=== PATIENT | female | born 1965 | race Two or more races ===

== ENCOUNTER 2024-09-20 19:40 | Emergency (ER) | payer OTHER, MEDICAID, SELFPAY ==
[2024-09-20 19:42] VITALS: BMI 35.7
[2024-09-20 20:27] VITALS: BP 122/78; PULSE 107; RESP 20; TEMP 37.2; O2SAT 90
[2024-09-20 20:54] VITALS: PULSE 93; O2SAT 93
--- NOTE | 2024-09-20 20:55 | EKG_ITS ---
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
--- NOTE | 2024-09-20 20:55 | XR_ITS ---
Examination: AP lateral chest 2 views Technique: Sitting AP lateral chest 2 views Exam date and time: September 20, 2024 2113 hrs. Comparison August 27, 2024 Indications: Onset chest pain today. Findings: Mild prominence left ventricle Mild opacity left base Prominent central enlarged pulmonary arteries with vascular congestion Early septal edema at the lung bases Impression: Early heart failure Pulmonary artery hypertension Suspicious for early pneumonia left base
--- NOTE | 2024-09-20 20:56 | PD.EDRME ---
Rapid Medical Screening Exam RME Arrival date/time: 09/20/24 19:40 58-year-old female with past medical history of rheumatoid arthritis and COPD on home oxygen presents emergency department complaining of chest pain and generalized bodyaches and pain has been ongoing for several days. Chief Complaint: General Adult/Misc Complain Time Seen by Provider: 09/20/24 20:52 Vital signs: Vital Signs Temperature 98.9 F 09/20/24 20:27 Pulse Rate 107 H 09/20/24 20:27 Respiratory Rate 20 09/20/24 20:27 Blood Pressure 122/78 09/20/24 20:27 Pulse Oximetry (%) 90 L 09/20/24 20:27 Oxygen Delivery Method Room Air 09/20/24 20:27 Vital signs reviewed by provider: Yes
[2024-09-20] MEDS: ACETAMINOPHEN 500 MG TABLET 1000 MG PO (21:02)
[2024-09-20 21:43] LABS: Basophils # (Auto) 0.1 Thou/mm3 (0.0-0.2); Basophils % (Auto) 1 % (0-2.5); Eosinophils # (Auto) 0.2 Thou/mm3 (0.0-0.5); Eosinophils % (Auto) 2 % (0-10); Hematocrit 45.3 % (36.0-46.0); Hemoglobin 15.1 g/dL (12.0-16.0); Immature Granulocytes % (Auto) 0 % (0-0); Immature Granulocytes Auto 0.03 Thou/mm3 (0.00-0.00); Lymphocytes # (Auto) 2.2 Thou/mm3 (1.0-4.8); Lymphocytes % (Auto) 21 % (10-50); Mean Corpuscular HGB Conc 33.3 g/dl (31.0-37.0); Mean Corpuscular Hemoglobin 27.6 pg (25.0-35.0); Mean Corpuscular Volume 83 fL (80-100); Monocytes # (Auto) 0.6 Thou/mm3 (0.0-0.8); Monocytes % (Auto) 6 % (0-12); Neutrophils # (Auto) 7.4 Thou/mm3 (1.8-7.7); Neutrophils % (Auto) 71 % (37-80); Nucleated Red Blood Cell % 0 /100 WBC (0); Platelet Count 291 Thou/mm3 (140-440); RDW Standard Deviation 40.5 fL (36.4-46.3); Red Blood Count 5.48 Miln/mm3 (4.00-5.20); White Blood Count 10.5 Thou/mm3 (3.6-11.0)
[2024-09-20 21:47] VITALS: BP 100/68; PULSE 88; PULSE 96; RESP 20; RESP 22; O2SAT 95; O2SAT 96
--- NOTE | 2024-09-20 21:59 | EDNOTE_ITS ---
ED General RME/HPI General Chief complaint: General Adult/Misc Complain Stated complaint: ARTHRITIS PAIN, ITCHING TO FEET Time Seen by Provider: 09/20/24 20:52 Arrival date/time: 09/20/24 19:40 RME / HPI RME / HPI narrative: 09/20/24 19:40 58-year-old female with past medical history of rheumatoid arthritis and COPD on home oxygen presents emergency department complaining of chest pain and generalized bodyaches and pain has been ongoing for several days. ------ Dr. Enrique's Main ED Evaluation: 58to female with pmhx HTN, HLD, DM, hypothyroidismm, COPD, RA, szhizoeffective disorder presents to the ED for multiple complaints. Patient states she is having a flare-up of arthritis to her right hand and is requesting a shot for pain. She also states she wants to get my heart checked due to having palpitations, shortness of breath, and chest pain due to being upset. She denies any N/V/D, fever, chills, sweating, abdominal pain, UTI symptoms or any other associated symptoms. Denies any falls or injuries. Related Data Home Medications ?Medication ?Instructions ?Recorded ?Confirmed glipizide 5 mg tablet 5 mg PO BID 06/10/19 03/19/20 levothyroxine 25 mcg tablet 25 mcg PO QDAY 06/10/19 03/19/20 atorvastatin 40 mg tablet 40 mg PO HS 11/22/19 03/19/20 duloxetine 60 mg capsule,delayed 60 mg PO QDAY 03/19/20 03/19/20 release gabapentin 300 mg capsule 300 mg PO TID 03/19/20 03/19/20 hydrochlorothiazide 12.5 mg capsule 12.5 mg PO QAM 03/19/20 03/19/20 hydrocodone 5 mg-acetaminophen 325 1 tab PO Q4H PRN Pain 03/19/20 03/19/20 mg tablet omeprazole 40 mg capsule,delayed 40 mg PO QDAY 03/19/20 03/19/20 release prednisone 10 mg tablet 30 mg PO QDAY 03/19/20 03/19/20 risperidone 2 mg tablet 2 mg PO BID 03/19/20 03/19/20 Previous Rx's ?Medication ?Instructions ?Recorded metronidazole 500 mg tablet 500 mg PO Q8H #20 tabs 03/20/20 acetaminophen 325 mg tablet 650 mg (2 x 325 mg) PO Q4H #60 tabs 03/26/20 (Tylenol) hydrocodone 5 mg-acetaminophen 325 1 tab PO BID PRN pain #6 tabs 12/30/21 mg tablet psyllium 1 tbsp PO QDAY #300 grams 03/21/23 Allergies Allergy/AdvReac Type Severity Reaction Status Date / Time levofloxacin [From Levaquin] Allergy Severe Swelling Verified 08/27/24 06:56 of Lip/Tongue/Throat methotrexate Allergy Severe Redness of Verified 08/27/24 06:56 Skin Review of Systems Review of Systems Systems Reviewed: All systems reviewed, normal except as documented Narrative Review of Systems: Gen: No fever, no chills, no weight loss EYES: No discharge, no visual changes, no pain HEENT: No ear pain, no congestion, no sore throat PULM: + shortness of breath, no cough, no congestion CV: + chest pain, no dyspnea on exertion, + palpitations GI: No nausea, no vomiting, no diarrhea, no pain, no constipation : No frequency, no urgency, no dysuria Musc/skel: No joint pain, no back pain Skin: No rash. Warm and dry. Psyc: No hallucinations, no depression Heme/Lymph: No easy bleeding or bruising tendencies Neuro: No weakness, no headache Past Medical History Past Medical History NEUROLOGIC: Positive Neurological Disorders and Nunez's Palsy CARDIAC: Positive Angina, Hypercholesterolemia and Hypertension; Negative Cardiac Disorders or Congestive Heart Failure RESPIRATORY: Positive Asthma and Pneumonia; Negative Chronic Obstructive Pulmonary Disease (COPD) GASTROINTESTINAL: Positive Gastrointestinal Disorders, Gall Bladder Disease, Diverticulitis and Hiatal Hernia GENITOURINARY: Positive Genitourinary Disorders and Kidney Stones; Negative Renal Disease REPRODUCTIVE: Positive Endometriosis and Previous Pregnancies MUSCULOSKELETAL: Positive Musculoskeletal Disorders and Rheumatoid Arthritis ENT: Positive Cataracts and Glaucoma ENDOCRINE: Positive Endocrine Disorders, Diabetes Mellitus Type 2 and Hypothyroidism; Negative Diabetes Mellitus Type 1 HEMATOLOGIC: Positive Blood Disorders, Anemia and Sickle Cell Disease OTHER HISTORY: Positive Rubella (French Measles); Negative Autoimmune Disease Family History FAMILY HISTORY: Positive Family Psychiatric Problems, Family Cardiac Disorders and Family Gastrointestinal Problems; Negative Family Respiratory Disorders, Family Cancer or Family Surgery Surgical History SURGICAL: Positive Angiogram, Abdominal Surgery and Tubal Ligation Social History SMOKING STATUS: Never smoker SECOND HAND EXPOSURE: No 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 Exam Narrative Physical exam: GEN. APPEARANCE: Patient is alert awake oriented x3 under no distress, has typical behavior of bipolar/schizoeffective disorder; does not look ill/ toxic. Patient is cooperative, but talks nonstop. VITALS: All vitals were reviewed and the pulse ox is 95% on room air, which is normal according to my interpretation. HEENT: Normocephalic, atraumatic and nontender. Pupils are equal and reactive to light and accommodation. Oral mucosa are moist. NECK: Supple, nontender, no meningismus, no JVD. CHEST: Nontender on palpation, no deformity and no crepitus. CARDIOVASCULAR: Heart regular rhythm no murmur or gallop rub or extra beats; not tachycardic. LUNGS: Clear to auscultation bilaterally with symmetrical chest rise. No laboring tachypnea or wheezing. No intercostal subcostal retraction. No rales and no rhonchi. ABDOMEN: Soft, flat, nontender at all, no guarding or rebound tenderness. There are no abnormal masses palpated. No pulsatile masses or bruits. Active and normal bowel sounds. GENITALIA: Not examined. RECTAL EXAM: Not done. EXTREMITIES: Nontender. No edema. No cyanosis. Patient has chronic deformities of her fingers to both hand, indicating chronic rheumatoid arthritis. Patient is able to move all 4 extremities well. SKIN: Warm and dry, no rashes noted. MUSCULOSKELETAL: No lumbar or midline bony tenderness. There is no CVA tenderness. No paraspinal muscle spasm or tenderness. NEURO: Cranial nerves II through XII grossly intact. There is no focalization. GCS is 15. PSYCHIATRIC: Patient is in normal mood and affect, cooperative. LYMPHATICS: No major lymphadenopathy noted. Course Course Course Narrative: CXR is ordered for determining the etiology of chest pain. Quality Measures none Orders Category Date Time Status EKG (ED ONLY) *Do not use* NOW Care 09/20/24 20:55 Completed EKG (ED Only) Stat Exams 09/20/24 20:55 Draft XR chest 2V Stat Exams 09/20/24 20:55 Completed B-Type Natriuretic Peptide Stat Lab 09/20/24 21:25 Completed CBC Stat Lab 09/20/24 21:25 Completed Comprehensive Metabolic Panel Stat Lab 09/20/24 21:25 Completed Drug Screen,Urine Stat Lab 09/20/24 22:01 Received LDH (Lactate Dehydrogenase) Stat Lab 09/20/24 21:25 Completed Magnesium Stat Lab 09/20/24 21:25 Completed Partial Thromboplastin Time Stat Lab 09/20/24 21:25 Completed Prothrombin Time with INR Stat Lab 09/20/24 21:25 Completed Troponin I Stat Lab 09/20/24 21:25 Completed Urinalysis, C/S if Indicated Stat Lab 09/20/24 22:01 Received Acetaminophen Tab [Tylenol ES Tab] Med 09/20/24 20:55 Discontinued 1,000 mg PO X1 ONE Ketorolac Inj [Toradol Inj] Med 09/20/24 22:35 Once 30 mg IM X1 ONE Vital Signs Vital signs: Vital Signs Temperature 98.9 F 09/20/24 20:27 Pulse Rate 107 H 09/20/24 20:27 Respiratory Rate 20 09/20/24 20:27 Blood Pressure 122/78 09/20/24 20:27 Pulse Oximetry (%) 90 L 09/20/24 20:27 Oxygen Delivery Method Room Air 09/20/24 20:27 Procedures -ED EKG Interpretation #1: Date of EK09/20/24 Rate: 99 Interpretation: Interpreted by me EKG Impression: Normal sinus rhythm, No acute ST-T changes, No ectopy, No ischemic changes, Sinus tachycardia, Normal intervals and Normal axis Additional EKG comment: 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 [facility] Patient data External records reviewed:: [facility] previous records (Per chart review, patient was seen here on 03/21/23 for constipation.) Clinical information provided by:: patient Social determinants that could affect healthcare access:: mental health Patient has the following chronic illnesses:: HTN, HLD, DM, hypothyroidismm, COPD, RA How is presenting disease/condition affected by chronic disease/condition?: u neffected by Evaluation data The following diagnostics were reviewed and interpreted by me:: lab results, radiology exam(s) and EKG tracing(s) Lab and/or radiology exams considered but not ordered:: none Interpretation Summary: See above under [facility] narrative. ----- [place] Report Signed Patient: MELVIN SEGURA [facility]. Record#: [id number] Birthdate: 1965 Age/Sex: 58 / F Location: [facility] Attending Dr: Ordering Physician: Marleni Barreto ([facility])Nikita Date of Service: 09/20/24 Procedure(s): XR chest 2V Accession Number(s): [id number] cc: Allan Gan MD; Marleni Barreto ([facility]),Nikita PAYTON~ Examination: AP lateral chest 2 views Technique: Sitting AP lateral chest 2 views Exam date and time: September 20, 2024 2113 hrs. Comparison August 27, 2024 Indications: Onset chest pain today. Findings: Mild prominence left ventricle Mild opacity left base Prominent central enlarged pulmonary arteries with vascular congestion Early septal edema at the lung bases Impression: Early heart failure Pulmonary artery hypertension Suspicious for early pneumonia left base Dictated By: Allan Gan MD Signed By: <Electronically signed by Allan Gan MD in OV> 09/20/242125 Medications Medications considered but not ordered:: nonese Medication administrations:: Medication Administration History Discontinued Medications Acetaminophen (Acetaminophen 500 Mg Tablet) 1,000 mg PO X1 ONE Stop: 09/20/24 20:56 Last Admin: 09/20/24 21:02 Dose: 1,000 mg Documented By: OA see above Consultations Consultation(s) initiated? (list below): No Diagnosis Differential Diagnosis ED Complaint MDM: RA, osteoarthritis, anxiety, schizoeffective disorder Most likely diagnosis given after review of the tests above:: see below Admission Indicated Admission indicated?: not indicated Explain why admission is indicated or not indicated:: See MDM. Patient is stable to be discharged and does not meet admission criteria. Admission Request Was there a request for admission?: No Disposition Plan Disposition Plan: Discharge Discharge Attestation Discharge Attestation: The patient and all family members were given an opportunity to ask questions and understood the discharge instructions. Discharge instructions specifically effects, indications for sooner follow up or return to the emergency department, and the expected course of current diagnosis. Patient condition: Stable Medical Decision Making MDM Narrative MDM Narrative: Scribe Attestation: 09/20/24 - Kelly Mcclure am scribing for and in the presence of Dr. Enrique. Patient has a history of schizoaffective disorder and she decided to come in today because she is got pain in her both hands secondary to her arthritis and she wants to get a shot of Toradol. She denies any fall or injury. She denies any other symptoms such as vomiting fever sweating. She said that she wanted her heart to be checked because she had some chest pain and heart palpitations. She wants to be placed in a halfway. She is hemodynamically stable and her vital signs are all within normal limits. She is in no distress. All her lab work is unremarkable except for her blood sugar at 290. But she is diabetic. We will give her a shot of Toradol 30 mg IM. Provider Notation: Although this document has been carefully reviewed, there may still be some phonetic and other typographical errors. These errors are purely grammatical due to imperfections in the software program and should not be construed in any way to compromise the substance of the patient's medical care during this visit. Differential Diagnosis Differential Diagnosis: RA, osteoarthritis, anxiety, schizoeffective disorder Lab Data 09/20/24 21:25 09/20/24 21:25 Labs: Lab Results 09/20/24 Range/Units 21:25 WBC 10.5 (3.6-11.0) Thou/mm3 RBC 5.48 H (4.00-5.20) Miln/mm3 Hgb 15.1 (12.0-16.0) g/dL Hct 45.3 (36.0-46.0) % MCV 83 (80-100) fL MCH 27.6 (25.0-35.0) pg MCHC 33.3 (31.0-37.0) g/dl RDW Std Deviation 40.5 (36.4-46.3) fL Plt Count 291 (140-440) Thou/mm3 Neut % (Auto) 71 (37-80) % Lymph % (Auto) 21 (10-50) % Harrison % (Auto) 6 (0-12) % Eos % (Auto) 2 (0-10) % Baso % (Auto) 1 (0-2.5) % Neut # (Auto) 7.4 (1.8-7.7) Thou/mm3 Lymph # (Auto) 2.2 (1.0-4.8) Thou/mm3 Harrison # (Auto) 0.6 (0.0-0.8) Thou/mm3 Eos # (Auto) 0.2 (0.0-0.5) Thou/mm3 Baso # (Auto) 0.1 (0.0-0.2) Thou/mm3 Immature Gran # (Auto) 0.03 H (0.00-0.00) Thou/mm3 Absolute Nucleated RBC 0.00 (0.00-0.00) Thou/mm3 Immature Gran % 0 (0-0) % Nucleated RBC % 0 (0) /100 WBC PT 10.8 (9.0-12.2) Seconds INR 1.0 (0.9-1.3) APTT 24.5 (22.0-36.0) Seconds Sodium 136 (136-145) mMol/L Potassium 3.9 (3.4-5.1) mMol/L Chloride 105 (98-107) mMol/L Carbon Dioxide 24.4 (20.0-31.0) mMol/L Anion Gap 7 (7-16) BUN 9 (9-23) mg/dL Creatinine 0.9 (0.6-1.3) mg/dL Estim Creat Clear Calc 66.7 (>60) mL/min eGFR > 60 (60 - ) See Note BUN/Creatinine Ratio 10 L (12-20) Ratio Glucose 292 H (74-106) mg/dL Calculated Osmolality 281 (275-295) Calcium 9.3 (8.3-10.6) mg/dL Corrected Calcium 9.3 (8.5-10.1) mg/dL Magnesium 1.7 (1.6-2.6) mg/dL Total Bilirubin 0.6 (0.3-1.2) mg/dL AST 18 (0-34) U/L ALT 23 (10-49) U/L Alkaline Phosphatase 132 H (46-116) U/L Lactate Dehydrogenase 206 (120-246) U/L Troponin I < 0.020 (0.0-0.045) ng/mL B-Natriuretic Peptide 44 (0-100) pg/mL Total Protein 6.7 (5.7-8.2) gm/dL Albumin 4.0 (3.5-5.0) gm/dL Globulin 2.7 (2.3-3.5) gm/dL Albumin/Globulin Ratio 1.5 (1.2-2.2) Discharge Plan Plan Patient Disposition: HOME (Self Care) Prescriptions/Referrals Prescriptions/Med Rec: No Action levothyroxine 25 mcg Tablet 25 mcg PO QDAY glipizide 5 mg Tablet 5 mg PO BID prednisone 10 mg tablet 30 mg PO QDAY Rx Instructions: START DATE 03/06/20 hydrocodone-acetaminophen 5-325 mg tablet 1 tab PO Q4H PRN (Reason: Pain) omeprazole 40 mg capsule,delayed release(DR/EC) 40 mg PO QDAY risperidone 2 mg tablet 2 mg PO BID hydrochlorothiazide 12.5 mg capsule 12.5 mg PO QAM gabapentin 300 mg capsule 300 mg PO TID duloxetine 60 mg capsule,delayed release(DR/EC) 60 mg PO QDAY metronidazole 500 mg tablet 500 mg PO Q8H Qty: 20 0RF atorvastatin 40 mg tablet 40 mg PO HS Patient Comments: take 1 tablet by mouth at bedtime acetaminophen [Tylenol] 325 mg tablet 650 mg PO Q4H Qty: 60 0RF hydrocodone-acetaminophen 5-325 mg tablet 1 tab PO BID MDD 10 PRN (Reason: pain) Qty: 6 0RF psyllium Powder 1 tbsp PO QDAY Qty: 300 0RF Rx Instructions: mix into at least 8 oz of water or juice before administering Referrals: Francisco Walker [Primary Care Provider] - 09/23/24 10:00 am Problem List Clinical Impression: Chronic polyarticular juvenile rheumatoid arthritis, Schizoaffective disorder Patient/Caregiver Discharge Instructions Education Materials: ED Schizoaffective Disorder Additional Instructions: Follow-up with your clinic in 2 to 3 days for recheck. Print Language: Czech Stand Alone Forms: [employer] Award Info., Patient Portal Info Letter
[2024-09-20 22:02] LABS: Partial Thromboplastin Time 24.5 Seconds (22.0-36.0); Prothrombin Time 10.8 Seconds (9.0-12.2)
[2024-09-20 22:04] LABS: B-Type Natriuretic Peptide 44 pg/mL (0-100)
[2024-09-20 22:15] LABS: Alanine Aminotransferase 23 U/L (10-49); Albumin/Globulin Ratio 1.5 (1.2-2.2); Alkaline Phosphatase 132 U/L (46-116); Anion Gap 7 (7-16); Aspartate Amino Transferase 18 U/L (0-34); BUN/Creatinine Ratio 10 Ratio (12-20); Bilirubin,Total 0.6 mg/dL (0.3-1.2); Blood Urea Nitrogen 9 mg/dL (9-23); Calcium 9.3 mg/dL (8.3-10.6); Calcium (Corrected) 9.3 mg/dL (8.5-10.1); Carbon Dioxide 24.4 mMol/L (20.0-31.0); Chloride 105 mMol/L (98-107); Creatinine (Component) 0.9 mg/dL (0.6-1.3); Estimated Creatinine Clearance 66.7 mL/min (>60); Globulin 2.7 gm/dL (2.3-3.5); Glucose 292 mg/dL (74-106); Magnesium 1.7 mg/dL (1.6-2.6); Osmolality,Calculated 281 (275-295); Potassium 3.9 mMol/L (3.4-5.1); Sodium 136 mMol/L (136-145); Total Protein 6.7 gm/dL (5.7-8.2); Troponin I < 0.020 ng/mL (0.0-0.045); eGFR > 60 See Note
[2024-09-20 22:27] LABS: LDH (Lactate Dehydrogenase) 206 U/L (120-246)
[2024-09-20] MEDS: KETOROLAC INJ 60 MG/2 ML VIAL 30 MG IM (22:49)
== END 2024-09-20 22:56 | disposition home or self-care (01) ==
PROVIDERS: Emergency Provider Emergency Medicine
DX: M08.3 Juvenile rheumatoid polyarthritis (seronegative) (principal); F25.9 Schizoaffective disorder, unspecified; R00.2 Palpitations; I11.0 Hypertensive heart disease with heart failure; I50.9 Heart failure, unspecified; E78.00 Pure hypercholesterolemia, unspecified
CPT/HCPCS: 36415; 71046; 80053; 80307; 81001; 83615; 83735; 83880; 84484; 85025; 85610; 85730; 93005; 96372; 99283; J1885; A9270

== ENCOUNTER 2024-09-26 01:32 | Emergency (ER) | payer OTHER, MEDICAID, SELFPAY ==
[2024-09-26 01:33] VITALS: BMI 31.1
[2024-09-26 01:39] VITALS: BP 129/81; PULSE 112; RESP 19; TEMP 37.3; O2SAT 96
--- NOTE | 2024-09-26 01:41 | EKG_ITS ---
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
--- NOTE | 2024-09-26 01:41 | XR_ITS ---
Examination: AP chest single view TECHNIQUE: AP portable sitting chest single view Exam date and time: September 26, 2024 0144 hours Comparison September 20, 2024 INDICATIONS: Shortness of breath today. FINDINGS: Mild prominence left ventricle Central pulmonary vasculature is engorged in prominent No lobar pneumonia Moderate osteopenia IMPRESSION: Suspicious for pulmonary artery hypertension Moderate vascular congestion
--- NOTE | 2024-09-26 01:44 | EDNOTE_ITS ---
ED SOB =RME/HPI General Chief Complaint: Shortness of Breath/Dyspnea Stated Complaint: SOB Time Seen by Provider: 09/26/24 01:41 Arrival date/time: 09/26/24 01:32 RME / HPI RME / HPI Narrative: This section includes all my notes and documentations, including HPI, PE, and ED course. Chilo Hills MD HPI: 58-year-old female with COPD here with about a week history of worsening cough, productive cough, purulent sputum, and dyspnea. No fever. No chest pain. No other complaints. ROS: Respiratory: negative except as documented in HPI. Gastrointestinal: negative except as documented in HPI. Genitourinary: negative except as documented in HPI. Musculoskeletal: negative except as documented in HPI. Skin: negative except as documented in HPI. Neurological: negative except as documented in HPI. Physical Exam: General: Alert and oriented. No acute distress when remaining still. Eyes: Conjunctivae and lids clear. ENT: No nasal congestion. Neck: Supple. Heart: RRR. Lungs: No respiratory distress. Moderately decreased air movement with diffuse rhonchi. Legs: No clubbing, cyanosis, edema. Skin: Warm and dry. Neuro: Alert and oriented X 3. I reviewed all diagnostic test results. My interpretation of the EKG is sinus rhythm with nonspecific ST-T changes. My interpretation of the chest x-ray is increased bronchial markings. COPD/influenza negative. At this point, diagnoses include bronchitis. Treatment here included Zithromax and prednisone and DuoNeb. Significant improvement noted subjectively and objectively. Recommended a trial of outpatient treatment. Based on my best medical judgment, made decision no further evaluation or treatment indicated at this time. Patient understands and agrees to the discharge instructions customized and printed, see below. Discharge instructions from Dr. Hills: --No physical exertion for 3 days to help rest the lungs. ?-No smoking or exposure to smoking or pets or dust or cold or humidity. --Zithromax to kill the germs causing the bronchitis. --Prednisone to help decrease the swelling in the airways. --Albuterol 2 puffs every 4-6 hours for 3 days to help keep the airways open. Then as needed for cough or shortness of breath. --See a private doctor next week for recheck. --Seek immediate medical care with worsening or with any concerns. Chilo Hills MD Related Data Home Medications ?Medication ?Instructions ?Recorded ?Confirmed glipizide 5 mg tablet 5 mg PO BID 06/10/19 03/19/20 levothyroxine 25 mcg tablet 25 mcg PO QDAY 06/10/19 03/19/20 atorvastatin 40 mg tablet 40 mg PO HS 11/22/19 03/19/20 duloxetine 60 mg capsule,delayed 60 mg PO QDAY 03/19/20 03/19/20 release gabapentin 300 mg capsule 300 mg PO TID 03/19/20 03/19/20 hydrochlorothiazide 12.5 mg capsule 12.5 mg PO QAM 03/19/20 03/19/20 hydrocodone 5 mg-acetaminophen 325 1 tab PO Q4H PRN Pain 03/19/20 03/19/20 mg tablet omeprazole 40 mg capsule,delayed 40 mg PO QDAY 03/19/20 03/19/20 release prednisone 10 mg tablet 30 mg PO QDAY 03/19/20 03/19/20 risperidone 2 mg tablet 2 mg PO BID 03/19/20 03/19/20 Previous Rx's ?Medication ?Instructions ?Recorded metronidazole 500 mg tablet 500 mg PO Q8H #20 tabs 03/20/20 acetaminophen 325 mg tablet 650 mg (2 x 325 mg) PO Q4H #60 tabs 03/26/20 (Tylenol) hydrocodone 5 mg-acetaminophen 325 1 tab PO BID PRN pain #6 tabs 12/30/21 mg tablet psyllium 1 tbsp PO QDAY #300 grams 03/21/23 albuterol sulfate 90 mcg/actuation 2 inh inhalation QID PRN shortness 09/26/24 aerosol inhaler of breath or wheezing #8.5 grams azithromycin 500 mg tablet 500 mg PO QDAY 3 days #3 tabs 09/26/24 (Zithromax TRI-SANTHOSH) prednisone 50 mg tablet 50 mg PO QDAY #3 tabs 09/26/24 Allergies Allergy/AdvReac Type Severity Reaction Status Date / Time levofloxacin [From Levaquin] Allergy Severe Swelling Verified 09/26/24 01:36 of Lip/Tongue/Throat methotrexate Allergy Severe Redness of Verified 09/26/24 01:36 Skin Course Quality Measures none Orders Category Date Time Status Bedside COVID-19 Antigen Test NOW Care 09/26/24 01:41 Active Bedside Influenza A&B Antigen Test NOW Care 09/26/24 01:41 Completed EKG (ED ONLY) *Do not use* NOW Care 09/26/24 01:41 Completed EKG (ED Only) Stat Exams 09/26/24 01:41 Draft XR chest 1V portable Stat Exams 09/26/24 01:41 Taken Albuterol/Ipratr Rt Ofelia [Duoneb Rt Ofelia] Med 09/26/24 01:42 Discontinued 3 ml INH X1 ONE Azithromycin Po [Zithromax PO] Med 09/26/24 02:31 Discontinued 500 mg PO X1 ONE DiphenhydrAMINE [Benadryl] Med 09/26/24 01:42 Discontinued 50 mg PO X1 ONE predniSONE Med 09/26/24 01:42 Discontinued 60 mg PO X1 ONE Vital Signs Vital signs: Vital Signs Temperature 99.1 F 09/26/24 01:39 Pulse Rate 112 H 09/26/24 01:39 Respiratory Rate 19 09/26/24 01:39 Blood Pressure 129/81 09/26/24 01:39 Pulse Oximetry (%) 96 09/26/24 01:39 Oxygen Delivery Method Room Air 09/26/24 01:39 Shortness of Breath / Dyspnea Patient data External records reviewed:: [facility] previous records Clinical information provided by:: patient Social determinants that could affect healthcare access:: none Patient has the following chronic illnesses:: COPD How is presenting disease/condition affected by chronic disease/condition?: exacerbated by Evaluation data The following diagnostics were reviewed and interpreted by me:: lab results, radiology exam(s) and EKG tracing(s) (My interpretation of the EKG is: Sinus rhythm (107 bpm) with nonspecific ST-T changes. Chilo Hills MD) Lab and/or radiology exams considered but not ordered:: None Interpretation Summary: Bronchitis Medications / Prescriptions Medications or Prescriptions considered but not ordered:: None Medication administrations:: Medication Administration History Discontinued Medications Albuterol/Ipratropium (Albuterol/Ipratropium (Duoneb) Rt Ofelia 3 Ml Nebu) 3 ml INH X1 ONE Stop: 09/26/24 01:43 Azithromycin (Azithromycin 250 Mg Tablet) 500 mg PO X1 ONE Stop: 09/26/24 02:32 Diphenhydramine HCl (Diphenhydramine 25 Mg Capsule) 50 mg PO X1 ONE Stop: 09/26/24 01:43 Last Admin: 09/26/24 02:06 Dose: 50 mg Documented By: MIGUELINA Prednisone (Prednisone 20 Mg Tablet) 60 mg PO X1 ONE Stop: 09/26/24 01:43 Last Admin: 09/26/24 02:06 Dose: 60 mg Documented By: MIGUELINA Zithromax and prednisone and DuoNeb Consultations Consultation(s) initiated? (list below): No Diagnosis Shortness of Breath Differential Diagnosis: acute exacerbation of chronic obstructive airways disease, congestive heart failure, community acquired pneumonia and asthma with exacerbation Most likely diagnosis given after review of the tests above:: Bronchitis Admission Indicated Admission indicated?: not indicated Explain why admission is indicated or not indicated:: Admission criteria not met Admission Request Was there a request for admission?: No Disposition Plan Disposition Plan: Discharge Discharge Attestation Discharge Attestation: The patient and all family members were given an opportunity to ask questions and understood the discharge instructions. Discharge instructions specifically effects, indications for sooner follow up or return to the emergency department, and the expected course of current diagnosis. Patient condition: Stable Discharge Plan Plan Patient Disposition: HOME (Self Care) Prescriptions/Referrals Prescriptions/Med Rec: New albuterol sulfate 90 mcg/actuation HFA aerosol inhaler 2 inh inhalation QID PRN (Reason: shortness of breath or wheezing) Qty: 8.5 0RF azithromycin [Zithromax TRI-SANTHOSH] 500 mg tablet 500 mg PO QDAY 3 Days Qty: 3 0RF prednisone 50 mg tablet 50 mg PO QDAY Qty: 3 0RF No Action levothyroxine 25 mcg Tablet 25 mcg PO QDAY glipizide 5 mg Tablet 5 mg PO BID prednisone 10 mg tablet 30 mg PO QDAY Rx Instructions: START DATE 03/06/20 hydrocodone-acetaminophen 5-325 mg tablet 1 tab PO Q4H PRN (Reason: Pain) omeprazole 40 mg capsule,delayed release(DR/EC) 40 mg PO QDAY risperidone 2 mg tablet 2 mg PO BID hydrochlorothiazide 12.5 mg capsule 12.5 mg PO QAM gabapentin 300 mg capsule 300 mg PO TID duloxetine 60 mg capsule,delayed release(DR/EC) 60 mg PO QDAY metronidazole 500 mg tablet 500 mg PO Q8H Qty: 20 0RF atorvastatin 40 mg tablet 40 mg PO HS Patient Comments: take 1 tablet by mouth at bedtime acetaminophen [Tylenol] 325 mg tablet 650 mg PO Q4H Qty: 60 0RF hydrocodone-acetaminophen 5-325 mg tablet 1 tab PO BID MDD 10 PRN (Reason: pain) Qty: 6 0RF psyllium Powder 1 tbsp PO QDAY Qty: 300 0RF Rx Instructions: mix into at least 8 oz of water or juice before administering Referrals: No Primary/Family,Physician [Primary Care Provider] - In 1 week Problem List Clinical Impression: Bronchitis Patient/Caregiver Discharge Instructions Discharge Activity: activity as tolerated Education Materials: ED Bronchitis with Wheezing (Adult) Additional Instructions: Discharge instructions from Dr. Hills: --No physical exertion for 3 days to help rest the lungs. ?-No smoking or exposure to smoking or pets or dust or cold or humidity. --Zithromax to kill the germs causing the bronchitis. --Prednisone to help decrease the swelling in the airways. --Albuterol 2 puffs every 4-6 hours for 3 days to help keep the airways open. Then as needed for cough or shortness of breath. --See a private doctor next week for recheck. --Seek immediate medical care with worsening or with any concerns. Print Language: Georgian Stand Alone Forms: Hilda Award Info., Patient Portal Info Letter
[2024-09-26] MEDS: predniSONE 20 MG TABLET 60 MG PO (02:06)
[2024-09-26] MEDS: DiphenhydrAMINE 25 MG CAPSULE 50 MG PO (02:06)
[2024-09-26 02:24] VITALS: PULSE 88; RESP 20; O2SAT 99
[2024-09-26] MEDS: ALBUTEROL/IPRATROPIUM (Duoneb) RT SOL 3 ML NEBU INH (02:24)
[2024-09-26] MEDS: AZITHROMYCIN 250 MG TABLET 500 MG PO (02:43)
[2024-09-26 03:00] VITALS: RESP 18; O2SAT 99
== END 2024-09-26 03:00 | disposition home or self-care (01) ==
PROVIDERS: Emergency Provider Emergency Medicine
DX: J40 Bronchitis, not specified as acute or chronic (principal); R00.0 Tachycardia, unspecified
CPT/HCPCS: 71045; 87400; 87811; 93005; 94640; 99283; A9270; J7512

== ENCOUNTER 2024-09-27 04:05 | Emergency (ER) | payer OTHER, MEDICAID, SELFPAY ==
[2024-09-27 04:05] VITALS: BP 135/82; PULSE 97; RESP 18; TEMP 36.8; O2SAT 95; BMI 35.7
--- NOTE | 2024-09-27 04:22 | PD.EDSOB ---
ED SOB =RME/HPI General Chief Complaint: Shortness of Breath/Dyspnea Stated Complaint: SOB; REQUESTING BREATHING TX. HX COPD Time Seen by Provider: 09/27/24 04:16 Arrival date/time: 09/27/24 04:05 58 year old female present to emergency room with c/o of shortness of breath tonight. history of COPD and recently diagnosed with bronchitis 1 week ago. symptoms are consisted with her COPD per patient. SEVERITY: Symptoms are described as being severe with limitations on activities of daily living CONTEXT: The patient is unable to identify any inciting events. DURATION/TIMING: The symptoms started approximately 1 day ASSOCIATED SYMPTOMS: The patient is unable to identify any other associated symptoms. MODIFYING FACTORS: The patient is unable to identify any alleviating or aggravating symptoms. PERTINENT ROS: no fevers, no cough, no pleuritic pain, no ripping or tearing sensations, denies any lower extremity edema and no unilateral swelling, no chest pain no nausea,vomiting, diarrhea, no dizziness/headache no rash no loc/syncope episode no abd/back pain no dsyuria,urgency,frequency REVIEW OF SYSTEMS: See History of Present Illness - with the exception of those mentioned in the history of present illness, all other systems reviewed and reported as negative GENERAL: In general the patient is awake, interactive, in an emergency department gurney. HEAD/EYES/EARS/NOSE/THROAT: normo-cephalic, atraumatic, mucus membranes are moist, anicteric, palpebral conjunctiva is pink, trachea is midline. CARDIOVASCULAR: regular rate and regular rhythm, no murmurs, heart sounds are not distant, strong pulses in all four extremities that are equal and symmetric bilateral upper and lower extremities, normal capillary refill. CHEST/PULMONARY: normal chest rise and fall, good air movement, clear to auscultation bilaterally, normal inspiratory to expiratory ratios without evidence of respiratory distress. NECK: No midline/Paraspinal tenderness, no step off ROM/Strenght intact No Kernig and bruzinski sign. No trauma ABDOMEN: soft, not tender, no masses appreciated BACK: normal range of motion without pain. NEUROLOGICAL: cranio-facial features are symmetric, moves all four extremities equally without obvious limitations or weakness. EXTREMITY: no tenderness to palpation over the long bones or large joints of the bilateral upper and lower extremities, no joint swelling, no joint erythema, no signs of trauma, no unilateral leg swelling and no peripheral edema. SKIN: warm, dry, well-perfused, no jaundice, no rash, no telangiectasias or petechia. PSYCH: calm, cooperative, no evidence of psychosis or agitation Related Data Home Medications ?Medication ?Instructions ?Recorded ?Confirmed glipizide 5 mg tablet 5 mg PO BID 06/10/19 03/19/20 levothyroxine 25 mcg tablet 25 mcg PO QDAY 06/10/19 03/19/20 atorvastatin 40 mg tablet 40 mg PO HS 11/22/19 03/19/20 duloxetine 60 mg capsule,delayed 60 mg PO QDAY 03/19/20 03/19/20 release gabapentin 300 mg capsule 300 mg PO TID 03/19/20 03/19/20 hydrochlorothiazide 12.5 mg capsule 12.5 mg PO QAM 03/19/20 03/19/20 hydrocodone 5 mg-acetaminophen 325 1 tab PO Q4H PRN Pain 03/19/20 03/19/20 mg tablet omeprazole 40 mg capsule,delayed 40 mg PO QDAY 03/19/20 03/19/20 release prednisone 10 mg tablet 30 mg PO QDAY 03/19/20 03/19/20 risperidone 2 mg tablet 2 mg PO BID 03/19/20 03/19/20 Previous Rx's ?Medication ?Instructions ?Recorded metronidazole 500 mg tablet 500 mg PO Q8H #20 tabs 03/20/20 acetaminophen 325 mg tablet 650 mg (2 x 325 mg) PO Q4H #60 tabs 03/26/20 (Tylenol) hydrocodone 5 mg-acetaminophen 325 1 tab PO BID PRN pain #6 tabs 12/30/21 mg tablet psyllium 1 tbsp PO QDAY #300 grams 03/21/23 albuterol sulfate 90 mcg/actuation 2 inh inhalation QID PRN shortness 09/26/24 aerosol inhaler of breath or wheezing #8.5 grams azithromycin 500 mg tablet 500 mg PO QDAY 3 days #3 tabs 09/26/24 (Zithromax TRI-SANTHOSH) prednisone 50 mg tablet 50 mg PO QDAY #3 tabs 09/26/24 Allergies Allergy/AdvReac Type Severity Reaction Status Date / Time levofloxacin [From Levaquin] Allergy Severe Swelling Verified 09/27/24 04:07 of Lip/Tongue/Throat methotrexate Allergy Severe Redness of Verified 09/27/24 04:07 Skin Course Quality Measures none Orders Category Date Time Status Albuterol/Ipratr Rt Ofelia [Duoneb Rt Ofelia] Med 09/27/24 04:17 Discontinued 3 ml INH X1 ONE Vital Signs Vital signs: Vital Signs Temperature 98.2 F 09/27/24 04:05 Pulse Rate 97 09/27/24 04:05 Respiratory Rate 18 09/27/24 04:05 Blood Pressure 135/82 H 09/27/24 04:05 Pulse Oximetry (%) 95 09/27/24 04:05 Oxygen Delivery Method Room Air 09/27/24 04:05 Shortness of Breath / Dyspnea Patient data External records reviewed:: [facility] previous records Clinical information provided by:: patient Social determinants that could affect healthcare access:: none Patient has the following chronic illnesses:: COPD, Bronchitis DM How is presenting disease/condition affected by chronic disease/condition?: exacerbated by Evaluation data The following diagnostics were reviewed and interpreted by me:: other (specify) (review previous visit records. ) Lab and/or radiology exams considered but not ordered:: none Interpretation Summary: none Medications / Prescriptions Medications or Prescriptions considered but not ordered:: NONE Medication administrations:: Medication Administration History Discontinued Medications Albuterol/Ipratropium (Albuterol/Ipratropium (Duoneb) Rt Ofelia 3 Ml Nebu) 3 ml INH X1 ONE Stop: 09/27/24 04:18 Last Admin: 09/27/24 04:42 Dose: 3 ml Documented By: WIL STATED ABOVE Consultations Consultation(s) initiated? (list below): No Diagnosis Shortness of Breath Differential Diagnosis: acute exacerbation of chronic obstructive airways disease, asthma with exacerbation and other (bronchitis ) Most likely diagnosis given after review of the tests above:: copd/bronchitis Admission Indicated Admission indicated?: not indicated Admission Request Was there a request for admission?: No Disposition Plan Disposition Plan: Discharge Discharge Attestation Discharge Attestation: The patient and all family members were given an opportunity to ask questions and understood the discharge instructions. Discharge instructions specifically effects, indications for sooner follow up or return to the emergency department, and the expected course of current diagnosis. Patient condition: Stable Discharge Plan Plan Patient Disposition: HOME (Self Care) Health Concerns: Follow with PMD as directed Return to ED if sx worsen Prescriptions/Referrals Prescriptions/Med Rec: No Action levothyroxine 25 mcg Tablet 25 mcg PO QDAY glipizide 5 mg Tablet 5 mg PO BID prednisone 10 mg tablet 30 mg PO QDAY Rx Instructions: START DATE 03/06/20 hydrocodone-acetaminophen 5-325 mg tablet 1 tab PO Q4H PRN (Reason: Pain) omeprazole 40 mg capsule,delayed release(DR/EC) 40 mg PO QDAY risperidone 2 mg tablet 2 mg PO BID hydrochlorothiazide 12.5 mg capsule 12.5 mg PO QAM gabapentin 300 mg capsule 300 mg PO TID duloxetine 60 mg capsule,delayed release(DR/EC) 60 mg PO QDAY metronidazole 500 mg tablet 500 mg PO Q8H Qty: 20 0RF atorvastatin 40 mg tablet 40 mg PO HS Patient Comments: take 1 tablet by mouth at bedtime acetaminophen [Tylenol] 325 mg tablet 650 mg PO Q4H Qty: 60 0RF hydrocodone-acetaminophen 5-325 mg tablet 1 tab PO BID MDD 10 PRN (Reason: pain) Qty: 6 0RF psyllium Powder 1 tbsp PO QDAY Qty: 300 0RF Rx Instructions: mix into at least 8 oz of water or juice before administering albuterol sulfate 90 mcg/actuation HFA aerosol inhaler 2 inh inhalation QID PRN (Reason: shortness of breath or wheezing) Qty: 8.5 0RF azithromycin [Zithromax TRI-SANTHOSH] 500 mg tablet 500 mg PO QDAY 3 Days Qty: 3 0RF prednisone 50 mg tablet 50 mg PO QDAY Qty: 3 0RF Problem List Clinical Impression: Bronchitis Patient/Caregiver Discharge Instructions Education Materials: Preventing Common Respiratory ... Print Language: Beninese Stand Alone Forms: Hilda Award Info., Patient Portal Info Letter
[2024-09-27 04:42] VITALS: PULSE 78; RESP 20; O2SAT 99
[2024-09-27] MEDS: ALBUTEROL/IPRATROPIUM (Duoneb) RT SOL 3 ML NEBU INH (04:42)
== END 2024-09-27 05:06 | disposition home or self-care (01) ==
PROVIDERS: Emergency Provider Emergency Medicine
DX: J44.89 Other specified chronic obstructive pulmonary disease (principal)
CPT/HCPCS: 94640; 99283; A9270

== ENCOUNTER 2024-09-27 13:51 | Emergency (ER) | payer OTHER, MEDICAID, SELFPAY ==
[2024-09-27 13:51] VITALS: BMI 35.7
[2024-09-27 14:04] VITALS: BP 126/87; PULSE 79; RESP 18; TEMP 36.7; O2SAT 98
[2024-09-27 14:40] LABS: Collection Type, Urine Clean Catch; Squamous Epithelial Cell,Urine 0 /hpf (0-5)
[2024-09-27 14:50] LABS: Amorphous Crystals,Urine Present (Absent); Bacteria,Urine 2+; Bilirubin,Urine Negative (Negative); Blood,Urine Negative (Negative); Budding Yeast,Urine Present; Color,Urine Yellow (Lt Yel-Yel); Glucose, Urine Negative (Negative); Hyaline Casts,Urine < 1 /hpf (0-1); Ketones,Urine Negative (Negative); Leukocyte Esterase,Urine Positive (Negative); Nitrite,Urine Positive (Negative); Protein,Urine Trace (Neg - Trace); RBC,Urine 10 /hpf (0-3); Urobilinogen,Urine Negative mg/dL (0.0-1.0); WBC,Urine 103 /hpf (0-5)
[2024-09-27 14:51] LABS: Clarity,Urine Hazy (Clear/Hazy); Culture Indicated,Urine Yes
--- NOTE | 2024-09-27 14:56 | EDNOTE_ITS ---
ED General RME/HPI General Chief complaint: General Adult/Misc Complain Stated complaint: I THINK I'M GOING SEPTIC D/C EARLIER TODAY Time Seen by Provider: 09/27/24 14:56 Arrival date/time: 09/27/24 13:51 58-year-old female seen earlier today presents emergency department complains of cough and congestion patient was reports she believes she is UTI patient reports no fever or vomiting Limitations: no limitations Related Data Home Medications ?Medication ?Instructions ?Recorded ?Confirmed glipizide 5 mg tablet 5 mg PO BID 06/10/19 03/19/20 levothyroxine 25 mcg tablet 25 mcg PO QDAY 06/10/19 03/19/20 atorvastatin 40 mg tablet 40 mg PO HS 11/22/19 03/19/20 duloxetine 60 mg capsule,delayed 60 mg PO QDAY 03/19/20 03/19/20 release gabapentin 300 mg capsule 300 mg PO TID 03/19/20 03/19/20 hydrochlorothiazide 12.5 mg capsule 12.5 mg PO QAM 03/19/20 03/19/20 hydrocodone 5 mg-acetaminophen 325 1 tab PO Q4H PRN Pain 03/19/20 03/19/20 mg tablet omeprazole 40 mg capsule,delayed 40 mg PO QDAY 03/19/20 03/19/20 release prednisone 10 mg tablet 30 mg PO QDAY 03/19/20 03/19/20 risperidone 2 mg tablet 2 mg PO BID 03/19/20 03/19/20 Previous Rx's ?Medication ?Instructions ?Recorded metronidazole 500 mg tablet 500 mg PO Q8H #20 tabs 03/20/20 acetaminophen 325 mg tablet 650 mg (2 x 325 mg) PO Q4H #60 tabs 03/26/20 (Tylenol) hydrocodone 5 mg-acetaminophen 325 1 tab PO BID PRN pain #6 tabs 12/30/21 mg tablet psyllium 1 tbsp PO QDAY #300 grams 03/21/23 albuterol sulfate 90 mcg/actuation 2 inh inhalation QID PRN shortness 09/26/24 aerosol inhaler of breath or wheezing #8.5 grams azithromycin 500 mg tablet 500 mg PO QDAY 3 days #3 tabs 09/26/24 (Zithromax TRI-SANTHOSH) prednisone 50 mg tablet 50 mg PO QDAY #3 tabs 09/26/24 fluconazole 150 mg tablet 150 mg PO Q3D 2 doses #2 tabs 09/27/24 sulfamethoxazole 800 1 tab PO BID 7 days #14 tabs 09/27/24 mg-trimethoprim 160 mg tablet (Bactrim DS) Allergies Allergy/AdvReac Type Severity Reaction Status Date / Time levofloxacin [From Levaquin] Allergy Severe Swelling Verified 09/27/24 04:07 of Lip/Tongue/Throat methotrexate Allergy Severe Redness of Verified 09/27/24 04:07 Skin Review of Systems Review of Systems Systems Reviewed: All systems reviewed, normal except as documented Constitutional Constitutional: Reports system reviewed and no additional complaints, except as documented, Denies fever(s) and Denies headache(s) Eyes Eyes: Reports system reviewed and no additional complaints, except as documented and Denies blurry vision ENT Ears, Nose, Mouth, and Throat: Reports system reviewed and no additional complaints, except as documented, Denies headache(s), Denies nasal congestion and Denies nasal discharge Cardiovascular Cardiovascular: Reports system reviewed and no additional complaints, except as documented, Denies chest pain and Denies dyspnea Respiratory Respiratory: Reports system reviewed and no additional complaints, except as documented, Reports chest congestion, Reports cough and Denies dyspnea Gastrointestinal Gastrointestinal: Reports system reviewed and no additional complaints, except as documented and Denies abdominal pain Genitourinary Genitourinary: Reports system reviewed and no additional complaints, except as documented and Reports dysuria Integumentary/Breasts Skin/Breast: Reports system reviewed and no additional complaints, except as documented and Denies rash Neurologic Neurologic: Reports system reviewed and no additional complaints, except as documented, Reports as per HPI and Denies headache(s) Past Medical History Past Medical History NEUROLOGIC: Positive Neurological Disorders and Nunez's Palsy CARDIAC: Positive Angina, Hypercholesterolemia and Hypertension; Negative Cardiac Disorders or Congestive Heart Failure RESPIRATORY: Positive Asthma and Pneumonia; Negative Chronic Obstructive Pulmonary Disease (COPD) GASTROINTESTINAL: Positive Gastrointestinal Disorders, Gall Bladder Disease, Diverticulitis and Hiatal Hernia GENITOURINARY: Positive Genitourinary Disorders and Kidney Stones; Negative Renal Disease REPRODUCTIVE: Positive Endometriosis and Previous Pregnancies MUSCULOSKELETAL: Positive Musculoskeletal Disorders and Rheumatoid Arthritis ENT: Positive Cataracts and Glaucoma ENDOCRINE: Positive Endocrine Disorders, Diabetes Mellitus Type 2 and Hypothyroidism; Negative Diabetes Mellitus Type 1 HEMATOLOGIC: Positive Blood Disorders, Anemia and Sickle Cell Disease OTHER HISTORY: Positive Rubella (Faroese Measles); Negative Autoimmune Disease Family History FAMILY HISTORY: Positive Family Psychiatric Problems, Family Cardiac Disorders and Family Gastrointestinal Problems; Negative Family Respiratory Disorders, Family Cancer or Family Surgery Surgical History SURGICAL: Positive Angiogram, Abdominal Surgery and Tubal Ligation Social History SMOKING STATUS: Never smoker SECOND HAND EXPOSURE: No 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 Exam General Limitations: Present no limitations General appearance: Present alert and in no apparent distress Head Head exam: Present atraumatic Eye Eye exam: Present normal appearance, PERRL and EOMI; Absent conjunctival injection ENT ENT exam: Present normal exam, normal oropharynx and mucous membranes moist Neck Neck exam: Present normal inspection, full ROM and trachea midline Chest Chest inspection: Present normal inspection and symmetric chest wall rise Respiratory Respiratory exam: Present normal lung sounds bilaterally; Absent respiratory distress Cardiovascular Cardiovascular exam: Present regular rate, normal rhythm and normal heart sounds Abdominal Exam Abdominal exam: Present soft and normal bowel sounds; Absent distention, tenderness, guarding, rebound or rigidity Extremities Exam Extremities exam: Present normal inspection, full ROM and normal capillary refill Back Exam Back exam: Present normal inspection and full ROM Neurological Exam Neurological exam: Present alert, oriented X3, CN II-XII intact, normal gait and reflexes normal; Absent motor sensory deficit Psychiatric Psychiatric exam: Present normal affect and normal mood Skin Skin exam: Present warm, dry, intact and normal color; Absent rash Course Quality Measures none Orders Category Date Time Status UA, C/S IF [Urinalysis, C/S if Indicated] Stat Lab 09/27/24 13:56 Completed Urine Culture Stat Lab 09/27/24 13:56 Received Fluconazole [Diflucan] Med 09/27/24 14:56 Discontinued 150 mg PO X1 ONE Lidocaine 1% 20 ml [Xylocaine 1% 20 ML] Med 09/27/24 14:56 Discontinued 2.1 ml INFL X1 ONE cefTRIAXone [Rocephin] Med 09/27/24 14:56 Discontinued 1,000 mg IM X1 ONE Vital Signs Vital signs: Vital Signs Temperature 98.1 F 09/27/24 14:04 Pulse Rate 79 09/27/24 14:04 Respiratory Rate 18 09/27/24 14:04 Blood Pressure 126/87 H 09/27/24 14:04 Pulse Oximetry (%) 98 09/27/24 14:04 Oxygen Delivery Method Room Air 09/27/24 14:04 O2 saturation 98% room air with normal limits MDM Patient data External records reviewed:: [facility] previous records Clinical information provided by:: patient Social determinants that could affect healthcare access:: none Patient has the following chronic illnesses:: See history How is presenting disease/condition affected by chronic disease/condition?: uneffected by Evaluation data The following diagnostics were reviewed and interpreted by me:: lab results Lab and/or radiology exams considered but not ordered:: Labs obtained Interpretation Summary: Reviewed by me Medications Medications considered but not ordered:: Given Medication administrations:: Medication Administration History Discontinued Medications Ceftriaxone Sodium (Ceftriaxone Sod Inj 1,000 Mg Vial) 1,000 mg IM X1 ONE Stop: 09/27/24 14:57 Last Admin: 09/27/24 15:02 Dose: 1,000 mg Documented By: CONNER Fluconazole (Fluconazole 150 Mg Tablet) 150 mg PO X1 ONE Stop: 09/27/24 14:57 Last Admin: 09/27/24 15:02 Dose: 150 mg Documented By: CONNER Lidocaine HCl (Lidocaine Hcl 1% 20 Ml Vial) 2.1 ml INFL X1 ONE Stop: 09/27/24 14:57 Last Admin: 09/27/24 15:02 Dose: 2.1 ml Documented By: CONNER Given Consultations Consultation(s) initiated? (list below): No Diagnosis Differential Diagnosis ED Complaint MDM: UTI, pyelonephritis, URI Most likely diagnosis given after review of the tests above:: UTI Admission Indicated Admission indicated?: not indicated Explain why admission is indicated or not indicated:: No criteria Admission Request Was there a request for admission?: No Disposition Plan Disposition Plan: Discharge Discharge Attestation Discharge Attestation: The patient and all family members were given an opportunity to ask questions and understood the discharge instructions. Discharge instructions specifically effects, indications for sooner follow up or return to the emergency department, and the expected course of current diagnosis. Patient condition: Stable Medical Decision Making [facility] Narrative MDM Narrative: 58-year-old female seen earlier today presents emergency department complains of cough and congestion patient was reports she believes she is UTI patient reports no fever or vomiting On exam patient well-appearing patient is not appear ill or toxic patient's not appear in acute distress UA obtained Urinalysis consistent with UTI as well as yeast infection Patient given fluconazole as well as Rocephin here in the emergency department Patient discharged home in no distress to follow-up with primary care doctor in the next 24 to 48 hours and for any worsening symptoms to return to the ER immediately Differential Diagnosis Differential Diagnosis: UTI, pyelonephritis, URI Medical Records Medical records reviewed: Yes I reviewed the patient's medical records. Lab Data Lab results reviewed: Yes I reviewed the patient's lab results. Labs: Lab Results 09/27/24 Range/Units 13:56 Ur Collection Type Clean Catch Urine Color Yellow (Lt Yel-Yel) Urine Clarity Hazy (Clear/Hazy) Urine pH 7.0 (5.0-7.0) Ur Specific [place] 1.020 (1.001-1.035) Urine Protein Trace (Neg - Trace) Urine Glucose (UA) Negative (Negative) Urine Ketones Negative (Negative) Urine Blood Negative (Negative) Urine Nitrite Positive (Negative) Urine Bilirubin Negative (Negative) Urine Urobilinogen (Auto) Negative (0.0-1.0) mg/dL Ur Leukocyte Esterase Positive (Negative) Urine RBC 10 H (0-3) /hpf Urine WBC 103 H (0-5) /hpf Ur Squamous Epith Cells 0 (0-5) /hpf Amorphous Crystals Present A (Absent) Urine Bacteria 2+ A (None) Hyaline Casts < 1 (0-1) /hpf Urine Yeast (Budding) Present A (None) Ur Culture Indicated? Yes Discharge Plan Plan Patient Disposition: HOME (Self Care) Disposition Comment: Stable Prescriptions/Referrals Prescriptions/Med Rec: New sulfamethoxazole-trimethoprim [Bactrim DS] 800-160 mg tablet 1 tab PO BID 7 Days Qty: 14 0RF fluconazole 150 mg tablet 150 mg PO Q3D Qty: 2 0RF No Action levothyroxine 25 mcg Tablet 25 mcg PO QDAY glipizide 5 mg Tablet 5 mg PO BID prednisone 10 mg tablet 30 mg PO QDAY Rx Instructions: START DATE 03/06/20 hydrocodone-acetaminophen 5-325 mg tablet 1 tab PO Q4H PRN (Reason: Pain) omeprazole 40 mg capsule,delayed release(DR/EC) 40 mg PO QDAY risperidone 2 mg tablet 2 mg PO BID hydrochlorothiazide 12.5 mg capsule 12.5 mg PO QAM gabapentin 300 mg capsule 300 mg PO TID duloxetine 60 mg capsule,delayed release(DR/EC) 60 mg PO QDAY metronidazole 500 mg tablet 500 mg PO Q8H Qty: 20 0RF atorvastatin 40 mg tablet 40 mg PO HS Patient Comments: take 1 tablet by mouth at bedtime acetaminophen [Tylenol] 325 mg tablet 650 mg PO Q4H Qty: 60 0RF hydrocodone-acetaminophen 5-325 mg tablet 1 tab PO BID MDD 10 PRN (Reason: pain) Qty: 6 0RF psyllium Powder 1 tbsp PO QDAY Qty: 300 0RF Rx Instructions: mix into at least 8 oz of water or juice before administering albuterol sulfate 90 mcg/actuation HFA aerosol inhaler 2 inh inhalation QID PRN (Reason: shortness of breath or wheezing) Qty: 8.5 0RF azithromycin [Zithromax TRI-SANTHOSH] 500 mg tablet 500 mg PO QDAY 3 Days Qty: 3 0RF prednisone 50 mg tablet 50 mg PO QDAY Qty: 3 0RF Referrals: Francisco Walker [Primary Care Provider] - In 1 week Problem List Clinical Impression: UTI (urinary tract infection), Vaginal yeast infection Patient/Caregiver Discharge Instructions Education Materials: Vaginal Infection Additional Instructions: Please follow up with your primary care doctor in the next 24-48hrs for any worsening symptoms return here immediately Print Language: Gabonese Stand Alone Forms: [employer] Award Info., Patient Portal Info Letter Attestation Attestation The patient was seen by the midlevel practitioner. I, the co-signing physician, was present during the entire ER visit. While I did not physically examine the patient, I was available for consultation as needed.
[2024-09-27] MEDS: LIDOCAINE HCL 1% 20 ML VIAL 2.1 ML INFL (15:02)
[2024-09-27] MEDS: FLUCONAZOLE 150 MG TABLET PO (15:02)
[2024-09-27] MEDS: cefTRIAXone SOD INJ 1,000 MG VIAL 1000 MG IM (15:02)
== END 2024-09-27 15:24 | disposition home or self-care (01) ==
PROVIDERS: Nurse Practitioner Primary Care; Emergency Provider Emergency Medicine
DX: N39.0 Urinary tract infection, site not specified (principal); B37.31 Acute candidiasis of vulva and vagina
CPT/HCPCS: 81001; 87077; 87086; 87186; 96372; 99283; J0696; J3490; A9270

== ENCOUNTER 2025-01-19 14:27 | Emergency (ER) | payer OTHER, MEDICAID, SELFPAY ==
[2025-01-19 14:28] VITALS: BMI 33.2
[2025-01-19 15:11] VITALS: BP 132/90; PULSE 96; RESP 20; TEMP 37.3; O2SAT 95; BMI 34.0
--- NOTE | 2025-01-19 15:12 | XR_ITS ---
Examination: PA lateral chest 2 views TECHNIQUE: Upright PA lateral chest 2 views Exam date and time: January 19, 2025 1524 hours Comparison September 26, 2024, March 18, 2020 FINDINGS: Prominent central pulmonary arteries Mild prominence left ventricle No pneumonia or pulmonary edema Old appearing right-sided bilateral rib fractures IMPRESSION: Findings most consistent with pulmonary artery hypertension but clinical correlation advised
--- NOTE | 2025-01-19 15:13 | PD.EDRME ---
Rapid Medical Screening Exam E Arrival date/time: 01/19/25 14:27 59-year-old female presents emergency department complaints of tingling sensation and bodyaches as well as cough and shortness of breath Chief Complaint: Shortness of Breath/Dyspnea Vital signs: Vital Signs Temperature 99.1 F 01/19/25 15:11 Pulse Rate 96 01/19/25 15:11 Respiratory Rate 20 01/19/25 15:11 Blood Pressure 132/90 H 01/19/25 15:11 Pulse Oximetry (%) 95 01/19/25 15:11 Oxygen Delivery Method Room Air 01/19/25 15:11
[2025-01-19 15:39] LABS: Collection Type, Urine Clean Catch
[2025-01-19 15:43] LABS: Bilirubin,Urine Negative (Negative); Blood,Urine Negative (Negative); Clarity,Urine Clear (Clear/Hazy); Color,Urine Lt-Yellow (Lt Yel-Yel); Culture Indicated,Urine Not Indicated; Glucose, Urine Negative (Negative); Ketones,Urine Negative (Negative); Leukocyte Esterase,Urine Positive (Negative); Nitrite,Urine Negative (Negative); PH,Urine 7.5 (5.0-7.0); Protein,Urine Negative (Neg - Trace); RBC,Urine 1 /hpf (0-3); Specific Gravity,Urine 1.013 (1.001-1.035); Squamous Epithelial Cell,Urine 1 /hpf (0-5); Urobilinogen,Urine Negative mg/dL (0.0-1.0); WBC,Urine 2 /hpf (0-5)
[2025-01-19 15:53] LABS: Basophils # (Auto) 0.1 Thou/mm3 (0.0-0.2); Basophils % (Auto) 1 % (0-2.5); Eosinophils # (Auto) 0.2 Thou/mm3 (0.0-0.5); Eosinophils % (Auto) 2 % (0-10); Hematocrit 50.2 % (36.0-46.0); Hemoglobin 16.1 g/dL (12.0-16.0); Immature Granulocytes % (Auto) 0 % (0-0); Immature Granulocytes Auto 0.01 Thou/mm3 (0.00-0.00); Lymphocytes # (Auto) 1.9 Thou/mm3 (1.0-4.8); Lymphocytes % (Auto) 21 % (10-50); Mean Corpuscular HGB Conc 32.1 g/dl (31.0-37.0); Mean Corpuscular Hemoglobin 26.7 pg (25.0-35.0); Mean Corpuscular Volume 83 fL (80-100); Monocytes # (Auto) 0.5 Thou/mm3 (0.0-0.8); Monocytes % (Auto) 6 % (0-12); Neutrophils # (Auto) 6.3 Thou/mm3 (1.8-7.7); Neutrophils % (Auto) 70 % (37-80); Nucleated Red Blood Cell % 0 /100 WBC (0); Platelet Count 333 Thou/mm3 (140-440); RDW Standard Deviation 41.4 fL (36.4-46.3); Red Blood Count 6.02 Miln/mm3 (4.00-5.20)
[2025-01-19 16:09] LABS: Alanine Aminotransferase 19 U/L (10-49); Albumin, Serum 4.3 gm/dL (3.5-5.0); Albumin/Globulin Ratio 1.4 (1.2-2.2); Alkaline Phosphatase 145 U/L (46-116); Anion Gap 11 (7-16); Aspartate Amino Transferase 23 U/L (0-34); BUN/Creatinine Ratio 10 Ratio (12-20); Bilirubin,Total 0.6 mg/dL (0.3-1.2); Blood Urea Nitrogen 8 mg/dL (9-23); Calcium 10.1 mg/dL (8.3-10.6); Calcium (Corrected) 10.1 mg/dL (8.5-10.1); Carbon Dioxide 23.4 mMol/L (20.0-31.0); Chloride 106 mMol/L (98-107); Creatinine (Component) 0.8 mg/dL (0.6-1.3); Estimated Creatinine Clearance 72.2 mL/min (>60); Globulin 3.1 gm/dL (2.3-3.5); Glucose 123 mg/dL (74-106); Osmolality,Calculated 278 (275-295); Potassium 4.4 mMol/L (3.4-5.1); Sodium 140 mMol/L (136-145); Total Protein 7.4 gm/dL (5.7-8.2); Troponin I < 0.020 ng/mL (0.0-0.045); eGFR > 60 See Note
== END 2025-01-19 17:17 | disposition left against medical advice (07) ==
PROVIDERS: Nurse Practitioner Primary Care; Emergency Provider Emergency Medicine
DX: R06.02 Shortness of breath (principal); R05.9 Cough, unspecified; R20.2 Paresthesia of skin; Z53.29 Procedure and treatment not carried out because of patient's decision for other reasons
CPT/HCPCS: 36415; 71046; 80053; 81001; 84484; 85025; 99281

== ENCOUNTER 2025-02-08 19:12 | Emergency (ER) | payer OTHER, MEDICAID, SELFPAY ==
[2025-02-08 19:12] VITALS: BMI 30.8
[2025-02-08 19:19] VITALS: BP 125/82; PULSE 105; RESP 20; TEMP 37.1; O2SAT 98
--- NOTE | 2025-02-08 19:44 | PD.EDFMALE ---
ED Female Urogenital RME/HPI General Chief complaint: Fever Stated complaint: FEVER/ PAIN WITH URINATION Time Seen by Provider: 02/08/25 19:26 Arrival date/time: 02/08/25 19:12 59F with history of DM, HTN, and meth use presents to ED with several days of body aches/chills, and dysuria. Patient states she's had a UTI for the past 9 hours that is resistant to everything. Patient has not seen urologist. Limitations: no limitations Related Data Home Medications ?Medication ?Instructions ?Recorded ?Confirmed glipizide 5 mg tablet 5 mg PO BID 06/10/19 03/19/20 levothyroxine 25 mcg tablet 25 mcg PO QDAY 06/10/19 03/19/20 atorvastatin 40 mg tablet 40 mg PO HS 11/22/19 03/19/20 duloxetine 60 mg capsule,delayed 60 mg PO QDAY 03/19/20 03/19/20 release gabapentin 300 mg capsule 300 mg PO TID 03/19/20 03/19/20 hydrochlorothiazide 12.5 mg capsule 12.5 mg PO QAM 03/19/20 03/19/20 hydrocodone 5 mg-acetaminophen 325 1 tab PO Q4H PRN Pain 03/19/20 03/19/20 mg tablet omeprazole 40 mg capsule,delayed 40 mg PO QDAY 03/19/20 03/19/20 release prednisone 10 mg tablet 30 mg PO QDAY 03/19/20 03/19/20 risperidone 2 mg tablet 2 mg PO BID 03/19/20 03/19/20 Previous Rx's ?Medication ?Instructions ?Recorded metronidazole 500 mg tablet 500 mg PO Q8H #20 tabs 03/20/20 acetaminophen 325 mg tablet 650 mg (2 x 325 mg) PO Q4H #60 tabs 03/26/20 (Tylenol) hydrocodone 5 mg-acetaminophen 325 1 tab PO BID PRN pain #6 tabs 12/30/21 mg tablet psyllium 1 tbsp PO QDAY #300 grams 03/21/23 albuterol sulfate 90 mcg/actuation 2 inh inhalation QID PRN shortness 09/26/24 aerosol inhaler of breath or wheezing #8.5 grams prednisone 50 mg tablet 50 mg PO QDAY #3 tabs 09/26/24 fluconazole 150 mg tablet 150 mg PO Q3D 2 doses #2 tabs 09/27/24 Allergies Allergy/AdvReac Type Severity Reaction Status Date / Time levofloxacin (From Levaquin) Allergy Severe Swelling Verified 01/19/25 14:31 of Lip/Tongue/Throat methotrexate Allergy Severe Redness of Verified 01/19/25 14:31 Skin Review of Systems Review of Systems Systems Reviewed: All systems reviewed, normal except as documented Constitutional Constitutional: Reports system reviewed and no additional complaints, except as documented, Reports as per HPI, Reports body ache(s), Denies fever(s) and Denies headache(s) ENT Ears, Nose, Mouth, and Throat: Denies disequilibrium and Denies headache(s) Cardiovascular Cardiovascular: Reports system reviewed and no additional complaints, except as documented, Denies chest pain and Denies dyspnea Respiratory Respiratory: Reports system reviewed and no additional complaints, except as documented, Denies cough and Denies dyspnea Gastrointestinal Gastrointestinal: Reports system reviewed and no additional complaints, except as documented, Denies abdominal pain, Denies nausea and Denies vomiting Genitourinary Genitourinary: Reports as per HPI, Reports dysuria and Reports pelvic pain Neurologic Neurologic: Reports system reviewed and no additional complaints, except as documented, Denies confusion, Denies disequilibrium and Denies headache(s) Psychiatric Psychiatric: Denies confusion Past Medical History Past Medical History NEUROLOGIC: Positive Neurological Disorders and Nunez's Palsy CARDIAC: Positive Angina, Hypercholesterolemia and Hypertension; Negative Cardiac Disorders or Congestive Heart Failure RESPIRATORY: Positive Asthma and Pneumonia; Negative Chronic Obstructive Pulmonary Disease (COPD) GASTROINTESTINAL: Positive Gastrointestinal Disorders, Gall Bladder Disease, Diverticulitis and Hiatal Hernia GENITOURINARY: Positive Genitourinary Disorders and Kidney Stones; Negative Renal Disease REPRODUCTIVE: Positive Endometriosis and Previous Pregnancies MUSCULOSKELETAL: Positive Musculoskeletal Disorders and Rheumatoid Arthritis ENT: Positive Cataracts and Glaucoma ENDOCRINE: Positive Endocrine Disorders, Diabetes Mellitus Type 2 and Hypothyroidism; Negative Diabetes Mellitus Type 1 HEMATOLOGIC: Positive Blood Disorders, Anemia and Sickle Cell Disease OTHER HISTORY: Positive Rubella (Palauan Measles); Negative Autoimmune Disease Family History FAMILY HISTORY: Positive Family Psychiatric Problems, Family Cardiac Disorders and Family Gastrointestinal Problems; Negative Family Respiratory Disorders, Family Cancer or Family Surgery Surgical History SURGICAL: Positive Angiogram, Abdominal Surgery and Tubal Ligation Social History SMOKING STATUS: Never smoker SECOND HAND EXPOSURE: No 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 Exam General Limitations: Present no limitations General appearance: Present alert and in no apparent distress Head Head exam: Present atraumatic Eye Eye exam: Present normal appearance, PERRL and EOMI ENT ENT exam: Present normal exam, normal oropharynx and mucous membranes moist Neck Neck exam: Present normal inspection, full ROM and trachea midline Chest Chest inspection: Present normal inspection and symmetric chest wall rise Respiratory Respiratory exam: Present normal lung sounds bilaterally Cardiovascular Cardiovascular exam: Present regular rate, normal rhythm and normal heart sounds Abdominal Exam Abdominal exam: Present soft and normal bowel sounds Extremities Exam Extremities exam: Present normal inspection and full ROM Back Exam Back exam: Present normal inspection and full ROM Neurological Exam Neurological exam: Present alert, oriented X3 and CN II-XII intact Psychiatric Psychiatric exam: Present normal affect and normal mood Skin Skin exam: Present warm, dry, intact and normal color Course Quality Measures none Orders Category Date Time Status CBC Stat Lab 02/08/25 19:49 Completed CMP [Comprehensive Metabolic Panel] Stat Lab 02/08/25 19:49 Completed Drug Screen,Urine Stat Lab 02/08/25 20:14 Completed Lactate (Lactic Acid) Stat Lab 02/08/25 19:49 Completed Lipase Stat Lab 02/08/25 19:49 Completed Procalcitonin Stat Lab 02/08/25 19:49 Completed Urinalysis, C/S if Indicated Stat Lab 02/08/25 20:14 Completed Urine Culture Stat Lab 02/08/25 20:14 Received cefuroxime axetiL [cefUROXime axetil] Med 02/08/25 21:40 Discontinued 500 mg PO X1 ONE Vital Signs Vital signs: Vital Signs Temperature 98.7 F 02/08/25 19:19 Pulse Rate 105 H 02/08/25 19:19 Respiratory Rate 20 02/08/25 19:19 Blood Pressure 125/82 02/08/25 19:19 Pulse Oximetry (%) 98 02/08/25 19:19 Oxygen Delivery Method Room Air 02/08/25 19:19 O2 at 98% on RA and WNLs Urogenital - Female MDM Narrative MDM Narrative:: 59F with history of DM, HTN, and meth use presents to ED with several days of body aches/chills, and dysuria. Patient states she's had a UTI for the past 9 hours that is resistant to everything. Patient has not seen urologist. Physical exam reveals well-appearing female. Patient is afebrile, calm, and alert. Patient eloped. Patient data External records reviewed:: [facility] previous records Clinical information provided by:: patient Social determinants that could affect healthcare access:: substance use Patient has the following chronic illnesses:: DM, HTN How is presenting disease/condition affected by chronic disease/condition?: exacerbated by Evaluation data The following diagnostics were reviewed and interpreted by me:: lab results Lab and/or radiology exams considered but not ordered:: ordered Interpretation Summary: above Medications / Prescriptions Medications or Prescriptions considered but not ordered:: ordered Medication administrations:: Medication Administration History Discontinued Medications Cefuroxime Axetil (Cefuroxime Axetil 250 Mg Tablet) 500 mg PO X1 ONE Stop: 02/08/25 21:41 patient eloped Consultations Consultation(s) initiated? (list below): No Diagnosis Urogenital Female Differential Diagnosis: urinary tract infection, bacterial vaginosis, trichomoniasis, cervicitis, ovarian cyst, vaginitis, ruptured ovarian cyst, cyst of Bartholin's gland, cystitis and dysmenorrhea Most likely diagnosis given after review of the tests above:: UTI Admission Indicated Admission indicated?: not indicated Admission Request Was there a request for admission?: No Disposition Plan Disposition Plan: other (specify) (eloped prior to DC) Discharge Plan Plan Patient Disposition: Elopement Prescriptions/Referrals Prescriptions/Med Rec: No Action levothyroxine 25 mcg Tablet 25 mcg PO QDAY glipizide 5 mg Tablet 5 mg PO BID prednisone 10 mg tablet 30 mg PO QDAY Rx Instructions: START DATE 03/06/20 hydrocodone-acetaminophen 5-325 mg tablet 1 tab PO Q4H PRN (Reason: Pain) omeprazole 40 mg capsule,delayed release(DR/EC) 40 mg PO QDAY risperidone 2 mg tablet 2 mg PO BID hydrochlorothiazide 12.5 mg capsule 12.5 mg PO QAM gabapentin 300 mg capsule 300 mg PO TID duloxetine 60 mg capsule,delayed release(DR/EC) 60 mg PO QDAY metronidazole 500 mg tablet 500 mg PO Q8H Qty: 20 0RF atorvastatin 40 mg tablet 40 mg PO HS Patient Comments: take 1 tablet by mouth at bedtime acetaminophen [Tylenol] 325 mg tablet 650 mg PO Q4H Qty: 60 0RF hydrocodone-acetaminophen 5-325 mg tablet 1 tab PO BID MDD 10 PRN (Reason: pain) Qty: 6 0RF fluconazole 150 mg tablet 150 mg PO Q3D Qty: 2 0RF psyllium Powder 1 tbsp PO QDAY Qty: 300 0RF Rx Instructions: mix into at least 8 oz of water or juice before administering albuterol sulfate 90 mcg/actuation HFA aerosol inhaler 2 inh inhalation QID PRN (Reason: shortness of breath or wheezing) Qty: 8.5 0RF prednisone 50 mg tablet 50 mg PO QDAY Qty: 3 0RF Referrals: Temporary Provider,ED [Physician] - In 1 week Problem List Clinical Impression: UTI (urinary tract infection) Patient/Caregiver Discharge Instructions Education Materials: ED CYSTITIS Female Adult Print Language: Telugu Stand Alone Forms: Patient Portal Info Letter PA/TATA Supervising Physician SCOOTER/TATA Supervising Physician: Dr. Hills
[2025-02-08 19:58] LABS: Lactate (Lactic Acid) 0.8 mMol/L (0.4-2.0)
[2025-02-08 20:04] LABS: Basophils # (Auto) 0.1 Thou/mm3 (0.0-0.2); Basophils % (Auto) 1 % (0-2.5); Eosinophils # (Auto) 0.4 Thou/mm3 (0.0-0.5); Eosinophils % (Auto) 5 % (0-10); Hematocrit 47.3 % (36.0-46.0); Hemoglobin 15.8 g/dL (12.0-16.0); Immature Granulocytes % (Auto) 0 % (0-0); Immature Granulocytes Auto 0.01 Thou/mm3 (0.00-0.00); Lymphocytes # (Auto) 2.7 Thou/mm3 (1.0-4.8); Lymphocytes % (Auto) 35 % (10-50); Mean Corpuscular HGB Conc 33.4 g/dl (31.0-37.0); Mean Corpuscular Hemoglobin 26.8 pg (25.0-35.0); Mean Corpuscular Volume 80 fL (80-100); Monocytes # (Auto) 0.5 Thou/mm3 (0.0-0.8); Monocytes % (Auto) 7 % (0-12); Neutrophils # (Auto) 4.2 Thou/mm3 (1.8-7.7); Neutrophils % (Auto) 53 % (37-80); Nucleated Red Blood Cell % 0 /100 WBC (0); Platelet Count 365 Thou/mm3 (140-440); RDW Standard Deviation 39.6 fL (36.4-46.3); White Blood Count 7.9 Thou/mm3 (3.6-11.0)
[2025-02-08 20:24] LABS: Alanine Aminotransferase 14 U/L (10-49); Albumin/Globulin Ratio 1.3 (1.2-2.2); Alkaline Phosphatase 150 U/L (46-116); Anion Gap 10 (7-16); Aspartate Amino Transferase 20 U/L (0-34); BUN/Creatinine Ratio 11 Ratio (12-20); Bilirubin,Total 0.9 mg/dL (0.3-1.2); Blood Urea Nitrogen 9 mg/dL (9-23); Calcium 9.6 mg/dL (8.3-10.6); Calcium (Corrected) 9.6 mg/dL (8.5-10.1); Carbon Dioxide 22.5 mMol/L (20.0-31.0); Chloride 107 mMol/L (98-107); Creatinine (Component) 0.8 mg/dL (0.6-1.3); Estimated Creatinine Clearance 77.2 mL/min (>60); Glucose 126 mg/dL (74-106); Lipase 31 U/L (12-53); Osmolality,Calculated 278 (275-295); Potassium 3.6 mMol/L (3.4-5.1); Procalcitonin 0.04 ng/ml (0.0-0.49); Sodium 139 mMol/L (136-145); eGFR > 60 See Note
[2025-02-08 20:37] LABS: Collection Type, Urine Clean Catch
[2025-02-08 20:58] LABS: Bacteria,Urine 1+; Bilirubin,Urine Negative (Negative); Blood,Urine Trace (Negative); Clarity,Urine Turbid (Clear/Hazy); Color,Urine Yellow (Lt Yel-Yel); Culture Indicated,Urine Yes; Glucose, Urine Negative (Negative); Ketones,Urine Negative (Negative); Leukocyte Esterase,Urine Positive (Negative); Nitrite,Urine Positive (Negative); Protein,Urine 1+ (Neg - Trace); RBC,Urine 8 /hpf (0-3); Specific Gravity,Urine 1.027 (1.001-1.035); Squamous Epithelial Cell,Urine 2 /hpf (0-5); WBC,Urine 372 /hpf (0-5)
--- NOTE | 2025-02-08 21:47 | PC.NURSE ---
no answer x1 at [id number]. checked outside and lobby.
--- NOTE | 2025-02-08 22:06 | PC.NURSE ---
no answer x 2 at [phone]. checked outside and lobby
--- NOTE | 2025-02-08 22:06 | PC.NURSE ---
NO ANSWER AT ER LOBBY TO BE DISCHARGE.
[2025-02-08 23:38] LABS: Amphetamine/Methamp Scrn,U Positive (Negative); Barbiturate Screen,Urine Negative (Negative); Benzodiazepines Screen,Urine Negative (Negative); Benzoylecgonine Screen, Ur Negative (Negative); Fentanyl Screen,Urine Negative (Negative); Opiate Screen,Urine Negative (Negative); THC Screen,Urine Negative (Negative)
== END 2025-02-08 22:19 | disposition left against medical advice (07) ==
PROVIDERS: Physician Assistant; Emergency Provider Emergency Medicine
DX: N39.0 Urinary tract infection, site not specified (principal); E11.9 Type 2 diabetes mellitus without complications; I10 Essential (primary) hypertension; E78.00 Pure hypercholesterolemia, unspecified; Z53.29 Procedure and treatment not carried out because of patient's decision for other reasons
CPT/HCPCS: 36415; 80053; 80307; 81001; 83605; 83690; 84145; 85025; 87077; 87086; 87186; 99283

== ENCOUNTER 2025-02-13 21:26 | Emergency (ER) | payer MEDICAID, SELFPAY ==
[2025-02-13 21:27] VITALS: BMI 34.0
--- NOTE | 2025-02-13 21:43 | PD.EDRME ---
Rapid Medical Screening Exam RME Arrival date/time: 02/13/25 21:26 59 year old female present to ED for c/o back pain I have greeted and performed a focused initial assessment of this patient. A comprehensive ED assessment and evaluation of the patient, analysis of all test results, and completion of the medical decision making process will be conducted by additional ED providers. Chief Complaint: Back Pain/Injury Time Seen by Provider: 02/13/25 21:34
[2025-02-13 21:44] VITALS: BP 126/80; PULSE 93; RESP 20; TEMP 37; O2SAT 95
[2025-02-13] MEDS: LIDOCAINE 5% 1 PATCH TOP (21:59)
[2025-02-13] MEDS: KETOROLAC INJ 60 MG/2 ML VIAL 30 MG IM (21:59)
[2025-02-13 22:01] LABS: Basophils # (Auto) 0.1 Thou/mm3 (0.0-0.2); Basophils % (Auto) 1 % (0-2.5); Eosinophils # (Auto) 0.3 Thou/mm3 (0.0-0.5); Eosinophils % (Auto) 3 % (0-10); Hematocrit 51.7 % (36.0-46.0); Hemoglobin 17.1 g/dL (12.0-16.0); Immature Granulocytes % (Auto) 0 % (0-0); Immature Granulocytes Auto 0.02 Thou/mm3 (0.00-0.00); Lymphocytes # (Auto) 3.2 Thou/mm3 (1.0-4.8); Lymphocytes % (Auto) 31 % (10-50); Mean Corpuscular HGB Conc 33.1 g/dl (31.0-37.0); Mean Corpuscular Hemoglobin 27.1 pg (25.0-35.0); Mean Corpuscular Volume 82 fL (80-100); Monocytes # (Auto) 0.8 Thou/mm3 (0.0-0.8); Monocytes % (Auto) 7 % (0-12); Neutrophils # (Auto) 6.1 Thou/mm3 (1.8-7.7); Neutrophils % (Auto) 58 % (37-80); Nucleated Red Blood Cell % 0 /100 WBC (0); Platelet Count 329 Thou/mm3 (140-440); RDW Standard Deviation 41.1 fL (36.4-46.3); Red Blood Count 6.31 Miln/mm3 (4.00-5.20); White Blood Count 10.5 Thou/mm3 (3.6-11.0)
[2025-02-13 22:30] LABS: Alanine Aminotransferase 15 U/L (10-49); Albumin, Serum 4.5 gm/dL (3.5-5.0); Anion Gap 10 (7-16); Aspartate Amino Transferase 36 U/L (0-34); BUN/Creatinine Ratio 8 Ratio (12-20); Blood Urea Nitrogen 9 mg/dL (9-23); Calcium 9.9 mg/dL (8.3-10.6); Carbon Dioxide 20.4 mMol/L (20.0-31.0); Chloride 109 mMol/L (98-107); Creatinine (Component) 1.1 mg/dL (0.6-1.3); Estimated Creatinine Clearance 52.4 mL/min (>60); Glucose 99 mg/dL (74-106); Osmolality,Calculated 276 (275-295); Sodium 139 mMol/L (136-145); Total Protein 7.6 gm/dL (5.7-8.2); eGFR 59 See Note
[2025-02-13 22:31] LABS: Albumin/Globulin Ratio 1.5 (1.2-2.2); Alkaline Phosphatase 154 U/L (46-116); Calcium (Corrected) 9.9 mg/dL (8.5-10.1); Globulin 3.1 gm/dL (2.3-3.5); Lipase 42 U/L (12-53)
--- NOTE | 2025-02-13 23:14 | PD.EDBACK ---
ED Back Injury Pain RME/HPI General Chief Complaint: Back Pain/Injury Stated Complaint: BACK PAIN Time Seen by Provider: 02/13/25 21:34 Arrival date/time: 02/13/25 21:26 59 year old female present to emergency room with c/o of nontraumatic back pain for 1 day. Denies new trauma No fevers No unexplained weight loss of night sweats No recent surgeries or recurrent bacterial infections No IVDU Patient is not immunocompromised Denies any new focal neurological deficits or new motor weakness Denies bowel or bladder incontinence or saddle anesthesia LOCATION: diffuse low back SEVERITY: Symptoms are described as being severe with limitations on activities of daily living QUALITY: Symptoms are described as being dull or achy CONTEXT: The patient is unable to identify any inciting events. DURATION/TIMING: The symptoms started approximately one day ago and have been constant this then. ASSOCIATED SYMPTOMS: The patient is unable to identify any other associated symptoms. MODIFYING FACTORS: The patient is unable to identify any alleviating or aggravating symptoms. PERTINENT ROS: no fevers, no IVDU, denies any ripping or tearing sensations, no associated abdominal pain, no focal neurological deficits and denies any saddle anesthesia, and no bowel or bladder incontinence REVIEW OF SYSTEMS: See History of Present Illness - with the exception of those mentioned in the history of present illness, all other systems reviewed and reported as negative GENERAL: In general the patient is awake, interactive, in an emergency department gurney. HEAD/EYES/EARS/NOSE/THROAT: normo-cephalic, atraumatic, mucus membranes are moist, anicteric, palpebral conjunctiva is pink, trachea is midline. CARDIOVASCULAR: regular rate and regular rhythm, no murmurs, heart sounds are not distant, strong pulses in all four extremities that are equal and symmetric bilateral upper and lower extremities, normal capillary refill. CHEST/PULMONARY: normal chest rise and fall, good air movement, clear to auscultation bilaterally, normal inspiratory to expiratory ratios without evidence of respiratory distress. NECK: No midline/Paraspinal tenderness, no step off ROM/Strenght intact No Kernig and bruzinski sign. No trauma ABDOMEN: soft, not tender, no masses appreciated BACK: + paraspinal tenderness, no cva tenderness, normal range of motion without pain. NEUROLOGICAL: cranio-facial features are symmetric, moves all four extremities equally without obvious limitations or weakness. EXTREMITY: no tenderness to palpation over the long bones or large joints of the bilateral upper and lower extremities, no joint swelling, no joint erythema, no signs of trauma, no unilateral leg swelling and no peripheral edema. SKIN: warm, dry, well-perfused, no jaundice, no rash, no telangiectasias or petechia. PSYCH: calm, cooperative, no evidence of psychosis or agitation RME / HPI RME / HPI Narrative: 02/13/25 21:26 59 year old female present to ED for c/o back pain I have greeted and performed a focused initial assessment of this patient. A comprehensive ED assessment and evaluation of the patient, analysis of all test results, and completion of the medical decision making process will be conducted by additional ED providers. Related Data Home Medications ?Medication ?Instructions ?Recorded ?Confirmed glipizide 5 mg tablet 5 mg PO BID 06/10/19 03/19/20 levothyroxine 25 mcg tablet 25 mcg PO QDAY 06/10/19 03/19/20 atorvastatin 40 mg tablet 40 mg PO HS 11/22/19 03/19/20 duloxetine 60 mg capsule,delayed 60 mg PO QDAY 03/19/20 03/19/20 release gabapentin 300 mg capsule 300 mg PO TID 03/19/20 03/19/20 hydrochlorothiazide 12.5 mg capsule 12.5 mg PO QAM 03/19/20 03/19/20 hydrocodone 5 mg-acetaminophen 325 1 tab PO Q4H PRN Pain 03/19/20 03/19/20 mg tablet omeprazole 40 mg capsule,delayed 40 mg PO QDAY 03/19/20 03/19/20 release prednisone 10 mg tablet 30 mg PO QDAY 03/19/20 03/19/20 risperidone 2 mg tablet 2 mg PO BID 03/19/20 03/19/20 Previous Rx's ?Medication ?Instructions ?Recorded metronidazole 500 mg tablet 500 mg PO Q8H #20 tabs 03/20/20 acetaminophen 325 mg tablet 650 mg (2 x 325 mg) PO Q4H #60 tabs 03/26/20 (Tylenol) hydrocodone 5 mg-acetaminophen 325 1 tab PO BID PRN pain #6 tabs 12/30/21 mg tablet psyllium 1 tbsp PO QDAY #300 grams 03/21/23 albuterol sulfate 90 mcg/actuation 2 inh inhalation QID PRN shortness 09/26/24 aerosol inhaler of breath or wheezing #8.5 grams prednisone 50 mg tablet 50 mg PO QDAY #3 tabs 09/26/24 fluconazole 150 mg tablet 150 mg PO Q3D 2 doses #2 tabs 09/27/24 Allergies Allergy/AdvReac Type Severity Reaction Status Date / Time [facility] Allergy Severe Swelling Verified 01/19/25 14:31 of Lip/Tongue/Throat methotrexate Allergy Severe Redness of Verified 01/19/25 14:31 Skin Course Course Course Narrative: labs, toradol 30mg, lidocaine, Quality Measures none Orders Category Date Time Status CBC Stat Lab 02/13/25 21:50 Completed CMP [Comprehensive Metabolic Panel] Stat Lab 02/13/25 21:50 Completed Lipase Stat Lab 02/13/25 21:50 Completed UA [Urinalysis] Stat Lab 02/13/25 21:42 Ordered Ketorolac Inj [Toradol Inj] Med 02/13/25 21:42 Discontinued 30 mg IM X1 ONE Lidocaine 5% Patch Med 02/13/25 21:42 Discontinued 1 patch TOP X1 ONE Reevaluation(s) Reevaluation #1: pt is feeling better and comfortable to go home. denies any UTI sx Vital Signs Vital signs: Vital Signs Temperature 98.6 F 02/13/25 21:44 Pulse Rate 93 02/13/25 21:44 Respiratory Rate 20 02/13/25 21:44 Blood Pressure 126/80 02/13/25 21:44 Pulse Oximetry (%) 95 02/13/25 21:44 Oxygen Delivery Method Room Air 02/13/25 21:44 Back Pain / Injury Patient data External records reviewed:: [facility] previous records Clinical information provided by:: patient Social determinants that could affect healthcare access:: none Patient has the following chronic illnesses:: n/a How is presenting disease/condition affected by chronic disease/condition?: no chronic disease Evaluation data The following diagnostics were reviewed and interpreted by me:: lab results Lab and/or radiology exams considered but not ordered:: n/a Interpretation Summary: cbc/cmp wnl Medications / Prescriptions Medications or Prescriptions considered but not ordered:: n/a Medication administrations:: Medication Administration History Discontinued Medications Ketorolac Tromethamine (Ketorolac Inj 60 Mg/2 Ml Vial) 30 mg IM X1 ONE Stop: 02/13/25 21:43 Last Admin: 02/13/25 21:59 Dose: 30 mg Documented By: CONNER Lidocaine (Lidocaine 5% 1 Patch) 1 patch TOP X1 ONE Stop: 02/13/25 21:43 Last Admin: 02/13/25 21:59 Dose: 1 patch Documented By: CONNER as stated above Consultations Consultation(s) initiated? (list below): No Diagnosis Differential diagnosis back pain/injury: lumbar radiculopathy, sciatica and strain of lumbar region Most likely diagnosis given after review of the tests above:: back pain Admission Indicated Admission indicated?: not indicated Admission Request Was there a request for admission?: No Disposition Plan Disposition Plan: Discharge Discharge Attestation Discharge Attestation: The patient and all family members were given an opportunity to ask questions and understood the discharge instructions. Discharge instructions specifically effects, indications for sooner follow up or return to the emergency department, and the expected course of current diagnosis. Patient condition: Stable Discharge Plan Plan Patient Disposition: HOME (Self Care) Prescriptions/Referrals Prescriptions/Med Rec: No Action levothyroxine 25 mcg Tablet 25 mcg PO QDAY glipizide 5 mg Tablet 5 mg PO BID prednisone 10 mg tablet 30 mg PO QDAY Rx Instructions: START DATE 03/06/20 hydrocodone-acetaminophen 5-325 mg tablet 1 tab PO Q4H PRN (Reason: Pain) omeprazole 40 mg capsule,delayed release(DR/EC) 40 mg PO QDAY risperidone 2 mg tablet 2 mg PO BID hydrochlorothiazide 12.5 mg capsule 12.5 mg PO QAM gabapentin 300 mg capsule 300 mg PO TID duloxetine 60 mg capsule,delayed release(DR/EC) 60 mg PO QDAY metronidazole 500 mg tablet 500 mg PO Q8H Qty: 20 0RF atorvastatin 40 mg tablet 40 mg PO HS Patient Comments: take 1 tablet by mouth at bedtime acetaminophen [Tylenol] 325 mg tablet 650 mg PO Q4H Qty: 60 0RF hydrocodone-acetaminophen 5-325 mg tablet 1 tab PO BID MDD 10 PRN (Reason: pain) Qty: 6 0RF fluconazole 150 mg tablet 150 mg PO Q3D Qty: 2 0RF psyllium Powder 1 tbsp PO QDAY Qty: 300 0RF Rx Instructions: mix into at least 8 oz of water or juice before administering albuterol sulfate 90 mcg/actuation HFA aerosol inhaler 2 inh inhalation QID PRN (Reason: shortness of breath or wheezing) Qty: 8.5 0RF prednisone 50 mg tablet 50 mg PO QDAY Qty: 3 0RF Referrals: No Primary/Family,Physician [Primary Care Provider] - In 1 week Problem List Clinical Impression: Back pain Patient/Caregiver Discharge Instructions Education Materials: ED Back Pain (Acute or Chronic) Print Language: Estonian Stand Alone Forms: [facility] Award Info., Patient Portal Info Letter
== END 2025-02-13 22:00 | disposition home or self-care (01) ==
PROVIDERS: Physician Assistant; Emergency Provider Emergency Medicine
DX: M54.9 Dorsalgia, unspecified (principal)
CPT/HCPCS: 36415; 80053; 81001; 83690; 85025; 96372; 99283; J1885; J3490

== ENCOUNTER 2025-02-14 17:27 | Emergency (ER) | payer MEDICAID, SELFPAY ==
[2025-02-14 17:28] VITALS: BMI 34.0
[2025-02-14 18:36] VITALS: BP 108/79; PULSE 93; RESP 20; TEMP 36.8; O2SAT 96; BMI 31.6
--- NOTE | 2025-02-14 18:47 | EDRME_ITS ---
Rapid Medical Screening Exam [facility] Arrival date/time: 02/14/25 17:27 59F with history of DM, HTN, and meth use presents to ED with 1 day of weakness and jaundice. Patient was here yesterday. Chief Complaint: Weakness Vital signs: Vital Signs Temperature 98.3 F 02/14/25 18:36 Pulse Rate 93 02/14/25 18:36 Respiratory Rate 20 02/14/25 18:36 Blood Pressure 108/79 02/14/25 18:36 Pulse Oximetry (%) 96 02/14/25 18:36 Oxygen Delivery Method Room Air 02/14/25 18:36
[2025-02-14 18:59] LABS: Basophils # (Auto) 0.1 Thou/mm3 (0.0-0.2); Basophils % (Auto) 1 % (0-2.5); Eosinophils # (Auto) 0.6 Thou/mm3 (0.0-0.5); Eosinophils % (Auto) 8 % (0-10); Hematocrit 48.4 % (36.0-46.0); Hemoglobin 15.9 g/dL (12.0-16.0); Immature Granulocytes % (Auto) 0 % (0-0); Immature Granulocytes Auto 0.02 Thou/mm3 (0.00-0.00); Lymphocytes # (Auto) 2.7 Thou/mm3 (1.0-4.8); Lymphocytes % (Auto) 34 % (10-50); Mean Corpuscular HGB Conc 32.9 g/dl (31.0-37.0); Mean Corpuscular Hemoglobin 26.9 pg (25.0-35.0); Mean Corpuscular Volume 82 fL (80-100); Monocytes # (Auto) 0.6 Thou/mm3 (0.0-0.8); Monocytes % (Auto) 7 % (0-12); Neutrophils # (Auto) 3.9 Thou/mm3 (1.8-7.7); Neutrophils % (Auto) 49 % (37-80); Nucleated Red Blood Cell % 0 /100 WBC (0); Platelet Count 342 Thou/mm3 (140-440); RDW Standard Deviation 41.5 fL (36.4-46.3); Red Blood Count 5.92 Miln/mm3 (4.00-5.20)
[2025-02-14 19:16] LABS: Alanine Aminotransferase 14 U/L (10-49); Albumin/Globulin Ratio 1.3 (1.2-2.2); Alkaline Phosphatase 147 U/L (46-116); Anion Gap 9 (7-16); Aspartate Amino Transferase 25 U/L (0-34); BUN/Creatinine Ratio 11 Ratio (12-20); Bilirubin,Total 0.9 mg/dL (0.3-1.2); Blood Urea Nitrogen 11 mg/dL (9-23); Carbon Dioxide 21.3 mMol/L (20.0-31.0); Chloride 108 mMol/L (98-107); Estimated Creatinine Clearance 55.6 mL/min (>60); Glucose 125 mg/dL (74-106); Osmolality,Calculated 276 (275-295); Potassium 4.1 mMol/L (3.4-5.1); Sodium 138 mMol/L (136-145); eGFR > 60 See Note
--- NOTE | 2025-02-14 19:42 | PD.EDWEAK ---
ED Weakness RME/HPI General Chief complaint: Weakness Stated complaint: WEAK, JAUNDICE SKIN/EYES, DOESN'T FEEL WELL Time Seen by Provider: 02/14/25 19:06 Arrival date/time: 02/14/25 17:27 RME / HPI RME / HPI Narrative: 02/14/25 17:27 59F with history of DM, HTN, and meth use presents to ED with 1 day of weakness and jaundice. Patient was here yesterday. This section includes all my notes and documentations, including HPI, PE, and ED course. Chilo Hills MD HPI: 59yo female with a history of DM, HTN, Hepatitis presents to the ED for a chief complaint of jaundice. Patient states she has been more yellow than usual for the last 2-3 days. She reports associated generalized weakness and feeling faint . She denies any falls or injuries. She denies any N/V, fever, chills or any other associated symptoms. She states I follow-up with my PCP, but they don't do anything for me . No other complaints reported. ROS: All negative except as documented in HPI. Physical Exam: General: Alert and oriented. No acute distress when remaining still. Eyes: Conjunctivae and lids clear. ENT: No nasal congestion. Neck: Supple. Heart: RRR. Lungs: No respiratory distress. Good air movement. No rhonchi, wheezing, rales. Abdomen: Soft and nontender. Legs: No clubbing, cyanosis, edema. Skin: Warm and dry. Neuro: Alert and oriented X 3. I reviewed all diagnostic test results. Blood tests unremarkable. At this point, diagnoses include weakness of unclear etiology. Recommended more outpatient workup. Based on my best medical judgment, made decision no further evaluation or treatment indicated at this time. Patient understands and agrees to the discharge instructions customized and printed, see below. Discharge Instructions from Dr. Hills printed for you: 1. After extensive evaluation, exact cause of your symptoms (including weakness and weight loss and possible jaundice) was not determined. But there is no immediate emergency, such as heart attack or any condition that needs to be diagnosed at this moment. 2. See a private doctor outside the ER on for recheck and further care. Ask for help finding the cause and treatment of your symptoms. With more care not readily available here in the ER. Such as specialized blood tests and referrals to see specialists. To make sure there is no serious underlying condition, such as cancer or autoimmune disorder. 3. Seek immediate medical care with worsening or with any concerns. Chilo Hills MD Related Data Home Medications ?Medication ?Instructions ?Recorded ?Confirmed glipizide 5 mg tablet 5 mg PO BID 06/10/19 03/19/20 levothyroxine 25 mcg tablet 25 mcg PO QDAY 06/10/19 03/19/20 atorvastatin 40 mg tablet 40 mg PO HS 11/22/19 03/19/20 duloxetine 60 mg capsule,delayed 60 mg PO QDAY 03/19/20 03/19/20 release gabapentin 300 mg capsule 300 mg PO TID 03/19/20 03/19/20 hydrochlorothiazide 12.5 mg capsule 12.5 mg PO QAM 03/19/20 03/19/20 hydrocodone 5 mg-acetaminophen 325 1 tab PO Q4H PRN Pain 03/19/20 03/19/20 mg tablet omeprazole 40 mg capsule,delayed 40 mg PO QDAY 03/19/20 03/19/20 release prednisone 10 mg tablet 30 mg PO QDAY 03/19/20 03/19/20 risperidone 2 mg tablet 2 mg PO BID 03/19/20 03/19/20 Previous Rx's ?Medication ?Instructions ?Recorded metronidazole 500 mg tablet 500 mg PO Q8H #20 tabs 03/20/20 acetaminophen 325 mg tablet 650 mg (2 x 325 mg) PO Q4H #60 tabs 03/26/20 (Tylenol) hydrocodone 5 mg-acetaminophen 325 1 tab PO BID PRN pain #6 tabs 12/30/21 mg tablet psyllium 1 tbsp PO QDAY #300 grams 03/21/23 albuterol sulfate 90 mcg/actuation 2 inh inhalation QID PRN shortness 09/26/24 aerosol inhaler of breath or wheezing #8.5 grams prednisone 50 mg tablet 50 mg PO QDAY #3 tabs 09/26/24 fluconazole 150 mg tablet 150 mg PO Q3D 2 doses #2 tabs 09/27/24 ondansetron 4 mg disintegrating 4 mg PO TID PRN nausea and 02/14/25 tablet vomiting 30 days #10 tabs Allergies Allergy/AdvReac Type Severity Reaction Status Date / Time [facility] Allergy Severe Swelling Verified 02/14/25 17:31 of Lip/Tongue/Throat methotrexate Allergy Severe Redness of Verified 02/14/25 17:31 Skin Review of Systems Review of Systems Systems Reviewed: All systems reviewed, normal except as documented Past Medical History Past Medical History NEUROLOGIC: Positive Neurological Disorders and Nunez's Palsy CARDIAC: Positive Angina, Hypercholesterolemia and Hypertension; Negative Cardiac Disorders or Congestive Heart Failure RESPIRATORY: Positive Asthma and Pneumonia; Negative Chronic Obstructive Pulmonary Disease (COPD) GASTROINTESTINAL: Positive Gastrointestinal Disorders, Gall Bladder Disease, Diverticulitis and Hiatal Hernia GENITOURINARY: Positive Genitourinary Disorders and Kidney Stones; Negative Renal Disease REPRODUCTIVE: Positive Endometriosis and Previous Pregnancies MUSCULOSKELETAL: Positive Musculoskeletal Disorders and Rheumatoid Arthritis ENT: Positive Cataracts and Glaucoma ENDOCRINE: Positive Endocrine Disorders, Diabetes Mellitus Type 2 and Hypothyroidism; Negative Diabetes Mellitus Type 1 HEMATOLOGIC: Positive Blood Disorders, Anemia and Sickle Cell Disease OTHER HISTORY: Positive Rubella (Polish Measles); Negative Autoimmune Disease Family History FAMILY HISTORY: Positive Family Psychiatric Problems, Family Cardiac Disorders and Family Gastrointestinal Problems; Negative Family Respiratory Disorders, Family Cancer or Family Surgery Surgical History SURGICAL: Positive Angiogram, Abdominal Surgery and Tubal Ligation Social History SMOKING STATUS: Never smoker SECOND HAND EXPOSURE: No 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 Exam Narrative Physical exam: As noted in HPI. Course Quality Measures none Orders Category Date Time Status CBC Stat Lab 02/14/25 18:51 Completed CMP [Comprehensive Metabolic Panel] Stat Lab 02/14/25 18:51 Completed Drug Screen,Urine Stat Lab 02/14/25 18:47 Ordered Urinalysis Stat Lab 02/14/25 18:47 Ordered Vital Signs Vital signs: Vital Signs Temperature 98.3 F 02/14/25 18:36 Pulse Rate 93 02/14/25 18:36 Respiratory Rate 20 02/14/25 18:36 Blood Pressure 108/79 02/14/25 18:36 Pulse Oximetry (%) 96 02/14/25 18:36 Oxygen Delivery Method Room Air 02/14/25 18:36 Weakness MDM Narrative MDM Narrative:: Scribe Attestation: 02/14/25 Kelly Zhang am scribing for and in the presence of Dr. Hills. Patient data External records reviewed:: [facility] previous records (Per chart review, patient was seen here yesterday for back pain.) Clinical information provided by:: patient Social determinants that could affect healthcare access:: none Patient has the following chronic illnesses:: DM, HTN, Hepatitis How is presenting disease/condition affected by chronic disease/condition?: uneffected by Evaluation data The following diagnostics were reviewed and interpreted by me:: lab results Lab and/or radiology exams considered but not ordered:: none Interpretation Summary: Weakness Medications / Prescriptions Medications or Prescriptions considered but not ordered:: none Medication administrations:: none Consultations Consultation(s) initiated? (list below): No Diagnosis Weakness Differential Diagnosis: anemia, hypoglycemia, hypothyroidism, rhabdomyolysis, sepsis and dehydration Most likely diagnosis given after review of the tests above:: Weakness of unclear etiology Admission Indicated Admission indicated?: not indicated Explain why admission is indicated or not indicated:: No criteria for admission. Admission Request Was there a request for admission?: No Disposition Plan Disposition Plan: Discharge Discharge Attestation Discharge Attestation: The patient and all family members were given an opportunity to ask questions and understood the discharge instructions. Discharge instructions specifically effects, indications for sooner follow up or return to the emergency department, and the expected course of current diagnosis. Patient condition: Stable Discharge Plan Plan Patient Disposition: HOME (Self Care) Prescriptions/Referrals Prescriptions/Med Rec: New ondansetron 4 mg tablet,disintegrating 4 mg PO TID PRN (Reason: nausea and vomiting) 30 Days Qty: 10 0RF No Action levothyroxine 25 mcg Tablet 25 mcg PO QDAY glipizide 5 mg Tablet 5 mg PO BID prednisone 10 mg tablet 30 mg PO QDAY Rx Instructions: START DATE 03/06/20 hydrocodone-acetaminophen 5-325 mg tablet 1 tab PO Q4H PRN (Reason: Pain) omeprazole 40 mg capsule,delayed release(DR/EC) 40 mg PO QDAY risperidone 2 mg tablet 2 mg PO BID hydrochlorothiazide 12.5 mg capsule 12.5 mg PO QAM gabapentin 300 mg capsule 300 mg PO TID duloxetine 60 mg capsule,delayed release(DR/EC) 60 mg PO QDAY metronidazole 500 mg tablet 500 mg PO Q8H Qty: 20 0RF atorvastatin 40 mg tablet 40 mg PO HS Patient Comments: take 1 tablet by mouth at bedtime acetaminophen [Tylenol] 325 mg tablet 650 mg PO Q4H Qty: 60 0RF hydrocodone-acetaminophen 5-325 mg tablet 1 tab PO BID MDD 10 PRN (Reason: pain) Qty: 6 0RF fluconazole 150 mg tablet 150 mg PO Q3D Qty: 2 0RF psyllium Powder 1 tbsp PO QDAY Qty: 300 0RF Rx Instructions: mix into at least 8 oz of water or juice before administering albuterol sulfate 90 mcg/actuation HFA aerosol inhaler 2 inh inhalation QID PRN (Reason: shortness of breath or wheezing) Qty: 8.5 0RF prednisone 50 mg tablet 50 mg PO QDAY Qty: 3 0RF Referrals: No Primary/Family,Physician [Primary Care Provider] - In 1 week Problem List Clinical Impression: Weakness Patient/Caregiver Discharge Instructions Education Materials: ED Weakness (Uncertain Cause) Additional Instructions: Discharge Instructions from Dr. Hills printed for you: 1. After extensive evaluation, exact cause of your symptoms (including weakness and weight loss and possible jaundice) was not determined. But there is no immediate emergency, such as heart attack or any condition that needs to be diagnosed at this moment. 2. See a private doctor outside the ER on for recheck and further care. Ask for help finding the cause and treatment of your symptoms. With more care not readily available here in the ER. Such as specialized blood tests and referrals to see specialists. To make sure there is no serious underlying condition, such as cancer or autoimmune disorder. 3. Seek immediate medical care with worsening or with any concerns. Print Language: Ukrainian Stand Alone Forms: [facility] Award Info., Patient Portal Info Letter
== END 2025-02-14 20:34 | disposition home or self-care (01) ==
PROVIDERS: Physician Assistant; Emergency Provider Emergency Medicine
DX: R53.1 Weakness (principal)
CPT/HCPCS: 36415; 80053; 80307; 81001; 85025; 99283

== ENCOUNTER 2025-02-19 03:23 | Emergency (ER) | payer MEDICAID, SELFPAY ==
[2025-02-19 03:24] VITALS: BMI 30.6
[2025-02-19 03:30] VITALS: BP 130/92; PULSE 82; RESP 18; TEMP 36.7; O2SAT 95
--- NOTE | 2025-02-19 03:40 | PD.EDSOB ---
ED SOB =RME/HPI General Chief Complaint: Shortness of Breath/Dyspnea Stated Complaint: SOB SINCE YEST, RAN OUT OF HOME 02 Time Seen by Provider: 02/19/25 03:28 Arrival date/time: 02/19/25 03:23 RME / HPI RME / HPI Narrative: This section includes all my notes and documentations, including HPI, PE, and ED course. Chilo Hills MD HPI: 59 y/o female with Hx of Nunez's Palsy, Angina, Hypercholesterolemia, Hypertension, Asthma, Pneumonia, Gall Bladder Disease, Diverticulitis, Hiatal Hernia, Kidney Stones, Endometriosis, Rheumatoid Arthritis, Cataracts, Glaucoma, Diabetes Mellitus Type 2, Hypothyroidism, Anemia and Sickle Cell Disease and methamphetamine use presents to ED c/o shortness of breath x 2 days. Patient reports running out of her inhaler. Denies coughing more than normal, fever, or congestion. No other complaints. ROS: All negative except as documented in HPI. Physical Exam: General: Alert and oriented. No acute distress when remaining still. Eyes: Conjunctivae and lids clear. ENT: No nasal congestion. Pharynx normal. TM normal bilaterally. Neck: Supple. Heart: RRR. Lungs: No respiratory distress. Mildly decreased air movement with scattered rhonchi. Abdomen: Soft and nontender. Skin: Warm and dry. Neuro: Alert and oriented X 3. At this point, diagnoses include mild asthma attack. Treatment here included Prednisone, Albuterol/Ipratropium Duoneb Significant improvement noted. Recommended outpatient treatment. Based on my best medical judgment, made decision no further evaluation or treatment indicated at this time. Patient understands and agrees to the discharge instructions customized and printed, see below. Discharge instructions from Dr. Hills: --You are treated for mild asthma attack. --No physical exertion for 3 days to help rest the lungs. ?No smoking or exposure to smoking or pets or dust or cold or humidity. --Prednisone to help decrease the swelling in the airways. --Albuterol 2 puffs every 4-6 hours for 3 days to help keep the airways open. Then as needed for cough or shortness of breath. --See a private doctor on 02/22/2025 if not completely better. --Seek immediate medical care with worsening or with any concerns. Chilo Hills MD Related Data Home Medications ?Medication ?Instructions ?Recorded ?Confirmed glipizide 5 mg tablet 5 mg PO BID 06/10/19 03/19/20 levothyroxine 25 mcg tablet 25 mcg PO QDAY 06/10/19 03/19/20 atorvastatin 40 mg tablet 40 mg PO HS 11/22/19 03/19/20 duloxetine 60 mg capsule,delayed 60 mg PO QDAY 03/19/20 03/19/20 release gabapentin 300 mg capsule 300 mg PO TID 03/19/20 03/19/20 hydrochlorothiazide 12.5 mg capsule 12.5 mg PO QAM 03/19/20 03/19/20 hydrocodone 5 mg-acetaminophen 325 1 tab PO Q4H PRN Pain 03/19/20 03/19/20 mg tablet omeprazole 40 mg capsule,delayed 40 mg PO QDAY 03/19/20 03/19/20 release prednisone 10 mg tablet 30 mg PO QDAY 03/19/20 03/19/20 risperidone 2 mg tablet 2 mg PO BID 03/19/20 03/19/20 Previous Rx's ?Medication ?Instructions ?Recorded metronidazole 500 mg tablet 500 mg PO Q8H #20 tabs 03/20/20 acetaminophen 325 mg tablet 650 mg (2 x 325 mg) PO Q4H #60 tabs 03/26/20 (Tylenol) hydrocodone 5 mg-acetaminophen 325 1 tab PO BID PRN pain #6 tabs 12/30/21 mg tablet psyllium 1 tbsp PO QDAY #300 grams 03/21/23 albuterol sulfate 90 mcg/actuation 2 inh inhalation QID PRN shortness 09/26/24 aerosol inhaler of breath or wheezing #8.5 grams prednisone 50 mg tablet 50 mg PO QDAY #3 tabs 09/26/24 fluconazole 150 mg tablet 150 mg PO Q3D 2 doses #2 tabs 09/27/24 ondansetron 4 mg disintegrating 4 mg PO TID PRN nausea and 02/14/25 tablet vomiting 30 days #10 tabs albuterol sulfate 90 mcg/actuation 2 puff inhalation Q6H PRN 02/19/25 aerosol inhaler shortness of breath or wheezing #8.5 grams Allergies Allergy/AdvReac Type Severity Reaction Status Date / Time levofloxacin (From Levaquin) Allergy Severe Swelling Verified 02/20/25 17:58 of Lip/Tongue/Throat methotrexate Allergy Severe Redness of Verified 02/20/25 17:58 Skin Review of Systems Review of Systems Systems Reviewed: All systems reviewed, normal except as documented Narrative Review of Systems: Refer to HPI above. Past Medical History Past Medical History NEUROLOGIC: Positive Neurological Disorders and Nunez's Palsy CARDIAC: Positive Angina, Hypercholesterolemia and Hypertension RESPIRATORY: Positive Asthma and Pneumonia GASTROINTESTINAL: Positive Gastrointestinal Disorders, Gall Bladder Disease, Diverticulitis and Hiatal Hernia GENITOURINARY: Positive Genitourinary Disorders and Kidney Stones REPRODUCTIVE: Positive Endometriosis and Previous Pregnancies MUSCULOSKELETAL: Positive Musculoskeletal Disorders and Rheumatoid Arthritis ENT: Positive Cataracts and Glaucoma ENDOCRINE: Positive Endocrine Disorders, Diabetes Mellitus Type 2 and Hypothyroidism HEMATOLOGIC: Positive Blood Disorders, Anemia and Sickle Cell Disease OTHER HISTORY: Positive Rubella (Tamazight Measles) Family History FAMILY HISTORY: Positive Family Psychiatric Problems, Family Cardiac Disorders and Family Gastrointestinal Problems Surgical History SURGICAL: Positive Angiogram, Abdominal Surgery and Tubal Ligation Social History 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 Exam Narrative Physical exam: Refer to HPI above. Course Quality Measures none Orders Category Date Time Status US venous doppler LE BI Stat Exams 02/19/25 04:41 Completed Glucose Stat Lab 02/19/25 04:02 Completed Albuterol/Ipratr Rt Ofelia [Duoneb Rt Ofelia] Med 02/19/25 03:32 Discontinued 3 ml INH X1 ONE predniSONE Med 02/19/25 03:32 Discontinued 60 mg PO X1 ONE Vital Signs Vital signs: Vital Signs Temperature 98.0 F 02/19/25 03:30 Pulse Rate 82 02/19/25 03:30 Respiratory Rate 18 02/19/25 03:30 Blood Pressure 130/92 H 02/19/25 03:30 Pulse Oximetry (%) 95 02/19/25 03:30 Oxygen Delivery Method Room Air 02/19/25 03:30 Shortness of Breath / Dyspnea MDM Narrative MDM Narrative:: Scribe Attestation: Betty Mcclure am scribing for and in the presence of Dr. Hills. Provider Notation: Although this document has been carefully reviewed, there may still be some phonetic and other typographical errors. These errors are purely grammatical due to imperfections in the software program and should not be construed in any way to compromise the substance of the patient's medical care during this visit. 59 y/o female with Hx of Nunez's Palsy, Angina, Hypercholesterolemia, Hypertension, Asthma and Pneumonia, Gall Bladder Disease, Diverticulitis, Hiatal Hernia, Kidney Stones, Endometriosis, Rheumatoid Arthritis, Cataracts, Glaucoma, Diabetes Mellitus Type 2, Hypothyroidism, Anemia and Sickle Cell Disease and methamphetamine use presents to ED c/o shortness of breath x 2 days. Patient reports running out of her medication. Denies coughing more than normal, fever, or congestion. Patient data External records reviewed:: [facility] previous records ( Reviewed prior Ed records from 02/14/25. Patient was seen for Weakness.) Clinical information provided by:: patient Social determinants that could affect healthcare access:: none Patient has the following chronic illnesses:: Nunez's Palsy, Angina, Hypercholesterolemia, Hypertension, Asthma and Pneumonia, Gall Bladder Disease, Diverticulitis, Hiatal Hernia, Kidney Stones, Endometriosis, Rheumatoid Arthritis, Cataracts, Glaucoma, Diabetes Mellitus Type 2, Hypothyroidism, Anemia and Sickle Cell Disease and methamphetamine use How is presenting disease/condition affected by chronic disease/condition?: exacerbated by Evaluation data The following diagnostics were reviewed and interpreted by me:: other (specify) (None ordered.) Lab and/or radiology exams considered but not ordered:: None. Interpretation Summary: N/A Medications / Prescriptions Medications or Prescriptions considered but not ordered:: None. Medication administrations:: Medication Administration History Discontinued Medications Albuterol/Ipratropium (Albuterol/Ipratropium (Duoneb) Rt Ofelia 3 Ml Nebu) 3 ml INH X1 ONE Stop: 02/19/25 03:33 Last Admin: 02/19/25 03:46 Dose: 3 ml Documented By: PAR Prednisone (Prednisone 20 Mg Tablet) 60 mg PO X1 ONE Stop: 02/19/25 03:33 Last Admin: 02/19/25 03:52 Dose: 60 mg Documented By: CVL Prednisone, Albuterol/Ipratropium Duoneb Consultations Consultation(s) initiated? (list below): No Diagnosis Shortness of Breath Differential Diagnosis: acute exacerbation of chronic obstructive airways disease, congestive heart failure, community acquired pneumonia, asthma with exacerbation, pulmonary embolism and other (LRI vs URI) Most likely diagnosis given after review of the tests above:: Asthma attack Admission Indicated Admission indicated?: not indicated Explain why admission is indicated or not indicated:: With significant improvement, there was no indication for admission. Admission Request Was there a request for admission?: No Disposition Plan Disposition Plan: Discharge Discharge Attestation Discharge Attestation: The patient and all family members were given an opportunity to ask questions and understood the discharge instructions. Discharge instructions specifically effects, indications for sooner follow up or return to the emergency department, and the expected course of current diagnosis. Patient condition: Stable Discharge Plan Plan Patient Disposition: HOME (Self Care) Prescriptions/Referrals Prescriptions/Med Rec: New albuterol sulfate 90 mcg/actuation HFA aerosol inhaler 2 puff inhalation Q6H PRN (Reason: shortness of breath or wheezing) Qty: 8.5 0RF No Action levothyroxine 25 mcg Tablet 25 mcg PO QDAY glipizide 5 mg Tablet 5 mg PO BID prednisone 10 mg tablet 30 mg PO QDAY Rx Instructions: START DATE 03/06/20 hydrocodone-acetaminophen 5-325 mg tablet 1 tab PO Q4H PRN (Reason: Pain) omeprazole 40 mg capsule,delayed release(DR/EC) 40 mg PO QDAY risperidone 2 mg tablet 2 mg PO BID hydrochlorothiazide 12.5 mg capsule 12.5 mg PO QAM gabapentin 300 mg capsule 300 mg PO TID duloxetine 60 mg capsule,delayed release(DR/EC) 60 mg PO QDAY metronidazole 500 mg tablet 500 mg PO Q8H Qty: 20 0RF atorvastatin 40 mg tablet 40 mg PO HS Patient Comments: take 1 tablet by mouth at bedtime acetaminophen [Tylenol] 325 mg tablet 650 mg PO Q4H Qty: 60 0RF hydrocodone-acetaminophen 5-325 mg tablet 1 tab PO BID MDD 10 PRN (Reason: pain) Qty: 6 0RF fluconazole 150 mg tablet 150 mg PO Q3D Qty: 2 0RF psyllium Powder 1 tbsp PO QDAY Qty: 300 0RF Rx Instructions: mix into at least 8 oz of water or juice before administering albuterol sulfate 90 mcg/actuation HFA aerosol inhaler 2 inh inhalation QID PRN (Reason: shortness of breath or wheezing) Qty: 8.5 0RF prednisone 50 mg tablet 50 mg PO QDAY Qty: 3 0RF ondansetron 4 mg tablet,disintegrating 4 mg PO TID PRN (Reason: nausea and vomiting) 30 Days Qty: 10 0RF Referrals: No Primary/Family,Physician [Primary Care Provider] - In 1 week Problem List Clinical Impression: Asthma attack Patient/Caregiver Discharge Instructions Discharge Activity: activity as tolerated Education Materials: ED Asthma, Acute (Adult) Additional Instructions: Discharge instructions from Dr. Hills: --You are treated for mild asthma attack. --No physical exertion for 3 days to help rest the lungs. ?No smoking or exposure to smoking or pets or dust or cold or humidity. --Prednisone to help decrease the swelling in the airways. --Albuterol 2 puffs every 4-6 hours for 3 days to help keep the airways open. Then as needed for cough or shortness of breath. --See a private doctor on 02/22/2025 if not completely better. --Seek immediate medical care with worsening or with any concerns. Print Language: [place] Islander
[2025-02-19] MEDS: ALBUTEROL/IPRATROPIUM (Duoneb) RT SOL 3 ML NEBU INH (03:46)
[2025-02-19 03:47] VITALS: PULSE 88; RESP 18; O2SAT 100
[2025-02-19] MEDS: predniSONE 20 MG TABLET 60 MG PO (03:52)
[2025-02-19 04:25] LABS: Glucose 121 mg/dL (74-106)
--- NOTE | 2025-02-19 04:41 | XR_ITS ---
Examination: Venous duplex lower extremity sonogram, bilateral. Date and time of exam: February 19, 2025 0534 hrs. Indications: Bilateral leg pain this week, history of blood clot Right leg Technique: Multiple sonographic images of the deep venous system have been obtained. B-mode/2-D grayscale imaging of vascular structures and Doppler spectral analysis (waveforms) and color performed Both legs are examined. Findings: Deep venous systems do not demonstrate abnormal echogenicity. All visualized deep veins exhibit compressibility. All visualized deep veins exhibit augmentation. Impression: Negative for deep vein thrombosis
--- NOTE | 2025-02-19 06:11 | PD.EDADDENDU ---
Emergency Room Addendum Addendum Narrative: 0600: Care assumed from Dr. Hills, the previous shift emergency physician. Past medical, surgical, social and family history reviewed. Vitals and home medications reviewed. I will assume the care of the patient at this time, pending ultrasound and final disposition. Please refer to the emergency department record for history and examination from initial visit.? Physical exam by me shows patient under no acute distress at this time. 0758: Ultrasound was negative see report below. Patient remains clinically stable throughout the emergency department visit. Re-assessment at the time of disposition demonstrates that the patient is in no acute distress. We reviewed all the results, analysis, and treatment plans. Patient is amenable to discharge. Strict return precautions were outlined. Patient was discharged in stable condition. Diagnosis: - Asthma attack RADIOLOGY Procedure(s): US venous doppler LE Accession Number(s): [id number] cc: Chilo Hills MD; Allan Gan MD; NO PRIMARY/FAMILY,PHYSICIAN~ Examination: Venous duplex lower extremity sonogram, bilateral. Date and time of exam: February 19, 2025 0534 hrs. Indications: Bilateral leg pain this week, history of blood clot Right leg Technique: Multiple sonographic images of the deep venous system have been obtained. B-mode/2-D grayscale imaging of vascular structures and Doppler spectral analysis (waveforms) and color performed Both legs are examined. Findings: Deep venous systems do not demonstrate abnormal echogenicity. All visualized deep veins exhibit compressibility. All visualized deep veins exhibit augmentation. Impression: Negative for deep vein thrombosis Dictated By: Allan Gan MD
[2025-02-19 07:23] VITALS: BP 110/73; PULSE 93; RESP 18; TEMP 36.8; O2SAT 95
== END 2025-02-19 08:15 | disposition home or self-care (01) ==
PROVIDERS: Emergency Provider Emergency Medicine
DX: J45.909 Unspecified asthma, uncomplicated (principal); E78.00 Pure hypercholesterolemia, unspecified; E11.9 Type 2 diabetes mellitus without complications; I10 Essential (primary) hypertension; M06.9 Rheumatoid arthritis, unspecified
CPT/HCPCS: 36415; 82947; 93970; 94640; 99284; A9270; J7512

== ENCOUNTER 2025-02-20 17:56 | Emergency (ER) | payer MEDICAID, SELFPAY ==
[2025-02-20 19:05] VITALS: BP 133/92; PULSE 82; RESP 18; TEMP 36.7; O2SAT 95
--- NOTE | 2025-02-20 19:09 | EKG_ITS ---
[facility] Test Date: 2025-02-20 Pat Name: MELVIN SEGURA Department: Room: - Gender: Female [employer]: : [id number] Requested By: Pavan Barrios Order Number: [id number] Reading MD: Pavan Barrios Measurements Intervals [place] Rate: 83 P: 64 RI: 174 QRS: 5 QRSD: 78 T: 11 QT: 360 QTc: 424 Interpretive Statements SINUS RHYTHM POSSIBLE LEFT ATRIAL ENLARGEMENT [-0.1mV P-WAVE IN V1/V2] INDETERMINATE AXIS LOW QRS VOLTAGE IN PRECORDIAL LEADS [QRS DEFLECTION < 1.0 mV IN CHEST LEADS] PATTERN CONSISTENT WITH PULMONARY DISEASE POSSIBLE RIGHT VENTRICULAR CONDUCTION DELAY [RSR (QR) IN V1/V2] MODERATE T-WAVE ABNORMALITY, CONSIDER ANTERIOR ISCHEMIA [-0.1+ mV T-WAVE IN V3/V4] Compared to ECG 09/26/2024 01:55:51 Indeterminate axis now present Low QRS voltage now present T-wave abnormality now present Possible ischemia now present Sinus tachycardia no longer present Left-axis deviation no longer present /store/S0/[id number]/ecg/[id number].pdf
--- NOTE | 2025-02-20 19:10 | PD.EDRME ---
Rapid Medical Screening Exam RME Arrival date/time: 02/20/25 17:56 59 yo f present to ED for c/o of anxiety and worry about elevated blood glucose I have greeted and performed a focused initial assessment of this patient. A comprehensive ED assessment and evaluation of the patient, analysis of all test results, and completion of the medical decision making process will be conducted by additional ED providers. Chief Complaint: Anxiety Time Seen by Provider: 02/20/25 18:29 Vital signs: Vital Signs Temperature 98.1 F 02/20/25 19:05 Pulse Rate 82 02/20/25 19:05 Respiratory Rate 18 02/20/25 19:05 Blood Pressure 133/92 H 02/20/25 19:05 Pulse Oximetry (%) 95 02/20/25 19:05 Oxygen Delivery Method Room Air 02/20/25 19:05
--- NOTE | 2025-02-20 19:49 | PD.EDANX ---
ED Anxiety RME/HPI General Chief Complaint: Anxiety Stated Complaint: ANXIETY, FEELS LIKE SHE'S GOING INTO DKA Time Seen by Provider: 02/20/25 18:29 Arrival date/time: 02/20/25 17:56 59 year old female present to emergency room with c/o of anxiety today. patient was seen [facility] a few days ago and gotten full labs, unremarkable. history of similar episode of anxiety. denies a SI, hallucination or homicidal thoughts. SEVERITY: Symptoms are described as being severe with limitations on activities of daily living CONTEXT: The patient is unable to identify any inciting events. DURATION/TIMING: The symptoms started approximately 1 day ASSOCIATED SYMPTOMS: The patient is unable to identify any other associated symptoms. MODIFYING FACTORS: The patient is unable to identify any alleviating or aggravating symptoms. PERTINENT ROS: no fevers, no cough, no pleuritic pain, no ripping or tearing sensations, denies any lower extremity edema and no unilateral swelling, no chest pain/shortness of breath no nausea,vomiting, diarrhea, no dizziness/headache no rash no loc/syncope episode no abd/back pain REVIEW OF SYSTEMS: See History of Present Illness - with the exception of those mentioned in the history of present illness, all other systems reviewed and reported as negative GENERAL: In general the patient is awake, interactive, in an emergency department gurney. HEAD/EYES/EARS/NOSE/THROAT: normo-cephalic, atraumatic, mucus membranes are moist, anicteric, palpebral conjunctiva is pink, trachea is midline. CARDIOVASCULAR: regular rate and regular rhythm, no murmurs, heart sounds are not distant, strong pulses in all four extremities that are equal and symmetric bilateral upper and lower extremities, normal capillary refill. CHEST/PULMONARY: normal chest rise and fall, good air movement, clear to auscultation bilaterally, normal inspiratory to expiratory ratios without evidence of respiratory distress. NECK: No midline/Paraspinal tenderness, no step off ROM/Strenght intact No Kernig and bruzinski sign. No trauma ABDOMEN: soft, not tender, no masses appreciated BACK: normal range of motion without pain. NEUROLOGICAL: cranio-facial features are symmetric, moves all four extremities equally without obvious limitations or weakness. EXTREMITY: no tenderness to palpation over the long bones or large joints of the bilateral upper and lower extremities, no joint swelling, no joint erythema, no signs of trauma, no unilateral leg swelling and no peripheral edema. SKIN: warm, dry, well-perfused, no jaundice, no rash, no telangiectasias or petechia. PSYCH: calm, cooperative, no evidence of psychosis or agitation RME / HPI RME / HPI narrative: 02/20/25 17:56 59 yo f present to ED for c/o of anxiety and worry about elevated blood glucose I have greeted and performed a focused initial assessment of this patient. A comprehensive ED assessment and evaluation of the patient, analysis of all test results, and completion of the medical decision making process will be conducted by additional ED providers. Related Data Home Medications ?Medication ?Instructions ?Recorded ?Confirmed glipizide 5 mg tablet 5 mg PO BID 06/10/19 03/19/20 levothyroxine 25 mcg tablet 25 mcg PO QDAY 06/10/19 03/19/20 atorvastatin 40 mg tablet 40 mg PO HS 11/22/19 03/19/20 duloxetine 60 mg capsule,delayed 60 mg PO QDAY 03/19/20 03/19/20 release gabapentin 300 mg capsule 300 mg PO TID 03/19/20 03/19/20 hydrochlorothiazide 12.5 mg capsule 12.5 mg PO QAM 03/19/20 03/19/20 hydrocodone 5 mg-acetaminophen 325 1 tab PO Q4H PRN Pain 03/19/20 03/19/20 mg tablet omeprazole 40 mg capsule,delayed 40 mg PO QDAY 03/19/20 03/19/20 release prednisone 10 mg tablet 30 mg PO QDAY 03/19/20 03/19/20 risperidone 2 mg tablet 2 mg PO BID 03/19/20 03/19/20 Previous Rx's ?Medication ?Instructions ?Recorded metronidazole 500 mg tablet 500 mg PO Q8H #20 tabs 03/20/20 acetaminophen 325 mg tablet 650 mg (2 x 325 mg) PO Q4H #60 tabs 03/26/20 (Tylenol) hydrocodone 5 mg-acetaminophen 325 1 tab PO BID PRN pain #6 tabs 12/30/21 mg tablet psyllium 1 tbsp PO QDAY #300 grams 03/21/23 albuterol sulfate 90 mcg/actuation 2 inh inhalation QID PRN shortness 09/26/24 aerosol inhaler of breath or wheezing #8.5 grams prednisone 50 mg tablet 50 mg PO QDAY #3 tabs 09/26/24 fluconazole 150 mg tablet 150 mg PO Q3D 2 doses #2 tabs 09/27/24 ondansetron 4 mg disintegrating 4 mg PO TID PRN nausea and 02/14/25 tablet vomiting 30 days #10 tabs albuterol sulfate 90 mcg/actuation 2 puff inhalation Q6H PRN 02/19/25 aerosol inhaler shortness of breath or wheezing #8.5 grams prednisone 50 mg tablet 50 mg PO BID 2 days #4 tabs 02/19/25 Allergies Allergy/AdvReac Type Severity Reaction Status Date / Time levofloxacin (From Levaquin) Allergy Severe Swelling Verified 02/20/25 17:58 of Lip/Tongue/Throat methotrexate Allergy Severe Redness of Verified 02/20/25 17:58 Skin Course Course Course Narrative: Patient presenting with anxiety without evidence for suicidal ideation. Medical review of systems negative, no obvious disease on medical screening exam.? Patient provided ativan? ? Following which, patient stated they felt improved.? Patient monitored for a period of 1 hours.? Discussed supportive therapies, including going to bed at the same time every evening, regular exercise such as stretching and aerobics in the AM, using relaxation techniques such as muscle relaxation/imagery/massage/warm baths/etc, yoga, refrain from caffeinated and EtOH beverages in the PM, talking to family/friends or support group, taking up a hobby, listening to music or watching movies, deep breathing exercises, sleep hygiene, eating a healthy diet.? Discussed following up with primary care provider or mental health professional.? Patient discharged in stable, ambulatory condition.?? Plan:? Discharge from ED Patient instructed that if having thoughts of suicide, please call a doctor, friend, or family member and report to the nearest ER or hospital.? Follow up with pcp or mental health provider in 2 days.?? Instructed Pt to f/up w/ PCP or ETC should symptoms worsen or not improve. Pt verbally expressed understanding and all questions were addressed to Pt's satisfaction. Quality Measures none Orders Category Date Time Status Blood glucose [Bedside Blood Glucose] NOW Care 02/20/25 19:09 Active EKG (ED ONLY) *Do not use* NOW Care 02/20/25 19:10 Completed EKG (ED Only) Stat Exams 02/20/25 19:09 Draft LORazepam [Ativan] Med 02/20/25 19:09 Discontinued 0.5 mg PO X1 ONE Reevaluation(s) Reevaluation #1: feel better Vital Signs Vital signs: Vital Signs Temperature 98.1 F 02/20/25 19:05 Pulse Rate 82 02/20/25 19:05 Respiratory Rate 18 02/20/25 19:05 Blood Pressure 133/92 H 02/20/25 19:05 Pulse Oximetry (%) 95 02/20/25 19:05 Oxygen Delivery Method Room Air 02/20/25 19:05 Procedures -ED EKG Interpretation #1: Date of EK02/20/25 Rate: 86 Interpretation: Reviewed by me EKG Impression: Normal sinus rhythm, No acute ST-T changes, No ectopy, No ischemic changes, Normal QRS and Normal intervals Anxiety Patient data External records reviewed:: [facility] previous records Clinical information provided by:: patient Social determinants that could affect healthcare access:: none Patient has the following chronic illnesses:: as stated in chart How is presenting disease/condition affected by chronic disease/condition?: uneffected by Evaluation data The following diagnostics were reviewed and interpreted by me:: lab results and EKG tracing(s) Lab and/or radiology exams considered but not ordered:: n/a Interpretation Summary: blood glucose 120 Medications / Prescriptions Medications or Prescriptions considered but not ordered:: n/a Medication administrations:: Medication Administration History Discontinued Medications Lorazepam (Lorazepam 0.5 Mg Tablet) 0.5 mg PO X1 ONE Stop: 02/20/25 19:10 Consultations Consultation(s) initiated? (list below): No Diagnosis Most likely diagnosis given after review of the tests above:: anxiety Admission Indicated Admission indicated?: not indicated Admission Request Was there a request for admission?: No Disposition Plan Disposition Plan: Discharge Discharge Attestation Discharge Attestation: The patient and all family members were given an opportunity to ask questions and understood the discharge instructions. Discharge instructions specifically effects, indications for sooner follow up or return to the emergency department, and the expected course of current diagnosis. Patient condition: Stable Discharge Plan Plan Patient Disposition: HOME (Self Care) Prescriptions/Referrals Prescriptions/Med Rec: No Action levothyroxine 25 mcg Tablet 25 mcg PO QDAY glipizide 5 mg Tablet 5 mg PO BID prednisone 10 mg tablet 30 mg PO QDAY Rx Instructions: START DATE 5/5/20 hydrocodone-acetaminophen 5-325 mg tablet 1 tab PO Q4H PRN (Reason: Pain) omeprazole 40 mg capsule,delayed release(DR/EC) 40 mg PO QDAY risperidone 2 mg tablet 2 mg PO BID hydrochlorothiazide 12.5 mg capsule 12.5 mg PO QAM gabapentin 300 mg capsule 300 mg PO TID duloxetine 60 mg capsule,delayed release(DR/EC) 60 mg PO QDAY metronidazole 500 mg tablet 500 mg PO Q8H Qty: 20 0RF atorvastatin 40 mg tablet 40 mg PO HS Patient Comments: take 1 tablet by mouth at bedtime acetaminophen [Tylenol] 325 mg tablet 650 mg PO Q4H Qty: 60 0RF hydrocodone-acetaminophen 5-325 mg tablet 1 tab PO BID MDD 10 PRN (Reason: pain) Qty: 6 0RF fluconazole 150 mg tablet 150 mg PO Q3D Qty: 2 0RF prednisone 50 mg tablet 50 mg PO BID 2 Days Qty: 4 0RF albuterol sulfate 90 mcg/actuation HFA aerosol inhaler 2 puff inhalation Q6H PRN (Reason: shortness of breath or wheezing) Qty: 8.5 0RF psyllium Powder 1 tbsp PO QDAY Qty: 300 0RF Rx Instructions: mix into at least 8 oz of water or juice before administering albuterol sulfate 90 mcg/actuation HFA aerosol inhaler 2 inh inhalation QID PRN (Reason: shortness of breath or wheezing) Qty: 8.5 0RF prednisone 50 mg tablet 50 mg PO QDAY Qty: 3 0RF ondansetron 4 mg tablet,disintegrating 4 mg PO TID PRN (Reason: nausea and vomiting) 30 Days Qty: 10 0RF Referrals: No Primary/Family,Physician [Primary Care Provider] - In 1 week Problem List Clinical Impression: Acute anxiety Patient/Caregiver Discharge Instructions Education Materials: ED Anxiety Reaction Print Language: [place] Stand Alone Forms: [employer] Award Info., Patient Portal Info Letter
[2025-02-20] MEDS: LORazepam 0.5 MG TABLET PO (20:02)
== END 2025-02-20 20:46 | disposition home or self-care (01) ==
PROVIDERS: Emergency Provider Emergency Medicine
DX: F41.9 Anxiety disorder, unspecified (principal); R94.31 Abnormal electrocardiogram [ECG] [EKG]
CPT/HCPCS: 93005; 99283; A9270

== ENCOUNTER 2025-02-25 18:01 | Emergency (ER) | payer MEDICAID, SELFPAY ==
[2025-02-25 18:22] VITALS: BP 109/74; PULSE 92; RESP 18; TEMP 36.7; O2SAT 96; BMI 31.6
--- NOTE | 2025-02-25 18:27 | EKG_ITS ---
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
--- NOTE | 2025-02-25 18:28 | PD.EDRME ---
Rapid Medical Screening Exam RME Arrival date/time: 02/25/25 18:01 Chief Complaint: General Adult/Misc Complain Time Seen by Provider: 02/25/25 18:04 Vital signs: Vital Signs Temperature 98.0 F 02/25/25 18:22 Pulse Rate 92 02/25/25 18:22 Respiratory Rate 18 02/25/25 18:22 Blood Pressure 109/74 02/25/25 18:22 Pulse Oximetry (%) 96 02/25/25 18:22 Oxygen Delivery Method Room Air 02/25/25 18:22 RME Narrative: Dizziness started today. No cp or sob
--- NOTE | 2025-02-25 18:36 | XR_ITS ---
Examination: CT brain head without contrast. 2-D sagittal coronal reconstructions Date and time of exam:February 25, 2025 1918 hours INDICATION: Dizziness and left-sided facial pain beginning 2:00 AM this morning CTDI: vol (mGy):46.9 DLP: (mGycm):962 Technique: Multiple CT axial sections of the brain have been obtained, 5 mm slice thickness. Contrast has not been administered. 2-D sagittal, coronal reconstructions have been obtained Low dose protocols were performed. One or more of the following dose reduction techniques were used; automated exposure control, adjustment of the mA and/or KV according to patient size, use of iterative reconstruction technique. Findings: No significant ventricular enlargement. Intra-axial or extra-axial hemorrhage density is not seen. No mass effect or midline shift Basal cisterns are not remarkable. Fourth ventricle is midline. Cranial vault intact. Chronic mastoiditis Impression: Negative for acute hemorrhage, mass effect or midline shift If symptoms persist, consider brain MRI follow-up, stroke protocol
--- NOTE | 2025-02-25 18:41 | PC.NURSE ---
LET PT USE TRIAGE PHONE TO CALL SIGNIFICANT OTHER AND SON. PT BEGAN YELLING AT THIS RN FOR LISTENING TO HER CONVERSATION WHEN SHE WAS AT THIS RNS DESK USING PHONE THAT IS ON DESK.
[2025-02-25 18:55] LABS: Basophils # (Auto) 0.1 Thou/mm3 (0.0-0.2); Basophils % (Auto) 1 % (0-2.5); Eosinophils # (Auto) 0.5 Thou/mm3 (0.0-0.5); Eosinophils % (Auto) 5 % (0-10); Hematocrit 49.9 % (36.0-46.0); Hemoglobin 16.9 g/dL (12.0-16.0); Immature Granulocytes % (Auto) 0 % (0-0); Immature Granulocytes Auto 0.01 Thou/mm3 (0.00-0.00); Lymphocytes % (Auto) 35 % (10-50); Mean Corpuscular HGB Conc 33.9 g/dl (31.0-37.0); Mean Corpuscular Hemoglobin 26.9 pg (25.0-35.0); Mean Corpuscular Volume 79 fL (80-100); Monocytes # (Auto) 0.6 Thou/mm3 (0.0-0.8); Monocytes % (Auto) 7 % (0-12); Neutrophils # (Auto) 4.4 Thou/mm3 (1.8-7.7); Neutrophils % (Auto) 51 % (37-80); Nucleated Red Blood Cell % 0 /100 WBC (0); Platelet Count 302 Thou/mm3 (140-440); RDW Standard Deviation 39.3 fL (36.4-46.3); Red Blood Count 6.29 Miln/mm3 (4.00-5.20); White Blood Count 8.7 Thou/mm3 (3.6-11.0)
[2025-02-25 19:18] LABS: Alanine Aminotransferase 15 U/L (10-49); Albumin, Serum 4.1 gm/dL (3.5-5.0); Albumin/Globulin Ratio 1.3 (1.2-2.2); Alkaline Phosphatase 154 U/L (46-116); Anion Gap 8 (7-16); Aspartate Amino Transferase 20 U/L (0-34); BUN/Creatinine Ratio 9 Ratio (12-20); Bilirubin,Total 1.4 mg/dL (0.3-1.2); Blood Urea Nitrogen 7 mg/dL (9-23); Calcium 9.2 mg/dL (8.3-10.6); Calcium (Corrected) 9.2 mg/dL (8.5-10.1); Chloride 106 mMol/L (98-107); Creatinine (Component) 0.8 mg/dL (0.6-1.3); Estimated Creatinine Clearance 69.4 mL/min (>60); Globulin 3.2 gm/dL (2.3-3.5); Glucose 110 mg/dL (74-106); Osmolality,Calculated 270 (275-295); Potassium 3.8 mMol/L (3.4-5.1); Sodium 136 mMol/L (136-145); Total Protein 7.3 gm/dL (5.7-8.2); Troponin I < 0.020 ng/mL (0.0-0.045); eGFR > 60 See Note
--- NOTE | 2025-02-25 20:52 | PC.NURSE ---
pt in lobby harrasing other pts. example, loudly telling another pt that he was her , telling people there is rape and incest in my family multiple times comes to the triage desk giving me names to check and see if they are here as pts. rambling on loudly. Asking people what there names are. Demanding to see the charge nurse, the asking to talk to registration, asking for coffee asking for food. pt has been asked multiple times to keep her voice down. other pts are complaining about her. multiple times pt has interrupted while I'm triaging other pts. pt has been asked multiple times to not disturb other pts and to keep her voice down.
[2025-02-25 21:26] LABS: Collection Type, Urine Clean Catch; RBC,Urine 0 /hpf (0-3)
[2025-02-25 21:47] LABS: Bacteria,Urine Rare; Bilirubin,Urine Negative (Negative); Blood,Urine Negative (Negative); Clarity,Urine Turbid (Clear/Hazy); Color,Urine Lt-Yellow (Lt Yel-Yel); Glucose, Urine Negative (Negative); Ketones,Urine Negative (Negative); Leukocyte Esterase,Urine Positive (Negative); Nitrite,Urine Negative (Negative); Protein,Urine Negative (Neg - Trace); Squamous Epithelial Cell,Urine < 1 /hpf (0-5); Urobilinogen,Urine Negative mg/dL (0.0-1.0); WBC,Urine 59 /hpf (0-5)
[2025-02-25 21:54] LABS: Amphetamine/Methamp Scrn,U Positive (Negative); Barbiturate Screen,Urine Negative (Negative); Benzodiazepines Screen,Urine Negative (Negative); Benzoylecgonine Screen, Ur Negative (Negative); Fentanyl Screen,Urine Negative (Negative); Opiate Screen,Urine Negative (Negative); THC Screen,Urine Negative (Negative)
--- NOTE | 2025-02-25 22:51 | PD.EDDIZZY ---
ED Dizzyness RME/HPI General Chief Complaint: General Adult/Misc Complain Stated Complaint: NEEDS BG CHECKED, METER NOT WORKING, LT HEADED Time Seen by Provider: 02/25/25 18:04 Source: patient, RN notes reviewed and old records reviewed Arrival date/time: 02/25/25 18:01 Mode of arrival: ambulatory Limitations: no limitations RME / HPI RME / HPI Narrative: 59yof presents to the ED for dizziness that initiated this morning. Patient concerned her blood sugar is either high or low, her home glucometer is currently not working. No fever, URI symptoms, shortness of breath, chest pain, nausea/vomiting, vision changes, focal weakness or headache reported. No medications or treatments since onset. Related Data Home Medications ?Medication ?Instructions ?Recorded ?Confirmed glipizide 5 mg tablet 5 mg PO BID 06/10/19 03/19/20 levothyroxine 25 mcg tablet 25 mcg PO QDAY 06/10/19 03/19/20 atorvastatin 40 mg tablet 40 mg PO HS 11/22/19 03/19/20 duloxetine 60 mg capsule,delayed 60 mg PO QDAY 03/19/20 03/19/20 release gabapentin 300 mg capsule 300 mg PO TID 03/19/20 03/19/20 hydrochlorothiazide 12.5 mg capsule 12.5 mg PO QAM 03/19/20 03/19/20 hydrocodone 5 mg-acetaminophen 325 1 tab PO Q4H PRN Pain 03/19/20 03/19/20 mg tablet omeprazole 40 mg capsule,delayed 40 mg PO QDAY 03/19/20 03/19/20 release prednisone 10 mg tablet 30 mg PO QDAY 03/19/20 03/19/20 risperidone 2 mg tablet 2 mg PO BID 03/19/20 03/19/20 Previous Rx's ?Medication ?Instructions ?Recorded metronidazole 500 mg tablet 500 mg PO Q8H #20 tabs 03/20/20 acetaminophen 325 mg tablet 650 mg (2 x 325 mg) PO Q4H #60 tabs 03/26/20 (Tylenol) hydrocodone 5 mg-acetaminophen 325 1 tab PO BID PRN pain #6 tabs 12/30/21 mg tablet psyllium 1 tbsp PO QDAY #300 grams 03/21/23 albuterol sulfate 90 mcg/actuation 2 inh inhalation QID PRN shortness 09/26/24 aerosol inhaler of breath or wheezing #8.5 grams prednisone 50 mg tablet 50 mg PO QDAY #3 tabs 09/26/24 fluconazole 150 mg tablet 150 mg PO Q3D 2 doses #2 tabs 09/27/24 ondansetron 4 mg disintegrating 4 mg PO TID PRN nausea and 02/14/25 tablet vomiting 30 days #10 tabs albuterol sulfate 90 mcg/actuation 2 puff inhalation Q6H PRN 02/19/25 aerosol inhaler shortness of breath or wheezing #8.5 grams cefdinir 300 mg capsule 300 mg PO BID 7 days #14 caps 02/25/25 Allergies Allergy/AdvReac Type Severity Reaction Status Date / Time levofloxacin (From FasterPants) Allergy Severe Swelling Verified 02/26/25 15:25 of Lip/Tongue/Throat methotrexate Allergy Severe Redness of Verified 02/26/25 15:25 Skin Review of Systems Review of Systems Systems Reviewed: All systems reviewed, normal except as documented Constitutional Constitutional: Denies chills, Denies fever(s) and Denies headache(s) ENT Ears, Nose, Mouth, and Throat: Reports dizziness and Denies headache(s) Cardiovascular Cardiovascular: Denies chest pain, Denies dyspnea and Denies syncope Respiratory Respiratory: Denies dyspnea Gastrointestinal Gastrointestinal: Denies abdominal pain, Denies nausea and Denies vomiting Neurologic Neurologic: Reports dizziness, Denies localized weakness, Denies headache(s) and Denies syncope Past Medical History Past Medical History NEUROLOGIC: Positive Neurological Disorders and Nunez's Palsy CARDIAC: Positive Cardiac Disorders, Angina, Hypercholesterolemia and Hypertension; Negative Congestive Heart Failure RESPIRATORY: Positive Asthma and Pneumonia; Negative Chronic Obstructive Pulmonary Disease (COPD) GASTROINTESTINAL: Positive Gall Bladder Disease, Diverticulitis and Hiatal Hernia GENITOURINARY: Positive Genitourinary Disorders and Kidney Stones; Negative Renal Disease REPRODUCTIVE: Positive Endometriosis and Previous Pregnancies MUSCULOSKELETAL: Positive Musculoskeletal Disorders and Rheumatoid Arthritis ENT: Positive Cataracts and Glaucoma ENDOCRINE: Positive Endocrine Disorders, Diabetes Mellitus Type 2 and Hypothyroidism; Negative Diabetes Mellitus Type 1 HEMATOLOGIC: Positive Anemia OTHER HISTORY: Positive Rubella (Italian Measles); Negative Autoimmune Disease Family History FAMILY HISTORY: Positive Family Psychiatric Problems, Family Cardiac Disorders and Family Gastrointestinal Problems; Negative Family Respiratory Disorders, Family Cancer or Family Surgery Surgical History SURGICAL: Positive Angiogram, Abdominal Surgery and Tubal Ligation Social History SMOKING STATUS: Never smoker SECOND HAND EXPOSURE: No SUBSTANCE USE: methamphetamine Travel History EBOLA RISK: No ED Exam General Limitations: Present no limitations General appearance: Present alert and in no apparent distress Head Head exam: Present atraumatic and normocephalic Eye Eye exam: Present normal appearance, PERRL and EOMI ENT ENT exam: Present normal exam and mucous membranes moist Neck Neck exam: Present normal inspection and full ROM Chest Chest inspection: Present normal inspection and symmetric chest wall rise Respiratory Respiratory exam: Present normal lung sounds bilaterally; Absent respiratory distress Cardiovascular Cardiovascular exam: Present regular rate and normal rhythm Abdominal Exam Abdominal exam: Present soft; Absent distention or tenderness Extremities Exam Extremities exam: Present normal inspection and full ROM Neurological Exam Neurological exam: Present alert, oriented X3, CN II-XII intact and normal gait; Absent motor sensory deficit Psychiatric Psychiatric exam: Present normal affect and normal mood Course Quality Measures none Orders Category Date Time Status EKG (ED ONLY) *Do not use* NOW Care 02/25/25 18:[address] head/brain wo con Stat Exams 02/25/25 18:36 Completed EKG (ED Only) Stat Exams 02/25/25 18:27 Draft CBC Stat Lab 02/25/25 18:44 Completed CMP [Comprehensive Metabolic Panel] Stat Lab 02/25/25 18:44 Completed Drug Screen,Urine Stat Lab 02/25/25 21:20 Completed Troponin I Stat Lab 02/25/25 18:44 Completed UA [Urinalysis] Stat Lab 02/25/25 21:20 Completed Vital Signs Vital signs: Vital Signs Temperature 98.0 F 02/25/25 18:22 Pulse Rate 92 02/25/25 18:22 Respiratory Rate 18 02/25/25 18:22 Blood Pressure 109/74 02/25/25 18:22 Pulse Oximetry (%) 96 02/25/25 18:22 Oxygen Delivery Method Room Air 02/25/25 18:22 Procedures -ED EKG Interpretation #1: Date of EK02/25/25 Rate: 93 Interpretation: Interpreted by me EKG Impression: Normal sinus rhythm, No acute ST-T changes, No ectopy, No ischemic changes, Normal QRS, Normal intervals and Normal axis Additional EKG comment: Inverted twaves V1-V4 Dizziness MDM Narrative MDM Narrative:: 59yof presents to the ED for dizziness that initiated this morning. Patient concerned her blood sugar is either high or low, her home glucometer is currently not working. No fever, URI symptoms, shortness of breath, chest pain, nausea/vomiting, vision changes, focal weakness or headache reported. No medications or treatments since onset. DC paperwork printed but patient eloped [place] prior to discharge. Patient data External records reviewed:: [facility] previous records (02/20/25 ED visit for anxiety) Clinical information provided by:: patient Social determinants that could affect healthcare access:: other (specify) (poor access to healthcare) Patient has the following chronic illnesses:: HTN, DM, anxiety How is presenting disease/condition affected by chronic disease/condition?: exacerbated by Evaluation data The following diagnostics were reviewed and interpreted by me:: lab results, radiology exam(s) and EKG tracing(s) Lab and/or radiology exams considered but not ordered:: none Interpretation Summary: CT head negative wbc 8.7 glucose 107 UA +leuks Medications / Prescriptions Medications or Prescriptions considered but not ordered:: none Medication administrations:: none Consultations Consultation(s) initiated? (list below): No Diagnosis Dizziness Differential Diagnosis: benign paroxysmal positional vertigo, orthostatic hypotension, cerebrovascular accident and other (UTI, ICH, arrhythmia, hyperglycemia, hypoglycemia, electrolyte imbalance, dehydration) Most likely diagnosis given after review of the tests above:: UTI, dizziness Admission Indicated Admission indicated?: not indicated Admission Request Was there a request for admission?: No Disposition Plan Disposition Plan: Discharge Discharge Attestation Discharge Attestation: The patient and all family members were given an opportunity to ask questions and understood the discharge instructions. Discharge instructions specifically effects, indications for sooner follow up or return to the emergency department, and the expected course of current diagnosis. Patient condition: Stable Discharge Plan Plan Patient Disposition: HOME (Self Care) Patient condition on transfer: Stable Prescriptions/Referrals Prescriptions/Med Rec: New cefdinir 300 mg capsule 300 mg PO BID 7 Days Qty: 14 0RF No Action levothyroxine 25 mcg Tablet 25 mcg PO QDAY glipizide 5 mg Tablet 5 mg PO BID prednisone 10 mg tablet 30 mg PO QDAY Rx Instructions: START DATE 03/06/20 hydrocodone-acetaminophen 5-325 mg tablet 1 tab PO Q4H PRN (Reason: Pain) omeprazole 40 mg capsule,delayed release(DR/EC) 40 mg PO QDAY risperidone 2 mg tablet 2 mg PO BID hydrochlorothiazide 12.5 mg capsule 12.5 mg PO QAM gabapentin 300 mg capsule 300 mg PO TID duloxetine 60 mg capsule,delayed release(DR/EC) 60 mg PO QDAY metronidazole 500 mg tablet 500 mg PO Q8H Qty: 20 0RF atorvastatin 40 mg tablet 40 mg PO HS Patient Comments: take 1 tablet by mouth at bedtime acetaminophen [Tylenol] 325 mg tablet 650 mg PO Q4H Qty: 60 0RF hydrocodone-acetaminophen 5-325 mg tablet 1 tab PO BID MDD 10 PRN (Reason: pain) Qty: 6 0RF fluconazole 150 mg tablet 150 mg PO Q3D Qty: 2 0RF albuterol sulfate 90 mcg/actuation HFA aerosol inhaler 2 puff inhalation Q6H PRN (Reason: shortness of breath or wheezing) Qty: 8.5 0RF psyllium Powder 1 tbsp PO QDAY Qty: 300 0RF Rx Instructions: mix into at least 8 oz of water or juice before administering albuterol sulfate 90 mcg/actuation HFA aerosol inhaler 2 inh inhalation QID PRN (Reason: shortness of breath or wheezing) Qty: 8.5 0RF prednisone 50 mg tablet 50 mg PO QDAY Qty: 3 0RF ondansetron 4 mg tablet,disintegrating 4 mg PO TID PRN (Reason: nausea and vomiting) 30 Days Qty: 10 0RF Referrals: Fracnisco Walker [Primary Care Provider] - In 1 week Problem List Clinical Impression: UTI (urinary tract infection), Dizziness Patient/Caregiver Discharge Instructions Education Materials: ED Dizziness, Uncertain Cause, ED CYSTITIS Female Adult Print Language: Zambian Stand Alone Forms: Hilda Award Info., Patient Portal Info Letter PA/HOSTEL MANAGER Supervising Physician PA/HOSTEL MANAGER Supervising Physician: Birgit
--- NOTE | 2025-02-25 23:07 | PC.NURSE ---
no answer x 1 at [id number]. checked outside and lobby.
--- NOTE | 2025-02-25 23:25 | PC.NURSE ---
Pt did not answer when name was called and was not found outside.
== END 2025-02-25 23:24 | disposition home or self-care (01) ==
PROVIDERS: Physician Assistant; Emergency Provider Emergency Medicine
DX: N39.0 Urinary tract infection, site not specified (principal); R42 Dizziness and giddiness; R51.9 Headache, unspecified; R94.31 Abnormal electrocardiogram [ECG] [EKG]; I10 Essential (primary) hypertension; E78.00 Pure hypercholesterolemia, unspecified
CPT/HCPCS: 36415; 70450; 80053; 80307; 81001; 84484; 85025; 93005; 99284

== ENCOUNTER 2025-02-26 15:22 | Emergency (ER) | payer MEDICAID, SELFPAY ==
[2025-02-26 15:32] VITALS: BP 101/69; PULSE 92; RESP 20; TEMP 36.9; O2SAT 96
--- NOTE | 2025-02-26 15:47 | PC.NURSE ---
PT STARTED YELLING AND SCREAMING IN QUINTEROS BY RME. ACCUSING BUT ALSO SAYING SHE WOULD ONLY BE SEEN IF HER STAYED WITH HER. PT TAKEN OUTSIDE BY SECURITY, CHARGE NURSE AND RETAIL PHARMACY TECHNICIAN. PT CONTINUES SCREAMING AT AND STAFF. [facility]PD CALLED W/ PROMPTED ARRIVAL OUTSIDE ER MAIN ENTRANCE.
--- NOTE | 2025-02-26 16:01 | PC.NURSE ---
SECURITY WITNESSED PT GET IN A WHITE CAR AND LEAVE.
== END 2025-02-26 16:01 | disposition left against medical advice (07) ==
LOC: SERX 16:04
PROVIDERS: Emergency Provider Emergency Medicine
DX: Z53.21 Procedure and treatment not carried out due to patient leaving prior to being seen by health care provider (principal)
CPT/HCPCS: 99281

== ENCOUNTER 2025-03-03 09:04 | Emergency (ER) | payer OTHER, SELFPAY ==
[2025-03-03] VITALS (8 sets, daily range): BP systolic 94–111; BP diastolic 73–82; PULSE 71–110; RESP 18–25; TEMP 36.4–36.8; O2SAT 99–100; BMI 28.7
--- NOTE | 2025-03-03 09:10 | EKG_ITS ---
[facility] Test Date: 2025-03-03 Pat Name: MELVIN SEGURA Department: Room: - Gender: Female Podiatry Doctor: : 1965 Requested By: Tucker Avendano Order Number: [id number] Reading MD: Tucker Avendano Measurements Intervals [place] Rate: 92 P: 72 [place]: 196 QRS: 97 QRSD: 97 T: 15 QT: 389 QTc: 482 Interpretive Statements SINUS RHYTHM INDETERMINATE AXIS ST DEVIATION AND MODERATE T-WAVE ABNORMALITY, CONSIDER ANTEROLATERAL ISCHEMIA [-0.1+ mV T-WAVE IN V3-V6] Compared to ECG 02/25/2025 18:32:48 Indeterminate axis now present T-wave abnormality still present Possible ischemia still present /store/S0/[id number]/ecg/[id number].pdf
--- NOTE | 2025-03-03 09:10 | PD.EDADULT ---
ED General RME/HPI General Chief complaint: Chest Pain Stated complaint: CHEST PAIN Time Seen by Provider: 03/03/25 09:10 Arrival date/time: 03/03/25 09:04 Limitations: no limitations RME / HPI RME / HPI narrative: 59 year old female with history of diabetes presents to the ED BIBA from a hotel parking lot. Per medics, the initial call was for weakness and shortness of breath. Upon arrival, the patient was noted to be cool, clammy, and diaphoretic but was awake, alert, and answering questions, GCS of 15. On telemetry, the patient's rhythm was SVT with a heart rate in the 170s. Prehospital B/P 170/110 and BS 132. The patient was given 6mg of Adenosine, which resulted in a rhythm strip showing sinus tachycardia at a rate of 100. While en route to the ED, medic reported that the patient became lethargic but remained arousable and continued to answer questions. Related Data Home Medications ?Medication ?Instructions ?Recorded ?Confirmed glipizide 5 mg tablet 5 mg PO BID 06/10/19 03/19/20 levothyroxine 25 mcg tablet 25 mcg PO QDAY 06/10/19 03/19/20 atorvastatin 40 mg tablet 40 mg PO HS 11/22/19 03/19/20 duloxetine 60 mg capsule,delayed 60 mg PO QDAY 03/19/20 03/19/20 release gabapentin 300 mg capsule 300 mg PO TID 03/19/20 03/19/20 hydrochlorothiazide 12.5 mg capsule 12.5 mg PO QAM 03/19/20 03/19/20 hydrocodone 5 mg-acetaminophen 325 1 tab PO Q4H PRN Pain 03/19/20 03/19/20 mg tablet omeprazole 40 mg capsule,delayed 40 mg PO QDAY 03/19/20 03/19/20 release prednisone 10 mg tablet 30 mg PO QDAY 03/19/20 03/19/20 risperidone 2 mg tablet 2 mg PO BID 03/19/20 03/19/20 Previous Rx's ?Medication ?Instructions ?Recorded metronidazole 500 mg tablet 500 mg PO Q8H #20 tabs 03/20/20 acetaminophen 325 mg tablet 650 mg (2 x 325 mg) PO Q4H #60 tabs 03/26/20 (Tylenol) hydrocodone 5 mg-acetaminophen 325 1 tab PO BID PRN pain #6 tabs 12/30/ mg tablet psyllium 1 tbsp PO QDAY #300 grams 03/21/23 albuterol sulfate 90 mcg/actuation 2 inh inhalation QID PRN shortness 09/26/24 aerosol inhaler of breath or wheezing #8.5 grams prednisone 50 mg tablet 50 mg PO QDAY #3 tabs 09/26/24 fluconazole 150 mg tablet 150 mg PO Q3D 2 doses #2 tabs 09/27/24 ondansetron 4 mg disintegrating 4 mg PO TID PRN nausea and 02/14/25 tablet vomiting 30 days #10 tabs albuterol sulfate 90 mcg/actuation 2 puff inhalation Q6H PRN 02/19/25 aerosol inhaler shortness of breath or wheezing #8.5 grams cefdinir 300 mg capsule 300 mg PO BID 7 days #14 caps 02/25/25 Allergies Allergy/AdvReac Type Severity Reaction Status Date / Time levofloxacin (From Levaquin) Allergy Severe Swelling Verified 02/26/25 15:25 of Lip/Tongue/Throat methotrexate Allergy Severe Redness of Verified 02/26/25 15:25 Skin Review of Systems Review of Systems Systems Reviewed: All systems reviewed, normal except as documented Past Medical History Past Medical History NEUROLOGIC: Positive Neurological Disorders and Nunez's Palsy CARDIAC: Positive Angina, Hypercholesterolemia and Hypertension RESPIRATORY: Positive Asthma and Pneumonia GASTROINTESTINAL: Positive Gastrointestinal Disorders, Gall Bladder Disease, Diverticulitis and Hiatal Hernia GENITOURINARY: Positive Genitourinary Disorders and Kidney Stones REPRODUCTIVE: Positive Endometriosis and Previous Pregnancies MUSCULOSKELETAL: Positive Musculoskeletal Disorders and Rheumatoid Arthritis ENT: Positive Cataracts and Glaucoma ENDOCRINE: Positive Endocrine Disorders, Diabetes Mellitus Type 2 and Hypothyroidism HEMATOLOGIC: Positive Blood Disorders, Anemia and Sickle Cell Disease OTHER HISTORY: Positive Rubella (English Measles) Family History FAMILY HISTORY: Positive Family Psychiatric Problems, Family Cardiac Disorders and Family Gastrointestinal Problems; Negative Family Respiratory Disorders, Family Cancer or Family Surgery Surgical History SURGICAL: Positive Angiogram, Abdominal Surgery and Tubal Ligation Social History SMOKING STATUS: Current every day smoker SECOND HAND EXPOSURE: No SUBSTANCE USE: methamphetamine ED Exam General Limitations: Present no limitations General appearance: Present alert and in no apparent distress Head Head exam: Present atraumatic, normocephalic and normal inspection Eye Eye exam: Present normal appearance, PERRL and EOMI ENT ENT exam: Present normal exam, normal oropharynx and mucous membranes moist Neck Neck exam: Present normal inspection, full ROM and trachea midline Chest Chest inspection: Present normal inspection and symmetric chest wall rise Respiratory Respiratory exam: Present normal lung sounds bilaterally Cardiovascular Cardiovascular exam: Present regular rate, normal rhythm and normal heart sounds Abdominal Exam Abdominal exam: Present soft and normal bowel sounds Extremities Exam Extremities exam: Present normal inspection and full ROM Back Exam Back exam: Present normal inspection and full ROM Neurological Exam Neurological exam: Present alert, oriented X3 and CN II-XII intact Psychiatric Psychiatric exam: Present normal affect and normal mood Skin Skin exam: Present warm, dry, intact and normal color Course Quality Measures none Orders Category Date Time Status Flyer Maker STAT Care 03/03/25 09:10 Active Continuous Pulse Oximetry ONCE Care 03/03/25 09:10 Completed EKG (ED ONLY) *Do not use* NOW Care 03/03/25 09:10 Completed Insert IV STAT Care 03/03/25 09:10 Active EKG (ED Only) Stat Exams 03/03/25 09:10 Draft XR chest 1V portable Stat Exams 03/03/25 09:10 Completed B-Type Natriuretic Peptide Stat Lab 03/03/25 10:20 Completed CBC Stat Lab 03/03/25 10:20 Completed Comprehensive Metabolic Panel Stat Lab 03/03/25 10:20 Completed Drug Screen,Urine Stat Lab 03/03/25 11:00 Completed TSH [Thyroid Stimulating Hormone] Stat Lab 03/03/25 10:20 Completed Troponin I Stat Lab 03/03/25 10:20 Completed Urinalysis Stat Lab 03/03/25 11:00 Completed Magnesium Sulfate 1 gm Ivpb [Magnesium Sulfate Ivpb] Med 03/03/25 12:05 Active 1 gm in 100 ml IV X1 Metoprolol Tartrate Inj [Lopressor Inj] Med 03/03/25 09:11 Discontinued 5 mg IV X1 ONE POTASSIUM CHL 10 mEq IVPB [Kcl Ivpb] Med 03/03/25 13:00 Active 10 meq in 100 ml IV Q1HR Potassium Chloride [K-Dur] Med 03/03/25 12:03 Discontinued 40 meq PO X1 ONE Sodium Chloride 0.9% 1000 ml [Ns] 1,000 ml Med 03/03/25 09:10 Discontinued IV 999 mls/hr Sodium Chloride 0.9% 1000 ml [Ns] 1,000 ml Med 03/03/25 12:05 Active IV 999 mls/hr Reevaluation(s) Reevaluation #1: We reviewed all the results, analysis, and treatment plans. Patient is amenable to discharge. Strict return precautions were outlined. Patient was discharged in stable condition. Time: 12:00 Vital Signs Vital signs: Vital Signs Temperature 97.6 F 03/03/25 09:10 Pulse Rate 87 03/03/25 09:10 Respiratory Rate 20 03/03/25 09:10 Blood Pressure 94/76 03/03/25 09:10 Pulse Oximetry (%) 99 03/03/25 09:10 Oxygen Delivery Method Room Air 03/03/25 09:10 Pulse ox is 99% on room air which is adequate. Discharge Plan Plan Patient Disposition: HOME (Self Care) Patient condition on transfer: Stable Prescriptions/Referrals Prescriptions/Med Rec: No Action levothyroxine 25 mcg Tablet 25 mcg PO QDAY glipizide 5 mg Tablet 5 mg PO BID prednisone 10 mg tablet 30 mg PO QDAY Rx Instructions: START DATE 03/06/20 hydrocodone-acetaminophen 5-325 mg tablet 1 tab PO Q4H PRN (Reason: Pain) omeprazole 40 mg capsule,delayed release(DR/EC) 40 mg PO QDAY risperidone 2 mg tablet 2 mg PO BID hydrochlorothiazide 12.5 mg capsule 12.5 mg PO QAM gabapentin 300 mg capsule 300 mg PO TID duloxetine 60 mg capsule,delayed release(DR/EC) 60 mg PO QDAY metronidazole 500 mg tablet 500 mg PO Q8H Qty: 20 0RF atorvastatin 40 mg tablet 40 mg PO HS Patient Comments: take 1 tablet by mouth at bedtime acetaminophen [Tylenol] 325 mg tablet 650 mg PO Q4H Qty: 60 0RF hydrocodone-acetaminophen 5-325 mg tablet 1 tab PO BID MDD 10 PRN (Reason: pain) Qty: 6 0RF fluconazole 150 mg tablet 150 mg PO Q3D Qty: 2 0RF albuterol sulfate 90 mcg/actuation HFA aerosol inhaler 2 puff inhalation Q6H PRN (Reason: shortness of breath or wheezing) Qty: 8.5 0RF psyllium Powder 1 tbsp PO QDAY Qty: 300 0RF Rx Instructions: mix into at least 8 oz of water or juice before administering albuterol sulfate 90 mcg/actuation HFA aerosol inhaler 2 inh inhalation QID PRN (Reason: shortness of breath or wheezing) Qty: 8.5 0RF prednisone 50 mg tablet 50 mg PO QDAY Qty: 3 0RF ondansetron 4 mg tablet,disintegrating 4 mg PO TID PRN (Reason: nausea and vomiting) 30 Days Qty: 10 0RF cefdinir 300 mg capsule 300 mg PO BID 7 Days Qty: 14 0RF Referrals: Arik Walker [Primary Care Provider] - In 1 week Problem List Clinical Impression: Nonsustained paroxysmal supraventricular tachycardia, Methamphetamine abuse, Hypokalemia Patient/Caregiver Discharge Instructions Education Materials: Addiction Ask These Questions, ED About Arrhythmias, ED Hypokalemia, ED Heart Disease Education Print Language: Norwegian Stand Alone Forms: ReviewZAP Award Info., Patient Portal Info Letter MDM Clinical Information Provided by: patient and EMS (Provided prehospital course and treatment ) Medical Records reviewed [facility] (I reviewed ED visit on 02/25/2025. Patient was evaluated here for dizziness) and EMS Meds/Rx considered, not ordered None Labs/Rad/Tests considered, not ordered None Chronic Illness/Social Conditions which may negatively complicate care or outcome(s)-explain: ETOH/drugs/substance abuse (Methamphetamine ) EKG Interpretation EKG #1: EKG Interpretation: EKG at 09:35 am. Sinus rhythm, rate 92, nonspecific ST T-wave changes. Labs Labs: Interpreted by me Imaging Imaging interpretation: Interpreted by me Imaging Interpretation(s): Ordering Physician: Tucker Avendano MD Date of Service: 03/03/25 Procedure(s): XR chest 1V portable Accession Number(s): [id number] cc: Tucker Avendano MD; Allan Gan MD; ARIK WALKER~ Examination: AP chest single view Technique one AP portable semiupright chest single view Exam date and time: March 03, 2025 0925 hours INDICATIONS: Chest pain beginning 2 days ago FINDINGS: No significant cardiac enlargement Mild central vascular prominence No lobar pneumonia or pulmonary edema IMPRESSION: Mild central pulmonary artery prominence, consider pulmonary artery hypertension Dictated By: Allan Gan MD Signed By: <Electronically signed by Allan Gan MD in OV> 03/03/25 1015 Medication Administration(s) Medication Administration History Potassium Chloride (Kcl Ivpb) 10 meq in 100 mls @ 100 mls/hr IV Q1HR TATIANA Stop: 03/03/25 14:59 Magnesium Sulfate/Dextrose (Magnesium Sulfate Ivpb) 1 gm in 100 mls @ 100 mls/hr IV X1 ONE Stop: 03/03/25 13:04 Sodium Chloride (Ns) 1,000 mls @ 999 mls/hr IV .Q1H1M ONE Stop: 03/03/25 13:05 Discontinued Medications Sodium Chloride (Ns) 1,000 mls @ 999 mls/hr IV .Q1H1M ONE Stop: 03/03/25 10:10 Last Infusion: 03/03/25 10:28 Dose: Infused Documented By: Admin: 03/03/25 09:19 Dose: 999 mls/hr Documented By: CELINA Metoprolol Tartrate (Metoprolol Tartrate Inj 1 Mg/Ml Amp 5 Ml) 5 mg IV X1 ONE Stop: 03/03/25 09:12 Last Admin: 03/03/25 09:25 Dose: Not Given Documented By: CELINA Non-Admin Reason: Contraindicated Potassium Chloride (Potassium Chloride 20 Meq Tabcr) 40 meq PO X1 ONE Stop: 03/03/25 12:04 See above
[2025-03-03] MEDS: SODIUM CHLORIDE 0.9% 1000 ML 1,000 ML 999 ML IV ×2 (09:19→12:22)
[2025-03-03 10:26] LABS: Basophils # (Auto) 0.1 Thou/mm3 (0.0-0.2); Basophils % (Auto) 1 % (0-2.5); Eosinophils # (Auto) 0.4 Thou/mm3 (0.0-0.5); Eosinophils % (Auto) 4 % (0-10); Hematocrit 44.7 % (36.0-46.0); Hemoglobin 15.3 g/dL (12.0-16.0); Immature Granulocytes % (Auto) 0 % (0-0); Immature Granulocytes Auto 0.02 Thou/mm3 (0.00-0.00); Lymphocytes # (Auto) 2.5 Thou/mm3 (1.0-4.8); Lymphocytes % (Auto) 26 % (10-50); Mean Corpuscular HGB Conc 34.2 g/dl (31.0-37.0); Mean Corpuscular Hemoglobin 27.1 pg (25.0-35.0); Mean Corpuscular Volume 79 fL (80-100); Monocytes # (Auto) 0.7 Thou/mm3 (0.0-0.8); Monocytes % (Auto) 7 % (0-12); Neutrophils # (Auto) 6.2 Thou/mm3 (1.8-7.7); Neutrophils % (Auto) 63 % (37-80); Nucleated Red Blood Cell % 0 /100 WBC (0); Platelet Count 286 Thou/mm3 (140-440); RDW Standard Deviation 39.9 fL (36.4-46.3); Red Blood Count 5.64 Miln/mm3 (4.00-5.20); White Blood Count 9.8 Thou/mm3 (3.6-11.0)
[2025-03-03 10:48] LABS: Alanine Aminotransferase 16 U/L (10-49); Albumin, Serum 3.3 gm/dL (3.5-5.0); Albumin/Globulin Ratio 1.3 (1.2-2.2); Alkaline Phosphatase 128 U/L (46-116); Anion Gap 9 (7-16); Aspartate Amino Transferase 26 U/L (0-34); BUN/Creatinine Ratio 8 Ratio (12-20); Bilirubin,Total 0.9 mg/dL (0.3-1.2); Blood Urea Nitrogen 6 mg/dL (9-23); Calcium 8.2 mg/dL (8.3-10.6); Calcium (Corrected) 8.8 mg/dL (8.5-10.1); Chloride 110 mMol/L (98-107); Creatinine (Component) 0.8 mg/dL (0.6-1.3); Estimated Creatinine Clearance 74.5 mL/min (>60); Globulin 2.6 gm/dL (2.3-3.5); Glucose 122 mg/dL (74-106); Osmolality,Calculated 283 (275-295); Potassium 2.9 mMol/L (3.4-5.1); Sodium 143 mMol/L (136-145); Thyroid Stimulating Hormone 1.66 uIU/mL (0.55-4.78); Total Protein 5.9 gm/dL (5.7-8.2); Troponin I < 0.020 ng/mL (0.0-0.045); eGFR > 60 See Note
[2025-03-03 10:52] LABS: B-Type Natriuretic Peptide 46 pg/mL (0-100)
[2025-03-03 11:05] LABS: Collection Type, Urine Clean Catch; RBC,Urine 0 /hpf (0-3); Squamous Epithelial Cell,Urine 0 /hpf (0-5); WBC,Urine 0 /hpf (0-5)
[2025-03-03 11:13] LABS: Bilirubin,Urine Negative (Negative); Blood,Urine Trace (Negative); Color,Urine Lt-Yellow (Lt Yel-Yel); Glucose, Urine Negative (Negative); Ketones,Urine Negative (Negative); Leukocyte Esterase,Urine Positive (Negative); Nitrite,Urine Positive (Negative); Protein,Urine 1+ (Neg - Trace); Specific Gravity,Urine 1.009 (1.001-1.035); Urobilinogen,Urine Negative mg/dL (0.0-1.0)
[2025-03-03 11:26] LABS: Clarity,Urine Cloudy (Clear/Hazy)
[2025-03-03 11:46] LABS: Amphetamine/Methamp Scrn,U Positive (Negative); Barbiturate Screen,Urine Negative (Negative); Benzodiazepines Screen,Urine Negative (Negative); Benzoylecgonine Screen, Ur Negative (Negative); Fentanyl Screen,Urine Negative (Negative); Opiate Screen,Urine Negative (Negative); THC Screen,Urine Negative (Negative)
[2025-03-03] MEDS: POTASSIUM CHLORIDE 20 mEq TABCR 40 MEQ PO (12:20)
[2025-03-03] MEDS: Magnesium Sulfate 1 gm Ivpb 1 GM/100 ML BAG IV (12:23)
[2025-03-03] MEDS: POTASSIUM CHL 10 mEq IVPB 10 MEQ/100 ML BAG 100 MEQ IV ×2 (12:23→13:38)
== END 2025-03-03 15:11 | disposition home or self-care (01) ==
PROVIDERS: Emergency Provider Emergency Medicine
DX: R07.9 Chest pain, unspecified (principal)
CPT/HCPCS: 36415; 71045; 80053; 80307; 81001; 83880; 84443; 84484; 85025; 93005; 96361; 96365; 96368; 99284; J3475; J3480; J7030; A9270

== ENCOUNTER 2025-03-10 14:36 | Emergency (ER) | payer OTHER, SELFPAY ==
[2025-03-10 15:27] VITALS: BP 145/92; PULSE 76; RESP 18; TEMP 36.7; O2SAT 96; BMI 31.6
--- NOTE | 2025-03-10 15:29 | PD.EDADULT ---
ED General RME/HPI General Chief complaint: General Adult/Misc Complain Stated complaint: Out of all her meds Time Seen by Provider: 03/10/25 15:29 Arrival date/time: 03/10/25 14:36 This is a case of 59 year old female came in for medication refill patient did not know what medication she needs she states that it is for her psych medication Limitations: no limitations Related Data Home Medications ?Medication ?Instructions ?Recorded ?Confirmed glipizide 5 mg tablet 5 mg PO BID 06/10/19 03/19/20 levothyroxine 25 mcg tablet 25 mcg PO QDAY 06/10/19 03/19/20 atorvastatin 40 mg tablet 40 mg PO HS 11/22/19 03/19/20 duloxetine 60 mg capsule,delayed 60 mg PO QDAY 03/19/20 03/19/20 release gabapentin 300 mg capsule 300 mg PO TID 03/19/20 03/19/20 hydrochlorothiazide 12.5 mg capsule 12.5 mg PO QAM 03/19/20 03/19/20 hydrocodone 5 mg-acetaminophen 325 1 tab PO Q4H PRN Pain 03/19/20 03/19/20 mg tablet omeprazole 40 mg capsule,delayed 40 mg PO QDAY 03/19/20 03/19/20 release prednisone 10 mg tablet 30 mg PO QDAY 03/19/20 03/19/20 risperidone 2 mg tablet 2 mg PO BID 03/19/20 03/19/20 Previous Rx's ?Medication ?Instructions ?Recorded metronidazole 500 mg tablet 500 mg PO Q8H #20 tabs 03/20/20 acetaminophen 325 mg tablet 650 mg (2 x 325 mg) PO Q4H #60 tabs 03/26/20 (Tylenol) hydrocodone 5 mg-acetaminophen 325 1 tab PO BID PRN pain #6 tabs 12/30/21 mg tablet psyllium 1 tbsp PO QDAY #300 grams 03/21/23 albuterol sulfate 90 mcg/actuation 2 inh inhalation QID PRN shortness 09/26/24 aerosol inhaler of breath or wheezing #8.5 grams prednisone 50 mg tablet 50 mg PO QDAY #3 tabs 09/26/24 fluconazole 150 mg tablet 150 mg PO Q3D 2 doses #2 tabs 09/27/24 ondansetron 4 mg disintegrating 4 mg PO TID PRN nausea and 02/14/25 tablet vomiting 30 days #10 tabs albuterol sulfate 90 mcg/actuation 2 puff inhalation Q6H PRN 02/19/25 aerosol inhaler shortness of breath or wheezing #8.5 grams Allergies Allergy/AdvReac Type Severity Reaction Status Date / Time levofloxacin (From Levaquin) Allergy Severe Swelling Verified 03/10/25 14:38 of Lip/Tongue/Throat methotrexate Allergy Severe Redness of Verified 03/10/25 14:38 Skin Review of Systems Review of Systems Systems Reviewed: All systems reviewed, normal except as documented Constitutional Constitutional: Reports system reviewed and no additional complaints, except as documented ENT Ears, Nose, Mouth, and Throat: Denies abnormal hearing Neurologic Neurologic: Reports system reviewed and no additional complaints, except as documented, Denies abnormal hearing, Denies abnormal movements and Denies abnormal speech Psychiatric Psychiatric: Reports system reviewed and no additional complaints, except as documented, Denies anxiety, Denies homicidal ideation, Denies panic attacks and Denies suicidal ideation Past Medical History Past Medical History NEUROLOGIC: Positive Neurological Disorders and Nunez's Palsy CARDIAC: Positive Angina, Hypercholesterolemia and Hypertension; Negative Cardiac Disorders or Congestive Heart Failure RESPIRATORY: Positive Chronic Obstructive Pulmonary Disease (COPD), Asthma and Pneumonia GASTROINTESTINAL: Positive Gastrointestinal Disorders, Gall Bladder Disease, Diverticulitis and Hiatal Hernia GENITOURINARY: Positive Genitourinary Disorders and Kidney Stones; Negative Renal Disease REPRODUCTIVE: Positive Endometriosis and Previous Pregnancies MUSCULOSKELETAL: Positive Musculoskeletal Disorders and Rheumatoid Arthritis ENT: Positive Cataracts and Glaucoma ENDOCRINE: Positive Endocrine Disorders, Diabetes Mellitus Type 2 and Hypothyroidism; Negative Diabetes Mellitus Type 1 HEMATOLOGIC: Positive Blood Disorders, Anemia and Sickle Cell Disease OTHER HISTORY: Positive Rubella ([place] Measles); Negative Autoimmune Disease Family History FAMILY HISTORY: Positive Family Psychiatric Problems, Family Cardiac Disorders and Family Gastrointestinal Problems; Negative Family Respiratory Disorders, Family Cancer or Family Surgery Surgical History SURGICAL: Positive Angiogram, Abdominal Surgery and Tubal Ligation Social History SMOKING STATUS: Never smoker SECOND HAND EXPOSURE: No SUBSTANCE USE: methamphetamine ED Exam General Limitations: Present no limitations General appearance: Present alert and in no apparent distress Head Head exam: Present atraumatic Eye Eye exam: Present normal appearance, PERRL and EOMI ENT ENT exam: Present normal exam, normal oropharynx and mucous membranes moist Neck Neck exam: Present normal inspection, full ROM and trachea midline Chest Chest inspection: Present normal inspection and symmetric chest wall rise Respiratory Respiratory exam: Present normal lung sounds bilaterally Cardiovascular Cardiovascular exam: Present regular rate, normal rhythm and normal heart sounds Abdominal Exam Abdominal exam: Present soft and normal bowel sounds Extremities Exam Extremities exam: Present normal inspection and full ROM Back Exam Back exam: Present normal inspection and full ROM Neurological Exam Neurological exam: Present alert, oriented X3 and CN II-XII intact Psychiatric Psychiatric exam: Present normal affect and normal mood Skin Skin exam: Present warm, dry, intact and normal color Course Quality Measures none Vital Signs Vital signs: Vital Signs Temperature 98.0 F 03/10/25 15:27 Pulse Rate 76 03/10/25 15:27 Respiratory Rate 18 03/10/25 15:27 Blood Pressure 145/92 H 03/10/25 15:27 Pulse Oximetry (%) 96 03/10/25 15:27 Oxygen Delivery Method Room Air 03/10/25 15:27 96% on room air within normal limits Discharge Plan Plan Patient Disposition: HOME (Self Care) Discharge Disposition comment: stable Prescriptions/Referrals Prescriptions/Med Rec: No Action levothyroxine 25 mcg Tablet 25 mcg PO QDAY glipizide 5 mg Tablet 5 mg PO BID prednisone 10 mg tablet 30 mg PO QDAY Rx Instructions: START DATE 03/06/20 hydrocodone-acetaminophen 5-325 mg tablet 1 tab PO Q4H PRN (Reason: Pain) omeprazole 40 mg capsule,delayed release(DR/EC) 40 mg PO QDAY risperidone 2 mg tablet 2 mg PO BID hydrochlorothiazide 12.5 mg capsule 12.5 mg PO QAM gabapentin 300 mg capsule 300 mg PO TID duloxetine 60 mg capsule,delayed release(DR/EC) 60 mg PO QDAY metronidazole 500 mg tablet 500 mg PO Q8H Qty: 20 0RF atorvastatin 40 mg tablet 40 mg PO HS Patient Comments: take 1 tablet by mouth at bedtime acetaminophen [Tylenol] 325 mg tablet 650 mg PO Q4H Qty: 60 0RF hydrocodone-acetaminophen 5-325 mg tablet 1 tab PO BID MDD 10 PRN (Reason: pain) Qty: 6 0RF fluconazole 150 mg tablet 150 mg PO Q3D Qty: 2 0RF albuterol sulfate 90 mcg/actuation HFA aerosol inhaler 2 puff inhalation Q6H PRN (Reason: shortness of breath or wheezing) Qty: 8.5 0RF psyllium Powder 1 tbsp PO QDAY Qty: 300 0RF Rx Instructions: mix into at least 8 oz of water or juice before administering albuterol sulfate 90 mcg/actuation HFA aerosol inhaler 2 inh inhalation QID PRN (Reason: shortness of breath or wheezing) Qty: 8.5 0RF prednisone 50 mg tablet 50 mg PO QDAY Qty: 3 0RF ondansetron 4 mg tablet,disintegrating 4 mg PO TID PRN (Reason: nausea and vomiting) 30 Days Qty: 10 0RF Problem List Clinical Impression: Medication refill, Psychiatric diagnosis Patient/Caregiver Discharge Instructions Education Materials: When a Loved One Has a Mental ... Additional Instructions: please follow up with your psyciatrist for medication refill Print Language: Pashto Stand Alone Forms: [employer] Award Info., Work/School Release, Patient Portal Info Letter PA/POST ACUTE CARE NURSE PRACTITIONER Supervising Physician PA/POST ACUTE CARE NURSE PRACTITIONER Supervising Physician: DR. Espinoza MDM Narrative MDM hospital course (for use when minimal MDM required): patient is unable to remember the medication at this time i cant refill the medication patient is advised to ffup with pschiatrist for her medication refill Clinical Information Provided by: patient Medical Records reviewed [facility] Meds/Rx considered, not ordered describe: given Labs/Rad/Tests considered, not ordered None Chronic Illness/Social Conditions which may negatively complicate care or outcome(s)-explain: Mental health EKG EKG not done Labs Labs: none Imaging Imaging interpretation: none or see narrative above Medication Administration(s) given Diagnosis Differential Diagnosis ED Complaint MDM: pyschiatric disorder. bipolar disorder,
[2025-03-10] MEDS: risperiDONE 1 MG TABLET 2 MG PO (16:13)
--- NOTE | 2025-03-10 17:09 | PC.NURSE ---
patient son Supa called [facility] ED in regard to patient visit. Provider attempted to reach Patient contacts to secure patient [place] ride [place], provider was unable to make contact. Seun Cowart made aware mother was DC'd from ED but informed that she still needed a ride to get medications.
== END 2025-03-10 16:00 | disposition home or self-care (01) ==
PROVIDERS: Emergency Provider Family Medicine
DX: Z76.0 Encounter for issue of repeat prescription (principal)
CPT/HCPCS: 99282; A9270

== ENCOUNTER 2025-03-15 16:31 | Emergency (ER) | payer OTHER, SELFPAY ==
[2025-03-15 16:34] VITALS: PULSE 87; RESP 18; O2SAT 99
[2025-03-15 16:37] VITALS: BP 109/78; PULSE 66; RESP 16; TEMP 36.6; O2SAT 97
--- NOTE | 2025-03-15 17:18 | EDNOTE_ITS ---
<Statement entered by Maryam Yeager MD - 03/16/25 06:24> As co-signing physician, I was present and available for consult prn. I concur with the plan and care as documented by the midlevel provider. ED General RME/HPI General Chief complaint: General Adult/Misc Complain Stated complaint: TINGELING Time Seen by Provider: 03/15/25 17:22 Source: patient Arrival date/time: 03/15/25 16:31 59-year-old female who is on a low back pain and is requesting a lidocaine patch. Also complains of right recent having cervical cancer. Mode of arrival: wheelchair Limitations: no limitations RME / HPI Onset (ago): week(s) Related Data Home Medications ?Medication ?Instructions ?Recorded ?Confirmed glipizide 5 mg tablet 5 mg PO BID 06/10/19 0 levothyroxine 25 mcg tablet 25 mcg PO QDAY 06/10/19 atorvastatin 40 mg tablet 40 mg PO HS 11/22/19 0 duloxetine 60 mg capsule,delayed 60 mg PO QDAY 0 03/19/20 release gabapentin 300 mg capsule 300 mg PO TID 03/19/2003/19 hydrochlorothiazide 12.5 mg capsule 12.5 mg PO QAM 03/19/20 hydrocodone 5 mg-acetaminophen 325 1 tab PO Q4H PRN Pa in 03/19/20 03/19/20 mg tablet omeprazole 40 mg capsule,delayed 40 mg PO QDAY 0 03/19/20 release prednisone 10 mg tablet 30 mg PO QDAY 03/19/2003/19 risperidone 2 mg tablet 2 mg PO BID 03/19/20 0 Previous Rx's ?Medication ?Instructions ?Recorded metronidazole 500 mg tablet 500 mg PO Q8H #20 tabs acetaminophen 325 mg tablet 650 mg (2 x 325 mg) PO Q4H #60 tabs 03/26/20 (Tylenol) hydrocodone 5 mg-acetaminophen 325 1 tab PO BID PRN pa in #6 tabs 12/30/21 mg tablet psyllium 1 tbsp PO QDAY #300 grams albuterol sulfate 90 mcg/actuation 2 inh inhalation QI D PRN shortness 09/26/24 aerosol inhaler of breath or wheezing #8.5 g carmenza prednisone 50 mg tablet 50 mg PO QDAY #3 tabs fluconazole 150 mg tablet 150 mg PO Q3D 2 doses #2 tab s 09/27/24 ondansetron 4 mg disintegrating 4 mg PO TID PRN nausea and 02/14/25 tablet vomiting 30 days #10 tabs albuterol sulfate 90 mcg/actuation 2 puff inhalation Q 6H PRN 02/19/25 aerosol inhaler shortness of breath or wheez ing #8.5 grams lidocaine 4 % topical patch 1 patch topical QID PRN pa in #15 ea 03/15/25 (Lidocaine Pain Relief) Allergies Allergy/AdvReac Type Severity Reaction Status Date / Time levofloxacin (From [facility]) Allergy Severe Swelling Verified 03/15/25 16:37 of Lip/Tongue/Throat methotrexate Allergy Severe Redness of Verified 03/15/25 16:37 Skin Review of Systems Constitutional Constitutional: Reports system reviewed and no additional complaints, except as documented Eyes Eyes: Reports system reviewed and no additional complaints, except as documented, Denies dry eyes, Denies exophthalmos and Reports floaters Cardiovascular Cardiovascular: Denies chest pain with activity and Denies claudication ED Exam General Limitations: Present no limitations General appearance: Present alert, in no apparent distress and appears intoxicated Head Head exam: Present atraumatic and normocephalic Eye Eye exam: Present normal appearance ENT ENT exam: Present normal exam Neck Neck exam: Present normal inspection and full ROM Chest Chest inspection: Present normal inspection Respiratory Respiratory exam: Present normal lung sounds bilaterally Cardiovascular Cardiovascular exam: Present regular rate, normal rhythm and normal heart sounds Abdominal Exam Abdominal exam: Present soft and normal bowel sounds Extremities Exam Extremities exam: Present normal inspection and full ROM Back Exam Back exam: Present normal inspection and full ROM Neurological Exam Neurological exam: Present alert, oriented X3 and CN II-XII intact Psychiatric Psychiatric exam: Present normal affect and normal mood Skin Skin exam: Present warm, dry, intact and normal color Course Course Course Narrative: Patient will have Toradol 30 mg IM submitted pharmacy for chills and lidocaine. Patient needs to be involved. Quality Measures none Orders Category Date Time Status Ketorolac Inj [Toradol Inj] Med 03/15/25 17:17 Discontinued 30 mg IM X1 ONE Vital Signs Vital signs: Vital Signs Temperature 97.8 F 03/15/25 16:37 Pulse Rate 66 03/15/25 16:37 Respiratory Rate 16 03/15/25 16:37 Blood Pressure 109/78 03/15/25 16:37 Pulse Oximetry (%) 97 03/15/25 16:37 Oxygen Delivery Method Room Air 03/15/25 16:37 Pulse ox 97% room air Discharge Plan Plan Patient Disposition: HOME (Self Care) Discharge Disposition comment: Patient is discharged in no apparent distress Patient condition on transfer: Stable Prescriptions/Referrals Prescriptions/Med Rec: New lidocaine [Lidocaine Pain Relief] 4 % adhesive patch,medicated 1 patch topical QID PRN (Reason: pain) Qty: 15 0RF No Action levothyroxine 25 mcg Tablet 25 mcg PO QDAY glipizide 5 mg Tablet 5 mg PO BID prednisone 10 mg tablet 30 mg PO QDAY Rx Instructions: START DATE 03/06/20 hydrocodone-acetaminophen 5-325 mg tablet 1 tab PO Q4H PRN (Reason: Pain) omeprazole 40 mg capsule,delayed release(DR/EC) 40 mg PO QDAY risperidone 2 mg tablet 2 mg PO BID hydrochlorothiazide 12.5 mg capsule 12.5 mg PO QAM gabapentin 300 mg capsule 300 mg PO TID duloxetine 60 mg capsule,delayed release(DR/EC) 60 mg PO QDAY metronidazole 500 mg tablet 500 mg PO Q8H Qty: 20 0RF atorvastatin 40 mg tablet 40 mg PO HS Patient Comments: take 1 tablet by mouth at bedtime acetaminophen [Tylenol] 325 mg tablet 650 mg PO Q4H Qty: 60 0RF hydrocodone-acetaminophen 5-325 mg tablet 1 tab PO BID MDD 10 PRN (Reason: pain) Qty: 6 0RF fluconazole 150 mg tablet 150 mg PO Q3D Qty: 2 0RF albuterol sulfate 90 mcg/actuation HFA aerosol inhaler 2 puff inhalation Q6H PRN (Reason: shortness of breath or wheezing) Qty: 8.5 0RF psyllium Powder 1 tbsp PO QDAY Qty: 300 0RF Rx Instructions: mix into at least 8 oz of water or juice before administering albuterol sulfate 90 mcg/actuation HFA aerosol inhaler 2 inh inhalation QID PRN (Reason: shortness of breath or wheezing) Qty: 8.5 0RF prednisone 50 mg tablet 50 mg PO QDAY Qty: 3 0RF ondansetron 4 mg tablet,disintegrating 4 mg PO TID PRN (Reason: nausea and vomiting) 30 Days Qty: 10 0RF Problem List Clinical Impression: Back pain Patient/Caregiver Discharge Instructions Discharge Activity: resume usual activities Print Language: Occitan PA/TATA Supervising Physician PA/DIRECTOR OF IT OPERATIONS Supervising Physician: Shobha MENDEZ Clinical Information Provided by: none and patient Medical Records reviewed None and other Meds/Rx considered, not ordered None Chronic Illness/Social Conditions Explain: Cervical cancer is Medication Administration(s) none (Toradol) Medication Administration History Discontinued Medications Ketorolac Tromethamine (Ketorolac Inj 60 Mg/2 Ml Vial) 30 mg IM X1 ONE Stop: 03/15/25 17:18 Last Admin: 03/15/25 17:31 Dose: 30 mg Documented By: LT Diagnosis Differential Diagnosis ED Complaint MDM: Low back pain versus sciatica having presents obtained today dizziness
[2025-03-15] MEDS: KETOROLAC INJ 60 MG/2 ML VIAL 30 MG IM (17:31)
== END 2025-03-15 17:57 | disposition home or self-care (01) ==
PROVIDERS: Emergency Provider Emergency Medicine
DX: M54.50 Low back pain, unspecified (principal); C53.9 Malignant neoplasm of cervix uteri, unspecified
CPT/HCPCS: 96372; 99283; J1885

== ENCOUNTER 2025-03-19 12:16 | Emergency (ER) | payer OTHER, SELFPAY ==
--- NOTE | 2025-03-19 | XR_ITS ---
Examination: Venous duplex lower extremity sonogram, bilateral. Date and time of exam: March 19, 2025 1413 hours INDICATIONS: Bilateral knee pain and leg pain several days Technique: Multiple sonographic images of the deep venous system have been obtained. B-mode/2-D grayscale imaging of vascular structures and Doppler spectral analysis (waveforms) and color performed Both legs are examined. Findings: Deep venous systems do not demonstrate abnormal echogenicity. All visualized deep veins exhibit compressibility. All visualized deep veins exhibit augmentation. Impression: Negative for deep vein thrombosis
[2025-03-19] MEDS: KETOROLAC INJ 30 MG/ML VIAL 15 MG IVP (14:10)
[2025-03-19] MEDS: SODIUM CHLORIDE 0.9% 500 ML 500 ML 999 ML IV (14:42)
[2025-03-19 17:30] LABS: Amorphous Crystals,Urine Present (Absent); Bacteria,Urine 4+; Bilirubin,Urine Negative (Negative); Blood,Urine Trace (Negative); Collection Type, Urine Clean Catch; Color,Urine Yellow (Lt Yel-Yel); Glucose, Urine Negative (Negative); Ketones,Urine Negative (Negative); Leukocyte Esterase,Urine Positive (Negative); Nitrite,Urine Negative (Negative); Protein,Urine Trace (Neg - Trace); RBC,Urine 12 /hpf (0-3); Specific Gravity,Urine 1.019 (1.001-1.035); Squamous Epithelial Cell,Urine 1 /hpf (0-5); Transitional Epi Cells,Urine 2 /hpf (0-5); WBC,Urine 462 /hpf (0-5)
[2025-03-19 17:31] LABS: Clarity,Urine Turbid (Clear/Hazy)
[2025-03-19 17:33] LABS: Anion Gap 9 (7-16); BUN/Creatinine Ratio 9 Ratio (12-20); Basophils # (Auto) 0.1 Thou/mm3 (0.0-0.2); Basophils % (Auto) 1 % (0-2.5); Blood Urea Nitrogen 6 mg/dL (9-23); Calcium 8.8 mg/dL (8.3-10.6); Carbon Dioxide 21.7 mMol/L (20.0-31.0); Chloride 99 mMol/L (98-107); Creatinine (Component) 0.7 mg/dL (0.6-1.3); Eosinophils # (Auto) 0.4 Thou/mm3 (0.0-0.5); Eosinophils % (Auto) 5 % (0-10); Glucose 92 mg/dL (74-106); Hematocrit 46.9 % (36.0-46.0); Immature Granulocytes % (Auto) 0 % (0-0); Immature Granulocytes Auto 0.01 Thou/mm3 (0.00-0.00); Lymphocytes # (Auto) 2.4 Thou/mm3 (1.0-4.8); Lymphocytes % (Auto) 27 % (10-50); Mean Corpuscular HGB Conc 34.1 g/dl (31.0-37.0); Mean Corpuscular Hemoglobin 26.7 pg (25.0-35.0); Mean Corpuscular Volume 78 fL (80-100); Monocytes # (Auto) 0.7 Thou/mm3 (0.0-0.8); Monocytes % (Auto) 8 % (0-12); Neutrophils # (Auto) 5.4 Thou/mm3 (1.8-7.7); Neutrophils % (Auto) 60 % (37-80); Nucleated Red Blood Cell % 0 /100 WBC (0); Osmolality,Calculated 258 (275-295); Platelet Count 312 Thou/mm3 (140-440); Potassium 4.3 mMol/L (3.4-5.1); RDW Standard Deviation 37.7 fL (36.4-46.3); Sodium 130 mMol/L (136-145); Thyroid Stimulating Hormone 2.24 uIU/mL (0.55-4.78); White Blood Count 8.9 Thou/mm3 (3.6-11.0); eGFR > 60 See Note
[2025-03-20] MEDS: cefTRIAXone/D5w 1gm IV premix 1 GM/50 ML BAG IV (14:40)
== END 2025-03-19 15:50 | disposition home or self-care (01) ==
PROVIDERS: Emergency Provider Emergency Medicine
DX: R53.1 Weakness (principal); R10.30 Lower abdominal pain, unspecified; M25.561 Pain in right knee
CPT/HCPCS: 36415; 80048; 81001; 84443; 85025; 93970; 99284; J0696; J1885; J7040

== ENCOUNTER 2025-03-23 23:40 | Emergency (ER) | payer OTHER, MEDICAID, SELFPAY ==
[2025-03-23 23:42] VITALS: BMI 29.7
[2025-03-24 00:10] VITALS: BP 116/77; PULSE 90; RESP 18; TEMP 37.1; O2SAT 98
--- NOTE | 2025-03-24 00:21 | PD.EDEXREM ---
ED Extremity Problem RME/HPI General Chief complaint: General Adult/Misc Complain Stated complaint: SEPSIS Time Seen by Provider: 03/24/25 00:16 Arrival date/time: 03/23/25 23:40 59F with history of CHF, DM, HTN, and meth use presents to ED with multiple complaints including bilateral leg swelling and sepsis. Patient doesn't take CHF meds and wants the ED to start them. Limitations: no limitations Related Data Home Medications ?Medication ?Instructions ?Recorded ?Confirmed glipizide 5 mg tablet 5 mg PO BID 06/10/19 03/19/20 levothyroxine 25 mcg tablet 25 mcg PO QDAY 06/10/19 03/19/20 atorvastatin 40 mg tablet 40 mg PO HS 11/22/19 03/19/20 duloxetine 60 mg capsule,delayed 60 mg PO QDAY 03/19/20 03/19/20 release gabapentin 300 mg capsule 300 mg PO TID 03/19/20 03/19/20 hydrochlorothiazide 12.5 mg capsule 12.5 mg PO QAM 03/19/20 03/19/20 hydrocodone 5 mg-acetaminophen 325 1 tab PO Q4H PRN Pain 03/19/20 03/19/20 mg tablet omeprazole 40 mg capsule,delayed 40 mg PO QDAY 03/19/20 03/19/20 release prednisone 10 mg tablet 30 mg PO QDAY 03/19/20 03/19/20 risperidone 2 mg tablet 2 mg PO BID 03/19/20 03/19/20 Previous Rx's ?Medication ?Instructions ?Recorded metronidazole 500 mg tablet 500 mg PO Q8H #20 tabs 03/20/20 acetaminophen 325 mg tablet 650 mg (2 x 325 mg) PO Q4H #60 tabs 03/26/20 (Tylenol) hydrocodone 5 mg-acetaminophen 325 1 tab PO BID PRN pain #6 tabs 12/30/21 mg tablet psyllium 1 tbsp PO QDAY #300 grams 03/21/23 albuterol sulfate 90 mcg/actuation 2 inh inhalation QID PRN shortness 09/26/24 aerosol inhaler of breath or wheezing #8.5 grams prednisone 50 mg tablet 50 mg PO QDAY #3 tabs 09/26/24 fluconazole 150 mg tablet 150 mg PO Q3D 2 doses #2 tabs 09/27/24 albuterol sulfate 90 mcg/actuation 2 puff inhalation Q6H PRN 02/19/25 aerosol inhaler shortness of breath or wheezing #8.5 grams lidocaine 4 % topical patch 1 patch topical QID PRN pain #15 ea 03/15/25 (Lidocaine Pain Relief) Allergies Allergy/AdvReac Type Severity Reaction Status Date / Time levofloxacin (From Levaquin) Allergy Severe Swelling Verified 03/23/25 23:46 of Lip/Tongue/Throat methotrexate Allergy Severe Redness of Verified 03/23/25 23:46 Skin Review of Systems Review of Systems Systems Reviewed: All systems reviewed, normal except as documented Constitutional Constitutional: Reports system reviewed and no additional complaints, except as documented, Denies fever(s) and Denies headache(s) ENT Ears, Nose, Mouth, and Throat: Denies disequilibrium and Denies headache(s) Cardiovascular Cardiovascular: Reports system reviewed and no additional complaints, except as documented, Denies chest pain and Denies dyspnea Respiratory Respiratory: Reports system reviewed and no additional complaints, except as documented, Denies cough and Denies dyspnea Gastrointestinal Gastrointestinal: Reports system reviewed and no additional complaints, except as documented, Denies abdominal pain, Denies nausea and Denies vomiting Integumentary/Breasts Skin/Breast: Reports as per HPI and Reports skin swelling Neurologic Neurologic: Reports system reviewed and no additional complaints, except as documented, Denies confusion, Denies disequilibrium and Denies headache(s) Psychiatric Psychiatric: Denies confusion Past Medical History Past Medical History NEUROLOGIC: Positive Neurological Disorders and Nunez's Palsy CARDIAC: Positive Angina, Hypercholesterolemia and Hypertension; Negative Cardiac Disorders or Congestive Heart Failure RESPIRATORY: Positive Chronic Obstructive Pulmonary Disease (COPD), Asthma and Pneumonia GASTROINTESTINAL: Positive Gastrointestinal Disorders, Gall Bladder Disease, Diverticulitis and Hiatal Hernia GENITOURINARY: Positive Genitourinary Disorders and Kidney Stones; Negative Renal Disease REPRODUCTIVE: Positive Endometriosis and Previous Pregnancies MUSCULOSKELETAL: Positive Musculoskeletal Disorders and Rheumatoid Arthritis ENT: Positive Cataracts and Glaucoma ENDOCRINE: Positive Endocrine Disorders, Diabetes Mellitus Type 2 and Hypothyroidism; Negative Diabetes Mellitus Type 1 HEMATOLOGIC: Positive Blood Disorders, Anemia and Sickle Cell Disease OTHER HISTORY: Positive Rubella (Urdu Measles); Negative Autoimmune Disease Family History FAMILY HISTORY: Positive Family Psychiatric Problems, Family Cardiac Disorders and Family Gastrointestinal Problems; Negative Family Respiratory Disorders, Family Cancer or Family Surgery Surgical History SURGICAL: Positive Angiogram, Abdominal Surgery and Tubal Ligation Social History SMOKING STATUS: Former smoker SECOND HAND EXPOSURE: No SUBSTANCE USE: methamphetamine ED Exam General Limitations: Present no limitations General appearance: Present alert and in no apparent distress Head Head exam: Present atraumatic Eye Eye exam: Present normal appearance, PERRL and EOMI ENT ENT exam: Present normal exam, normal oropharynx and mucous membranes moist Neck Neck exam: Present normal inspection, full ROM and trachea midline Chest Chest inspection: Present normal inspection and symmetric chest wall rise Respiratory Respiratory exam: Present normal lung sounds bilaterally Cardiovascular Cardiovascular exam: Present regular rate, normal rhythm and normal heart sounds Abdominal Exam Abdominal exam: Present soft and normal bowel sounds Extremities Exam Extremities exam: Present full ROM Expanded Lower Extremity Exam Lower leg exam: Present full ROM and swelling (mild) Back Exam Back exam: Present normal inspection and full ROM Neurological Exam Neurological exam: Present alert, oriented X3 and CN II-XII intact Psychiatric Psychiatric exam: Present normal affect and normal mood Skin Skin exam: Present warm, dry, intact and normal color Course Quality Measures none Orders Category Date Time Status Furosemide [Lasix] Med 03/24/25 00:16 Discontinued 20 mg PO X1 ONE Vital Signs Vital signs: Vital Signs Temperature 98.7 F 03/24/25 00:10 Pulse Rate 90 03/24/25 00:10 Respiratory Rate 18 03/24/25 00:10 Blood Pressure 116/77 03/24/25 00:10 Pulse Oximetry (%) 98 03/24/25 00:10 Oxygen Delivery Method Room Air 03/24/25 00:10 O2 at 98% on RA and WNLs Extremity Problem MDM Narrative MDM Narrative:: 59F with history of CHF, DM, HTN, and meth use presents to ED with multiple complaints including bilateral leg swelling and sepsis. Patient doesn't take CHF meds and wants the ED to start them. Physical exam reveals mild bilateral leg swelling. Normal WOB. Patient is afebrile, calm, alert, and eating snacks. Meds and branch credit counselor given. Patient data External records reviewed:: [facility] previous records Clinical information provided by:: patient Social determinants that could affect healthcare access:: none Patient has the following chronic illnesses:: CHF, DM, HTN, and meth use How is presenting disease/condition affected by chronic disease/condition?: caused by Evaluation data The following diagnostics were reviewed and interpreted by me:: other (specify) (none) Lab and/or radiology exams considered but not ordered:: not ordered Interpretation Summary: n/a Medications / Prescriptions Medications or Prescriptions considered but not ordered:: ordered Medication administrations:: Medication Administration History Discontinued Medications Furosemide (Furosemide 20 Mg Tablet) 20 mg PO X1 ONE Stop: 03/24/25 00:17 above Consultations Consultation(s) initiated? (list below): No Diagnosis Extremity Problem Differential Diagnosis: herpes zoster, gout, cellulitis, superficial thrombophlebitis, deep venous thrombosis of upper extremity, lower extremity edema, deep vein thrombosis of lower extremity and other (leg swelling) Most likely diagnosis given after review of the tests above:: leg swelling Admission Indicated Admission indicated?: not indicated Admission Request Was there a request for admission?: No Disposition Plan Disposition Plan: Discharge Discharge Attestation Discharge Attestation: The patient and all family members were given an opportunity to ask questions and understood the discharge instructions. Discharge instructions specifically effects, indications for sooner follow up or return to the emergency department, and the expected course of current diagnosis. Patient condition: Stable Discharge Plan Plan Patient Disposition: HOME (Self Care) Discharge Disposition comment: Stable Prescriptions/Referrals Prescriptions/Med Rec: No Action levothyroxine 25 mcg Tablet 25 mcg PO QDAY glipizide 5 mg Tablet 5 mg PO BID prednisone 10 mg tablet 30 mg PO QDAY Rx Instructions: START DATE 03/06/20 hydrocodone-acetaminophen 5-325 mg tablet 1 tab PO Q4H PRN (Reason: Pain) omeprazole 40 mg capsule,delayed release(DR/EC) 40 mg PO QDAY risperidone 2 mg tablet 2 mg PO BID hydrochlorothiazide 12.5 mg capsule 12.5 mg PO QAM gabapentin 300 mg capsule 300 mg PO TID duloxetine 60 mg capsule,delayed release(DR/EC) 60 mg PO QDAY metronidazole 500 mg tablet 500 mg PO Q8H Qty: 20 0RF atorvastatin 40 mg tablet 40 mg PO HS Patient Comments: take 1 tablet by mouth at bedtime acetaminophen [Tylenol] 325 mg tablet 650 mg PO Q4H Qty: 60 0RF hydrocodone-acetaminophen 5-325 mg tablet 1 tab PO BID MDD 10 PRN (Reason: pain) Qty: 6 0RF fluconazole 150 mg tablet 150 mg PO Q3D Qty: 2 0RF albuterol sulfate 90 mcg/actuation HFA aerosol inhaler 2 puff inhalation Q6H PRN (Reason: shortness of breath or wheezing) Qty: 8.5 0RF lidocaine [Lidocaine Pain Relief] 4 % adhesive patch,medicated 1 patch topical QID PRN (Reason: pain) Qty: 15 0RF psyllium Powder 1 tbsp PO QDAY Qty: 300 0RF Rx Instructions: mix into at least 8 oz of water or juice before administering albuterol sulfate 90 mcg/actuation HFA aerosol inhaler 2 inh inhalation QID PRN (Reason: shortness of breath or wheezing) Qty: 8.5 0RF prednisone 50 mg tablet 50 mg PO QDAY Qty: 3 0RF Problem List Clinical Impression: Leg swelling Patient/Caregiver Discharge Instructions Education Materials: ED Leg Swelling in Both Legs Additional Instructions: Please follow-up with PCP within 24-48 hours and return immediately if symptoms worsen. Print Language: Russian Stand Alone Forms: Patient Portal Info Letter SCOOTER/TATA Supervising Physician SCOOTER/TATA Supervising Physician: Dr. Shafer
== END 2025-03-24 01:15 | disposition home or self-care (01) ==
LOC: SERX 03-24 02:14
PROVIDERS: Emergency Provider Emergency Medicine
DX: M79.89 Other specified soft tissue disorders (principal)
CPT/HCPCS: 99282

== ENCOUNTER 2025-03-25 17:09 | Emergency (ER) | payer OTHER, MEDICAID, SELFPAY ==
[2025-03-25 17:20] VITALS: PULSE 78; RESP 16; O2SAT 97; BMI 24.5
[2025-03-25 17:37] VITALS: BP 96/65; PULSE 99; RESP 18; TEMP 36.7; O2SAT 95
[2025-03-25 17:38] VITALS: BMI 29.7
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
[2025-03-25 18:33] LABS: Collection Type, Urine Clean Catch
[2025-03-25 18:34] LABS: Basophils # (Auto) 0.1 Thou/mm3 (0.0-0.2); Basophils % (Auto) 1 % (0-2.5); Eosinophils # (Auto) 0.4 Thou/mm3 (0.0-0.5); Eosinophils % (Auto) 4 % (0-10); Hematocrit 44.2 % (36.0-46.0); Hemoglobin 15.4 g/dL (12.0-16.0); Immature Granulocytes % (Auto) 0 % (0-0); Immature Granulocytes Auto 0.03 Thou/mm3 (0.00-0.00); Lymphocytes # (Auto) 2.8 Thou/mm3 (1.0-4.8); Lymphocytes % (Auto) 30 % (10-50); Mean Corpuscular HGB Conc 34.8 g/dl (31.0-37.0); Mean Corpuscular Hemoglobin 26.8 pg (25.0-35.0); Mean Corpuscular Volume 77 fL (80-100); Monocytes # (Auto) 0.8 Thou/mm3 (0.0-0.8); Monocytes % (Auto) 9 % (0-12); Neutrophils # (Auto) 5.2 Thou/mm3 (1.8-7.7); Neutrophils % (Auto) 56 % (37-80); Nucleated Red Blood Cell % 0 /100 WBC (0); Platelet Count 319 Thou/mm3 (140-440); RDW Standard Deviation 38.5 fL (36.4-46.3); Red Blood Count 5.75 Miln/mm3 (4.00-5.20); White Blood Count 9.4 Thou/mm3 (3.6-11.0)
[2025-03-25 18:50] LABS: Bacteria,Urine Rare; Bilirubin,Urine 1+ (Negative); Blood,Urine Negative (Negative); Calcium Oxalate Crystals,Urine 4+; Clarity,Urine Turbid (Clear/Hazy); Color,Urine Yellow (Lt Yel-Yel); Glucose, Urine Negative (Negative); Hyaline Casts,Urine 1 /hpf (0-1); Ketones,Urine Trace (Negative); Leukocyte Esterase,Urine Positive (Negative); Nitrite,Urine Negative (Negative); Protein,Urine 1+ (Neg - Trace); RBC,Urine 24 /hpf (0-3); Specific Gravity,Urine 1.028 (1.001-1.035); Squamous Epithelial Cell,Urine 41 /hpf (0-5); WBC,Urine 37 /hpf (0-5)
[2025-03-25 18:52] LABS: Amphetamine/Methamp Scrn,U Positive (Negative); Barbiturate Screen,Urine Negative (Negative); Benzodiazepines Screen,Urine Positive (Negative); Benzoylecgonine Screen, Ur Negative (Negative); Fentanyl Screen,Urine Negative (Negative); Opiate Screen,Urine Negative (Negative); THC Screen,Urine Negative (Negative)
[2025-03-25 18:53] LABS: Acetaminophen < 2.0 mcg/mL (10.0-20.0); Alcohol, Blood Medical < 3.0 mg/dL (0-10.0); Anion Gap 11 (7-16); BUN/Creatinine Ratio 6 Ratio (12-20); Blood Urea Nitrogen 5 mg/dL (9-23); Calcium 9.4 mg/dL (8.3-10.6); Carbon Dioxide 22.4 mMol/L (20.0-31.0); Chloride 101 mMol/L (98-107); Creatinine (Component) 0.8 mg/dL (0.6-1.3); Estimated Creatinine Clearance 67.2 mL/min (>60); Glucose 89 mg/dL (74-106); Osmolality,Calculated 264 (275-295); Potassium 3.8 mMol/L (3.4-5.1); Salicylate < 3.0 mg/dL; Sodium 134 mMol/L (136-145); eGFR > 60 See Note
[2025-03-25] MEDS: HALOPERIDOL LACT INJ 5 MG/ML VIAL IM (19:10)
[2025-03-25] MEDS: DiphenhydrAMINE INJ 50 MG/ML VIAL IM (19:10)
[2025-03-25] MEDS: LORazepam 2 MG/ML VIAL IM (19:11)
--- NOTE | 2025-03-26 03:08 | PD.EDADDENDU ---
Attestation Attestation Care assumed from Elzbieta Boyer the previous shift emergency physician. Past medical, surgical, social and family history reviewed. Vitals and home medications reviewed. Results and treatment plan discussed. I will assume the care of the patient at this time and will follow the patient, pending medical clearance and mental health evaluation. 59-year-old female patient with significant history of chronic schizophrenia, was put on 5150 hold by [facility] for psychotic episode. PE: Patient is tearful lying in the bed. No acute distress at this time. Not hallucinating and not suicidal at this time. Labs reviewed and alcohol level is normal at less than 3.0, positive amphetamine and benzodiazepines on her drug screen. 0600:Pt medically cleared, plan to sign out to Dr. Espinoza pending mental health evaluation.
--- NOTE | 2025-03-26 06:21 | EDNOTE_ITS ---
Emergency Room Addendum Addendum Narrative: 0600: Care assumed from Dr. Shafer, the previous shift emergency physician. Past medical, surgical, social and family history reviewed. Vitals and home medications reviewed. I will assume the care of the patient at this time, pending mental health evaluation. Patient already was medically cleared. Please refer to the emergency department record for history and examination from initial visit.? The patient was placed in ED observation care at 03/26/2025 at 0600 hours. The patient was placed in ED observation care pending mental health evaluation. Then at 0847 hours, [facility] kept the patient on a psychiatric hold and now on observation care because of undifferentiated decompensated behavioral health evaluation, no behavioral health bed available. The patients past medical history, social history, and family history were reviewed. The plan of care will include serial examinations. While in ED observation the patient will have access to water, food, and personal hygiene. If the patient takes home medication(s), they will be continued in ED observation. Physical exam by me shows patient under no acute distress at this time. 0847: Mental [facility] decided to keep the patient on a psychiatric hold pending LPS placement. 1800: Patient was signed out to Dr. Hills. Past medical, surgical, social and family history reviewed. Vitals and home medications reviewed. Results and treatment plan discussed. They will assume the care of the patient at this time and will follow the patient, pending LPS placement. My ED observation care ended at 03/26/2025 at 1800 hours.
--- NOTE | 2025-03-26 07:19 | PC.NURSE ---
HERE TO VISIT WITH PT. HOPPER GIS WEB DEVELOPER SPEAKING TO AT THIS TIME.
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
[2025-03-26 07:55] VITALS: BP 110/77; PULSE 89; RESP 17; TEMP 36.7; O2SAT 96
--- NOTE | 2025-03-26 08:14 | PC.NURSE ---
WARD HYDRATOR OPERATOR IN TO EVALUATE PT. STATES THEY WILL KEEP PATIENT ON A 5150 HOLD AT THIS TIME. PT GOT UPSET WITH AND MADE HIM LEAVE. PT RESPONDING TO AUDITORY HALLUCINATIONS
[2025-03-26] MEDS: haloperidoL 5 MG TABLET PO ×2 (08:34→20:36)
[2025-03-26] MEDS: LORazepam 0.5 MG TABLET 1 MG PO (08:35)
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
--- NOTE | 2025-03-26 08:57 | PC.CC ---
MATEUS Weiss completed a face to face mental health assessment with the pt at bedside ER #[id number]. Pts spouse was present and ASW asked pt if it was okay to speak freely in front of the spouse and pt agreed. Pt presented to the ED on 03/25/25 on a 5150 hold for danger to self/danger to others by [facility] ([facility]). Per the hold, patient was placed on hold due to making statements of assault, verbally yelling at no one. ASW began the assessment, introduced self, role, and reason for assessment. ASW disclosed limits of confidentiality as well. Patient appeared alert and oriented to self, place, and situation. Patient was cooperative, but during the assessment, she became agitated and argumentative with ASW and spouse. ASW asked spouse to step out and at that time, when spouse left, pt admitted to smoking methamphetamine 3-4 days ago. The toxicology report supported the positive meth test. Pt denies AVH, but during the assessment, ASW witnessed pt responding to internal stimuli. Pt was viewed to be upset during the assessment and was viewed to be delusional. According to collateral, pt has a long h/o methamphetamine use and is dx with schizophrenia which she is not medication compliant. Pt denies having schizophrenia and states she stays between homes. Pt continued to be argumentative to ER staff once consumer loan underwriter completed the assessment. Pt was yelling and responding to internal stimuli. ASW staffed with CRIS AGRAWAL and it was decided to keep the pt on a hold and search for LPS placement. batcher operator is aware of the search for LPS place as well as ER provider.
--- NOTE | 2025-03-26 09:29 | PC.CC ---
Addendum entered by Keli Weiss 03/26/25 10:00: Pts packet has been submitted to LPS facilities. Original Note: MATEUS Weiss completed a face to face mental health assessment with the pt at bedside ER #[id number]. Pt who presented to the ED on 03/25/25 on a 5150 hold for danger to self/danger to others by [facility] ASW asked pt about her demographics and she stated she stays between homes. Reason for the hold is that pt was found at a park located in [place], wandering, responding to internal stimuli, and was argumentative to herself and yelling. LE was called out and placed pt on a 5150 Hold due to DTS/DTO. ASW introduced self, role, and reason for assessment. ASW disclosed limits of confidentiality as well. Patients spouse was in the room as the assessment began, and ASW asked permission to the pt if ASW could speak freely in front of her spouse and she said, Yes, well he's my , so ASW continued the assessment. Pt appeared alert and oriented to self, place, and situation. Patient appeared to have erratic behavior, emotional and argumentative. During the assessment, pt started an argument with the spouse, so ASW asked the pt spouse to step out. Patient?s thought process was not linear and it was unorganized. Pt presented as paranoid and delusional, pt denies AVH , but during the assessment, pt began to respond to internal stimuli. Pt denies ever being on a past 5150 or in a mental health hospital, but according to collateral, pt has been placed on a 5150 3xs and placed in a hospital 3xs. Pt admits to smoking methamphetaine 3-4 days ago and the toxicology report reflects the pt tested positive on 03/25/25. Collateral stated pt has a long h/o Methamphetamine use, longer than 10 years and is dx with schizophrenia, in which she is not medication compliant. It should be known that after this assessment, pt continues to respond to internal stimuli and yelling at herself. ASW staffed the case with CRIS AGRAWAL and it was decided to keep the hold and search for LPS placement. ASW will submit for LPS placement on [facility]. ASW spoke with [employer] hcm consultant and she is aware of the search for LPS placement. ASW spoke with ER provider and he is aware of the search for LPS placement.
--- NOTE | 2025-03-26 13:29 | PC.CC ---
Addendum entered by Keli Weiss 03/26/25 18:33: ASW contacted [facility] again at 1833 and they stated they have not reviewed the packet yet. Addendum entered by Keli Weiss 03/26/25 18:00: ASW also manually faxed to all facilities mentioned in this note. As of now, there has been no acceptance. Addendum entered by Keli Weiss 03/26/25 17:59: ASLeighton Weiss called the following [facility] facilities and they stated they were at capacity: [facility] [phone] [facility] [phone]/ [facility] [phone] [facility] [phone] With the exception of these: [facility] [phone] (no answer) [facility] [phone]/ : Waiting for response as they stated they do have availability. Called again at 1645 and stated they still have not reviewed the packet. [facility]-no answer Original Note: ASW contacted the following [facility] facilites by phone all all reported there were no beds available: [facility] [phone] [facility] [phone] [facility] [phone] [facility] [phone] [facility] [phone] [facility] [phone] [facility] [phone] [facility] [phone] and sent to fax [phone] [facility] [phone] X3, [facility] [phone] X2- they sent to all facilities such as [facility] in [place], and [facility] [phone] [facility] [phone] ASW will try again around 6pm. ASW will also try again around 8am on 03/27/25.
--- NOTE | 2025-03-26 18:03 | PD.EDADDENDU ---
Emergency Room Addendum <Kelly Minor - Last Filed: 03/27/25 03:52> Addendum Narrative: I took over the care from Dr. Espinoza at 6 PM on 03/26/2025, see his notes for complete H&P and ED course. I reviewed all diagnostic test results. Blood tests are unremarkable. Urine tests are positive for UTI and methamphetamines and benzodiazepines. Signed out to Dr. Espinoza at 0600 pending placement. <Chilo Hills MD - Last Filed: 03/27/25 04:26> Addendum Narrative: I took over the care from Dr. Espinoza at 6 PM on 03/26/2025, see previous notes for complete H&P and ED course. I reviewed all diagnostic test results. Blood tests are unremarkable. UDS positive for methamphetamines and benzodiazepines. From me, patient received oral Ativan 2 mg and oral Haldol 5 mg to help her rest. Patient rested and slept well and remained stable. At 6 AM on 03/27/2025, the care of the patient was transferred to Dr. Espinoza. Chilo Hills MD
--- NOTE | 2025-03-26 20:15 | PC.NURSE ---
Pt is awake/alert/oriented to self and place. Pt continuously asking to use the phone to call son/daughter and also rambling about signing self out of the hospital. Dr. Hills made aware. All harmful objects removed from room. 1:1 sitter at bedside. Plan of care ongoing.
[2025-03-26] MEDS: LORazepam 0.5 MG TABLET 2 MG PO (20:36)
[2025-03-27] VITALS: BP 115/76; PULSE 121; RESP 19; TEMP 37; O2SAT 95
--- NOTE | 2025-03-27 | PC.NURSE ---
Pt awake, out of bed to use restroom. Pt is cooperative. No s/s of acute distress noted. 1:1 sitter at bedside. Plan of care ongoing.
[2025-03-27 04:00] VITALS: BP 106/76; PULSE 99; RESP 17; TEMP 36.7; O2SAT 95
--- NOTE | 2025-03-27 04:00 | PC.NURSE ---
Pt resting with eyes closed. Respirations are even and unlabored. No s/s of acute distress noted. 1:1 sitter at bedside. Plan of care ongoing.
--- NOTE | 2025-03-27 06:34 | EDNOTE_ITS ---
Emergency Room Addendum Addendum Narrative: 0600: Care assumed from Dr. Hills, the previous shift emergency physician. Past medical, surgical, social and family history reviewed. Vitals and home medications reviewed. I will assume the care of the patient at this time, pending LPS placement. Patient already was medically cleared. Please refer to the emergency department record for history and examination from initial visit.? The patient was placed in ED observation care at 03/27/2025 at 0600 hours. The patient was placed in ED observation care for undifferentiated decompensated behavioral health evaluation, no behavioral health bed available. The patients past medical history, social history, and family history were reviewed. The plan of care will include serial examinations. While in ED observation the patient will have access to water, food, and personal hygiene. If the patient takes home medication(s), they will be continued in ED observation. Physical exam by me shows patient under no acute distress at this time. 0800: Patient has been accepted to [facility] by Dr. Foley. ETA is 1030 hours. 1040: EMS here to pick the patient and transport to [facility]. ED observation care ended at 03/27/2025 at 1040 hours.
--- NOTE | 2025-03-27 07:18 | PC.CC ---
Addendum entered by Keli Weiss 03/27/25 09:24: ASW informed pt she was accepted to [facility] and pt was upset. Pt reported that there is nothing wrong with her and that she does not feel this is fair. Pt asked to speak to her and news writer informed pt that I will call him. news writer called pts significant other and he reported he could not come to the ER due to lack of transportation. However, he stated he would call her. Addendum entered by Keli Weiss 03/27/25 09:05: 0733-At time of acceptance, ASW provided report to the log roller Susan Kearns. Addendum entered by Keli Weiss 03/27/25 08:43: P/u ETA is at 1030 or sooner Addendum entered by Keli Weiss 03/27/25 08:42: ASW attempted to contact pts Next of Kin, as per her request, but the no one answered. ASW contacted pts life partner, per request, and news writer informed him that pt will be placed in [facility] and that the pt has requested to see or talk to him. However, the life partner reported that he will not be able to come see the pt as he does not have transportation. Life partner will call the ER before she departs. Addendum entered by Keli Weiss 03/27/25 07:42: 0733-ASW called [facility] Intake and spoke with Susan Kearns. Pt was accepted to [facility] by Dr. Foley. Pt will go to [address], Room 410 B-Bed. ASW will arrange transportation. ASW provided report to Intake. Original Note: Pt is a 59 yo female who was BIB law enforcement on a 5150 Hold due to DTS/DTO on 03/25/25. Pt was at a local park wandering in the heat, responding to internal stimuli and arguing with herself. MATEUS Weiss assessed the pt on 03/26/25 and with the support of NATE AGRAWAL, it was decided to uphold the hold and search for LPS placement. However, the LPS placement has not been located as of this morning. ASW will continue to reach out to all LPS facilities in hopes to find placement for the pt.
== END 2025-03-27 10:33 ==
PROVIDERS: Nurse Practitioner Family; Emergency Provider Emergency Medicine
DX: Z04.6 Encounter for general psychiatric examination, requested by authority (principal); F19.959 Other psychoactive substance use, unspecified with psychoactive substance-induced psychotic disorder, unspecified; F20.9 Schizophrenia, unspecified; Z75.1 Person awaiting admission to adequate facility elsewhere
CPT/HCPCS: 36415; 80048; 80307; 80320; 80329; 81001; 85025; 90839; 96127; 96372; 99285; J1200; J1630; J2060; A9270; G0480

== ENCOUNTER 2025-04-07 00:35 | Emergency (ER) | payer OTHER, MEDICAID, SELFPAY ==
[2025-04-07 00:36] VITALS: BMI 29.7
--- NOTE | 2025-04-07 01:59 | PC.NURSE ---
PATIENT WAS CALLED BY STAFF IN THE LOBBY AND OUTSIDE, NO ANSWER RECEIVED.
--- NOTE | 2025-04-07 02:06 | PD.EDADDENDU ---
Emergency Room Addendum Addendum Narrative: When I looked for the patient to start my evaluation, I was told that the patient eloped. Chilo Hills MD
== END 2025-04-07 02:10 | disposition left against medical advice (07) ==
LOC: SERX 02:25
PROVIDERS: Emergency Provider Emergency Medicine
DX: Z53.21 Procedure and treatment not carried out due to patient leaving prior to being seen by health care provider (principal)

== ENCOUNTER 2025-04-11 05:41 | Emergency (ER) | payer OTHER, MEDICAID, SELFPAY ==
[2025-04-11 05:47] VITALS: BP 95/63; PULSE 92; RESP 17; TEMP 36.8; O2SAT 90
[2025-04-11 05:48] VITALS: BMI 29.7
--- NOTE | 2025-04-11 06:05 | PD.EDRME ---
Rapid Medical Screening Exam RME Arrival date/time: 04/11/25 05:41 Chief Complaint: Psychiatric Symptoms Time Seen by Provider: 04/11/25 06:01 Vital signs: Vital Signs Temperature 98.3 F 04/11/25 05:47 Pulse Rate 92 04/11/25 05:47 Respiratory Rate 17 04/11/25 05:47 Blood Pressure 95/63 04/11/25 05:47 Pulse Oximetry (%) 90 L 04/11/25 05:47 Oxygen Delivery Method Room Air 04/11/25 05:47 RME Narrative: 59yo female with a history of schizophrenia BIBA presents to the ED on a 5150 hold. Per [employer], patient was being aggressive towards her on scene and was placed on a 5150 hold. She states she has been taking her medications. Denies any SI, HI or hallucinations.
[2025-04-11 07:50] VITALS: BP 134/72; RESP 16; TEMP 36.7; O2SAT 97
--- NOTE | 2025-04-11 07:56 | PD.EDPSYCH ---
ED Psych RME/HPI General Chief Complaint: Psychiatric Symptoms Stated Complaint: mental evaluation Time Seen by Provider: 04/11/25 06:01 Arrival date/time: 04/11/25 05:41 Limitations: no limitations RME / HPI RME / HPI Narrative: 59yo female with a history of schizophrenia VERENA presents to the ED on a 5150 hold. Per PPD, patient was being aggressive towards her on scene and was placed on a 5150 hold. She states she has been taking her medications. Denies any SI, HI or hallucinations. DR. BECERRA MAIN ED EVALUATION: 59 year old female with history of chronic schizophrenia presents to the ED BIBA from home on a 5150 hold placed by [employer]. Per 5150 report, the patients reported the patient was hallucinating and aggressive towards him. While in the ED, patient reports she was feeling under the weather and worried about her son who was just released from halfway. Additionally reports she recently lost her vehicle and had been walking a lot lately. Otherwise, no other complaints were reported. Denies hallucinations, suicidal, or homicidal ideation. Related Data Home Medications ?Medication ?Instructions ?Recorded ?Confirmed glipizide 5 mg tablet 5 mg PO BID 06/10/19 03/19/20 levothyroxine 25 mcg tablet 25 mcg PO QDAY 06/10/19 03/19/20 atorvastatin 40 mg tablet 40 mg PO HS 11/22/19 03/19/20 duloxetine 60 mg capsule,delayed 60 mg PO QDAY 03/19/20 03/19/20 release gabapentin 300 mg capsule 300 mg PO TID 03/19/20 03/19/20 hydrochlorothiazide 12.5 mg capsule 12.5 mg PO QAM 03/19/20 03/19/20 hydrocodone 5 mg-acetaminophen 325 1 tab PO Q4H PRN Pain 03/19/20 03/19/20 mg tablet omeprazole 40 mg capsule,delayed 40 mg PO QDAY 03/19/20 03/19/20 release prednisone 10 mg tablet 30 mg PO QDAY 03/19/20 03/19/20 risperidone 2 mg tablet 2 mg PO BID 03/19/20 03/19/20 Previous Rx's ?Medication ?Instructions ?Recorded metronidazole 500 mg tablet 500 mg PO Q8H #20 tabs 03/20/20 acetaminophen 325 mg tablet 650 mg (2 x 325 mg) PO Q4H #60 tabs 03/26/20 (Tylenol) hydrocodone 5 mg-acetaminophen 325 1 tab PO BID PRN pain #6 tabs 12/30/21 mg tablet psyllium 1 tbsp PO QDAY #300 grams 03/21/23 albuterol sulfate 90 mcg/actuation 2 inh inhalation QID PRN shortness 09/26/24 aerosol inhaler of breath or wheezing #8.5 grams prednisone 50 mg tablet 50 mg PO QDAY #3 tabs 09/26/24 fluconazole 150 mg tablet 150 mg PO Q3D 2 doses #2 tabs 09/27/24 albuterol sulfate 90 mcg/actuation 2 puff inhalation Q6H PRN 02/19/25 aerosol inhaler shortness of breath or wheezing #8.5 grams lidocaine 4 % topical patch 1 patch topical QID PRN pain #15 ea 03/15/25 (Lidocaine Pain Relief) Allergies Allergy/AdvReac Type Severity Reaction Status Date / Time levofloxacin (From Levaquin) Allergy Severe Swelling Verified 04/07/25 00:40 of Lip/Tongue/Throat methotrexate Allergy Severe Redness of Verified 04/07/25 00:40 Skin Review of Systems Review of Systems Systems Reviewed: All systems reviewed, normal except as documented Past Medical History Past Medical History NEUROLOGIC: Positive Neurological Disorders and Nunez's Palsy CARDIAC: Positive Angina, Hypercholesterolemia and Hypertension RESPIRATORY: Positive Chronic Obstructive Pulmonary Disease (COPD), Asthma and Pneumonia GASTROINTESTINAL: Positive Gastrointestinal Disorders, Gall Bladder Disease, Diverticulitis and Hiatal Hernia GENITOURINARY: Positive Genitourinary Disorders and Kidney Stones REPRODUCTIVE: Positive Endometriosis and Previous Pregnancies MUSCULOSKELETAL: Positive Musculoskeletal Disorders and Rheumatoid Arthritis ENT: Positive Cataracts and Glaucoma ENDOCRINE: Positive Endocrine Disorders, Diabetes Mellitus Type 2 and Hypothyroidism HEMATOLOGIC: Positive Blood Disorders, Anemia and Sickle Cell Disease OTHER HISTORY: Positive Rubella (Thai Measles) and Cervical Cancer Family History FAMILY HISTORY: Positive Family Psychiatric Problems, Family Cardiac Disorders and Family Gastrointestinal Problems Surgical History SURGICAL: Positive Angiogram, Abdominal Surgery and Tubal Ligation Social History SMOKING STATUS: Never smoker SECOND HAND EXPOSURE: No SUBSTANCE USE: methamphetamine ED Exam General Limitations: Present no limitations General appearance: Present alert, in no apparent distress and other (mild facial movements) Head Head exam: Present atraumatic Eye Eye exam: Present normal appearance, PERRL and EOMI ENT ENT exam: Present normal exam, normal oropharynx and mucous membranes moist Neck Neck exam: Present normal inspection, full ROM and trachea midline Chest Chest inspection: Present normal inspection and symmetric chest wall rise Respiratory Respiratory exam: Present normal lung sounds bilaterally Cardiovascular Cardiovascular exam: Present regular rate, normal rhythm and normal heart sounds Abdominal Exam Abdominal exam: Present soft and normal bowel sounds Extremities Exam Extremities exam: Present normal inspection and full ROM Back Exam Back exam: Present normal inspection and full ROM Neurological Exam Neurological exam: Present alert, oriented X3 and CN II-XII intact Psychiatric Psychiatric exam: Present normal affect, normal mood and other (NO SI or HI ) Skin Skin exam: Present warm, dry, intact and normal color Course Quality Measures none Orders Category Date Time Status Alcohol, Urine Stat Lab 04/11/25 09:04 Completed Drug Screen,Urine Stat Lab 04/11/25 09:04 Completed Vital Signs Vital signs: Vital Signs Temperature 98.3 F 04/11/25 05:47 Pulse Rate 92 04/11/25 05:47 Respiratory Rate 17 04/11/25 05:47 Blood Pressure 95/63 04/11/25 05:47 Pulse Oximetry (%) 90 L 04/11/25 05:47 Oxygen Delivery Method Room Air 04/11/25 05:47 Psych MDM Narrative MDM Narrative:: Jaky Mcclure am scribing for and in the presence of Dr. Becerra. 59 year old female with history of chronic schizophrenia was brought in by ambulance on a 5150 hold written by ELISABET. Per 5150 report, the patient was aggressive towards the and hallucinating. While in the ED, the patient shows no aggressive behavior, psychosis, or hallucinations. Plan for social media campaign manager to evaluate. 1020: Patient has been medically cleared for mental health evaluation. 1058: social worker aide has evaluated the patient and rescinded the 5150 hold. Will DC home. Patient data External records reviewed:: [facility] previous records (I reviewed ED visit on 04/07/2025. ) and EMS form Clinical information provided by:: patient and EMS Social determinants that could affect healthcare access:: mental health Patient has the following chronic illnesses:: Chronic schizophrenia How is presenting disease/condition affected by chronic disease/condition?: exacerbated by Evaluation data The following diagnostics were reviewed and interpreted by me:: lab results Lab and/or radiology exams considered but not ordered:: None Interpretation Summary: UDS positive for methamphetamine Medications / Prescriptions Medications or Prescriptions considered but not ordered:: None Medication administrations:: None Consultations Consultation(s) initiated? (list below): No Diagnosis Psych Differential Diagnosis: acute psychosis, chronic schizophrenia, bipolar disorder, depression, drug-induced psychotic disorder and acute anxiety Most likely diagnosis given after review of the tests above:: Agitation Chronic schizophrenia Admission Indicated Admission indicated?: not indicated Admission Request Was there a request for admission?: No Disposition Plan Disposition Plan: Discharge Discharge Attestation Discharge Attestation: The patient and all family members were given an opportunity to ask questions and understood the discharge instructions. Discharge instructions specifically effects, indications for sooner follow up or return to the emergency department, and the expected course of current diagnosis. Patient condition: Stable Discharge Plan Plan Patient Disposition: HOME (Self Care) Prescriptions/Referrals Prescriptions/Med Rec: No Action levothyroxine 25 mcg Tablet 25 mcg PO QDAY glipizide 5 mg Tablet 5 mg PO BID prednisone 10 mg tablet 30 mg PO QDAY Rx Instructions: START DATE 03/06/20 hydrocodone-acetaminophen 5-325 mg tablet 1 tab PO Q4H PRN (Reason: Pain) omeprazole 40 mg capsule,delayed release(DR/EC) 40 mg PO QDAY risperidone 2 mg tablet 2 mg PO BID hydrochlorothiazide 12.5 mg capsule 12.5 mg PO QAM gabapentin 300 mg capsule 300 mg PO TID duloxetine 60 mg capsule,delayed release(DR/EC) 60 mg PO QDAY metronidazole 500 mg tablet 500 mg PO Q8H Qty: 20 0RF atorvastatin 40 mg tablet 40 mg PO HS Patient Comments: take 1 tablet by mouth at bedtime acetaminophen [Tylenol] 325 mg tablet 650 mg PO Q4H Qty: 60 0RF hydrocodone-acetaminophen 5-325 mg tablet 1 tab PO BID MDD 10 PRN (Reason: pain) Qty: 6 0RF fluconazole 150 mg tablet 150 mg PO Q3D Qty: 2 0RF albuterol sulfate 90 mcg/actuation HFA aerosol inhaler 2 puff inhalation Q6H PRN (Reason: shortness of breath or wheezing) Qty: 8.5 0RF lidocaine [Lidocaine Pain Relief] 4 % adhesive patch,medicated 1 patch topical QID PRN (Reason: pain) Qty: 15 0RF psyllium Powder 1 tbsp PO QDAY Qty: 300 0RF Rx Instructions: mix into at least 8 oz of water or juice before administering albuterol sulfate 90 mcg/actuation HFA aerosol inhaler 2 inh inhalation QID PRN (Reason: shortness of breath or wheezing) Qty: 8.5 0RF prednisone 50 mg tablet 50 mg PO QDAY Qty: 3 0RF Referrals: Francisco Walker [Primary Care Provider] - In 1 week Problem List Clinical Impression: Agitation, Schizophrenia Patient/Caregiver Discharge Instructions Education Materials: ED Schizophrenia, General Additional Instructions: Keep your scheduled appointment with therapist for this Thursday04/14/2025. You can return to the emergency department sooner if symptoms worsen or if you notice any new, concerning issues. Print Language: Yoruba Stand Alone Forms: [facility] Award Info., Patient Portal Info Letter
--- NOTE | 2025-04-11 07:56 | PC.NURSE ---
Patient to er on 72hr hold for acting abnormal at home, patient currently cooperative, talkative with repatative speech, patient denies SI and HI states she does hear voices intermittently, not at this time, Dr. Espinoza evaluated patient. Patient awaiting mental health evaluation by social director, breakfast provided. Will await new orders.
[2025-04-11 08:57] VITALS: BP 103/72; PULSE 75; RESP 18; TEMP 36.7; O2SAT 97
[2025-04-11 09:51] LABS: Alcohol, Urine Negative (Negative); Amphetamine/Methamp Scrn,U Positive (Negative); Barbiturate Screen,Urine Negative (Negative); Benzodiazepines Screen,Urine Negative (Negative); Benzoylecgonine Screen, Ur Negative (Negative); Fentanyl Screen,Urine Negative (Negative); Opiate Screen,Urine Negative (Negative); THC Screen,Urine Negative (Negative)
--- NOTE | 2025-04-11 11:03 | PC.CC ---
ASW met with pt and she was alert oriented and cooperative. Pt admitted to Meth use and Schizophrenia. Pt states she is in a outpatient AOD program, but does have moments when she relapses. Pt reports she has an appointment with her drug counselor and therapist on Thursday04/14/25 at 8am [facility] . Pt will lives with her significant other and he will be picking her up to transport her home.
--- NOTE | 2025-04-11 11:06 | PC.CC ---
Addendum entered by Keli Weiss 04/11/25 11:24: CONTINUED FROM LAST NOTE: 04/14/25 at 8am. ASW consulted with CRIS AGRAWAL and it was agreed to rescind the Hold ER provider and RN are aware. Original Note: MATEUS Weiss met with patient [id number] to complete assessment. ASW introduced self, role, and reason for assessment. ASW disclosed limits of confidentiality as well. Patient appeared alert and oriented to self, place, and situation. Patient was pleasant pts behavior appeared to be in her norm without erratic behavior. Patient?s thought process was linear and organized. No signs of delusions, paranoid or V/h. Pt admitted to drug use which is Meth use and admitted to h/o Schizophrenia. Pt reports LE was called to their apartment because she was on Meth and began to start seeing things that she now knows were not there. Pt reports she is receiving MH therapy and AOD services but at times relapses. Pt denies SI/HI, pt admits to meth use and MH dx of schizophrenia. Part of the safety plan, pt agrees to attend her scheduled MH/AOD appointment on Thursday
[2025-04-11 11:39] VITALS: BP 132/54; PULSE 82; RESP 12; O2SAT 99
== END 2025-04-11 11:39 | disposition home or self-care (01) ==
PROVIDERS: Emergency Provider Emergency Medicine
DX: Z04.6 Encounter for general psychiatric examination, requested by authority (principal); F20.9 Schizophrenia, unspecified
CPT/HCPCS: 80307; 80320; 96127; 99284; G0480

== ENCOUNTER 2025-04-13 00:35 | Emergency (ER) | payer OTHER, MEDICAID, SELFPAY ==
[2025-04-13 00:46] VITALS: PULSE 82; RESP 16; O2SAT 97; BMI 29.7
[2025-04-13 01:16] VITALS: BP 159/94; PULSE 95; RESP 20; TEMP 36.7; O2SAT 95
[2025-04-13] MEDS: NAPROXEN 250 MG TABLET 500 MG PO (01:46)
--- NOTE | 2025-04-13 01:50 | EDNOTE_ITS ---
<Statement entered by Maryam Yeager MD - 04/15/25 03:42> As co-signing physician, I was present and available for consult prn. I concur with the plan and care as documented by the midlevel provider. ED Back Injury Pain RME/HPI General Chief Complaint: Back Pain/Injury Stated Complaint: BACK AND LEG PAIN Time Seen by Provider: 04/13/25 01:31 Arrival date/time: 04/13/25 00:35 59F with history of CHF, DM, HTN, and meth use presents to ED with back and bilateral leg pain due to walking a lot today. Patient also requests hospital social worker because she has no where to go because her caregiver is in the hospital for a heart attack. Limitations: no limitations Related Data Home Medications ?Medication ?Instructions ?Recorded ?Confirmed glipizide 5 mg tablet 5 mg PO BID 06/10/19 0 levothyroxine 25 mcg tablet 25 mcg PO QDAY 06/10/19 atorvastatin 40 mg tablet 40 mg PO HS 11/22/19 0 duloxetine 60 mg capsule,delayed 60 mg PO QDAY 0 03/19/20 release gabapentin 300 mg capsule 300 mg PO TID 03/19/2003/19 hydrochlorothiazide 12.5 mg capsule 12.5 mg PO QAM 03/19/20 hydrocodone 5 mg-acetaminophen 325 1 tab PO Q4H PRN Pa in 03/19/20 03/19/20 mg tablet omeprazole 40 mg capsule,delayed 40 mg PO QDAY 0 03/19/20 release prednisone 10 mg tablet 30 mg PO QDAY 03/19/2003/19 risperidone 2 mg tablet 2 mg PO BID 03/19/20 0 Previous Rx's ?Medication ?Instructions ?Recorded metronidazole 500 mg tablet 500 mg PO Q8H #20 tabs acetaminophen 325 mg tablet 650 mg (2 x 325 mg) PO Q4H #60 tabs 03/26/20 (Tylenol) hydrocodone 5 mg-acetaminophen 325 1 tab PO BID PRN pa in #6 tabs 12/30/21 mg tablet psyllium 1 tbsp PO QDAY #300 grams albuterol sulfate 90 mcg/actuation 2 inh inhalation QI D PRN shortness 09/26/24 aerosol inhaler of breath or wheezing #8.5 g carmenza prednisone 50 mg tablet 50 mg PO QDAY #3 tabs fluconazole 150 mg tablet 150 mg PO Q3D 2 doses #2 tab s 09/27/24 albuterol sulfate 90 mcg/actuation 2 puff inhalation Q 6H PRN 02/19/25 aerosol inhaler shortness of breath or wheez ing #8.5 grams lidocaine 4 % topical patch 1 patch topical QID PRN pa in #15 ea 03/15/25 (Lidocaine Pain Relief) Allergies Allergy/AdvReac Type Severity Reaction Status Date / Time levofloxacin (From [facility]) Allergy Severe Swelling Verified 04/13/25 00:45 of Lip/Tongue/Throat methotrexate Allergy Severe Redness of Verified 04/13/25 00:45 Skin Review of Systems Review of Systems Systems Reviewed: All systems reviewed, normal except as documented Constitutional Constitutional: Reports system reviewed and no additional complaints, except as documented, Denies fever(s) and Denies headache(s) ENT Ears, Nose, Mouth, and Throat: Denies disequilibrium and Denies headache(s) Cardiovascular Cardiovascular: Reports system reviewed and no additional complaints, except as documented, Denies chest pain and Denies dyspnea Respiratory Respiratory: Reports system reviewed and no additional complaints, except as documented, Denies cough and Denies dyspnea Gastrointestinal Gastrointestinal: Reports system reviewed and no additional complaints, except as documented, Denies abdominal pain, Denies nausea and Denies vomiting Musculoskeletal Musculoskeletal: Reports as per HPI, Reports arthralgias and Reports back pain Neurologic Neurologic: Reports system reviewed and no additional complaints, except as documented, Denies confusion, Denies disequilibrium and Denies headache(s) Psychiatric Psychiatric: Denies confusion Past Medical History Past Medical History NEUROLOGIC: Positive Neurological Disorders and Nunez's Palsy CARDIAC: Positive Angina, Hypercholesterolemia and Hypertension; Negative Cardiac Disorders or Congestive Heart Failure RESPIRATORY: Positive Chronic Obstructive Pulmonary Disease (COPD), Asthma and Pneumonia GASTROINTESTINAL: Positive Gastrointestinal Disorders, Gall Bladder Disease, Diverticulitis and Hiatal Hernia GENITOURINARY: Positive Genitourinary Disorders and Kidney Stones; Negative Renal Disease REPRODUCTIVE: Positive Endometriosis and Previous Pregnancies MUSCULOSKELETAL: Positive Musculoskeletal Disorders and Rheumatoid Arthritis ENT: Positive Cataracts and Glaucoma ENDOCRINE: Positive Endocrine Disorders, Diabetes Mellitus Type 2 and Hypothyroidism; Negative Diabetes Mellitus Type 1 HEMATOLOGIC: Positive Blood Disorders, Anemia and Sickle Cell Disease OTHER HISTORY: Positive Rubella (Turkish Measles) and Cervical Cancer; Negative Autoimmune Disease Family History FAMILY HISTORY: Positive Family Psychiatric Problems, Family Cardiac Disorders and Family Gastrointestinal Problems; Negative Family Respiratory Disorders, Family Cancer or Family Surgery Surgical History SURGICAL: Positive Angiogram, Abdominal Surgery and Tubal Ligation Social History SMOKING STATUS: Never smoker SECOND HAND EXPOSURE: No SUBSTANCE USE: methamphetamine ED Exam General Limitations: Present no limitations General appearance: Present alert and in no apparent distress Head Head exam: Present atraumatic Eye Eye exam: Present normal appearance, PERRL and EOMI ENT ENT exam: Present normal exam, normal oropharynx and mucous membranes moist Neck Neck exam: Present normal inspection, full ROM and trachea midline Chest Chest inspection: Present normal inspection and symmetric chest wall rise Respiratory Respiratory exam: Present normal lung sounds bilaterally Cardiovascular Cardiovascular exam: Present regular rate, normal rhythm and normal heart sounds Abdominal Exam Abdominal exam: Present soft and normal bowel sounds Extremities Exam Extremities exam: Present normal inspection and full ROM Back Exam Back exam: Present normal inspection and full ROM Neurological Exam Neurological exam: Present alert, oriented X3 and CN II-XII intact Psychiatric Psychiatric exam: Present normal affect and normal mood Skin Skin exam: Present warm, dry, intact and normal color Course Quality Measures none Orders Category Date Time Status Consult Spooler NOW Care 04/13/25 01:45 Active Naproxen [Naprosyn] Med 04/13/25 01:32 Discontinued 500 mg PO X1 ONE Vital Signs Vital signs: Vital Signs Temperature 98.1 F 04/13/25 01:16 Pulse Rate 95 04/13/25 01:16 Respiratory Rate 20 04/13/25 01:16 Blood Pressure 159/94 H 04/13/25 01:16 Pulse Oximetry (%) 95 04/13/25 01:16 Oxygen Delivery Method Room Air 04/13/25 01:16 O2 at 95% on RA and WNLs Back Pain / Injury MDM Narrative MDM Narrative:: 59F with history of CHF, DM, HTN, and meth use presents to ED with back and bilateral leg pain due to walking a lot today. Patient also requests hospital social worker because she has no where to go because her caregiver is in the hospital for a heart attack. Physical exam well-appearing female. Normal WOB. Patient is afebrile, calm, and alert. Meds and budget counselor given. player services representative consult made. Patient data External records reviewed:: [facility] previous records Clinical information provided by:: patient Social determinants that could affect healthcare access:: substance use Patient has the following chronic illnesses:: CHF, DM, HTN, and meth use How is presenting disease/condition affected by chronic disease/condition?: exacerbated by Evaluation data The following diagnostics were reviewed and interpreted by me:: other (specify) (none) Lab and/or radiology exams considered but not ordered:: not ordered Interpretation Summary: n/a Medications / Prescriptions Medications or Prescriptions considered but not ordered:: ordered Medication administrations:: Medication Administration History Discontinued Medications Naproxen (Naproxen 250 Mg Tablet) 500 mg PO X1 ONE Stop: 04/13/25 01:33 Last Admin: 04/13/25 01:46 Dose: 500 mg Documented By: SF above Consultations Consultation(s) initiated? (list below): No Diagnosis Differential diagnosis back pain/injury: lumbar radiculopathy, sciatica, strain of lumbar region, renal colic, pyelonephritis, thoracic back pain, AAA, discitis and other (myalgia) Most likely diagnosis given after review of the tests above:: myalgia Admission Indicated Admission indicated?: not indicated Admission Request Was there a request for admission?: No Disposition Plan Disposition Plan: Discharge Discharge Attestation Discharge Attestation: The patient and all family members were given an opportunity to ask questions and understood the discharge instructions. Discharge instructions specifically effects, indications for sooner follow up or return to the emergency department, and the expected course of current diagnosis. Patient condition: Stable Discharge Plan Plan Patient Disposition: HOME (Self Care) Discharge Disposition comment: Stable Prescriptions/Referrals Prescriptions/Med Rec: No Action levothyroxine 25 mcg Tablet 25 mcg PO QDAY glipizide 5 mg Tablet 5 mg PO BID prednisone 10 mg tablet 30 mg PO QDAY Rx Instructions: START DATE 03/06/20 hydrocodone-acetaminophen 5-325 mg tablet 1 tab PO Q4H PRN (Reason: Pain) omeprazole 40 mg capsule,delayed release(DR/EC) 40 mg PO QDAY risperidone 2 mg tablet 2 mg PO BID hydrochlorothiazide 12.5 mg capsule 12.5 mg PO QAM gabapentin 300 mg capsule 300 mg PO TID duloxetine 60 mg capsule,delayed release(DR/EC) 60 mg PO QDAY metronidazole 500 mg tablet 500 mg PO Q8H Qty: 20 0RF atorvastatin 40 mg tablet 40 mg PO HS Patient Comments: take 1 tablet by mouth at bedtime acetaminophen [Tylenol] 325 mg tablet 650 mg PO Q4H Qty: 60 0RF hydrocodone-acetaminophen 5-325 mg tablet 1 tab PO BID MDD 10 PRN (Reason: pain) Qty: 6 0RF fluconazole 150 mg tablet 150 mg PO Q3D Qty: 2 0RF albuterol sulfate 90 mcg/actuation HFA aerosol inhaler 2 puff inhalation Q6H PRN (Reason: shortness of breath or wheezing) Qty: 8.5 0RF lidocaine [Lidocaine Pain Relief] 4 % adhesive patch,medicated 1 patch topical QID PRN (Reason: pain) Qty: 15 0RF psyllium Powder 1 tbsp PO QDAY Qty: 300 0RF Rx Instructions: mix into at least 8 oz of water or juice before administering albuterol sulfate 90 mcg/actuation HFA aerosol inhaler 2 inh inhalation QID PRN (Reason: shortness of breath or wheezing) Qty: 8.5 0RF prednisone 50 mg tablet 50 mg PO QDAY Qty: 3 0RF Problem List Clinical Impression: Myalgia Patient/Caregiver Discharge Instructions Education Materials: ED Myalgias Additional Instructions: Please follow-up with PCP within 24-48 hours and return immediately if symptoms worsen. If problem persists, recommend outpatient PT and/or MRI follow-up. In the meantime, rest, use ice/heat, and/or compression. Print Language: Mexican Stand Alone Forms: Patient Portal Info Letter PA/PATROL OFFICER Supervising Physician SCOOTER/TATA Supervising Physician: Dr. Yeager
--- NOTE | 2025-04-13 08:40 | PC.CC ---
Addendum entered by Keli Weiss 04/13/25 09:54: ASW arranged transportation for pt via the [employer] portal. This is the reason for the entry. Original Note: ASW met with pt to provide her homeless group home resources and AOD resources, per her request. Pt stated she was trying to find her spouse and he is homeless too and she is also needing transportation. ASW offered pt transporation but she declined and stated she was waiting to get a hold of her spouse to pick her up. ASW provided homeless/group home resources, AOD, and mental health resources to the pt and she accepted.
--- NOTE | 2025-04-13 08:42 | PC.NURSE ---
per social group worker pt given resources, okay to d/c.
== END 2025-04-13 08:43 | disposition home or self-care (01) ==
PROVIDERS: Emergency Provider Emergency Medicine
DX: M79.18 Myalgia, other site (principal); I11.0 Hypertensive heart disease with heart failure; I50.9 Heart failure, unspecified; E11.9 Type 2 diabetes mellitus without complications
CPT/HCPCS: 99282; A9270

== ENCOUNTER 2025-04-20 17:37 | Emergency (ER) | payer OTHER, MEDICAID, SELFPAY ==
[2025-04-20 19:23] VITALS: BP 120/77; PULSE 82; RESP 18; TEMP 36.8; O2SAT 97; BMI 27.4
--- NOTE | 2025-04-20 19:58 | EDNOTE_ITS ---
ED GI Bleed RME/HPI General Chief complaint: GI Bleed Stated complaint: 3 days bleeding from rectum, from anal sex Time Seen by Provider: 04/20/25 19:23 Arrival date/time: 04/20/25 17:37 RME / HPI RME / HPI Narrative: 59-year-old female patient came in for evaluation regarding rectal bleeding. Patient's been having on and off rectal bleeding for the last 3 days, after having anal sex. Patient denies any abdominal pain, denies any dizziness denies any other complaints no medications taken prior to arrival. Related Data Home Medications ?Medication ?Instructions ?Recorded ?Confirmed glipizide 5 mg tablet 5 mg PO BID 06/10/19 0 levothyroxine 25 mcg tablet 25 mcg PO QDAY 06/10/19 atorvastatin 40 mg tablet 40 mg PO HS 11/22/19 0 duloxetine 60 mg capsule,delayed 60 mg PO QDAY 0 03/19/20 release gabapentin 300 mg capsule 300 mg PO TID 03/19/2003/19 hydrochlorothiazide 12.5 mg capsule 12.5 mg PO QAM 03/19/20 hydrocodone 5 mg-acetaminophen 325 1 tab PO Q4H PRN Pa in 03/19/20 03/19/20 mg tablet omeprazole 40 mg capsule,delayed 40 mg PO QDAY 0 03/19/20 release prednisone 10 mg tablet 30 mg PO QDAY 03/19/2003/19 risperidone 2 mg tablet 2 mg PO BID 03/19/20 0 Previous Rx's ?Medication ?Instructions ?Recorded metronidazole 500 mg tablet 500 mg PO Q8H #20 tabs acetaminophen 325 mg tablet 650 mg (2 x 325 mg) PO Q4H #60 tabs 03/26/20 (Tylenol) hydrocodone 5 mg-acetaminophen 325 1 tab PO BID PRN pa in #6 tabs 12/30/21 mg tablet psyllium 1 tbsp PO QDAY #300 grams albuterol sulfate 90 mcg/actuation 2 inh inhalation QI D PRN shortness 09/26/24 aerosol inhaler of breath or wheezing #8.5 g carmenza prednisone 50 mg tablet 50 mg PO QDAY #3 tabs fluconazole 150 mg tablet 150 mg PO Q3D 2 doses #2 tab s 09/27/24 albuterol sulfate 90 mcg/actuation 2 puff inhalation Q 6H PRN 02/19/25 aerosol inhaler shortness of breath or wheez ing #8.5 grams lidocaine 4 % topical patch 1 patch topical QID PRN pa in #15 ea 03/15/25 (Lidocaine Pain Relief) nitrofurantoin 100 mg PO Q12H 7 days #14 ca ps 04/20/25 monohydrate/macrocrystals 100 mg capsule (Macrobid) Allergies Allergy/AdvReac Type Severity Reaction Status Date / Time [facility] ([facility] Allergy Severe Swelling Verified 04/20/25 17:46 of Lip/Tongue/Throat methotrexate Allergy Severe Redness of Verified 04/20/25 17:46 Skin Review of Systems Review of Systems Narrative Review of Systems: Review of system reviewed and within normal limits except mentioned in HPI ED Exam Narrative Physical exam: VITAL SIGNS: Reviewed. GENERAL APPEARANCE: Alert and interactive, follows commands, no acute distress, HEAD AND FACE: Non-traumatic. ENT: PERRL, pink conjunctivitis, eyelid no trauma, Mucous membrane moist. NECK: Supple, nontender, no nuchal rigidity. CHEST: No tenderness, no crepitus, no paradoxical movement, no retractions. LUNGS: Clear, well ventilated, symmetric, no rales, no wheezing, no ronchi, no stridor, good breath sounds bilaterally. HEART: Regular rate, regular rhythm, no murmur, no gallops. ABDOMEN: Soft, positive bowel sounds, nondistended, no guarding, nontender, no rebound, no masses, RECTAL: Deferred. GENITAL: Deferred. NEUROLOGICAL: Gross motor function intact sensory function intact, Appropriate for age. MUSCULOSKELETAL: low back nontender, full range of motion. EXTREMITIES: Nontender, full range of motion. SKIN: Color pink, dry, no rash, no lacerations, no abrasions, no contusions. LYMPHATICS: Deferred. Course Quality Measures none Orders Category Date Time Status CBC [CBC] Stat Lab 04/20/25 20:35 Completed CMP [Comprehensive Metabolic Panel] Stat Lab 04/20/25 20:35 Completed PT [Prothrombin Time with INR] Stat Lab 04/20/25 20:35 Completed PTT [Partial Thromboplastin Time] Stat Lab 04/20/25 20:35 Completed UA, C/S IF [Urinalysis, C/S if Indicated] Stat Lab 04/20/25 20:07 Completed Urine Culture Stat Lab 04/20/25 20:07 Received cephALEXin [Keflex] Med 04/20/25 22:07 Discontinued 500 mg PO X1 ONE Vital Signs Vital signs: Vital Signs Temperature 98.3 F 04/20/25 19:23 Pulse Rate 82 04/20/25 19:23 Respiratory Rate 18 04/20/25 19:23 Blood Pressure 120/77 04/20/25 19:23 Pulse Oximetry (%) 97 04/20/25 19:23 Oxygen Delivery Method Room Air 04/20/25 19:23 GI Bleed [facility] Narrative [facility] Narrative:: 59-year-old female patient came in for evaluation regarding rectal bleeding. Patient's been having on and off rectal bleeding for the last 3 days, after having anal sex. Patient denies any abdominal pain, denies any dizziness denies any other complaints no medications taken prior to arrival. Rectal exam was done by me with a female nurse around all the time, I did not notice any bleeding, no blood on the examining finger, no masses palpated. No annular fissure noted Urinalysis positive for UTI. CBC showed no anemia. Platelets normal Patient received Keflex Patient data External records reviewed:: None Clinical information provided by:: patient Social determinants that could affect healthcare access:: none Patient has the following chronic illnesses:: Diabetes mellitus How is presenting disease/condition affected by chronic disease/condition?: uneffected by Evaluation data The following diagnostics were reviewed and interpreted by me:: lab results Lab and/or radiology exams considered but not ordered:: None Interpretation Summary: See results [facility] Medications / Prescriptions Medications or Prescriptions considered but not ordered:: None Medication administrations:: Medication Administration History Discontinued Medications Cephalexin HCl (Cephalexin 250 Mg Capsule) 500 mg PO X1 ONE Stop: 04/20/25 22:08 Keflex Consultations Consultation(s) initiated? (list below): No Diagnosis GI bleed differential diagnosis: hemorrhoids, Lower gastrointestinal hemorrhage and anal fissure Most likely diagnosis given after review of the tests above:: UTI, bright red blood per rectum Admission Indicated Admission indicated?: not indicated Admission Request Was there a request for admission?: No Disposition Plan Disposition Plan: Discharge Discharge Attestation Discharge Attestation: The patient and all family members were given an opportunity to ask questions and understood the discharge instructions. Discharge instructions specifically effects, indications for sooner follow up or return to the emergency department, and the expected course of current diagnosis. Patient condition: Stable Discharge Plan Plan Patient Disposition: HOME (Self Care) Discharge Disposition comment: stable Prescriptions/Referrals Prescriptions/Med Rec: New nitrofurantoin monohyd/m-cryst [Macrobid] 100 mg capsule 100 mg PO Q12H 7 Days Qty: 14 0RF Rx Instructions: must administer with a meal/food No Action levothyroxine 25 mcg Tablet 25 mcg PO QDAY glipizide 5 mg Tablet 5 mg PO BID prednisone 10 mg tablet 30 mg PO QDAY Rx Instructions: START DATE 03/06/20 hydrocodone-acetaminophen 5-325 mg tablet 1 tab PO Q4H PRN (Reason: Pain) omeprazole 40 mg capsule,delayed release(DR/EC) 40 mg PO QDAY risperidone 2 mg tablet 2 mg PO BID hydrochlorothiazide 12.5 mg capsule 12.5 mg PO QAM gabapentin 300 mg capsule 300 mg PO TID duloxetine 60 mg capsule,delayed release(DR/EC) 60 mg PO QDAY metronidazole 500 mg tablet 500 mg PO Q8H Qty: 20 0RF atorvastatin 40 mg tablet 40 mg PO HS Patient Comments: take 1 tablet by mouth at bedtime acetaminophen [Tylenol] 325 mg tablet 650 mg PO Q4H Qty: 60 0RF hydrocodone-acetaminophen 5-325 mg tablet 1 tab PO BID MDD 10 PRN (Reason: pain) Qty: 6 0RF fluconazole 150 mg tablet 150 mg PO Q3D Qty: 2 0RF albuterol sulfate 90 mcg/actuation HFA aerosol inhaler 2 puff inhalation Q6H PRN (Reason: shortness of breath or wheezing) Qty: 8.5 0RF lidocaine [Lidocaine Pain Relief] 4 % adhesive patch,medicated 1 patch topical QID PRN (Reason: pain) Qty: 15 0RF psyllium Powder 1 tbsp PO QDAY Qty: 300 0RF Rx Instructions: mix into at least 8 oz of water or juice before administering albuterol sulfate 90 mcg/actuation HFA aerosol inhaler 2 inh inhalation QID PRN (Reason: shortness of breath or wheezing) Qty: 8.5 0RF prednisone 50 mg tablet 50 mg PO QDAY Qty: 3 0RF Referrals: No Primary/Family,Physician [Primary Care Provider] - In 1 week Problem List Clinical Impression: UTI (urinary tract infection), Bright red blood per rectum Patient/Caregiver Discharge Instructions Discharge Activity: activity as tolerated Education Materials: Understanding Urinary Tract ... Additional Instructions: Thank you for the opportunity for serving you today. You are stable for discharged . You are advised to: Follow-up with your PCP in 1 to 2 days Return to ED for worsening of symptoms Increase oral fluids Take medication as prescribed As your PCP to refer you to a GI specialist for outpatient colonoscopy. Print Language: South African Stand Alone Forms: Hilda Award Info., Patient Portal Info Letter PA/ASSISTANT ELEMENTARY TEACHER Supervising Physician PA/TATA Supervising Physician: MD Fortunato
[2025-04-20 20:42] LABS: Collection Type, Urine Clean Catch
[2025-04-20 21:20] LABS: Bacteria,Urine 4+; Bilirubin,Urine Negative (Negative); Blood,Urine Trace (Negative); Calcium Oxalate Crystals,Urine 2+; Clarity,Urine Turbid (Clear/Hazy); Color,Urine Yellow (Lt Yel-Yel); Glucose, Urine Negative (Negative); Hyaline Casts,Urine 1 /hpf (0-1); Ketones,Urine Trace (Negative); Leukocyte Esterase,Urine Positive (Negative); Nitrite,Urine Negative (Negative); Protein,Urine 1+ (Neg - Trace); RBC,Urine 81 /hpf (0-3); Specific Gravity,Urine 1.033 (1.001-1.035); Squamous Epithelial Cell,Urine 4 /hpf (0-5); WBC,Urine 215 /hpf (0-5)
[2025-04-20 21:21] LABS: Basophils # (Auto) 0.1 Thou/mm3 (0.0-0.2); Basophils % (Auto) 1 % (0-2.5); Eosinophils # (Auto) 0.2 Thou/mm3 (0.0-0.5); Eosinophils % (Auto) 2 % (0-10); Hemoglobin 15.5 g/dL (12.0-16.0); Immature Granulocytes % (Auto) 0 % (0-0); Immature Granulocytes Auto 0.02 Thou/mm3 (0.00-0.00); Lymphocytes # (Auto) 3.2 Thou/mm3 (1.0-4.8); Lymphocytes % (Auto) 34 % (10-50); Mean Corpuscular HGB Conc 32.3 g/dl (31.0-37.0); Mean Corpuscular Hemoglobin 26.7 pg (25.0-35.0); Mean Corpuscular Volume 83 fL (80-100); Monocytes # (Auto) 0.6 Thou/mm3 (0.0-0.8); Monocytes % (Auto) 6 % (0-12); Neutrophils # (Auto) 5.5 Thou/mm3 (1.8-7.7); Neutrophils % (Auto) 58 % (37-80); Nucleated Red Blood Cell % 0 /100 WBC (0); Platelet Count 376 Thou/mm3 (140-440); RDW Standard Deviation 44.5 fL (36.4-46.3); White Blood Count 9.6 Thou/mm3 (3.6-11.0)
[2025-04-20 21:25] LABS: Culture Indicated,Urine Yes
[2025-04-20 21:45] LABS: Partial Thromboplastin Time 24.5 Seconds (22.0-36.0); Prothrombin Time 10.8 Seconds (9.0-12.2)
[2025-04-20 21:46] LABS: Alanine Aminotransferase 21 U/L (10-49); Albumin, Serum 4.3 gm/dL (3.5-5.0); Albumin/Globulin Ratio 1.5 (1.2-2.2); Alkaline Phosphatase 162 U/L (46-116); Anion Gap 8 (7-16); Aspartate Amino Transferase 29 U/L (0-34); BUN/Creatinine Ratio 14 Ratio (12-20); Bilirubin,Total 0.7 mg/dL (0.3-1.2); Blood Urea Nitrogen 11 mg/dL (9-23); Calcium 9.1 mg/dL (8.3-10.6); Calcium (Corrected) 9.1 mg/dL (8.5-10.1); Carbon Dioxide 25.6 mMol/L (20.0-31.0); Chloride 105 mMol/L (98-107); Creatinine (Component) 0.8 mg/dL (0.6-1.3); Estimated Creatinine Clearance 67.4 mL/min (>60); Globulin 2.8 gm/dL (2.3-3.5); Glucose 112 mg/dL (74-106); Osmolality,Calculated 277 (275-295); Potassium 3.8 mMol/L (3.4-5.1); Sodium 139 mMol/L (136-145); Total Protein 7.1 gm/dL (5.7-8.2); eGFR > 60 See Note
[2025-04-20] MEDS: cephALEXin 250 MG CAPSULE 500 MG PO (23:00)
[2025-04-20 23:07] VITALS: RESP 18
== END 2025-04-20 23:08 | disposition home or self-care (01) ==
PROVIDERS: Nurse Practitioner Family; Emergency Provider Emergency Medicine
DX: K62.5 Hemorrhage of anus and rectum (principal); N39.0 Urinary tract infection, site not specified; N93.0 Postcoital and contact bleeding
CPT/HCPCS: 36415; 80053; 81001; 85025; 85610; 85730; 87077; 87086; 87186; 99283; A9270

== ENCOUNTER 2025-04-23 22:52 | Emergency (ER) | payer OTHER, MEDICAID, SELFPAY ==
[2025-04-23 22:53] VITALS: BMI 29.7
[2025-04-23 23:02] VITALS: BP 122/87; PULSE 97; RESP 18; TEMP 36.9; O2SAT 98
--- NOTE | 2025-04-23 23:16 | PD.EDABDPN ---
ED Abdominal Pain RME/HPI General Chief Complaint: Abdominal Pain Stated complaint: ABD PAIN DX WITH UTI HERE ON [facility]RI Time seen by provider: 04/23/25 23:01 Arrival date/time: 04/23/25 22:52 RME / HPI RME / HPI narrative: 59-year-old female presents to the ED with a complaint of urinary frequency, dysuria, lower pelvic pain. She was seen here on 04/20 and diagnosed with a urinary tract infection. She was prescribed Macrobid but states she was unable to afford the co-pay so has not started taking her antibiotic at this time. She denies any fever but has had some mild nausea. She denies any unusual back pain or flank pain. Related Data Home Medications ?Medication ?Instructions ?Recorded ?Confirmed glipizide 5 mg tablet 5 mg PO BID 06/10/19 03/19/20 levothyroxine 25 mcg tablet 25 mcg PO QDAY 06/10/19 03/19/20 atorvastatin 40 mg tablet 40 mg PO HS 11/22/19 03/19/20 duloxetine 60 mg capsule,delayed 60 mg PO QDAY 03/19/20 03/19/20 release gabapentin 300 mg capsule 300 mg PO TID 03/19/20 03/19/20 hydrochlorothiazide 12.5 mg capsule 12.5 mg PO QAM 03/19/20 03/19/20 hydrocodone 5 mg-acetaminophen 325 1 tab PO Q4H PRN Pain 03/19/20 03/19/20 mg tablet omeprazole 40 mg capsule,delayed 40 mg PO QDAY 03/19/20 03/19/20 release prednisone 10 mg tablet 30 mg PO QDAY 03/19/20 03/19/20 risperidone 2 mg tablet 2 mg PO BID 03/19/20 03/19/20 Previous Rx's ?Medication ?Instructions ?Recorded metronidazole 500 mg tablet 500 mg PO Q8H #20 tabs 03/20/20 acetaminophen 325 mg tablet 650 mg (2 x 325 mg) PO Q4H #60 tabs 03/26/20 (Tylenol) hydrocodone 5 mg-acetaminophen 325 1 tab PO BID PRN pain #6 tabs 12/30/21 mg tablet psyllium 1 tbsp PO QDAY #300 grams 03/21/23 albuterol sulfate 90 mcg/actuation 2 inh inhalation QID PRN shortness 09/26/24 aerosol inhaler of breath or wheezing #8.5 grams prednisone 50 mg tablet 50 mg PO QDAY #3 tabs 09/26/24 fluconazole 150 mg tablet 150 mg PO Q3D 2 doses #2 tabs 09/27/24 albuterol sulfate 90 mcg/actuation 2 puff inhalation Q6H PRN 02/19/25 aerosol inhaler shortness of breath or wheezing #8.5 grams lidocaine 4 % topical patch 1 patch topical QID PRN pain #15 ea 03/15/25 (Lidocaine Pain Relief) nitrofurantoin 100 mg PO Q12H 7 days #14 caps 04/20/25 monohydrate/macrocrystals 100 mg capsule (Macrobid) cefuroxime axetil 250 mg tablet 250 mg PO BID 10 days #20 tabs 04/24/25 fluconazole 150 mg tablet 150 mg PO QDAY 1 day #2 tabs 04/24/25 Allergies Allergy/AdvReac Type Severity Reaction Status Date / Time levofloxacin (From Levaquin) Allergy Severe Swelling Verified 04/23/25 22:58 of Lip/Tongue/Throat methotrexate Allergy Severe Redness of Verified 04/23/25 22:58 Skin Review of Systems Review of Systems Systems Reviewed: All systems reviewed, normal except as documented Past Medical History Past Medical History NEUROLOGIC: Positive Neurological Disorders and Nunez's Palsy CARDIAC: Positive Angina, Hypercholesterolemia and Hypertension; Negative Cardiac Disorders or Congestive Heart Failure RESPIRATORY: Positive Chronic Obstructive Pulmonary Disease (COPD), Asthma and Pneumonia GASTROINTESTINAL: Positive Gastrointestinal Disorders, Gall Bladder Disease, Diverticulitis and Hiatal Hernia GENITOURINARY: Positive Genitourinary Disorders and Kidney Stones; Negative Renal Disease REPRODUCTIVE: Positive Endometriosis and Previous Pregnancies MUSCULOSKELETAL: Positive Musculoskeletal Disorders and Rheumatoid Arthritis ENT: Positive Cataracts and Glaucoma ENDOCRINE: Positive Endocrine Disorders, Diabetes Mellitus Type 2 and Hypothyroidism; Negative Diabetes Mellitus Type 1 HEMATOLOGIC: Positive Blood Disorders, Anemia and Sickle Cell Disease OTHER HISTORY: Positive Rubella ([place] Measles) and Cervical Cancer; Negative Autoimmune Disease Family History FAMILY HISTORY: Positive Family Psychiatric Problems, Family Cardiac Disorders and Family Gastrointestinal Problems; Negative Family Respiratory Disorders, Family Cancer or Family Surgery Surgical History SURGICAL: Positive Angiogram, Abdominal Surgery and Tubal Ligation Social History SMOKING STATUS: Never smoker SECOND HAND EXPOSURE: No SUBSTANCE USE: methamphetamine ED Exam Narrative Physical exam: Alert and oriented 59-year-old female, no acute distress. Patient is afebrile. Vital signs blood pressure 122/87, pulse 97, respirations 18 nonlabored, temp 98.4, O2 sat 98% on room air. Lungs are clear, regular rate and rhythm without murmurs. Abdomen reveals bowel sounds positive x 4 quadrants, soft and minimal bilateral lower pelvic and suprapubic tenderness. No flank tenderness and no CVA tenderness. Course Course Course Narrative: Urinalysis reveals turbid yellow urine with a specific gravity of 1.023 with trace protein, 1+ blood, positive nitrates, positive leukocyte esterase, 29 RBCs, 231 WBCs, 17 squamous epithelial cells, 1+ calcium oxalate crystals, 1+ bacteria, budding yeast present. Previous urine culture from 04/20/25 organism reveals Klebsiella oxytoca. This organism is sensitive to aztreonam, cefepime, ceftazidime, ceftriaxone, ertapenem, gentamicin, and tobramycin. He was prescribed Macrobid.. Ceftriaxone 2 g IM ordered and patient will be discharged home on Ceftin for completion of antibiotics. Advised patient to disregard the previous prescription for Macrobid. Quality Measures none Orders Category Date Time Status Urinalysis Stat Lab 04/23/25 23:57 Completed Urine Culture Stat Lab 04/23/25 23:57 Received cefTRIAXone [Rocephin] 2 gm Med 04/23/25 23:22 Discontinued Lidocaine 1% 20 ml [Xylocaine 1% 20 ML] 4.2 ml IM X1 Vital Signs Vital signs: Vital Signs Temperature 98.4 F 04/23/25 23:02 Pulse Rate 97 04/23/25 23:02 Respiratory Rate 18 04/23/25 23:02 Blood Pressure 122/87 H 04/23/25 23:02 Pulse Oximetry (%) 98 04/23/25 23:02 Oxygen Delivery Method Room Air 04/23/25 23:02 Abdominal Pain MDM MDM Narrative MDM Narrative:: 59-year-old female presents to the ED with a complaint of urinary frequency, dysuria, lower pelvic pain. She was seen here on 04/20 and diagnosed with a urinary tract infection. She was prescribed Macrobid but states she was unable to afford the co-pay so has not started taking her antibiotic at this time. She denies any fever but has had some mild nausea. She denies any unusual back pain or flank pain. Alert and oriented 59-year-old female, no acute distress. Patient is afebrile. Vital signs blood pressure 122/87, pulse 97, respirations 18 nonlabored, temp 98.4, O2 sat 98% on room air. Lungs are clear, regular rate and rhythm without murmurs. Abdomen reveals bowel sounds positive x 4 quadrants, soft and minimal bilateral lower pelvic and suprapubic tenderness. No flank tenderness and no CVA tenderness. Urinalysis reveals turbid yellow urine with a specific gravity of 1.023 with trace protein, 1+ blood, positive nitrates, positive leukocyte esterase, 29 RBCs, 231 WBCs, 17 squamous epithelial cells, 1+ calcium oxalate crystals, 1+ bacteria, budding yeast present. Previous urine culture from 04/20/25 organism reveals Klebsiella oxytoca. This organism is sensitive to aztreonam, cefepime, ceftazidime, ceftriaxone, ertapenem, gentamicin, and tobramycin. He was prescribed Macrobid.. Ceftriaxone 2 g IM ordered and patient will be discharged home on Ceftin for completion of antibiotics, as well as a prescription for Diflucan. Advised patient to disregard the previous prescription for Macrobid. Patient data External records reviewed:: [facility] previous records Clinical information provided by:: patient Social determinants that could affect healthcare access:: none Patient has the following chronic illnesses:: Diabetes type 2, chronic back pain, anemia, colitis, history of GI bleed, elevated troponin, UTI, sepsis, enterocolitis, and anemia. How is presenting disease/condition affected by chronic disease/condition?: uneffected by Evaluation data The following diagnostics were reviewed and interpreted by me:: lab results Lab and/or radiology exams considered but not ordered:: N/A Interpretation Summary: Urinalysis reveals turbid yellow urine with a specific gravity of 1.023 with trace protein, 1+ blood, positive nitrates, positive leukocyte esterase, 29 RBCs, 231 WBCs, 17 squamous epithelial cells, 1+ calcium oxalate crystals, 1+ bacteria, budding yeast present. Previous urine culture from 04/20/25 organism reveals Klebsiella oxytoca. This organism is sensitive to aztreonam, cefepime, ceftazidime, ceftriaxone, ertapenem, gentamicin, and tobramycin. She was prescribed Macrobid. Medications / Prescriptions Medications or Prescriptions considered but not ordered:: N/A Medication administrations:: Medication Administration History Discontinued Medications Ceftriaxone Sodium 2 gm/ (Lidocaine HCl 4.2 ml) 0 gm IM X1 ONE Stop: 04/23/25 23:23 Last Admin: 04/24/25 00:03 Dose: 2,000 mg Documented By: KF Comments: 4.2 ml lido Ceftriaxone 2 g IM. Consultations Consultation(s) initiated? (list below): No Diagnosis Differential diagnosis abdominal pain: abdominal pain and other (UTI, pyelonephritis) Most likely diagnosis given after review of the tests above:: Lower UTI Admission Indicated Admission indicated?: not indicated Explain why admission is indicated or not indicated:: Patient is stable for discharge Admission Request Was there a request for admission?: No Admission Attestation Admission request attestation: N/A Disposition Plan Disposition Plan: Discharge Discharge Attestation Discharge Attestation: The patient and all family members were given an opportunity to ask questions and understood the discharge instructions. Discharge instructions specifically effects, indications for sooner follow up or return to the emergency department, and the expected course of current diagnosis. Patient condition: Stable Discharge Plan Plan Patient Disposition: HOME (Self Care) Discharge Disposition comment: Stable Prescriptions/Referrals Prescriptions/Med Rec: New cefuroxime axetil 250 mg tablet 250 mg PO BID 10 Days Qty: 20 0RF Rx Instructions: Do not take any Omeprazole or antacids while taking this medication. fluconazole 150 mg tablet 150 mg PO QDAY 1 Days Qty: 2 0RF Rx Instructions: Take one tablet x1 day. May repeat in 1 week if necessary. No Action levothyroxine 25 mcg Tablet 25 mcg PO QDAY glipizide 5 mg Tablet 5 mg PO BID prednisone 10 mg tablet 30 mg PO QDAY Rx Instructions: START DATE 03/06/20 hydrocodone-acetaminophen 5-325 mg tablet 1 tab PO Q4H PRN (Reason: Pain) omeprazole 40 mg capsule,delayed release(DR/EC) 40 mg PO QDAY risperidone 2 mg tablet 2 mg PO BID hydrochlorothiazide 12.5 mg capsule 12.5 mg PO QAM gabapentin 300 mg capsule 300 mg PO TID duloxetine 60 mg capsule,delayed release(DR/EC) 60 mg PO QDAY metronidazole 500 mg tablet 500 mg PO Q8H Qty: 20 0RF atorvastatin 40 mg tablet 40 mg PO HS Patient Comments: take 1 tablet by mouth at bedtime acetaminophen [Tylenol] 325 mg tablet 650 mg PO Q4H Qty: 60 0RF hydrocodone-acetaminophen 5-325 mg tablet 1 tab PO BID MDD 10 PRN (Reason: pain) Qty: 6 0RF fluconazole 150 mg tablet 150 mg PO Q3D Qty: 2 0RF albuterol sulfate 90 mcg/actuation HFA aerosol inhaler 2 puff inhalation Q6H PRN (Reason: shortness of breath or wheezing) Qty: 8.5 0RF lidocaine [Lidocaine Pain Relief] 4 % adhesive patch,medicated 1 patch topical QID PRN (Reason: pain) Qty: 15 0RF nitrofurantoin monohyd/m-cryst [Macrobid] 100 mg capsule 100 mg PO Q12H 7 Days Qty: 14 0RF Rx Instructions: must administer with a meal/food psyllium Powder 1 tbsp PO QDAY Qty: 300 0RF Rx Instructions: mix into at least 8 oz of water or juice before administering albuterol sulfate 90 mcg/actuation HFA aerosol inhaler 2 inh inhalation QID PRN (Reason: shortness of breath or wheezing) Qty: 8.5 0RF prednisone 50 mg tablet 50 mg PO QDAY Qty: 3 0RF Referrals: No Primary/Family,Physician [Primary Care Provider] - In 1 week Problem List Clinical Impression: UTI (urinary tract infection) Patient/Caregiver Discharge Instructions Education Materials: Urinary Tract Infections in Women, ED CYSTITIS Female Adult Additional Instructions: Take the antibiotics as prescribed and complete the course even though you may be feeling better. Follow-up with your primary care physician in 24 to 48 hours. Return to the ED for any new or worsening symptoms. Print Language: Amharic Stand Alone Forms: [facility] Award Info., Patient Portal Info Letter PA/RED CROSS WORKER Supervising Physician PA/TATA Supervising Physician: Dr. Hills
[2025-04-24 00:03] LABS: Collection Type, Urine Clean Catch
[2025-04-24] MEDS: cefTRIAXone 2 GM, LIDOCAINE 1% 20 ML 4.2 ML IM (00:03)
[2025-04-24 00:22] LABS: Bacteria,Urine 1+; Bilirubin,Urine Negative (Negative); Blood,Urine 1+ (Negative); Budding Yeast,Urine Present; Calcium Oxalate Crystals,Urine 1+; Clarity,Urine Turbid (Clear/Hazy); Color,Urine Yellow (Lt Yel-Yel); Glucose, Urine Negative (Negative); Hyaline Casts,Urine < 1 /hpf (0-1); Ketones,Urine Negative (Negative); Leukocyte Esterase,Urine Positive (Negative); Nitrite,Urine Positive (Negative); Protein,Urine Trace (Neg - Trace); RBC,Urine 29 /hpf (0-3); Specific Gravity,Urine 1.023 (1.001-1.035); Squamous Epithelial Cell,Urine 17 /hpf (0-5); WBC,Urine 231 /hpf (0-5)
== END 2025-04-24 01:04 | disposition home or self-care (01) ==
PROVIDERS: Physician Assistant; Emergency Provider Emergency Medicine
DX: N39.0 Urinary tract infection, site not specified (principal)
CPT/HCPCS: 81001; 87077; 87086; 87186; 96372; 99283; J0696; J3490

== ENCOUNTER 2025-04-29 14:09 | Emergency (ER) | payer OTHER, MEDICAID, SELFPAY ==
[2025-04-29 14:10] VITALS: BMI 29.7
[2025-04-29 14:41] VITALS: BP 101/66; PULSE 80; RESP 18; TEMP 36.9; O2SAT 96
--- NOTE | 2025-04-29 15:07 | EKG_ITS ---
[facility] Test Date: 2025-04-29 Pat Name: MELVIN SEGURA Department: Room: - Gender: Female Scale Adjuster: : 1965 Requested By: Trish Posey Order Number: [id number] Reading MD: Trish Posey Measurements Intervals [place] Rate: 83 P: 37 MD: 158 QRS: 56 QRSD: 80 T: 41 QT: 389 QTc: 458 Interpretive Statements SINUS RHYTHM Compared to ECG 03/03/2025 09:35:30 Indeterminate axis no longer present T-wave abnormality no longer present Possible ischemia no longer present /store/S0/[id number]/ecg/[id number].pdf
--- NOTE | 2025-04-29 15:42 | PD.EDADULT ---
ED General RME/HPI General Chief complaint: General Adult/Misc Complain Stated complaint: I HAVE HEAT EXHAUSTION TODAY Time Seen by Provider: 04/29/25 14:37 Arrival date/time: 04/29/25 14:09 This is a 59-year-old female who comes in with complaints of feeling heat exhaustion. Patient states that they are currently remodeling the house and she was outside and she feels like she was in the sun for too long. Patient states that she felt very hot. Patient was brought into the emergency room. She got into the emergency room into the air conditioning and got some water patient states her symptoms resolved. Patient has no complaints at this time. Patient denies any chest pain, shortness of breath. Related Data Home Medications ?Medication ?Instructions ?Recorded ?Confirmed glipizide 5 mg tablet 5 mg PO BID 06/10/19 03/19/20 levothyroxine 25 mcg tablet 25 mcg PO QDAY 06/10/19 03/19/20 atorvastatin 40 mg tablet 40 mg PO HS 11/22/19 03/19/20 duloxetine 60 mg capsule,delayed 60 mg PO QDAY 03/19/20 03/19/20 release gabapentin 300 mg capsule 300 mg PO TID 03/19/20 03/19/20 hydrochlorothiazide 12.5 mg capsule 12.5 mg PO QAM 03/19/20 03/19/20 hydrocodone 5 mg-acetaminophen 325 1 tab PO Q4H PRN Pain 03/19/20 03/19/20 mg tablet omeprazole 40 mg capsule,delayed 40 mg PO QDAY 03/19/20 03/19/20 release prednisone 10 mg tablet 30 mg PO QDAY 03/19/20 03/19/20 risperidone 2 mg tablet 2 mg PO BID 03/19/20 03/19/20 Previous Rx's ?Medication ?Instructions ?Recorded metronidazole 500 mg tablet 500 mg PO Q8H #20 tabs 03/20/20 acetaminophen 325 mg tablet 650 mg (2 x 325 mg) PO Q4H #60 tabs 03/26/20 (Tylenol) hydrocodone 5 mg-acetaminophen 325 1 tab PO BID PRN pain #6 tabs 12/30/21 mg tablet psyllium 1 tbsp PO QDAY #300 grams 03/21/23 albuterol sulfate 90 mcg/actuation 2 inh inhalation QID PRN shortness 09/26/24 aerosol inhaler of breath or wheezing #8.5 grams prednisone 50 mg tablet 50 mg PO QDAY #3 tabs 09/26/24 fluconazole 150 mg tablet 150 mg PO Q3D 2 doses #2 tabs 09/27/24 albuterol sulfate 90 mcg/actuation 2 puff inhalation Q6H PRN 02/19/25 aerosol inhaler shortness of breath or wheezing #8.5 grams lidocaine 4 % topical patch 1 patch topical QID PRN pain #15 ea 03/15/25 (Lidocaine Pain Relief) meloxicam 7.5 mg tablet 7.5 mg PO QDAY 7 days #7 tabs 05/09/25 Allergies Allergy/AdvReac Type Severity Reaction Status Date / Time levofloxacin (From Pure[employer]) Allergy Severe Swelling Verified 05/09/25 14:38 of Lip/Tongue/Throat methotrexate Allergy Severe Redness of Verified 05/09/25 14:38 Skin Review of Systems Review of Systems Systems Reviewed: All systems reviewed, normal except as documented Past Medical History Past Medical History NEUROLOGIC: Positive Neurological Disorders and Nunez's Palsy CARDIAC: Positive Angina, Hypercholesterolemia and Hypertension; Negative Cardiac Disorders or Congestive Heart Failure RESPIRATORY: Positive Chronic Obstructive Pulmonary Disease (COPD), Asthma and Pneumonia GASTROINTESTINAL: Positive Gastrointestinal Disorders, Gall Bladder Disease, Diverticulitis and Hiatal Hernia GENITOURINARY: Positive Genitourinary Disorders and Kidney Stones; Negative Renal Disease REPRODUCTIVE: Positive Endometriosis and Previous Pregnancies MUSCULOSKELETAL: Positive Musculoskeletal Disorders and Rheumatoid Arthritis ENT: Positive Cataracts and Glaucoma ENDOCRINE: Positive Endocrine Disorders, Diabetes Mellitus Type 2 and Hypothyroidism; Negative Diabetes Mellitus Type 1 HEMATOLOGIC: Positive Blood Disorders, Anemia and Sickle Cell Disease OTHER HISTORY: Positive Rubella ([place] Measles) and Cervical Cancer; Negative Autoimmune Disease Family History FAMILY HISTORY: Positive Family Psychiatric Problems, Family Cardiac Disorders and Family Gastrointestinal Problems; Negative Family Respiratory Disorders, Family Cancer or Family Surgery Surgical History SURGICAL: Positive Angiogram, Abdominal Surgery and Tubal Ligation Social History SMOKING STATUS: Never smoker SECOND HAND EXPOSURE: No SUBSTANCE USE: methamphetamine ED Exam Narrative Physical exam: VITAL SIGNS: Reviewed. GENERAL APPEARANCE: Alert and interactive, follows commands, no acute distress, HEAD AND FACE: Non-traumatic. ENT: PERRL, conjuctiva pink and clear, eyelid no trauma, Mucous membrane moist. NECK: Supple, nontender, no nuchal rigidity. CHEST: No tenderness, no crepitus, no paradoxical movement, no retractions. LUNGS: Clear, well ventilated, symmetric, no rales, no wheezing, no rhonchi, no stridor, good breath sounds bilaterally. HEART: Regular rate, regular rhythm, no murmur, no gallops. ABDOMEN: Soft, nondistended, no guarding, nontender NEUROLOGICAL: Gross motor function intact sensory function intact, Appropriate for age. MUSCULOSKELETAL: low back nontender, full range of motion. EXTREMITIES: No redness no swelling no skin breakdown on bilateral foot and leg. Distal neurovascular status intact bilateral foot SKIN: Color pink, dry, no rash, no lacerations, no abrasions, no contusions. Course Quality Measures none Orders Category Date Time Status EKG (ED ONLY) *Do not use* NOW Care 04/29/25 15:07 Completed EKG (ED Only) Stat Exams 04/29/25 15:07 Draft Vital Signs Vital signs: Vital Signs Temperature 98.5 F 04/29/25 14:41 Pulse Rate 80 04/29/25 14:41 Respiratory Rate 18 04/29/25 14:41 Blood Pressure 101/66 04/29/25 14:41 Pulse Oximetry (%) 96 04/29/25 14:41 Oxygen Delivery Method Room Air 04/29/25 14:41 Discharge Plan Plan Patient Disposition: HOME (Self Care) Patient condition on transfer: Stable Prescriptions/Referrals Prescriptions/Med Rec: No Action levothyroxine 25 mcg Tablet 25 mcg PO QDAY glipizide 5 mg Tablet 5 mg PO BID prednisone 10 mg tablet 30 mg PO QDAY Rx Instructions: START DATE 03/06/20 hydrocodone-acetaminophen 5-325 mg tablet 1 tab PO Q4H PRN (Reason: Pain) omeprazole 40 mg capsule,delayed release(DR/EC) 40 mg PO QDAY risperidone 2 mg tablet 2 mg PO BID hydrochlorothiazide 12.5 mg capsule 12.5 mg PO QAM gabapentin 300 mg capsule 300 mg PO TID duloxetine 60 mg capsule,delayed release(DR/EC) 60 mg PO QDAY metronidazole 500 mg tablet 500 mg PO Q8H Qty: 20 0RF atorvastatin 40 mg tablet 40 mg PO HS Patient Comments: take 1 tablet by mouth at bedtime acetaminophen [Tylenol] 325 mg tablet 650 mg PO Q4H Qty: 60 0RF hydrocodone-acetaminophen 5-325 mg tablet 1 tab PO BID MDD 10 PRN (Reason: pain) Qty: 6 0RF fluconazole 150 mg tablet 150 mg PO Q3D Qty: 2 0RF albuterol sulfate 90 mcg/actuation HFA aerosol inhaler 2 puff inhalation Q6H PRN (Reason: shortness of breath or wheezing) Qty: 8.5 0RF lidocaine [Lidocaine Pain Relief] 4 % adhesive patch,medicated 1 patch topical QID PRN (Reason: pain) Qty: 15 0RF meloxicam 7.5 mg tablet 7.5 mg PO QDAY 7 Days Qty: 7 0RF psyllium Powder 1 tbsp PO QDAY Qty: 300 0RF Rx Instructions: mix into at least 8 oz of water or juice before administering albuterol sulfate 90 mcg/actuation HFA aerosol inhaler 2 inh inhalation QID PRN (Reason: shortness of breath or wheezing) Qty: 8.5 0RF prednisone 50 mg tablet 50 mg PO QDAY Qty: 3 0RF Problem List Clinical Impression: Heat exposure Patient/Caregiver Discharge Instructions Discharge Activity: activity as tolerated Education Materials: First Aid: Heat Exposure, Understanding Heat Stress Additional Instructions: follow up with primary provider in 1-2 days. Come back to ED if symptoms change or worsen Print Language: Italian Stand Alone Forms: [facility] EHR Info., Patient Portal Info Letter PA/TATA Supervising Physician PA/TATA Supervising Physician: JOSE MENDEZ Narrative MDM hospital course: Patient has no complaints at this time. Patient states she wants to go home. Patient states feels better after she drank water and was in the air conditioning. I talked to patient at length I did do an EKG no changes seen from previous EKG. Patient denies chest pain shortness of breath. Patient feels safe to go home at this time. Pt did not wamnt labs or x rays done. I instructed patient to come back to the emergency room if symptoms change or worsen patient verbalized understanding Clinical Information Provided by patient Medical Records Reviewed [facility] Meds/Rx Considered, not Ordered None Labs/Rad/Tests considered, not Ordered None Chronic Illness/Social Conditions which may negatively complicate care or outcome(s)-explain: other (see hpi) EKG EKG Interpretation narrative: see note EKG Interpretation EKG #1: Date/time of EK04/29/25 1514 sinus rhythm flipped t waves in v1, v2, v3 but unchanged from previous ekg Lab Interpretation Labs: none Imaging Imaging interpretation: none Medication Administration(s) none Diagnosis Differential diagnosis: anxiety, heat exhaustion, mi, overheated, heat exposure Dispositon Disposition: Discharge Home
== END 2025-04-29 16:10 | disposition home or self-care (01) ==
PROVIDERS: Emergency Provider Emergency Medicine
DX: T67.5XXA Heat exhaustion, unspecified, initial encounter (principal)
CPT/HCPCS: 93005; 99283

== ENCOUNTER 2025-05-09 14:36 | Emergency (ER) | payer OTHER, MEDICAID, SELFPAY ==
[2025-05-09 14:37] VITALS: BMI 29.7
[2025-05-09 14:51] VITALS: BP 129/93; PULSE 78; RESP 20; TEMP 36.6; O2SAT 98
[2025-05-09] MEDS: KETOROLAC INJ 30 MG/ML VIAL IM (15:44)
--- NOTE | 2025-05-09 15:46 | PD.EDADULT ---
ED General RME/HPI General Chief complaint: General Adult/Misc Complain Stated complaint: MY BONES ARE ACHING A LOT. Time Seen by Provider: 05/09/25 14:38 Arrival date/time: 05/09/25 14:36 59-year-old female with history of RA, methamphetamine abuse, depression, psychiatric disorder presents with concerns for generalized pain mostly in her joints in her feet Limitations: no limitations Related Data Home Medications ?Medication ?Instructions ?Recorded ?Confirmed glipizide 5 mg tablet 5 mg PO BID 06/10/19 03/19/20 levothyroxine 25 mcg tablet 25 mcg PO QDAY 06/10/19 03/19/20 atorvastatin 40 mg tablet 40 mg PO HS 11/22/19 03/19/20 duloxetine 60 mg capsule,delayed 60 mg PO QDAY 03/19/20 03/19/20 release gabapentin 300 mg capsule 300 mg PO TID 03/19/20 03/19/20 hydrochlorothiazide 12.5 mg capsule 12.5 mg PO QAM 03/19/20 03/19/20 hydrocodone 5 mg-acetaminophen 325 1 tab PO Q4H PRN Pain 03/19/20 03/19/20 mg tablet omeprazole 40 mg capsule,delayed 40 mg PO QDAY 03/19/20 03/19/20 release prednisone 10 mg tablet 30 mg PO QDAY 03/19/20 03/19/20 risperidone 2 mg tablet 2 mg PO BID 03/19/20 03/19/20 Previous Rx's ?Medication ?Instructions ?Recorded metronidazole 500 mg tablet 500 mg PO Q8H #20 tabs 03/20/20 acetaminophen 325 mg tablet 650 mg (2 x 325 mg) PO Q4H #60 tabs 03/26/20 (Tylenol) hydrocodone 5 mg-acetaminophen 325 1 tab PO BID PRN pain #6 tabs 12/30/21 mg tablet psyllium 1 tbsp PO QDAY #300 grams 03/21/23 albuterol sulfate 90 mcg/actuation 2 inh inhalation QID PRN shortness 09/26/24 aerosol inhaler of breath or wheezing #8.5 grams prednisone 50 mg tablet 50 mg PO QDAY #3 tabs 09/26/24 fluconazole 150 mg tablet 150 mg PO Q3D 2 doses #2 tabs 09/27/24 albuterol sulfate 90 mcg/actuation 2 puff inhalation Q6H PRN 02/19/25 aerosol inhaler shortness of breath or wheezing #8.5 grams lidocaine 4 % topical patch 1 patch topical QID PRN pain #15 ea 03/15/25 (Lidocaine Pain Relief) meloxicam 7.5 mg tablet 7.5 mg PO QDAY 7 days #7 tabs 05/09/25 Allergies Allergy/AdvReac Type Severity Reaction Status Date / Time levofloxacin (From [facility]) Allergy Severe Swelling Verified 05/09/25 14:38 of Lip/Tongue/Throat methotrexate Allergy Severe Redness of Verified 05/09/25 14:38 Skin Review of Systems Review of Systems Systems Reviewed: All systems reviewed, normal except as documented Constitutional Constitutional: Reports system reviewed and no additional complaints, except as documented, Denies fever(s) and Denies headache(s) Eyes Eyes: Reports system reviewed and no additional complaints, except as documented and Denies blurry vision ENT Ears, Nose, Mouth, and Throat: Reports system reviewed and no additional complaints, except as documented, Denies headache(s), Denies nasal congestion and Denies nasal discharge Cardiovascular Cardiovascular: Reports system reviewed and no additional complaints, except as documented, Denies chest pain and Denies dyspnea Respiratory Respiratory: Reports system reviewed and no additional complaints, except as documented, Denies chest congestion, Denies cough and Denies dyspnea Gastrointestinal Gastrointestinal: Reports system reviewed and no additional complaints, except as documented and Denies abdominal pain Musculoskeletal Musculoskeletal: Reports system reviewed and no additional complaints, except as documented, Reports arthralgias, Denies deformity and Denies joint swelling Integumentary/Breasts Skin/Breast: Reports system reviewed and no additional complaints, except as documented and Denies rash Neurologic Neurologic: Reports system reviewed and no additional complaints, except as documented, Reports as per HPI and Denies headache(s) Past Medical History Past Medical History NEUROLOGIC: Positive Neurological Disorders and Nunez's Palsy CARDIAC: Positive Angina, Hypercholesterolemia and Hypertension; Negative Cardiac Disorders or Congestive Heart Failure RESPIRATORY: Positive Chronic Obstructive Pulmonary Disease (COPD), Asthma and Pneumonia GASTROINTESTINAL: Positive Gastrointestinal Disorders, Gall Bladder Disease, Diverticulitis and Hiatal Hernia GENITOURINARY: Positive Genitourinary Disorders and Kidney Stones; Negative Renal Disease REPRODUCTIVE: Positive Endometriosis and Previous Pregnancies MUSCULOSKELETAL: Positive Musculoskeletal Disorders and Rheumatoid Arthritis ENT: Positive Cataracts and Glaucoma ENDOCRINE: Positive Endocrine Disorders, Diabetes Mellitus Type 2 and Hypothyroidism; Negative Diabetes Mellitus Type 1 HEMATOLOGIC: Positive Blood Disorders, Anemia and Sickle Cell Disease OTHER HISTORY: Positive Rubella ([place] Measles) and Cervical Cancer; Negative Autoimmune Disease Family History FAMILY HISTORY: Positive Family Psychiatric Problems, Family Cardiac Disorders and Family Gastrointestinal Problems; Negative Family Respiratory Disorders, Family Cancer or Family Surgery Surgical History SURGICAL: Positive Angiogram, Abdominal Surgery and Tubal Ligation Social History SMOKING STATUS: Never smoker SECOND HAND EXPOSURE: No SUBSTANCE USE: methamphetamine ED Exam General Limitations: Present no limitations General appearance: Present alert and in no apparent distress Head Head exam: Present atraumatic, normocephalic and normal inspection Eye Eye exam: Present normal appearance, PERRL and EOMI ENT ENT exam: Present normal exam, normal oropharynx and mucous membranes moist Neck Neck exam: Present normal inspection, full ROM and trachea midline Chest Chest inspection: Present normal inspection and symmetric chest wall rise Respiratory Respiratory exam: Present normal lung sounds bilaterally Cardiovascular Cardiovascular exam: Present regular rate, normal rhythm and normal heart sounds Abdominal Exam Abdominal exam: Present soft and normal bowel sounds Extremities Exam Extremities exam: Present full ROM, tenderness and normal capillary refill; Absent pedal edema, joint swelling or calf tenderness Back Exam Back exam: Present normal inspection and full ROM Neurological Exam Neurological exam: Present alert, oriented X3 and CN II-XII intact Psychiatric Psychiatric exam: Present normal affect and normal mood Skin Skin exam: Present warm, dry, intact and normal color Course Quality Measures none Orders Category Date Time Status Ketorolac Inj [Toradol Inj] Med 05/09/25 14:59 Discontinued 30 mg IM X1 ONE Vital Signs Vital signs: Vital Signs Temperature 98 F 05/09/25 14:51 Pulse Rate 78 05/09/25 14:51 Respiratory Rate 20 05/09/25 14:51 Blood Pressure 129/93 H 05/09/25 14:51 Pulse Oximetry (%) 98 05/09/25 14:51 Oxygen Delivery Method Room Air 05/09/25 14:51 O2 saturation 98% room air within normal limits Discharge Plan Plan Patient Disposition: HOME (Self Care) Discharge Disposition comment: Stable Prescriptions/Referrals Prescriptions/Med Rec: New meloxicam 7.5 mg tablet 7.5 mg PO QDAY 7 Days Qty: 7 0RF No Action levothyroxine 25 mcg Tablet 25 mcg PO QDAY glipizide 5 mg Tablet 5 mg PO BID prednisone 10 mg tablet 30 mg PO QDAY Rx Instructions: START DATE 03/06/20 hydrocodone-acetaminophen 5-325 mg tablet 1 tab PO Q4H PRN (Reason: Pain) omeprazole 40 mg capsule,delayed release(DR/EC) 40 mg PO QDAY risperidone 2 mg tablet 2 mg PO BID hydrochlorothiazide 12.5 mg capsule 12.5 mg PO QAM gabapentin 300 mg capsule 300 mg PO TID duloxetine 60 mg capsule,delayed release(DR/EC) 60 mg PO QDAY metronidazole 500 mg tablet 500 mg PO Q8H Qty: 20 0RF atorvastatin 40 mg tablet 40 mg PO HS Patient Comments: take 1 tablet by mouth at bedtime acetaminophen [Tylenol] 325 mg tablet 650 mg PO Q4H Qty: 60 0RF hydrocodone-acetaminophen 5-325 mg tablet 1 tab PO BID MDD 10 PRN (Reason: pain) Qty: 6 0RF fluconazole 150 mg tablet 150 mg PO Q3D Qty: 2 0RF albuterol sulfate 90 mcg/actuation HFA aerosol inhaler 2 puff inhalation Q6H PRN (Reason: shortness of breath or wheezing) Qty: 8.5 0RF lidocaine [Lidocaine Pain Relief] 4 % adhesive patch,medicated 1 patch topical QID PRN (Reason: pain) Qty: 15 0RF psyllium Powder 1 tbsp PO QDAY Qty: 300 0RF Rx Instructions: mix into at least 8 oz of water or juice before administering albuterol sulfate 90 mcg/actuation HFA aerosol inhaler 2 inh inhalation QID PRN (Reason: shortness of breath or wheezing) Qty: 8.5 0RF prednisone 50 mg tablet 50 mg PO QDAY Qty: 3 0RF Problem List Clinical Impression: Generalized pain, Rheumatoid arthritis Patient/Caregiver Discharge Instructions Education Materials: RICE Additional Instructions: Please follow up with your primary care doctor in the next 24-48hrs for any worsening symptoms return here immediately Print Language: Lithuanian Stand Alone Forms: Hilda Award Info., Patient Portal Info Letter PA/PRE SALES TECHNICAL ENGINEER Supervising Physician PA/PRE SALES TECHNICAL ENGINEER Supervising Physician: dr antoinette MENDEZ Narrative MDM hospital course: 59-year-old female with history of RA, methamphetamine abuse, depression, psychiatric disorder presents with concerns for generalized pain mostly in her joints in her feet On exam patient well-appearing patient does not appear ill or toxic in no acute distress Patient walks with steady gait patient smiling patient asking for a shot of Toradol Patient given Toradol and discharged home Patient discharged home in no distress to follow-up with primary care doctor in the next 24 to 48 hours and for any worsening symptoms to return to the ER immediately Clinical Information Provided by patient Medical Records Reviewed [facility] Meds/Rx Considered, not Ordered Describe details: Given Labs/Rad/Tests considered, not Ordered None Chronic Illness/Social Conditions which may negatively complicate care or outcome(s)-explain: Mental health EKG EKG not done Lab Interpretation Labs: none Imaging Imaging interpretation: none Medication Administration(s) Medication Administration History Discontinued Medications Ketorolac Tromethamine (Ketorolac Inj 30 Mg/Ml Vial) 30 mg IM X1 ONE Stop: 05/09/25 15:00 Last Admin: 05/09/25 15:44 Dose: 30 mg Documented By: KF Ordered Diagnosis Differential diagnosis: Joint pain, DVT, RA, RA flare Dispositon Disposition: Discharge Home
== END 2025-05-09 16:00 | disposition home or self-care (01) ==
PROVIDERS: Emergency Provider Family Medicine; PCP Family Medicine
DX: M06.9 Rheumatoid arthritis, unspecified (principal)
CPT/HCPCS: 96372; 99283; J1885

== ENCOUNTER 2025-05-14 22:52 | Emergency (ER) | payer OTHER, MEDICAID, SELFPAY ==
--- NOTE | 2025-05-14 22:57 | XR_ITS ---
Examination: CT brain head without contrast. 2-D sagittal coronal reconstructions Date and time of exam:May 14, 2025 1150 hours Comparison February 25, 2025 INDICATIONS: Onset of left-sided body weakness headache beginning 1830 hours today CTDI: vol (mGy):47.1 DLP: (mGycm):876 Technique: Multiple CT axial sections of the brain have been obtained, 5 mm slice thickness. Contrast has not been administered. 2-D sagittal, coronal reconstructions have been obtained Low dose protocols were performed. One or more of the following dose reduction techniques were used; automated exposure control, adjustment of the mA and/or KV according to patient size, use of iterative reconstruction technique. Findings: No significant ventricular enlargement. Intra-axial or extra-axial hemorrhage density is not seen. No mass effect or midline shift Basal cisterns are not remarkable. Fourth ventricle is midline. Cranial vault intact. Impression: Negative for acute hemorrhage, mass effect or midline shift
--- NOTE | 2025-05-14 23:00 | PD.EDRME ---
Rapid Medical Screening Exam RME Arrival date/time: 05/14/25 22:52 Chief Complaint: Chest Pain RME Narrative: Here today with chest pain, abdominal pain, and left sided headache that started today at 18:30. She feels like the left side of her face is numb. CN 2-12 grossly intact in triage. Work up intiated. Medical screening exam complete.
--- NOTE | 2025-05-14 23:01 | PC.NURSE ---
NOT A STROKE ALERT PER PA RATJASKARAN.
--- NOTE | 2025-05-14 23:06 | PD.EDCHEST ---
ED Chest Pain RME/HPI General Chief Complaint: Chest Pain Stated Complaint: CHEST PAIN, LEFT SIDE OF BODY NUMBNESS SINCE 183O Time Seen by Provider: 05/14/25 23:06 Arrival date/time: 05/14/25 22:52 RME / HPI RME / HPI narrative: Here today with chest pain, abdominal pain, and left sided headache that started today at 18:30. She feels like the left side of her face is numb. CN 2-12 grossly intact in triage. Work up intiated. Medical screening exam complete. DR. YEAGER MAIN ED EVALUATION: 59 y/o female with Hx of Methamphetamine use, Nunez's Palsy, Angina, Hypercholesterolemia, Hypertension, Chronic Obstructive Pulmonary Disease, and Cervical CA presents to ED c/o intermittent centralized chest pain that radiated to the left arm and back with accompanied numbness and tingling of the whole left side of the body x approximately 4.5 hours. Chest pain last approximately 2-3 hours. Denies history of smoking. Patient was on aspirin but was advised to discontinue the medication by her provider. Patient does not take Nitroglycerin. Patient also states that she should be on 3L of O2 at home, but is not. Related Data Home Medications ?Medication ?Instructions ?Recorded ?Confirmed glipizide 5 mg tablet 5 mg PO BID 06/10/19 03/19/20 levothyroxine 25 mcg tablet 25 mcg PO QDAY 06/10/19 03/19/20 atorvastatin 40 mg tablet 40 mg PO HS 11/22/19 03/19/20 duloxetine 60 mg capsule,delayed 60 mg PO QDAY 03/19/20 03/19/20 release gabapentin 300 mg capsule 300 mg PO TID 03/19/20 03/19/20 hydrochlorothiazide 12.5 mg capsule 12.5 mg PO QAM 03/19/20 03/19/20 hydrocodone 5 mg-acetaminophen 325 1 tab PO Q4H PRN Pain 03/19/20 03/19/20 mg tablet omeprazole 40 mg capsule,delayed 40 mg PO QDAY 03/19/20 03/19/20 release prednisone 10 mg tablet 30 mg PO QDAY 03/19/20 03/19/20 risperidone 2 mg tablet 2 mg PO BID 03/19/20 03/19/20 Previous Rx's ?Medication ?Instructions ?Recorded metronidazole 500 mg tablet 500 mg PO Q8H #20 tabs 03/20/20 acetaminophen 325 mg tablet 650 mg (2 x 325 mg) PO Q4H #60 tabs 03/26/20 (Tylenol) hydrocodone 5 mg-acetaminophen 325 1 tab PO BID PRN pain #6 tabs 12/30/21 mg tablet psyllium 1 tbsp PO QDAY #300 grams 03/21/23 albuterol sulfate 90 mcg/actuation 2 inh inhalation QID PRN shortness 09/26/24 aerosol inhaler of breath or wheezing #8.5 grams prednisone 50 mg tablet 50 mg PO QDAY #3 tabs 09/26/24 fluconazole 150 mg tablet 150 mg PO Q3D 2 doses #2 tabs 09/27/24 albuterol sulfate 90 mcg/actuation 2 puff inhalation Q6H PRN 02/19/25 aerosol inhaler shortness of breath or wheezing #8.5 grams lidocaine 4 % topical patch 1 patch topical QID PRN pain #15 ea 03/15/25 (Lidocaine Pain Relief) meloxicam 7.5 mg tablet 7.5 mg PO QDAY 7 days #7 tabs 05/09/25 Allergies Allergy/AdvReac Type Severity Reaction Status Date / Time levofloxacin (From LevSpotivate) Allergy Severe Swelling Verified 05/14/25 22:54 of Lip/Tongue/Throat methotrexate Allergy Severe Redness of Verified 05/14/25 22:54 Skin Review of Systems Review of Systems Systems Reviewed: All systems reviewed, normal except as documented Past Medical History Past Medical History NEUROLOGIC: Positive Neurological Disorders and Nunez's Palsy CARDIAC: Positive Angina, Hypercholesterolemia and Hypertension RESPIRATORY: Positive Chronic Obstructive Pulmonary Disease (COPD), Asthma and Pneumonia GASTROINTESTINAL: Positive Gastrointestinal Disorders, Gall Bladder Disease, Diverticulitis and Hiatal Hernia GENITOURINARY: Positive Genitourinary Disorders and Kidney Stones REPRODUCTIVE: Positive Endometriosis and Previous Pregnancies MUSCULOSKELETAL: Positive Musculoskeletal Disorders and Rheumatoid Arthritis ENT: Positive Cataracts and Glaucoma ENDOCRINE: Positive Endocrine Disorders, Diabetes Mellitus Type 2 and Hypothyroidism HEMATOLOGIC: Positive Blood Disorders, Anemia and Sickle Cell Disease OTHER HISTORY: Positive Rubella ([place] Measles) and Cervical Cancer Family History FAMILY HISTORY: Positive Family Psychiatric Problems, Family Cardiac Disorders and Family Gastrointestinal Problems Surgical History SURGICAL: Positive Angiogram, Abdominal Surgery and Tubal Ligation Social History SUBSTANCE USE: methamphetamine ED Exam Narrative Physical exam: GENERAL APPEARANCE: alert and oriented x 4, well-developed, well-nourished, no acute distress VITALS: All vitals were reviewed and the pulse ox is 95% on room air, which is normal according to my interpretation. HEENT: Normocephalic, atraumatic; pupils equal, round, reactive to light; EOMI; mucous membranes pink, moist; oropharynx clear NECK: Supple LUNGS: CTABL; no wheezes, no rales, no rhonchi HEART: Regular rate, regular rhythm; normal S1, S2; no murmurs ABDOMEN: non distended; normal BS; soft, no tenderness, no guarding, no rebound; no masses, no organomegaly, no hernia BACK: no CVA tenderness EXTREMITIES: atraumatic; no edema NEUROLOGIC: awake; alert and oriented x4; cranial nerves II-XII grossly intact; no focal sensory or motor deficits PSYCHIATRIC: appropriate mood and affect SKIN: warm, dry, normal color; no rashes Course Course Course Narrative: CXR is ordered for determining the etiology of shortness of breath. 0007: Reviewed urine culture from 04/23/2025. Klebsiella sensitive to Ceftriaxone. Quality Measures none Orders Category Date Time Status Side Laster Staple Q4H START 00 Care 05/14/25 23:06 Active Insert IV NOW Care 05/14/25 23:[address] head/brain wo con Stat Exams 05/14/25 22:57 Completed CBC Stat Lab 05/14/25 23:10 Completed CMP [Comprehensive Metabolic Panel] Stat Lab 05/14/25 23:10 Completed Drug Screen,Urine Stat Lab 05/14/25 23:25 Completed Lipase Stat Lab 05/14/25 23:10 Completed Magnesium Stat Lab 05/14/25 23:10 Completed Troponin I Stat Lab 05/14/25 23:10 Completed Troponin I Stat Lab 05/15/25 02:30 Completed UA, C/S IF [Urinalysis, C/S if Indicated] Stat Lab 05/14/25 23:25 Completed Urine Culture Stat Lab 05/14/25 23:25 Received Acetaminophen Tab [Tylenol Tab] Med 05/15/25 01:31 Discontinued 650 mg PO X1 ONE Magnesium Sulfate 2 GM Ivpb [Magnesium Sulfate Ivpb] Med 05/15/25 00:06 Discontinued 2 gm in 50 ml IV X1 cefTRIAXone/D5w 1gm IV premix [Rocephin/D5w 1gm IV Med 05/15/25 00:06 Discontinued premix] 1 gm in 50 ml IV X1 Vital Signs Vital signs: Vital Signs Temperature 98.3 F 05/14/25 23:08 Pulse Rate 89 05/14/25 23:08 Respiratory Rate 16 05/14/25 23:08 Blood Pressure 110/76 05/14/25 23:08 Pulse Oximetry (%) 97 05/14/25 23:08 Oxygen Delivery Method Room Air 05/14/25 23:08 Chest Pain MDM Narrative MDM Narrative:: Scribe Attestation: I, Betty Rider, am scribing for and in the presence of Dr. Yeager. Provider Notation: Although this document has been carefully reviewed, there may still be some phonetic and other typographical errors.? These errors are purely grammatical due to imperfections in the software program and should not be construed in any way to? compromise the substance of the patient's medical care during this visit. Patient data External records reviewed:: [facility] previous records (Reviewed prior ED records from 05/09/25. Patient was seen for Generalized pain.) Clinical information provided by:: patient Social determinants that could affect healthcare access:: substance use (Methamphetamine) Patient has the following chronic illnesses:: Nunez's Palsy, Angina, Hypercholesterolemia, Hypertension, Chronic Obstructive Pulmonary Disease, Asthma, Gall Bladder Disease, Diverticulitis, Hiatal Hernia, Kidney Stones, Endometriosis, Rheumatoid Arthritis, Cataracts, Glaucoma, Diabetes Mellitus Type 2, Hypothyroidism, Anemia, Sickle Cell Disease, Rubella, Cervical Cancer How is presenting disease/condition affected by chronic disease/condition?: exacerbated by Evaluation data The following diagnostics were reviewed and interpreted by me:: lab results and radiology exam(s) Lab and/or radiology exams considered but not ordered:: None Interpretation Summary: RADIOLOGY Head/Brain CT: Findings: No significant ventricular enlargement. Intra-axial or extra-axial hemorrhage density is not seen. No mass effect or midline shift Basal cisterns are not remarkable. Fourth ventricle is midline. Cranial vault intact. Impression: Negative for acute hemorrhage, mass effect or midline shift Medications / Prescriptions Medications or Prescriptions considered but not ordered:: None Medication administrations:: Medication Administration History Discontinued Medications Acetaminophen (Acetaminophen 325 Mg Tablet) 650 mg PO X1 ONE Stop: 05/15/25 01:32 Last Admin: 05/15/25 01:43 Dose: 650 mg Documented By: EE Magnesium Sulfate (Magnesium Sulfate Ivpb) 2 gm in 50 mls @ 25 mls/hr IV X1 ONE Stop: 05/15/25 02:05 Last Admin: 05/15/25 01:00 Dose: 25 mls/hr Documented By: EE Ceftriaxone Sodium/Dextrose (Rocephin/D5w 1gm Iv Premix) 1 gm in 50 mls @ 100 mls/hr IV X1 ONE Stop: 05/15/25 00:35 Last Infusion: 05/15/25 01:07 Dose: Infused Documented By: Admin: 05/15/25 00:30 Dose: 100 mls/hr Documented By: KENA See above Consultations Consultation(s) initiated? (list below): No Diagnosis Chest Pain Differential Diagnosis: fracture of rib, pneumothorax, stable angina, unstable angina pectoris, atypical chest pain, st elevation myocardial infarction, costochondritis, chest pain and biliary colic Most likely diagnosis given after review of the tests above:: Hypomagnesia, Paresthesia, UTI, Mild dehydration, Chest pain Admission Indicated Admission indicated?: not indicated Explain why admission is indicated or not indicated:: Patient does not meet admission criteria. Admission Request Was there a request for admission?: No Disposition Plan Disposition Plan: Discharge Discharge Attestation Discharge Attestation: The patient and all family members were given an opportunity to ask questions and understood the discharge instructions. Discharge instructions specifically effects, indications for sooner follow up or return to the emergency department, and the expected course of current diagnosis. Patient condition: Stable Discharge Plan Plan Patient Disposition: HOME (Self Care) Prescriptions/Referrals Prescriptions/Med Rec: No Action levothyroxine 25 mcg Tablet 25 mcg PO QDAY glipizide 5 mg Tablet 5 mg PO BID prednisone 10 mg tablet 30 mg PO QDAY Rx Instructions: START DATE 03/06/20 hydrocodone-acetaminophen 5-325 mg tablet 1 tab PO Q4H PRN (Reason: Pain) omeprazole 40 mg capsule,delayed release(DR/EC) 40 mg PO QDAY risperidone 2 mg tablet 2 mg PO BID hydrochlorothiazide 12.5 mg capsule 12.5 mg PO QAM gabapentin 300 mg capsule 300 mg PO TID duloxetine 60 mg capsule,delayed release(DR/EC) 60 mg PO QDAY metronidazole 500 mg tablet 500 mg PO Q8H Qty: 20 0RF atorvastatin 40 mg tablet 40 mg PO HS Patient Comments: take 1 tablet by mouth at bedtime acetaminophen [Tylenol] 325 mg tablet 650 mg PO Q4H Qty: 60 0RF hydrocodone-acetaminophen 5-325 mg tablet 1 tab PO BID MDD 10 PRN (Reason: pain) Qty: 6 0RF fluconazole 150 mg tablet 150 mg PO Q3D Qty: 2 0RF albuterol sulfate 90 mcg/actuation HFA aerosol inhaler 2 puff inhalation Q6H PRN (Reason: shortness of breath or wheezing) Qty: 8.5 0RF lidocaine [Lidocaine Pain Relief] 4 % adhesive patch,medicated 1 patch topical QID PRN (Reason: pain) Qty: 15 0RF meloxicam 7.5 mg tablet 7.5 mg PO QDAY 7 Days Qty: 7 0RF psyllium Powder 1 tbsp PO QDAY Qty: 300 0RF Rx Instructions: mix into at least 8 oz of water or juice before administering albuterol sulfate 90 mcg/actuation HFA aerosol inhaler 2 inh inhalation QID PRN (Reason: shortness of breath or wheezing) Qty: 8.5 0RF prednisone 50 mg tablet 50 mg PO QDAY Qty: 3 0RF Referrals: Francisco Walker [Primary Care Provider] - In 1 week Problem List Clinical Impression: Chest pain, UTI (urinary tract infection), Mild dehydration, Hypomagnesemia, Paresthesia Patient/Caregiver Discharge Instructions Print Language: Thai Stand Alone Forms: Hilda Award Info., Patient Portal Info Letter
[2025-05-14 23:08] VITALS: BP 110/76; PULSE 89; RESP 16; TEMP 36.8; O2SAT 97
[2025-05-14 23:14] VITALS: PULSE 94; BMI 28.9
[2025-05-14 23:23] LABS: Basophils # (Auto) 0.1 Thou/mm3 (0.0-0.2); Basophils % (Auto) 1 % (0-2.5); Eosinophils # (Auto) 0.4 Thou/mm3 (0.0-0.5); Eosinophils % (Auto) 3 % (0-10); Hematocrit 49.8 % (36.0-46.0); Hemoglobin 16.4 g/dL (12.0-16.0); Immature Granulocytes Auto 0.05 Thou/mm3 (0.00-0.00); Lymphocytes # (Auto) 3.9 Thou/mm3 (1.0-4.8); Lymphocytes % (Auto) 28 % (10-50); Mean Corpuscular HGB Conc 32.9 g/dl (31.0-37.0); Mean Corpuscular Hemoglobin 27.6 pg (25.0-35.0); Mean Corpuscular Volume 84 fL (80-100); Monocytes # (Auto) 0.8 Thou/mm3 (0.0-0.8); Monocytes % (Auto) 6 % (0-12); Neutrophils # (Auto) 8.8 Thou/mm3 (1.8-7.7); Neutrophils % (Auto) 63 % (37-80); Nucleated Red Blood Cell # 0.00 Thou/mm3 (0.00-0.00); Nucleated Red Blood Cell % 0 /100 WBC (0); Platelet Count 368 Thou/mm3 (140-440); RDW Standard Deviation 47.2 fL (36.4-46.3); Red Blood Count 5.95 Miln/mm3 (4.00-5.20); White Blood Count 14.0 Thou/mm3 (3.6-11.0)
[2025-05-14 23:39] LABS: Collection Type, Urine Voided
[2025-05-14 23:40] LABS: Alanine Aminotransferase 14 U/L (10-49); Albumin, Serum 4.3 gm/dL (3.5-5.0); Albumin/Globulin Ratio 1.4 (1.2-2.2); Alkaline Phosphatase 165 U/L (46-116); Anion Gap 11 (7-16); Aspartate Amino Transferase 19 U/L (0-34); BUN/Creatinine Ratio 14 Ratio (12-20); Bilirubin,Total 0.7 mg/dL (0.3-1.2); Blood Urea Nitrogen 11 mg/dL (9-23); Calcium 9.3 mg/dL (8.3-10.6); Calcium (Corrected) 9.3 mg/dL (8.5-10.1); Carbon Dioxide 23.7 mMol/L (20.0-31.0); Chloride 108 mMol/L (98-107); Creatinine (Component) 0.8 mg/dL (0.6-1.3); Estimated Creatinine Clearance 66.3 mL/min (>60); Globulin 3.1 gm/dL (2.3-3.5); Glucose 79 mg/dL (74-106); Lipase 34 U/L (12-53); Magnesium 1.4 mg/dL (1.6-2.6); Osmolality,Calculated 283 (275-295); Potassium 3.5 mMol/L (3.4-5.1); Sodium 143 mMol/L (136-145); Total Protein 7.4 gm/dL (5.7-8.2); Troponin I < 0.020 ng/mL (0.0-0.045); eGFR > 60 See Note
[2025-05-14 23:45] LABS: Bacteria,Urine 3+; Bilirubin,Urine Negative (Negative); Blood,Urine 1+ (Negative); Calcium Oxalate Crystals,Urine 2+; Clarity,Urine Turbid (Clear/Hazy); Color,Urine Yellow (Lt Yel-Yel); Glucose, Urine Negative (Negative); Ketones,Urine Trace (Negative); Leukocyte Esterase,Urine Positive (Negative); Nitrite,Urine Positive (Negative); PH,Urine 6.0 (5.0-7.0); Protein,Urine 1+ (Neg - Trace); RBC,Urine 45 /hpf (0-3); Specific Gravity,Urine 1.035 (1.001-1.035); Squamous Epithelial Cell,Urine 1 /hpf (0-5); Urobilinogen,Urine 2.0 mg/dL (0.0-1.0); WBC,Urine 451 /hpf (0-5)
[2025-05-14 23:46] LABS: Culture Indicated,Urine Yes
[2025-05-14 23:53] LABS: Amphetamine/Methamp Scrn,U Positive (Negative); Barbiturate Screen,Urine Negative (Negative); Benzodiazepines Screen,Urine Negative (Negative); Benzoylecgonine Screen, Ur Negative (Negative); Fentanyl Screen,Urine Negative (Negative); Opiate Screen,Urine Negative (Negative); THC Screen,Urine Negative (Negative)
[2025-05-15] MEDS: cefTRIAXone/D5w 1gm IV premix 1 GM/50 ML BAG IV (00:30)
[2025-05-15 01:00] VITALS: BP 105/60; PULSE 85; RESP 16; TEMP 36.9; O2SAT 95
[2025-05-15] MEDS: Magnesium Sulfate 2 GM Ivpb 2 GM/50 ML BAG IV (01:00)
[2025-05-15] MEDS: ACETAMINOPHEN 325 MG TABLET 650 MG PO (01:43)
[2025-05-15 02:56] LABS: Troponin I < 0.020 ng/mL (0.0-0.045)
[2025-05-15] MEDS: POTASSIUM CHLORIDE 10% 20 MEQ/15 ML UDC 40 MEQ PO (03:32)
[2025-05-15] MEDS: SODIUM CHLORIDE 0.9% 1000 ML 1,000 ML 999 ML IV (03:32)
[2025-05-15 04:00] VITALS: BP 103/55; PULSE 65; RESP 16; TEMP 36.9; O2SAT 95
[2025-05-15 05:15] VITALS: BP 103/55; PULSE 78; RESP 18; TEMP 37.1; O2SAT 99
== END 2025-05-15 05:16 | disposition home or self-care (01) ==
PROVIDERS: Physician Assistant Medical; Emergency Provider Emergency Medicine
DX: R07.9 Chest pain, unspecified (principal); E86.0 Dehydration; N39.0 Urinary tract infection, site not specified; E83.42 Hypomagnesemia; R20.2 Paresthesia of skin
CPT/HCPCS: 36415; 70450; 80053; 80307; 81001; 83690; 83735; 84484; 85025; 87077; 87086; 87186; 96361; 96365; 96366; 99283; J0696; J3475; J7030; A9270

== ENCOUNTER 2025-05-15 21:12 | Emergency (ER) | payer OTHER, MEDICAID, SELFPAY ==
[2025-05-15 21:13] VITALS: BMI 28.9
--- NOTE | 2025-05-15 21:59 | PC.NURSE ---
pt called from lobby no answer
--- NOTE | 2025-05-15 22:28 | PC.NURSE ---
pt called from lobby no answer
--- NOTE | 2025-05-15 22:47 | PC.NURSE ---
pt called from lobby no answer
== END 2025-05-15 23:01 | disposition left against medical advice (07) ==
PROVIDERS: Emergency Provider Emergency Medicine
DX: Z53.21 Procedure and treatment not carried out due to patient leaving prior to being seen by health care provider (principal)
CPT/HCPCS: 99283

== ENCOUNTER 2025-05-16 19:46 | Emergency (ER) | payer OTHER, MEDICAID, SELFPAY ==
--- NOTE | 2025-05-16 20:07 | PD.EDRECHK ---
ED Recheck Abnl Lab Rx-RME/HPI General Chief Complaint: General Adult/Misc Complain Stated Complaint: CHEST AREA PAIN, A LOT OF STRESS Arrival date/time: 05/16/25 19:46 RME / HPI RME / HPI narrative: This section includes all my notes and documentations, including HPI, PE, and ED course. Chilo Hills MD HPI: ROS: All negative except as documented in HPI. Physical Exam: General: Alert and oriented. No acute distress when remaining still. Eyes: Conjunctivae and lids clear. ENT: No nasal congestion. Neck: Supple. Heart: RRR. Lungs: No respiratory distress. Good air movement. No rhonchi, wheezing, rales. Abdomen: Soft and nontender. Normal bowel sounds. No distension. No rebound or guarding. Back: No CVA tenderness. Skin: Warm and dry. Neuro: Alert and oriented X 3. I reviewed EMS and half-way notes. I reviewed all diagnostic test results. My interpretation of the EKG is My interpretation of the chest x-ray is My review of the CT report is Blood tests and urine tests At this point, diagnoses include Treatment here included Significant improvement Not yet done: I discussed the case with our hospitalist. About the presentation and exam and diagnostics and treatments here. And need of further care in the hospital. Will accept the patient. Not yet done: Based on my best medical judgment, made decision no further evaluation or treatment indicated at this time. Patient understands and agrees to the discharge instructions customized and printed, see below. Chilo Hills MD Related Data Home Medications ?Medication ?Instructions ?Recorded ?Confirmed glipizide 5 mg tablet 5 mg PO BID 06/10/19 03/19/20 levothyroxine 25 mcg tablet 25 mcg PO QDAY 06/10/19 03/19/20 atorvastatin 40 mg tablet 40 mg PO HS 11/22/19 03/19/20 duloxetine 60 mg capsule,delayed 60 mg PO QDAY 03/19/20 03/19/20 release gabapentin 300 mg capsule 300 mg PO TID 03/19/20 03/19/20 hydrochlorothiazide 12.5 mg capsule 12.5 mg PO QAM 03/19/20 03/19/20 hydrocodone 5 mg-acetaminophen 325 1 tab PO Q4H PRN Pain 03/19/20 03/19/20 mg tablet omeprazole 40 mg capsule,delayed 40 mg PO QDAY 03/19/20 03/19/20 release prednisone 10 mg tablet 30 mg PO QDAY 03/19/20 03/19/20 risperidone 2 mg tablet 2 mg PO BID 03/19/20 03/19/20 Previous Rx's ?Medication ?Instructions ?Recorded metronidazole 500 mg tablet 500 mg PO Q8H #20 tabs 03/20/20 acetaminophen 325 mg tablet 650 mg (2 x 325 mg) PO Q4H #60 tabs 03/26/20 (Tylenol) hydrocodone 5 mg-acetaminophen 325 1 tab PO BID PRN pain #6 tabs 12/30/21 mg tablet psyllium 1 tbsp PO QDAY #300 grams 03/21/23 albuterol sulfate 90 mcg/actuation 2 inh inhalation QID PRN shortness 09/26/24 aerosol inhaler of breath or wheezing #8.5 grams prednisone 50 mg tablet 50 mg PO QDAY #3 tabs 09/26/24 fluconazole 150 mg tablet 150 mg PO Q3D 2 doses #2 tabs 09/27/24 albuterol sulfate 90 mcg/actuation 2 puff inhalation Q6H PRN 02/19/25 aerosol inhaler shortness of breath or wheezing #8.5 grams lidocaine 4 % topical patch 1 patch topical QID PRN pain #15 ea 03/15/25 (Lidocaine Pain Relief) cephalexin 500 mg capsule 500 mg PO TID #15 caps 05/15/25 Allergies Allergy/AdvReac Type Severity Reaction Status Date / Time levofloxacin (From Levaquin) Allergy Severe Swelling Verified 05/16/25 19:51 of Lip/Tongue/Throat methotrexate Allergy Severe Redness of Verified 05/16/25 19:51 Skin Review of Systems Review of Systems Systems Reviewed: All systems reviewed, normal except as documented ED Exam Narrative Physical exam: As noted in HPI. Course Orders Category Date Time Status EKG (ED ONLY) *Do not use* NOW Care 05/16/25 20:01 Active EKG (ED Only) Stat Exams 05/16/25 20:01 Ordered Recheck / Abnormal Lab / Rx Patient data External records reviewed:: [facility] previous records (Per chart review, patient was seen here on 05/14/25 for chest pain.) Clinical information provided by:: patient Social determinants that could affect healthcare access:: none Discharge Plan Prescriptions/Referrals Prescriptions/Med Rec: No Action levothyroxine 25 mcg Tablet 25 mcg PO QDAY glipizide 5 mg Tablet 5 mg PO BID prednisone 10 mg tablet 30 mg PO QDAY Rx Instructions: START DATE 03/06/20 hydrocodone-acetaminophen 5-325 mg tablet 1 tab PO Q4H PRN (Reason: Pain) omeprazole 40 mg capsule,delayed release(DR/EC) 40 mg PO QDAY risperidone 2 mg tablet 2 mg PO BID hydrochlorothiazide 12.5 mg capsule 12.5 mg PO QAM gabapentin 300 mg capsule 300 mg PO TID duloxetine 60 mg capsule,delayed release(DR/EC) 60 mg PO QDAY metronidazole 500 mg tablet 500 mg PO Q8H Qty: 20 0RF atorvastatin 40 mg tablet 40 mg PO HS Patient Comments: take 1 tablet by mouth at bedtime acetaminophen [Tylenol] 325 mg tablet 650 mg PO Q4H Qty: 60 0RF hydrocodone-acetaminophen 5-325 mg tablet 1 tab PO BID MDD 10 PRN (Reason: pain) Qty: 6 0RF fluconazole 150 mg tablet 150 mg PO Q3D Qty: 2 0RF albuterol sulfate 90 mcg/actuation HFA aerosol inhaler 2 puff inhalation Q6H PRN (Reason: shortness of breath or wheezing) Qty: 8.5 0RF lidocaine [Lidocaine Pain Relief] 4 % adhesive patch,medicated 1 patch topical QID PRN (Reason: pain) Qty: 15 0RF psyllium Powder 1 tbsp PO QDAY Qty: 300 0RF Rx Instructions: mix into at least 8 oz of water or juice before administering albuterol sulfate 90 mcg/actuation HFA aerosol inhaler 2 inh inhalation QID PRN (Reason: shortness of breath or wheezing) Qty: 8.5 0RF prednisone 50 mg tablet 50 mg PO QDAY Qty: 3 0RF cephalexin 500 mg capsule 500 mg PO TID Qty: 15 0RF Patient/Caregiver Discharge Instructions Print Language: Taiwanese
--- NOTE | 2025-05-16 20:08 | PC.NURSE ---
No answer at er lobby or outside ER to be seen
--- NOTE | 2025-05-16 20:09 | PD.EDADDENDU ---
Emergency Room Addendum Addendum Narrative: When I looked for the patient to start my evaluation, I was told the patient eloped. Chilo Hills MD
--- NOTE | 2025-05-16 20:18 | PC.NURSE ---
called for pt from lobby/outside, no answerx2@ 2018
--- NOTE | 2025-05-16 20:19 | PC.NURSE ---
NO ANSWER AT ER LOBBY OR OUTSIDE ER TO BE SEEN.
== END 2025-05-16 20:19 | disposition left against medical advice (07) ==
LOC: SERX 20:09
PROVIDERS: Emergency Provider Emergency Medicine
DX: Z53.21 Procedure and treatment not carried out due to patient leaving prior to being seen by health care provider (principal)
CPT/HCPCS: 99283

== ENCOUNTER 2025-05-16 20:50 | Emergency (ER) | payer OTHER, MEDICAID, SELFPAY ==
[2025-05-16 21:47] VITALS: BP 129/79; PULSE 85; RESP 18; TEMP 36.9; O2SAT 95
--- NOTE | 2025-05-16 22:10 | PD.EDANX ---
ED Anxiety RME/HPI General Chief Complaint: General Adult/Misc Complain Stated Complaint: HAVING A LOT OF STRESS Time Seen by Provider: 05/16/25 21:58 Arrival date/time: 05/16/25 20:50 59F with history of CHF, DM, HTN, and meth use presents to ED with increased stress. Patient would just like some meds. Patient was here earlier but left because she wanted to get some chips first. Limitations: no limitations Related Data Home Medications ?Medication ?Instructions ?Recorded ?Confirmed glipizide 5 mg tablet 5 mg PO BID 06/10/19 03/19/20 levothyroxine 25 mcg tablet 25 mcg PO QDAY 06/10/19 03/19/20 atorvastatin 40 mg tablet 40 mg PO HS 11/22/19 03/19/20 duloxetine 60 mg capsule,delayed 60 mg PO QDAY 03/19/20 03/19/20 release gabapentin 300 mg capsule 300 mg PO TID 03/19/20 03/19/20 hydrochlorothiazide 12.5 mg capsule 12.5 mg PO QAM 03/19/20 03/19/20 hydrocodone 5 mg-acetaminophen 325 1 tab PO Q4H PRN Pain 03/19/20 03/19/20 mg tablet omeprazole 40 mg capsule,delayed 40 mg PO QDAY 03/19/20 03/19/20 release prednisone 10 mg tablet 30 mg PO QDAY 03/19/20 03/19/20 risperidone 2 mg tablet 2 mg PO BID 03/19/20 03/19/20 Previous Rx's ?Medication ?Instructions ?Recorded metronidazole 500 mg tablet 500 mg PO Q8H #20 tabs 03/20/20 acetaminophen 325 mg tablet 650 mg (2 x 325 mg) PO Q4H #60 tabs 03/26/20 (Tylenol) hydrocodone 5 mg-acetaminophen 325 1 tab PO BID PRN pain #6 tabs 12/30/21 mg tablet psyllium 1 tbsp PO QDAY #300 grams 03/21/23 albuterol sulfate 90 mcg/actuation 2 inh inhalation QID PRN shortness 09/26/24 aerosol inhaler of breath or wheezing #8.5 grams prednisone 50 mg tablet 50 mg PO QDAY #3 tabs 09/26/24 fluconazole 150 mg tablet 150 mg PO Q3D 2 doses #2 tabs 09/27/24 albuterol sulfate 90 mcg/actuation 2 puff inhalation Q6H PRN 02/19/25 aerosol inhaler shortness of breath or wheezing #8.5 grams lidocaine 4 % topical patch 1 patch topical QID PRN pain #15 ea 03/15/25 (Lidocaine Pain Relief) cephalexin 500 mg capsule 500 mg PO TID #15 caps 05/15/25 Allergies Allergy/AdvReac Type Severity Reaction Status Date / Time levofloxacin (From Levaquin) Allergy Severe Swelling Verified 05/16/25 20:52 of Lip/Tongue/Throat methotrexate Allergy Severe Redness of Verified 05/16/25 20:52 Skin Review of Systems Review of Systems Systems Reviewed: All systems reviewed, normal except as documented Constitutional Constitutional: Reports system reviewed and no additional complaints, except as documented, Denies fever(s) and Denies headache(s) ENT Ears, Nose, Mouth, and Throat: Denies disequilibrium and Denies headache(s) Cardiovascular Cardiovascular: Reports system reviewed and no additional complaints, except as documented, Denies chest pain and Denies dyspnea Respiratory Respiratory: Reports system reviewed and no additional complaints, except as documented, Denies cough and Denies dyspnea Gastrointestinal Gastrointestinal: Reports system reviewed and no additional complaints, except as documented, Denies abdominal pain, Denies nausea and Denies vomiting Neurologic Neurologic: Reports system reviewed and no additional complaints, except as documented, Denies confusion, Denies disequilibrium and Denies headache(s) Psychiatric Psychiatric: Denies confusion Past Medical History Past Medical History NEUROLOGIC: Positive Neurological Disorders and Nunez's Palsy CARDIAC: Positive Atrial Fibrillation, Angina, Atherosclerotic Heart Disease, Hypercholesterolemia, Congestive Heart Failure and Hypertension; Negative Cardiac Disorders RESPIRATORY: Positive Chronic Obstructive Pulmonary Disease (COPD), Asthma and Pneumonia GASTROINTESTINAL: Positive Gastrointestinal Disorders (umbilicl hernia), Gall Bladder Disease, Gastrointestinal Bleed, Diverticulitis, Ulcer, Irritable Bowel, Hiatal Hernia and Gastroesophageal Reflux Disease GENITOURINARY: Positive Genitourinary Disorders, Renal Disease and Kidney Stones REPRODUCTIVE: Positive Endometriosis and Previous Pregnancies MUSCULOSKELETAL: Positive Musculoskeletal Disorders, Rheumatoid Arthritis and Fractures ENT: Positive Cataracts and Glaucoma ENDOCRINE: Positive Endocrine Disorders, Diabetes Mellitus Type 2 and Hypothyroidism; Negative Diabetes Mellitus Type 1 HEMATOLOGIC: Positive Blood Disorders, Anemia and Sickle Cell Disease PSYCHO/SOCIAL: Positive Schizophrenia OTHER HISTORY: Positive Rubella (Trinidadian Measles) and Cervical Cancer; Negative Autoimmune Disease Family History FAMILY HISTORY: Positive Family Psychiatric Problems, Family Cardiac Disorders and Family Gastrointestinal Problems; Negative Family Respiratory Disorders, Family Cancer or Family Surgery Surgical History SURGICAL: Positive Angiogram, Abdominal Surgery and Tubal Ligation Social History SMOKING STATUS: Never smoker SECOND HAND EXPOSURE: No SUBSTANCE USE: methamphetamine ED Exam General Limitations: Present no limitations General appearance: Present alert and in no apparent distress Head Head exam: Present atraumatic Eye Eye exam: Present normal appearance, PERRL and EOMI ENT ENT exam: Present normal exam, normal oropharynx and mucous membranes moist Neck Neck exam: Present normal inspection, full ROM and trachea midline Chest Chest inspection: Present normal inspection and symmetric chest wall rise Respiratory Respiratory exam: Present normal lung sounds bilaterally Cardiovascular Cardiovascular exam: Present regular rate, normal rhythm and normal heart sounds Abdominal Exam Abdominal exam: Present soft and normal bowel sounds Extremities Exam Extremities exam: Present normal inspection and full ROM Back Exam Back exam: Present normal inspection and full ROM Neurological Exam Neurological exam: Present alert, oriented X3 and CN II-XII intact Psychiatric Psychiatric exam: Present normal affect and normal mood Skin Skin exam: Present warm, dry, intact and normal color Course Quality Measures none Orders Category Date Time Status hydrOXYzine HCL [Atarax] Med 05/16/25 22:08 Once 25 mg PO X1 ONE Vital Signs Vital signs: Vital Signs Temperature 98.4 F 05/16/25 21:47 Pulse Rate 85 05/16/25 21:47 Respiratory Rate 18 05/16/25 21:47 Blood Pressure 129/79 05/16/25 21:47 Pulse Oximetry (%) 95 05/16/25 21:47 Oxygen Delivery Method Room Air 05/16/25 21:47 Anxiety MDM Narrative MDM Narrative: 59F with history of CHF, DM, HTN, and meth use presents to ED with increased stress. Patient would just like some meds. Patient was here earlier but left because she wanted to get some chips first. Physical exam reveals normal WOB. Patient is afebrile, calm, alert, and eating chips. Meds and awake overnight counselor given. Patient data External records reviewed:: [facility] previous records Clinical information provided by:: patient Social determinants that could affect healthcare access:: mental health Patient has the following chronic illnesses:: CHF, DM, HTN, and meth use How is presenting disease/condition affected by chronic disease/condition?: exacerbated by Evaluation data The following diagnostics were reviewed and interpreted by me:: other (specify) (none) Lab and/or radiology exams considered but not ordered:: not ordered Interpretation Summary: n/a Medications / Prescriptions Medications or Prescriptions considered but not ordered:: ordered Medication administrations:: Medication Administration History Hydroxyzine HCl (Hydroxyzine Hcl 25 Mg Tablet) 25 mg PO X1 ONE Stop: 05/16/25 22:09 Consultations Consultation(s) initiated? (list below): No Diagnosis Differential diagnosis anxiety: hyperventilation, panic disorder and acute anxiety Most likely diagnosis given after review of the tests above:: stress reaction Admission Indicated Admission indicated?: not indicated Admission Request Was there a request for admission?: No Disposition Plan Disposition Plan: Discharge Discharge Attestation Discharge Attestation: The patient and all family members were given an opportunity to ask questions and understood the discharge instructions. Discharge instructions specifically effects, indications for sooner follow up or return to the emergency department, and the expected course of current diagnosis. Patient condition: Stable Discharge Plan Plan Patient Disposition: HOME (Self Care) Discharge Disposition comment: Stable Prescriptions/Referrals Prescriptions/Med Rec: No Action levothyroxine 25 mcg Tablet 25 mcg PO QDAY glipizide 5 mg Tablet 5 mg PO BID prednisone 10 mg tablet 30 mg PO QDAY Rx Instructions: START DATE 03/06/20 hydrocodone-acetaminophen 5-325 mg tablet 1 tab PO Q4H PRN (Reason: Pain) omeprazole 40 mg capsule,delayed release(DR/EC) 40 mg PO QDAY risperidone 2 mg tablet 2 mg PO BID hydrochlorothiazide 12.5 mg capsule 12.5 mg PO QAM gabapentin 300 mg capsule 300 mg PO TID duloxetine 60 mg capsule,delayed release(DR/EC) 60 mg PO QDAY metronidazole 500 mg tablet 500 mg PO Q8H Qty: 20 0RF atorvastatin 40 mg tablet 40 mg PO HS Patient Comments: take 1 tablet by mouth at bedtime acetaminophen [Tylenol] 325 mg tablet 650 mg PO Q4H Qty: 60 0RF hydrocodone-acetaminophen 5-325 mg tablet 1 tab PO BID MDD 10 PRN (Reason: pain) Qty: 6 0RF fluconazole 150 mg tablet 150 mg PO Q3D Qty: 2 0RF albuterol sulfate 90 mcg/actuation HFA aerosol inhaler 2 puff inhalation Q6H PRN (Reason: shortness of breath or wheezing) Qty: 8.5 0RF lidocaine [Lidocaine Pain Relief] 4 % adhesive patch,medicated 1 patch topical QID PRN (Reason: pain) Qty: 15 0RF psyllium Powder 1 tbsp PO QDAY Qty: 300 0RF Rx Instructions: mix into at least 8 oz of water or juice before administering albuterol sulfate 90 mcg/actuation HFA aerosol inhaler 2 inh inhalation QID PRN (Reason: shortness of breath or wheezing) Qty: 8.5 0RF prednisone 50 mg tablet 50 mg PO QDAY Qty: 3 0RF cephalexin 500 mg capsule 500 mg PO TID Qty: 15 0RF Referrals: No Primary/Family,Physician [Primary Care Provider] - In 1 week Problem List Clinical Impression: Stress reaction Patient/Caregiver Discharge Instructions Education Materials: Your Body's Response to Anxiety Additional Instructions: Please follow-up with PCP within 24-48 hours and return immediately if symptoms worsen. Print Language: Arabic Stand Alone Forms: Patient Portal Info Letter SCOOTER/TATA Supervising Physician SCOOTER/TATA Supervising Physician: Dr. Hills
[2025-05-16 22:31] VITALS: RESP 18
== END 2025-05-16 22:32 | disposition home or self-care (01) ==
PROVIDERS: Emergency Provider Emergency Medicine
DX: F43.9 Reaction to severe stress, unspecified (principal)
CPT/HCPCS: 99284; A9270

== ENCOUNTER 2025-05-21 14:57 | Emergency (ER) | payer OTHER, MEDICAID, SELFPAY ==
[2025-05-21 14:58] VITALS: BMI 28.9
[2025-05-21 15:04] VITALS: BP 94/69; PULSE 111; RESP 20; TEMP 37; O2SAT 95
--- NOTE | 2025-05-21 15:27 | EKG_ITS ---
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
--- NOTE | 2025-05-21 15:27 | XR_ITS ---
EXAMINATION: Ankle, right 2 views . Technique: AP lateral right ankle 2 views Date and time: May 21, 2025, 1617 hrs. Indications: Patient fell 2 days ago with injury to the ankle, ankle pain. Findings: Lateral malleolar soft tissue swelling. No fracture or dislocation Impression: No fracture or dislocation.
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
--- NOTE | 2025-05-21 17:00 | PC.NURSE ---
PT CALLED IN LOBBY AND OUTSIDE, NO RESPONSE AT THIS TIME.
--- NOTE | 2025-05-21 17:05 | PC.NURSE ---
PT RETURNED TO ED ENTRANCE FROM BUS STOP. WENT OUTSIDE TO WRAP PT'S ANKLE AND GIVE HER DISCHARGE INST. SHE REFUSED TO HAVE HER ANKLE WRAPPED AND REFUSED THE DISCHARGE, WALKING AWAY. WILL WAIT TO DISCHARGE PT TO SEE IF SHE CHANGES HER MIND.
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
--- NOTE | 2025-05-21 17:23 | PC.CC ---
ASW arranged transportation for the pt to return home via the [facility] site. [facility] is not available to [place] residents.
== END 2025-05-21 17:09 | disposition home or self-care (01) ==
PROVIDERS: Emergency Provider Emergency Medicine
DX: S93.401A Sprain of unspecified ligament of right ankle, initial encounter (principal); W18.30XA Fall on same level, unspecified, initial encounter; R00.0 Tachycardia, unspecified
CPT/HCPCS: 73600; 93005; 99283

== ENCOUNTER 2025-06-03 11:55 | Emergency (ER) | payer OTHER, MEDICAID, SELFPAY ==
[2025-06-03 12:07] VITALS: BMI 26.9
[2025-06-03 12:08] VITALS: BP 122/67; PULSE 74; RESP 19; TEMP 36.8; O2SAT 95
--- NOTE | 2025-06-03 12:12 | EKG_ITS ---
[facility] Test Date: 2025-06-03 Pat Name: MELVIN SEGURA Department: Room: - Gender: Female [employer] In[employer]: : 1965 Requested By: Alonso Cedeño (COMPLIANCE TESTING ANALYST) Order Number: [id number] Reading MD: Alonso Cedeño (COMPLIANCE TESTING ANALYST) Measurements Intervals [place] Rate: 84 P: 27 SC: 159 QRS: 55 QRSD: 77 T: 10 QT: 376 QTc: 446 Interpretive Statements SINUS RHYTHM MODERATE T-WAVE ABNORMALITY, CONSIDER ANTERIOR ISCHEMIA [-0.1+ mV T-WAVE IN V3/V4] Compared to ECG 05/21/2025 15:30:53 T-wave abnormality now present Possible ischemia now present Sinus tachycardia no longer present Indeterminate axis no longer present /store/S0/[id number]/ecg/[id number].pdf
--- NOTE | 2025-06-03 12:12 | XR_ITS ---
Examination: PA lateral chest 2 views TECHNIQUE: Upright PA and lateral chest 2 views Date and time: June 03, 2025, 1251 hours Comparison March 03, 2025 INDICATIONS: Chest pain today. FINDINGS: Mild prominence left ventricle Prominent central pulmonary arteries. No lobar pneumonia or pulmonary edema. The osseous structures are intact. IMPRESSION: Pulmonary artery hypertension pattern
--- NOTE | 2025-06-03 12:13 | PD.EDRME ---
Rapid Medical Screening Exam RME Arrival date/time: 06/03/25 11:55 59-year-old female presents the Emergency Department for complaints of abdominal pain and flank pain Chief Complaint: Abdominal Pain Vital signs: Vital Signs Temperature 98.2 F 06/03/25 12:08 Pulse Rate 74 06/03/25 12:08 Respiratory Rate 19 06/03/25 12:08 Blood Pressure 122/67 06/03/25 12:08 Pulse Oximetry (%) 95 06/03/25 12:08 Oxygen Delivery Method Room Air 06/03/25 12:08
[2025-06-03 12:44] LABS: Basophils # (Auto) 0.1 Thou/mm3 (0.0-0.2); Basophils % (Auto) 1 % (0-2.5); Eosinophils # (Auto) 0.4 Thou/mm3 (0.0-0.5); Eosinophils % (Auto) 5 % (0-10); Hematocrit 46.9 % (36.0-46.0); Hemoglobin 15.0 g/dL (12.0-16.0); Immature Granulocytes Auto 0.02 Thou/mm3 (0.00-0.00); Lymphocytes # (Auto) 2.5 Thou/mm3 (1.0-4.8); Lymphocytes % (Auto) 33 % (10-50); Mean Corpuscular HGB Conc 32.0 g/dl (31.0-37.0); Mean Corpuscular Hemoglobin 27.4 pg (25.0-35.0); Mean Corpuscular Volume 86 fL (80-100); Monocytes # (Auto) 0.6 Thou/mm3 (0.0-0.8); Monocytes % (Auto) 8 % (0-12); Neutrophils # (Auto) 4.0 Thou/mm3 (1.8-7.7); Neutrophils % (Auto) 53 % (37-80); Nucleated Red Blood Cell # 0.00 Thou/mm3 (0.00-0.00); Nucleated Red Blood Cell % 0 /100 WBC (0); Platelet Count 339 Thou/mm3 (140-440); RDW Standard Deviation 48.2 fL (36.4-46.3); Red Blood Count 5.48 Miln/mm3 (4.00-5.20); White Blood Count 7.5 Thou/mm3 (3.6-11.0)
[2025-06-03 12:59] LABS: Collection Type, Urine Clean Catch
[2025-06-03 13:11] LABS: Alanine Aminotransferase 15 U/L (10-49); Albumin, Serum 3.7 gm/dL (3.5-5.0); Albumin/Globulin Ratio 1.4 (1.2-2.2); Alkaline Phosphatase 158 U/L (46-116); Anion Gap 11 (7-16); Aspartate Amino Transferase 27 U/L (0-34); BUN/Creatinine Ratio 6 Ratio (12-20); Bilirubin,Total 0.8 mg/dL (0.3-1.2); Blood Urea Nitrogen < 5 mg/dL (9-23); Calcium 8.6 mg/dL (8.3-10.6); Calcium (Corrected) 8.8 mg/dL (8.5-10.1); Carbon Dioxide 21.6 mMol/L (20.0-31.0); Chloride 109 mMol/L (98-107); Creatinine (Component) 0.8 mg/dL (0.6-1.3); Estimated Creatinine Clearance 69.5 mL/min (>60); Globulin 2.7 gm/dL (2.3-3.5); Glucose 188 mg/dL (74-106); Lipase 30 U/L (12-53); Osmolality,Calculated 285 (275-295); Potassium 4.1 mMol/L (3.4-5.1); Sodium 142 mMol/L (136-145); Total Protein 6.4 gm/dL (5.7-8.2); Troponin I < 0.020 ng/mL (0.0-0.045); eGFR > 60 See Note
[2025-06-03 13:51] LABS: Bacteria,Urine Rare; Bilirubin,Urine Negative (Negative); Blood,Urine Negative (Negative); Clarity,Urine Turbid (Clear/Hazy); Color,Urine Yellow (Lt Yel-Yel); Glucose, Urine Negative (Negative); Ketones,Urine Negative (Negative); Leukocyte Esterase,Urine Positive (Negative); Nitrite,Urine Negative (Negative); PH,Urine 6.0 (5.0-7.0); Protein,Urine Trace (Neg - Trace); RBC,Urine 4 /hpf (0-3); Specific Gravity,Urine 1.025 (1.001-1.035); Squamous Epithelial Cell,Urine 9 /hpf (0-5); Transitional Epi Cells,Urine 2 /hpf (0-5); Urobilinogen,Urine 2.0 mg/dL (0.0-1.0); WBC,Urine 44 /hpf (0-5)
[2025-06-03 13:54] LABS: Culture Indicated,Urine Yes
[2025-06-03 14:57] VITALS: BP 116/75; PULSE 87; RESP 18; TEMP 37; O2SAT 95
--- NOTE | 2025-06-03 15:16 | PD.EDADULT ---
ED General RME/HPI General Chief complaint: Abdominal Pain Stated complaint: ABD PAIN Time Seen by Provider: 06/03/25 14:17 Arrival date/time: 06/03/25 11:55 RME / HPI RME / HPI narrative: 59-year-old female patient came in for evaluation regarding low back pain. Patient's been having low back pain for the last few days, associated with dysuria severity mild. Patient also complained of right flank pain severity mild. Denies any vomiting fever or other complaints. No medications taken prior to arrival Related Data Home Medications ?Medication ?Instructions ?Recorded ?Confirmed glipizide 5 mg tablet 5 mg PO BID 06/10/19 03/19/20 levothyroxine 25 mcg tablet 25 mcg PO QDAY 06/10/19 03/19/20 atorvastatin 40 mg tablet 40 mg PO HS 11/22/19 03/19/20 duloxetine 60 mg capsule,delayed 60 mg PO QDAY 03/19/20 03/19/20 release gabapentin 300 mg capsule 300 mg PO TID 03/19/20 03/19/20 hydrochlorothiazide 12.5 mg capsule 12.5 mg PO QAM 03/19/20 03/19/20 hydrocodone 5 mg-acetaminophen 325 1 tab PO Q4H PRN Pain 03/19/20 03/19/20 mg tablet omeprazole 40 mg capsule,delayed 40 mg PO QDAY 03/19/20 03/19/20 release prednisone 10 mg tablet 30 mg PO QDAY 03/19/20 03/19/20 risperidone 2 mg tablet 2 mg PO BID 03/19/20 03/19/20 Previous Rx's ?Medication ?Instructions ?Recorded metronidazole 500 mg tablet 500 mg PO Q8H #20 tabs 03/20/20 acetaminophen 325 mg tablet 650 mg (2 x 325 mg) PO Q4H #60 tabs 03/26/20 (Tylenol) hydrocodone 5 mg-acetaminophen 325 1 tab PO BID PRN pain #6 tabs 12/30/21 mg tablet psyllium 1 tbsp PO QDAY #300 grams 03/21/23 albuterol sulfate 90 mcg/actuation 2 inh inhalation QID PRN shortness 09/26/24 aerosol inhaler of breath or wheezing #8.5 grams prednisone 50 mg tablet 50 mg PO QDAY #3 tabs 09/26/24 fluconazole 150 mg tablet 150 mg PO Q3D 2 doses #2 tabs 09/27/24 albuterol sulfate 90 mcg/actuation 2 puff inhalation Q6H PRN 02/19/25 aerosol inhaler shortness of breath or wheezing #8.5 grams lidocaine 4 % topical patch 1 patch topical QID PRN pain #15 ea 03/15/25 (Lidocaine Pain Relief) cephalexin 500 mg capsule 500 mg PO TID #15 caps 05/15/25 ibuprofen 600 mg tablet 600 mg PO Q8H PRN pain #30 tabs 06/03/25 nitrofurantoin 100 mg PO Q12H 7 days #14 caps 06/03/25 monohydrate/macrocrystals 100 mg capsule (Macrobid) Allergies Allergy/AdvReac Type Severity Reaction Status Date / Time levofloxacin (From Levaquin) Allergy Severe Swelling Verified 06/03/25 11:57 of Lip/Tongue/Throat methotrexate Allergy Severe Redness of Verified 06/03/25 11:57 Skin Review of Systems Review of Systems Narrative Review of Systems: Review of system reviewed and within normal limits except mentioned in HPI ED Exam Narrative Physical exam: VITAL SIGNS: Reviewed. GENERAL APPEARANCE: Alert and interactive, follows commands, no acute distress, HEAD AND FACE: Non-traumatic. ENT: PERRL, pink conjunctivitis, eyelid no trauma, Mucous membrane moist. NECK: Supple, nontender, no nuchal rigidity. CHEST: No tenderness, no crepitus, no paradoxical movement, no retractions. LUNGS: Clear, well ventilated, symmetric, no rales, no wheezing, no ronchi, no stridor, good breath sounds bilaterally. HEART: Regular rate, regular rhythm, no murmur, no gallops. ABDOMEN: Soft, positive bowel sounds, nondistended, no guarding, nontender, no rebound, no masses, RECTAL: Deferred. GENITAL: Deferred. NEUROLOGICAL: Gross motor function intact sensory function intact, Appropriate for age. MUSCULOSKELETAL: low back tenderness, full range of motion. EXTREMITIES: Nontender, full range of motion. SKIN: Color pink, dry, no rash, no lacerations, no abrasions, no contusions. LYMPHATICS: Deferred. Course Quality Measures none Orders Category Date Time Status EKG (ED ONLY) *Do not use* NOW Care 06/03/25 12:12 Completed EKG (ED Only) Stat Exams 06/03/25 12:12 Draft XR chest 2V Stat Exams 06/03/25 12:12 Completed CBC Stat Lab 06/03/25 12:27 Completed Comprehensive Metabolic Panel Stat Lab 06/03/25 12:27 Completed Lipase Stat Lab 06/03/25 12:27 Completed Troponin I Stat Lab 06/03/25 12:27 Completed UA, C/S IF [Urinalysis, C/S if Indicated] Stat Lab 06/03/25 12:35 Completed Urine Culture Stat Lab 06/03/25 12:35 Received HYDROcodone*/APAP 5/325 [Hull 5/325] Med 06/03/25 15:15 Once 1 tab PO X1 ONE Nitrofurantoin Macro [Macrobid] Med 06/03/25 15:15 Once 100 mg PO X1 ONE Vital Signs Vital signs: Vital Signs Temperature 98.2 F 06/03/25 12:08 Pulse Rate 74 06/03/25 12:08 Respiratory Rate 19 06/03/25 12:08 Blood Pressure 122/67 06/03/25 12:08 Pulse Oximetry (%) 95 06/03/25 12:08 Oxygen Delivery Method Room Air 06/03/25 12:08 Discharge Plan Plan Patient Disposition: HOME (Self Care) Discharge Disposition comment: Stable Prescriptions/Referrals Prescriptions/Med Rec: New nitrofurantoin monohyd/m-cryst [Macrobid] 100 mg capsule 100 mg PO Q12H 7 Days Qty: 14 0RF Rx Instructions: must administer with a meal/food ibuprofen 600 mg tablet 600 mg PO Q8H PRN (Reason: pain) Qty: 30 0RF No Action levothyroxine 25 mcg Tablet 25 mcg PO QDAY glipizide 5 mg Tablet 5 mg PO BID prednisone 10 mg tablet 30 mg PO QDAY Rx Instructions: START DATE 03/06/20 hydrocodone-acetaminophen 5-325 mg tablet 1 tab PO Q4H PRN (Reason: Pain) omeprazole 40 mg capsule,delayed release(DR/EC) 40 mg PO QDAY risperidone 2 mg tablet 2 mg PO BID hydrochlorothiazide 12.5 mg capsule 12.5 mg PO QAM gabapentin 300 mg capsule 300 mg PO TID duloxetine 60 mg capsule,delayed release(DR/EC) 60 mg PO QDAY metronidazole 500 mg tablet 500 mg PO Q8H Qty: 20 0RF atorvastatin 40 mg tablet 40 mg PO HS Patient Comments: take 1 tablet by mouth at bedtime acetaminophen [Tylenol] 325 mg tablet 650 mg PO Q4H Qty: 60 0RF hydrocodone-acetaminophen 5-325 mg tablet 1 tab PO BID MDD 10 PRN (Reason: pain) Qty: 6 0RF fluconazole 150 mg tablet 150 mg PO Q3D Qty: 2 0RF albuterol sulfate 90 mcg/actuation HFA aerosol inhaler 2 puff inhalation Q6H PRN (Reason: shortness of breath or wheezing) Qty: 8.5 0RF lidocaine [Lidocaine Pain Relief] 4 % adhesive patch,medicated 1 patch topical QID PRN (Reason: pain) Qty: 15 0RF psyllium Powder 1 tbsp PO QDAY Qty: 300 0RF Rx Instructions: mix into at least 8 oz of water or juice before administering albuterol sulfate 90 mcg/actuation HFA aerosol inhaler 2 inh inhalation QID PRN (Reason: shortness of breath or wheezing) Qty: 8.5 0RF prednisone 50 mg tablet 50 mg PO QDAY Qty: 3 0RF cephalexin 500 mg capsule 500 mg PO TID Qty: 15 0RF Referrals: No Primary/Family,Physician [Primary Care Provider] - In 1 week Problem List Clinical Impression: UTI (urinary tract infection) Patient/Caregiver Discharge Instructions Discharge Activity: activity as tolerated Education Materials: Understanding Urinary Tract ... Additional Instructions: Thank you for the opportunity for serving you today. You are stable for discharged . You are advised to: Follow-up with your PCP in 1 to 2 days Return to ED for worsening of symptoms Increase oral fluids Take medication as prescribed Print Language: American Stand Alone Forms: Hilda Award Info., Patient Portal Info Letter PA/TATA Supervising Physician SCOOTER/TATA Supervising Physician: MD Olga MDM Narrative MDM hospital course: 59-year-old female patient came in for evaluation regarding low back pain. Patient's been having low back pain for the last few days, associated with dysuria severity mild. Patient also complained of right flank pain severity mild. Denies any vomiting fever or other complaints. No medications taken prior to arrival Patient's workup today came back with positive UTI, no leukocytosis noted. Chest x-ray showed pulmonary hypertension pattern otherwise unremarkable. No pneumonia noted. EKG showed normal sinus rhythm, ventricular rate of 84 bpm, no ST segment elevation or depression noted. Patient was given Hull and Macrobid in the emergency room Patient appears nontoxic and hemodynamically stable .Decision to discharge the patient. The patient/family was given an opportunity to ask questions and understood their discharge instructions. Discharge instructions specifically included follow up provider and time frame, current and/or new medications and possible side effects, indications for sooner follow up or return to the emergency department, and the expected course of current diagnosis. Patient reports feeling better as well and giving evidence of significant clinical improvement, I believe patient is now a candidate for discharge. Medication Administration(s) Medication Administration History Hydrocodone Bitart/Acetaminophen (Hydrocodone/Apap 5/325 Tablet) 1 tab PO X1 ONE Stop: 06/03/25 15:16 Nitrofurantoin Macrocrystals (Nitrofurantoin Macro 100 Mg Capsule) 100 mg PO X1 ONE Stop: 06/03/25 15:16
[2025-06-03] MEDS: HYDROcodone/APAP 5/325 TABLET 1 TAB PO (15:29)
[2025-06-03] MEDS: NITROFURANTOIN MACRO 100 MG CAPSULE PO (15:29)
== END 2025-06-03 15:31 | disposition home or self-care (01) ==
PROVIDERS: Nurse Practitioner Primary Care; Emergency Provider Family Medicine
DX: N39.0 Urinary tract infection, site not specified (principal); R07.9 Chest pain, unspecified; R94.31 Abnormal electrocardiogram [ECG] [EKG]
CPT/HCPCS: 36415; 71046; 80053; 81001; 83690; 84484; 85025; 87077; 87086; 87186; 93005; 99283; A9270

== ENCOUNTER 2025-06-06 18:17 | Emergency (ER) | payer OTHER, MEDICAID, SELFPAY ==
[2025-06-06 18:18] VITALS: BMI 28.7
[2025-06-06 19:29] VITALS: BP 109/75; PULSE 96; RESP 18; TEMP 36.3; O2SAT 95
[2025-06-06] MEDS: KETOROLAC INJ 60 MG/2 ML VIAL 30 MG IM (20:11)
[2025-06-06 20:48] LABS: Lactate (Lactic Acid) 3.2 mMol/L (0.4-2.0)
[2025-06-06 20:49] LABS: Basophils # (Auto) 0.0 Thou/mm3 (0.0-0.2); Basophils % (Auto) 0 % (0-2.5); Eosinophils # (Auto) 0.0 Thou/mm3 (0.0-0.5); Eosinophils % (Auto) 0 % (0-10); Hematocrit 47.9 % (36.0-46.0); Hemoglobin 16.0 g/dL (12.0-16.0); Immature Granulocytes Auto 0.01 Thou/mm3 (0.00-0.00); Lymphocytes # (Auto) 1.2 Thou/mm3 (1.0-4.8); Lymphocytes % (Auto) 18 % (10-50); Mean Corpuscular HGB Conc 33.4 g/dl (31.0-37.0); Mean Corpuscular Hemoglobin 28.1 pg (25.0-35.0); Mean Corpuscular Volume 84 fL (80-100); Monocytes # (Auto) 0.2 Thou/mm3 (0.0-0.8); Monocytes % (Auto) 3 % (0-12); Neutrophils # (Auto) 5.2 Thou/mm3 (1.8-7.7); Neutrophils % (Auto) 78 % (37-80); Nucleated Red Blood Cell # 0.00 Thou/mm3 (0.00-0.00); Nucleated Red Blood Cell % 0 /100 WBC (0); Platelet Count 353 Thou/mm3 (140-440); RDW Standard Deviation 45.0 fL (36.4-46.3); Red Blood Count 5.69 Miln/mm3 (4.00-5.20); White Blood Count 6.7 Thou/mm3 (3.6-11.0)
[2025-06-06 21:24] LABS: Alanine Aminotransferase 10 U/L (10-49); Albumin, Serum 3.9 gm/dL (3.5-5.0); Albumin/Globulin Ratio 1.3 (1.2-2.2); Alkaline Phosphatase 169 U/L (46-116); Anion Gap 9 (7-16); Aspartate Amino Transferase 15 U/L (0-34); BUN/Creatinine Ratio 6 Ratio (12-20); Bilirubin,Total 0.6 mg/dL (0.3-1.2); Blood Urea Nitrogen < 5 mg/dL (9-23); Calcium 9.6 mg/dL (8.3-10.6); Calcium (Corrected) 9.7 mg/dL (8.5-10.1); Carbon Dioxide 23.7 mMol/L (20.0-31.0); Chloride 105 mMol/L (98-107); Creatinine (Component) 0.8 mg/dL (0.6-1.3); Estimated Creatinine Clearance 66.1 mL/min (>60); Globulin 2.9 gm/dL (2.3-3.5); Glucose 175 mg/dL (74-106); Osmolality,Calculated 276 (275-295); Potassium 3.8 mMol/L (3.4-5.1); Procalcitonin < 0.04 ng/ml (0.0-0.49); Sodium 138 mMol/L (136-145); Total Protein 6.8 gm/dL (5.7-8.2); eGFR > 60 See Note
[2025-06-06 21:38] LABS: Collection Type, Urine Clean Catch
[2025-06-06 21:54] LABS: Bacteria,Urine 3+; Bilirubin,Urine Negative (Negative); Blood,Urine Negative (Negative); Clarity,Urine Clear (Clear/Hazy); Color,Urine Lt-Yellow (Lt Yel-Yel); Glucose, Urine Negative (Negative); Ketones,Urine Negative (Negative); Leukocyte Esterase,Urine Positive (Negative); Nitrite,Urine Positive (Negative); PH,Urine 6.0 (5.0-7.0); Protein,Urine Negative (Neg - Trace); RBC,Urine 1 /hpf (0-3); Specific Gravity,Urine 1.007 (1.001-1.035); Squamous Epithelial Cell,Urine < 1 /hpf (0-5); Urobilinogen,Urine Negative mg/dL (0.0-1.0); WBC,Urine 10 /hpf (0-5)
[2025-06-06 21:55] LABS: Culture Indicated,Urine Yes
[2025-06-06 22:26] LABS: Amphetamine/Methamp Scrn,U Negative (Negative); Barbiturate Screen,Urine Negative (Negative); Benzodiazepines Screen,Urine Negative (Negative); Benzoylecgonine Screen, Ur Negative (Negative); Fentanyl Screen,Urine Negative (Negative); Opiate Screen,Urine Negative (Negative); THC Screen,Urine Negative (Negative)
[2025-06-06 22:37] LABS: C-Reactive Protein < 0.5 mg/dL (0.0-0.9)
--- NOTE | 2025-06-06 22:47 | EDNOTE_ITS ---
ED General RME/HPI General Chief complaint: General Adult/Misc Complain Stated complaint: FEELING FAINT X 3 DAYS Time Seen by Provider: 06/06/25 18:37 Arrival date/time: 06/06/25 18:17 RME / HPI RME / HPI narrative: 59-year-old female presents to the ED with a complaint of feeling faint for the past 3 days. She was diagnosed with a UTI 3 days ago and was prescribed cephalexin. She states she is taking this medication as prescribed but still has left flank pain. She has had no documented temperature but is felt chilled. No nausea or vomiting, or abdominal pain, only left flank pain Related Data Home Medications ?Medication ?Instructions ?Recorded ?Confirmed glipizide 5 mg tablet 5 mg PO BID 06/10/19 0 levothyroxine 25 mcg tablet 25 mcg PO QDAY 06/10/19 atorvastatin 40 mg tablet 40 mg PO HS 11/22/19 0 duloxetine 60 mg capsule,delayed 60 mg PO QDAY 0 03/19/20 release gabapentin 300 mg capsule 300 mg PO TID 03/19/2003/19 hydrochlorothiazide 12.5 mg capsule 12.5 mg PO QAM 03/19/20 hydrocodone 5 mg-acetaminophen 325 1 tab PO Q4H PRN Pa in 03/19/20 03/19/20 mg tablet omeprazole 40 mg capsule,delayed 40 mg PO QDAY 0 03/19/20 release prednisone 10 mg tablet 30 mg PO QDAY 03/19/2003/19 risperidone 2 mg tablet 2 mg PO BID 03/19/20 0 Previous Rx's ?Medication ?Instructions ?Recorded metronidazole 500 mg tablet 500 mg PO Q8H #20 tabs acetaminophen 325 mg tablet 650 mg (2 x 325 mg) PO Q4H #60 tabs 03/26/20 (Tylenol) hydrocodone 5 mg-acetaminophen 325 1 tab PO BID PRN pa in #6 tabs 12/30/21 mg tablet psyllium 1 tbsp PO QDAY #300 grams albuterol sulfate 90 mcg/actuation 2 inh inhalation QI D PRN shortness 09/26/24 aerosol inhaler of breath or wheezing #8.5 g carmenza prednisone 50 mg tablet 50 mg PO QDAY #3 tabs fluconazole 150 mg tablet 150 mg PO Q3D 2 doses #2 tab s 09/27/24 albuterol sulfate 90 mcg/actuation 2 puff inhalation Q 6H PRN 02/19/25 aerosol inhaler shortness of breath or wheez ing #8.5 grams lidocaine 4 % topical patch 1 patch topical QID PRN pa in #15 ea 03/15/25 (Lidocaine Pain Relief) cephalexin 500 mg capsule 500 mg PO TID #15 caps 05/15 ibuprofen 600 mg tablet 600 mg PO Q8H PRN pain #30 t abs 06/03/25 nitrofurantoin 100 mg PO Q12H 7 days #14 ca ps 06/03/25 monohydrate/macrocrystals 100 mg capsule (Macrobid) sulfamethoxazole 800 1 tab PO BID #10 tabs mg-trimethoprim 160 mg tablet (Bactrim DS) Allergies Allergy/AdvReac Type Severity Reaction Status Date / Time levofloxacin (From LevTactileuin) Allergy Severe Swelling Verified 06/06/25 18:20 of Lip/Tongue/Throat methotrexate Allergy Severe Redness of Verified 06/06/25 18:20 Skin Review of Systems Review of Systems Systems Reviewed: All systems reviewed, normal except as documented Past Medical History Past Medical History NEUROLOGIC: Positive Neurological Disorders and Nunez's Palsy CARDIAC: Positive Atrial Fibrillation, Angina, Atherosclerotic Heart Disease, Hypercholesterolemia, Congestive Heart Failure and Hypertension; Negative Cardiac Disorders RESPIRATORY: Positive Chronic Obstructive Pulmonary Disease (COPD), Asthma and Pneumonia GASTROINTESTINAL: Positive Gastrointestinal Disorders (umbilicl hernia), Gall Bladder Disease, Gastrointestinal Bleed, Diverticulitis, Ulcer, Irritable Bowel, Hiatal Hernia and Gastroesophageal Reflux Disease GENITOURINARY: Positive Genitourinary Disorders, Renal Disease and Kidney Stones REPRODUCTIVE: Positive Endometriosis and Previous Pregnancies MUSCULOSKELETAL: Positive Musculoskeletal Disorders, Rheumatoid Arthritis and Fractures ENT: Positive Cataracts and Glaucoma ENDOCRINE: Positive Endocrine Disorders, Diabetes Mellitus Type 2 and Hypothyroidism; Negative Diabetes Mellitus Type 1 HEMATOLOGIC: Positive Blood Disorders, Anemia and Sickle Cell Disease PSYCHO/SOCIAL: Positive Schizophrenia OTHER HISTORY: Positive Rubella (Welsh Measles) and Cervical Cancer; Negative Autoimmune Disease Family History FAMILY HISTORY: Positive Family Psychiatric Problems, Family Cardiac Disorders and Family Gastrointestinal Problems; Negative Family Respiratory Disorders, Family Cancer or Family Surgery Surgical History SURGICAL: Positive Angiogram, Abdominal Surgery and Tubal Ligation Social History SMOKING STATUS: Never smoker SECOND HAND EXPOSURE: No SUBSTANCE USE: methamphetamine ED Exam Narrative Physical exam: A&O, afebrile and non-toxic appearing 59-year-old female, no acute distress. Lung are clear, RRR, Abdomen is soft, nontender, and non-distended. Positive tenderness to the left flank. Positive bilateral CVA tenderness. Moves all extremities well. Course Course Course Narrative: She was given Toradol 30 mg IM. COVID and influenza swabs were obtained and are negative. CBC reveals a normal white count of 6.7, normal hemoglobin of 16.0 and elevated hematocrit of 47.9 with normal platelets. CRP is normal at less than 0.5. Procalcitonin is normal at less than 0.04. Chemistry panel reveals normal electrolytes with the exception of an elevated glucose of 175. Renal panel and LFTs are normal with the exception of an elevated alk phos of 169. Urinalysis reveals clear light yellow urine with a specific gravity of 1.007 with positive nitrites and positive leukocyte esterase, 1 RBC, 10 WBCs and 3+ bacteria. Urine drug screen is negative She was previously prescribed cephalexin and her culture grew Klebsiella which is sensitive to cephalosporins. However since she is still symptomatic, I will change her antibiotic to Bactrim DS. She was given her first dose of Bactrim while here in the ED. Quality Measures none Orders Category Date Time Status Bedside COVID-19 Antigen Test NOW Care 06/06/25 19:55 Active Bedside Influenza A&B Antigen Test NOW Care 06/06/25 19:56 Completed Blood Culture (Lab) Stat Lab 06/06/25 20:24 Received CBC Stat Lab 06/06/25 20:24 Completed CMP [Comprehensive Metabolic Panel] Stat Lab 06/06/25 20:24 Completed CRP [C-Reactive Protein] Stat Lab 06/06/25 20:24 Completed Drug Screen,Urine Stat Lab 06/06/25 21:25 Completed Lactic Acid [Lactate (Lactic Acid)] Stat Lab 06/06/25 20:24 Results Procalcitonin Stat Lab 06/06/25 20:24 Completed Urinalysis, C/S if Indicated Stat Lab 06/06/25 21:25 Completed Urine Culture Stat Lab 06/06/25 21:25 Received Ketorolac Inj [Toradol Inj] Med 06/06/25 19:58 Discontinued 30 mg IM X1 ONE Vital Signs Vital signs: Vital Signs Temperature 97.4 F 06/06/25 19:29 Pulse Rate 96 06/06/25 19:29 Respiratory Rate 18 06/06/25 19:29 Blood Pressure 109/75 06/06/25 19:29 Pulse Oximetry (%) 95 06/06/25 19:29 Oxygen Delivery Method Room Air 06/06/25 19:29 Discharge Plan Plan Patient Disposition: HOME (Self Care) Discharge Disposition comment: Stable Prescriptions/Referrals Prescriptions/Med Rec: New sulfamethoxazole-trimethoprim [Bactrim DS] 800-160 mg tablet 1 tab PO BID Qty: 10 0RF No Action levothyroxine 25 mcg Tablet 25 mcg PO QDAY glipizide 5 mg Tablet 5 mg PO BID prednisone 10 mg tablet 30 mg PO QDAY Rx Instructions: START DATE 03/06/20 hydrocodone-acetaminophen 5-325 mg tablet 1 tab PO Q4H PRN (Reason: Pain) omeprazole 40 mg capsule,delayed release(DR/EC) 40 mg PO QDAY risperidone 2 mg tablet 2 mg PO BID hydrochlorothiazide 12.5 mg capsule 12.5 mg PO QAM gabapentin 300 mg capsule 300 mg PO TID duloxetine 60 mg capsule,delayed release(DR/EC) 60 mg PO QDAY metronidazole 500 mg tablet 500 mg PO Q8H Qty: 20 0RF atorvastatin 40 mg tablet 40 mg PO HS Patient Comments: take 1 tablet by mouth at bedtime acetaminophen [Tylenol] 325 mg tablet 650 mg PO Q4H Qty: 60 0RF hydrocodone-acetaminophen 5-325 mg tablet 1 tab PO BID MDD 10 PRN (Reason: pain) Qty: 6 0RF fluconazole 150 mg tablet 150 mg PO Q3D Qty: 2 0RF albuterol sulfate 90 mcg/actuation HFA aerosol inhaler 2 puff inhalation Q6H PRN (Reason: shortness of breath or wheezing) Qty: 8.5 0RF lidocaine [Lidocaine Pain Relief] 4 % adhesive patch,medicated 1 patch topical QID PRN (Reason: pain) Qty: 15 0RF nitrofurantoin monohyd/m-cryst [Macrobid] 100 mg capsule 100 mg PO Q12H 7 Days Qty: 14 0RF Rx Instructions: must administer with a meal/food ibuprofen 600 mg tablet 600 mg PO Q8H PRN (Reason: pain) Qty: 30 0RF psyllium Powder 1 tbsp PO QDAY Qty: 300 0RF Rx Instructions: mix into at least 8 oz of water or juice before administering albuterol sulfate 90 mcg/actuation HFA aerosol inhaler 2 inh inhalation QID PRN (Reason: shortness of breath or wheezing) Qty: 8.5 0RF prednisone 50 mg tablet 50 mg PO QDAY Qty: 3 0RF cephalexin 500 mg capsule 500 mg PO TID Qty: 15 0RF Referrals: No Primary/Family,Physician [Primary Care Provider] - In 1 week Problem List Clinical Impression: UTI (urinary tract infection) Patient/Caregiver Discharge Instructions Education Materials: Urinary Tract Infections in Women, ED Flank Pain, Uncertain Cause, ED CYSTITIS Female Adult Additional Instructions: Take the antibiotics as prescribed and complete the course even though you may be feeling better. Follow-up with your primary care physician in 24 to 48 hours. Return to the ED for any new or worsening symptoms. Print Language: Georgian Stand Alone Forms: [employer] Award Info., Patient Portal Info Letter PA/TURNER MACHINE Supervising Physician PA/TURNER MACHINE Supervising Physician: Dr Hills [facility] Narrative [facility] hospital course: Symptoms, exam and diagnostic studies are consistent with: Continued urinary tract infection with left flank discomfort. Patient was discharged home in stable condition. Her antibiotics were changed from cephalexin to Bactrim DS, both sensitive to Klebsiella pneumoniae. Patient/family advised to follow-up with their PCP in 24-48 hours. Encouraged to return to the ED for any new or worsening symptoms. Clinical Information Provided by patient Medical Records Reviewed [facility] Meds/Rx Considered, not Ordered None Describe details: N/A Labs/Rad/Tests considered, not Ordered Describe details: As noted above Chronic Illness/Social Conditions which may negatively complicate care or outcome(s)-explain: ETOH/drugs/substance abuse and Genetic/metabolic disorder EKG EKG not done Lab Interpretation Labs: interpreted by me and see narrative above Lab(s) interpretation(s): As noted above Imaging Imaging interpretation: none Provider imaging interpretation(s): N/A Radiology reports / interpretation(s): N/A Medication Administration(s) Medication Administration History Discontinued Medications Ketorolac Tromethamine (Ketorolac Inj 60 Mg/2 Ml Vial) 30 mg IM X1 ONE Stop: 06/06/25 19:59 Last Admin: 06/06/25 20:11 Dose: 30 mg Documented By: NATHEN Toradol 30 mg IM and Cipro 500 mg p.o. Diagnosis Differential diagnosis: Electrolyte imbalance, pyelonephritis, UTI, renal calculi, viral illness Most likely dx, and/or detailed dx discussion: UTI Dispositon Disposition: Discharge Home Disposition comments: Patient is stable for discharge
[2025-06-06 23:44] LABS: Reflex Lactate? Y
[2025-06-07] MEDS: TRIMETHOPRIM/SULFA 160/800 DS TABLET 1 TAB PO (00:04)
[2025-06-07 00:11] VITALS: BP 112/70; PULSE 76; RESP 18; TEMP 37; O2SAT 98
== END 2025-06-07 00:12 | disposition home or self-care (01) ==
PROVIDERS: Physician Assistant; Emergency Provider Emergency Medicine
DX: N39.0 Urinary tract infection, site not specified (principal); B96.1 Klebsiella pneumoniae [K. pneumoniae] as the cause of diseases classified elsewhere
CPT/HCPCS: 36415; 80053; 80307; 81001; 83605; 84145; 85025; 86140; 87040; 87077; 87086; 87186; 87400; 87811; 96372; 99283; J1885; A9270

== ENCOUNTER 2025-06-17 11:44 | Emergency (ER) | payer OTHER, MEDICAID, SELFPAY ==
[2025-06-17 11:45] VITALS: PULSE 82; RESP 18; O2SAT 99
[2025-06-17 12:11] VITALS: BP 118/81; PULSE 79; RESP 16; TEMP 37.1; O2SAT 97; BMI 28.9
--- NOTE | 2025-06-17 12:28 | EDNOTE_ITS ---
<Statement entered by Maryam Yeager MD - 07/03/25 06:23> As co-signing physician, I was present and available for consult prn. I concur with the plan and care as documented by the midlevel provider. ED Anxiety RME/HPI General Chief Complaint: Anxiety Stated Complaint: Anxiety after [facility] was at her house Time Seen by Provider: 06/17/25 12:10 Arrival date/time: 06/17/25 11:44 This is a 59-year-old female that comes into the emergency room with complaints of anxiety. Patient states that she was just told that they need to move out of their house and this made her very anxious. Patient states she has history of anxiety. Patient has taken different medications for anxiety in the past but is no longer taking anything right now. Patient does have a history of diabetes and mood disorder. Related Data Home Medications ?Medication ?Instructions ?Recorded ?Confirmed glipizide 5 mg tablet 5 mg PO BID 06/10/19 0 levothyroxine 25 mcg tablet 25 mcg PO QDAY 06/10/19 atorvastatin 40 mg tablet 40 mg PO HS 11/22/19 0 duloxetine 60 mg capsule,delayed 60 mg PO QDAY 0 03/19/20 release gabapentin 300 mg capsule 300 mg PO TID 03/19/2003/19 hydrochlorothiazide 12.5 mg capsule 12.5 mg PO QAM 03/19/20 hydrocodone 5 mg-acetaminophen 325 1 tab PO Q4H PRN Pa in 03/19/20 03/19/20 mg tablet omeprazole 40 mg capsule,delayed 40 mg PO QDAY 0 03/19/20 release prednisone 10 mg tablet 30 mg PO QDAY 03/19/2003/19 risperidone 2 mg tablet 2 mg PO BID 03/19/20 0 Previous Rx's ?Medication ?Instructions ?Recorded metronidazole 500 mg tablet 500 mg PO Q8H #20 tabs acetaminophen 325 mg tablet 650 mg (2 x 325 mg) PO Q4H #60 tabs 03/26/20 (Tylenol) hydrocodone 5 mg-acetaminophen 325 1 tab PO BID PRN pa in #6 tabs 12/30/21 mg tablet psyllium 1 tbsp PO QDAY #300 grams albuterol sulfate 90 mcg/actuation 2 inh inhalation QI D PRN shortness 09/26/24 aerosol inhaler of breath or wheezing #8.5 g carmenza prednisone 50 mg tablet 50 mg PO QDAY #3 tabs fluconazole 150 mg tablet 150 mg PO Q3D 2 doses #2 tab s 09/27/24 albuterol sulfate 90 mcg/actuation 2 puff inhalation Q 6H PRN 02/19/25 aerosol inhaler shortness of breath or wheez ing #8.5 grams lidocaine 4 % topical patch 1 patch topical QID PRN pa in #15 ea 03/15/25 (Lidocaine Pain Relief) cephalexin 500 mg capsule 500 mg PO TID #15 caps 05/15 ibuprofen 600 mg tablet 600 mg PO Q8H PRN pain #30 t abs 06/03/25 sulfamethoxazole 800 1 tab PO BID #10 tabs mg-trimethoprim 160 mg tablet (Bactrim DS) Allergies Allergy/AdvReac Type Severity Reaction Status Date / Time levofloxacin (From Levaquin) Allergy Severe Swelling Verified 06/17/25 11:50 of Lip/Tongue/Throat methotrexate Allergy Severe Redness of Verified 06/17/25 11:50 Skin Review of Systems Review of Systems Systems Reviewed: All systems reviewed, normal except as documented Past Medical History Past Medical History NEUROLOGIC: Positive Neurological Disorders and Nunez's Palsy CARDIAC: Positive Atrial Fibrillation, Angina, Atherosclerotic Heart Disease, Hypercholesterolemia, Congestive Heart Failure and Hypertension; Negative Cardiac Disorders RESPIRATORY: Positive Chronic Obstructive Pulmonary Disease (COPD), Asthma and Pneumonia GASTROINTESTINAL: Positive Gastrointestinal Disorders (umbilicl hernia), Gall Bladder Disease, Gastrointestinal Bleed, Diverticulitis, Ulcer, Irritable Bowel, Hiatal Hernia and Gastroesophageal Reflux Disease GENITOURINARY: Positive Genitourinary Disorders, Renal Disease and Kidney Stones REPRODUCTIVE: Positive Endometriosis and Previous Pregnancies MUSCULOSKELETAL: Positive Musculoskeletal Disorders, Rheumatoid Arthritis and Fractures ENT: Positive Cataracts and Glaucoma ENDOCRINE: Positive Endocrine Disorders, Diabetes Mellitus Type 2 and Hypothyroidism; Negative Diabetes Mellitus Type 1 HEMATOLOGIC: Positive Blood Disorders, Anemia and Sickle Cell Disease PSYCHO/SOCIAL: Positive Schizophrenia OTHER HISTORY: Positive Rubella (Bulgar[place] Measles) and Cervical Cancer; Negative Autoimmune Disease Family History FAMILY HISTORY: Positive Family Psychiatric Problems, Family Cardiac Disorders and Family Gastrointestinal Problems; Negative Family Respiratory Disorders, Family Cancer or Family Surgery Surgical History SURGICAL: Positive Angiogram, Abdominal Surgery and Tubal Ligation Social History SMOKING STATUS: Never smoker SECOND HAND EXPOSURE: No SUBSTANCE USE: methamphetamine ED Exam Narrative Physical exam: VITAL SIGNS: Reviewed. GENERAL APPEARANCE: Alert and interactive, follows commands, no acute distress, HEAD AND FACE: Non-traumatic. ENT: PERRL, conjuctiva pink and clear, eyelid no trauma, Mucous membrane moist. NECK: Supple, nontender, no nuchal rigidity. CHEST: No tenderness, no crepitus, no paradoxical movement, no retractions. LUNGS: Clear, well ventilated, symmetric, no rales, no wheezing, no rhonchi, no stridor, good breath sounds bilaterally. HEART: Regular rate, regular rhythm, no murmur, no gallops. ABDOMEN: Soft, nondistended, no guarding, nontender NEUROLOGICAL: Gross motor function intact sensory function intact, Appropriate for age. MUSCULOSKELETAL: low back nontender, full range of motion. EXTREMITIES: No redness no swelling no skin breakdown on bilateral foot and leg. Distal neurovascular status intact bilateral foot SKIN: Color pink, dry, no rash, no lacerations, no abrasions, no contusions. Course Quality Measures none Vital Signs Vital signs: Vital Signs Temperature 98.7 F 06/17/25 12:11 Pulse Rate 79 06/17/25 12:11 Respiratory Rate 16 06/17/25 12:11 Blood Pressure 118/81 06/17/25 12:11 Pulse Oximetry (%) 97 06/17/25 12:11 Oxygen Delivery Method Room Air 06/17/25 12:11 Anxiety MDM Narrative MDM Narrative: I spoke to patient at length. Patient does not want EKG chest x-ray or any other test done. Patient states that she just wants something to help her with her anxiety. Patient states that if her symptoms change or worsen she will come back to the emergency room but at this time she just wanted something to help her with her anxiety. Patient verbalized understanding that if her symptoms change or worsen to come back to the emergency room. I will give patient a dose of Ativan and send patient home. I did tell her to make sure she follows up with her primary doctor for this problem. Patient data External records reviewed:: [facility] previous records Clinical information provided by:: patient Social determinants that could affect healthcare access:: none Patient has the following chronic illnesses:: None How is presenting disease/condition affected by chronic disease/condition?: no chronic disease Evaluation data The following diagnostics were reviewed and interpreted by me:: other (specify) (None) Lab and/or radiology exams considered but not ordered:: None Interpretation Summary: See note Medications / Prescriptions Medications or Prescriptions considered but not ordered:: EKG Medication administrations:: See MAR Consultations Consultation(s) initiated? (list below): No Diagnosis Differential diagnosis anxiety: panic disorder, acute anxiety and other (Adjustment disorder) Most likely diagnosis given after review of the tests above:: Anxiety attack Admission Indicated Admission indicated?: not indicated Admission Request Was there a request for admission?: No Disposition Plan Disposition Plan: Discharge Discharge Attestation Discharge Attestation: The patient and all family members were given an opportunity to ask questions and understood the discharge instructions. Discharge instructions specifically effects, indications for sooner follow up or return to the emergency department, and the expected course of current diagnosis. Patient condition: Stable Discharge Plan Plan Patient Disposition: HOME (Self Care) Patient condition on transfer: Stable Prescriptions/Referrals Prescriptions/Med Rec: No Action levothyroxine 25 mcg Tablet 25 mcg PO QDAY glipizide 5 mg Tablet 5 mg PO BID prednisone 10 mg tablet 30 mg PO QDAY Rx Instructions: START DATE 03/06/20 hydrocodone-acetaminophen 5-325 mg tablet 1 tab PO Q4H PRN (Reason: Pain) omeprazole 40 mg capsule,delayed release(DR/EC) 40 mg PO QDAY risperidone 2 mg tablet 2 mg PO BID hydrochlorothiazide 12.5 mg capsule 12.5 mg PO QAM gabapentin 300 mg capsule 300 mg PO TID duloxetine 60 mg capsule,delayed release(DR/EC) 60 mg PO QDAY metronidazole 500 mg tablet 500 mg PO Q8H Qty: 20 0RF atorvastatin 40 mg tablet 40 mg PO HS Patient Comments: take 1 tablet by mouth at bedtime acetaminophen [Tylenol] 325 mg tablet 650 mg PO Q4H Qty: 60 0RF hydrocodone-acetaminophen 5-325 mg tablet 1 tab PO BID MDD 10 PRN (Reason: pain) Qty: 6 0RF fluconazole 150 mg tablet 150 mg PO Q3D Qty: 2 0RF albuterol sulfate 90 mcg/actuation HFA aerosol inhaler 2 puff inhalation Q6H PRN (Reason: shortness of breath or wheezing) Qty: 8.5 0RF lidocaine [Lidocaine Pain Relief] 4 % adhesive patch,medicated 1 patch topical QID PRN (Reason: pain) Qty: 15 0RF ibuprofen 600 mg tablet 600 mg PO Q8H PRN (Reason: pain) Qty: 30 0RF sulfamethoxazole-trimethoprim [Bactrim DS] 800-160 mg tablet 1 tab PO BID Qty: 10 0RF psyllium Powder 1 tbsp PO QDAY Qty: 300 0RF Rx Instructions: mix into at least 8 oz of water or juice before administering albuterol sulfate 90 mcg/actuation HFA aerosol inhaler 2 inh inhalation QID PRN (Reason: shortness of breath or wheezing) Qty: 8.5 0RF prednisone 50 mg tablet 50 mg PO QDAY Qty: 3 0RF cephalexin 500 mg capsule 500 mg PO TID Qty: 15 0RF Problem List Clinical Impression: Anxiety Patient/Caregiver Discharge Instructions Discharge Activity: activity as tolerated Education Materials: ED Anxiety Reaction Additional Instructions: Follow up with primary provider in 1-2 days. Come back to ED if symptoms change or worsen Print Language: Czech Stand Alone Forms: [employer] Award Info., Patient Portal Info Letter PA/HEAD RIGGER Supervising Physician PA/HEAD RIGGER Supervising Physician: gabe
== END 2025-06-17 13:14 | disposition home or self-care (01) ==
LOC: SERX 12:54
PROVIDERS: Emergency Provider Emergency Medicine
DX: F41.9 Anxiety disorder, unspecified (principal); Z59.89 Other problems related to housing and economic circumstances; E11.9 Type 2 diabetes mellitus without complications; Z79.84 Long term (current) use of oral hypoglycemic drugs
CPT/HCPCS: 99282; A9270

== ENCOUNTER 2025-07-04 14:22 | Emergency (ER) | payer OTHER, MEDICAID, SELFPAY ==
[2025-07-04 14:46] VITALS: BP 106/71; PULSE 92; RESP 18; TEMP 37.1; O2SAT 96
--- NOTE | 2025-07-04 14:53 | EDNOTE_ITS ---
<Statement entered by Maryam Yeager MD - 07/15/25 11:13> As co-signing physician, I was present and available for consult prn. I concur with the plan and care as documented by the midlevel provider. ED General RME/HPI General Chief complaint: Chest Pain Stated complaint: CHEST PAIN, BACK PAIN Time Seen by Provider: 07/04/25 14:51 Arrival date/time: 07/04/25 14:22 CC: Nasal congestion chest congestion cough with chest pain HPI ongoing for the past 3 days has been sick with similar complaints. Patient denies nausea vomiting fever chills no OTC medicine including ibuprofen or Tylenol taken. Related Data Home Medications ?Medication ?Instructions ?Recorded ?Confirmed glipizide 5 mg tablet 5 mg PO BID 06/10/19 0 levothyroxine 25 mcg tablet 25 mcg PO QDAY 06/10/19 atorvastatin 40 mg tablet 40 mg PO HS 11/22/19 0 duloxetine 60 mg capsule,delayed 60 mg PO QDAY 0 03/19/20 release gabapentin 300 mg capsule 300 mg PO TID 03/19/2003/19 hydrochlorothiazide 12.5 mg capsule 12.5 mg PO QAM 03/19/20 hydrocodone 5 mg-acetaminophen 325 1 tab PO Q4H PRN Pa in 03/19/20 03/19/20 mg tablet omeprazole 40 mg capsule,delayed 40 mg PO QDAY 0 03/19/20 release prednisone 10 mg tablet 30 mg PO QDAY 03/19/2003/19 risperidone 2 mg tablet 2 mg PO BID 03/19/20 0 Previous Rx's ?Medication ?Instructions ?Recorded metronidazole 500 mg tablet 500 mg PO Q8H #20 tabs acetaminophen 325 mg tablet 650 mg (2 x 325 mg) PO Q4H #60 tabs 03/26/20 (Tylenol) hydrocodone 5 mg-acetaminophen 325 1 tab PO BID PRN pa in #6 tabs 12/30/21 mg tablet psyllium 1 tbsp PO QDAY #300 grams albuterol sulfate 90 mcg/actuation 2 inh inhalation QI D PRN shortness 09/26/24 aerosol inhaler of breath or wheezing #8.5 g carmenza prednisone 50 mg tablet 50 mg PO QDAY #3 tabs fluconazole 150 mg tablet 150 mg PO Q3D 2 doses #2 tab s 09/27/24 albuterol sulfate 90 mcg/actuation 2 puff inhalation Q 6H PRN 02/19/25 aerosol inhaler shortness of breath or wheez ing #8.5 grams lidocaine 4 % topical patch 1 patch topical QID PRN pa in #15 ea 03/15/25 (Lidocaine Pain Relief) cephalexin 500 mg capsule 500 mg PO TID #15 caps 05/15 ibuprofen 600 mg tablet 600 mg PO Q8H PRN pain #30 t abs 06/03/25 sulfamethoxazole 800 1 tab PO BID #10 tabs mg-trimethoprim 160 mg tablet (Bactrim DS) Allergies Allergy/AdvReac Type Severity Reaction Status Date / Time levofloxacin (From [email or web address]) Allergy Severe Swelling Verified 07/04/25 14:26 of Lip/Tongue/Throat methotrexate Allergy Severe Redness of Verified 07/04/25 14:26 Skin Review of Systems Review of Systems Narrative Review of Systems: GEN: No fever, no chills, no weight loss EYES: No discharge, no visual changes, no pain HEENT: No ear pain, no congestion, no sore throat PULM: No shortness of breath, no cough, no congestion CV: No chest pain, no dyspnea on exertion, no palpitations GI: No nausea, no vomiting, no diarrhea, no pain, no constipation : No frequency, no urgency, no dysuria MUSC/SKEL: No joint pain, no back pain SKIN: No rash PSYCH: No hallucinations, no depression HEME/LYMPH: No easy bleeding or bruising tendencies NEURO: No weakness, no headache Past Medical History Past Medical History NEUROLOGIC: Positive Neurological Disorders and Nunez's Palsy CARDIAC: Positive Atrial Fibrillation, Angina, Atherosclerotic Heart Disease, Hypercholesterolemia, Congestive Heart Failure and Hypertension; Negative Cardiac Disorders RESPIRATORY: Positive Chronic Obstructive Pulmonary Disease (COPD), Asthma and Pneumonia GASTROINTESTINAL: Positive Gastrointestinal Disorders (umbilicl hernia), Gall Bladder Disease, Gastrointestinal Bleed, Diverticulitis, Ulcer, Irritable Bowel, Hiatal Hernia and Gastroesophageal Reflux Disease GENITOURINARY: Positive Genitourinary Disorders, Renal Disease and Kidney Stones REPRODUCTIVE: Positive Endometriosis and Previous Pregnancies MUSCULOSKELETAL: Positive Musculoskeletal Disorders, Rheumatoid Arthritis and Fractures ENT: Positive Cataracts and Glaucoma ENDOCRINE: Positive Endocrine Disorders, Diabetes Mellitus Type 2 and Hypothyroidism; Negative Diabetes Mellitus Type 1 HEMATOLOGIC: Positive Blood Disorders, Anemia and Sickle Cell Disease PSYCHO/SOCIAL: Positive Schizophrenia OTHER HISTORY: Positive Rubella (Guyanese Measles) and Cervical Cancer; Negative Autoimmune Disease Family History FAMILY HISTORY: Positive Family Psychiatric Problems, Family Cardiac Disorders and Family Gastrointestinal Problems; Negative Family Respiratory Disorders, Family Cancer or Family Surgery Surgical History SURGICAL: Positive Angiogram, Abdominal Surgery and Tubal Ligation Social History SMOKING STATUS: Current every day smoker SECOND HAND EXPOSURE: No SUBSTANCE USE: methamphetamine ED Exam Narrative Physical exam: [General: Not in any acute distress Head normocephalic HEENT: Within acceptable limits Neck is supple nontender Chest equal chest rise nontender to palpation Respiratory: Clear to auscultation no wheezes crackles or rubs CV: Rate rhythm is regular no murmurs rubs or clicks Abdomen is soft nontender no masses positive bowel sounds all 4 quadrants Back: No CVA tenderness no spinous process tenderness from cervical spine thoracic and lumbar spine Skin: Intact no petechiae rash induration ulceration or crepitus Extremities: Moving all extremity against resistance cap refill less than 2 seconds neurosensory intact Neuro: Awake alert oriented x3 Glascow coma 15 no focal deficits] Course Quality Measures none Orders Category Date Time Status Bedside COVID-19 Antigen Test NOW Care 07/04/25 14:52 Active Bedside Influenza A&B Antigen Test NOW Care 07/04/25 14:52 Completed Acetaminophen Tab [Tylenol Tab] Med 07/04/25 14:52 Discontinued 650 mg PO X1 ONE Vital Signs Vital signs: Vital Signs Temperature 98.8 F 07/04/25 14:46 Pulse Rate 92 07/04/25 14:46 Respiratory Rate 18 07/04/25 14:46 Blood Pressure 106/71 07/04/25 14:46 Pulse Oximetry (%) 96 07/04/25 14:46 Oxygen Delivery Method Room Air 07/04/25 14:46 Discharge Plan Plan Patient Disposition: HOME (Self Care) Patient condition on transfer: Stable Prescriptions/Referrals Prescriptions/Med Rec: No Action levothyroxine 25 mcg Tablet 25 mcg PO QDAY glipizide 5 mg Tablet 5 mg PO BID prednisone 10 mg tablet 30 mg PO QDAY Rx Instructions: START DATE 5/5/20 hydrocodone-acetaminophen 5-325 mg tablet 1 tab PO Q4H PRN (Reason: Pain) omeprazole 40 mg capsule,delayed release(DR/EC) 40 mg PO QDAY risperidone 2 mg tablet 2 mg PO BID hydrochlorothiazide 12.5 mg capsule 12.5 mg PO QAM gabapentin 300 mg capsule 300 mg PO TID duloxetine 60 mg capsule,delayed release(DR/EC) 60 mg PO QDAY metronidazole 500 mg tablet 500 mg PO Q8H Qty: 20 0RF atorvastatin 40 mg tablet 40 mg PO HS Patient Comments: take 1 tablet by mouth at bedtime acetaminophen [Tylenol] 325 mg tablet 650 mg PO Q4H Qty: 60 0RF hydrocodone-acetaminophen 5-325 mg tablet 1 tab PO BID MDD 10 PRN (Reason: pain) Qty: 6 0RF fluconazole 150 mg tablet 150 mg PO Q3D Qty: 2 0RF albuterol sulfate 90 mcg/actuation HFA aerosol inhaler 2 puff inhalation Q6H PRN (Reason: shortness of breath or wheezing) Qty: 8.5 0RF lidocaine [Lidocaine Pain Relief] 4 % adhesive patch,medicated 1 patch topical QID PRN (Reason: pain) Qty: 15 0RF ibuprofen 600 mg tablet 600 mg PO Q8H PRN (Reason: pain) Qty: 30 0RF sulfamethoxazole-trimethoprim [Bactrim DS] 800-160 mg tablet 1 tab PO BID Qty: 10 0RF psyllium Powder 1 tbsp PO QDAY Qty: 300 0RF Rx Instructions: mix into at least 8 oz of water or juice before administering albuterol sulfate 90 mcg/actuation HFA aerosol inhaler 2 inh inhalation QID PRN (Reason: shortness of breath or wheezing) Qty: 8.5 0RF prednisone 50 mg tablet 50 mg PO QDAY Qty: 3 0RF cephalexin 500 mg capsule 500 mg PO TID Qty: 15 0RF Referrals: No Primary/Family,Physician [Primary Care Provider] - In 1 week Khanh Minor MD [Physician] - In 1 week Problem List Clinical Impression: COVID Patient/Caregiver Discharge Instructions Education Materials: COVID-19 Home Care Additional Instructions: Rest, drink plenty of fluids take ibuprofen and Tylenol [id number] for the next 3 days follow-up with your primary care doctor. Print Language: Martiniquais Stand Alone Forms: Hilda Turner Info., Work/School Release, Patient Portal Info Letter PA/TATA Supervising Physician SCOOTER/TATA Supervising Physician: Maxim Keita ENP MDM Clinical Information Provided by patient Medical Records Reviewed [facility] Meds/Rx Considered, not Ordered None Labs/Rad/Tests considered, not Ordered None Chronic Illness/Social Conditions Add or document further as needed: Chronic back pain EKG EKG not done Lab Interpretation Lab(s) interpretation(s): COVID-positive influenza negative Imaging Imaging interpretation: none Medication Administration(s) Medication Administration History Discontinued Medications Acetaminophen (Acetaminophen 325 Mg Tablet) 650 mg PO X1 ONE Stop: 07/04/25 14:53 Last Admin: 07/04/25 15:28 Dose: 650 mg Documented By: OA Diagnosis Differential diagnosis: COVID influenza viral syndrome Dispositon Disposition: Discharge Home
[2025-07-04] MEDS: ACETAMINOPHEN 325 MG TABLET 650 MG PO (15:28)
== END 2025-07-04 16:37 | disposition home or self-care (01) ==
PROVIDERS: Emergency Provider Emergency Medicine
DX: U07.1 COVID-19 (principal)
CPT/HCPCS: 87400; 87811; 99283; A9270

== ENCOUNTER 2025-07-12 12:09 | Emergency (ER) | payer OTHER, MEDICAID, SELFPAY ==
[2025-07-12 12:32] VITALS: BP 105/68; PULSE 92; RESP 18; TEMP 36.3; O2SAT 97
[2025-07-12 12:33] VITALS: BMI 29.5
[2025-07-12 13:07] LABS: Collection Type, Urine Clean Catch
[2025-07-12 13:07] LABS: Basophils # (Auto) 0.0 Thou/mm3 (0.0-0.2); Basophils % (Auto) 0 % (0-2.5); Eosinophils # (Auto) 0.2 Thou/mm3 (0.0-0.5); Eosinophils % (Auto) 2 % (0-10); Hematocrit 48.2 % (36.0-46.0); Hemoglobin 15.7 g/dL (12.0-16.0); Immature Granulocytes Auto 0.04 Thou/mm3 (0.00-0.00); Lymphocytes # (Auto) 2.7 Thou/mm3 (1.0-4.8); Lymphocytes % (Auto) 29 % (10-50); Mean Corpuscular HGB Conc 32.6 g/dl (31.0-37.0); Mean Corpuscular Hemoglobin 28.1 pg (25.0-35.0); Mean Corpuscular Volume 86 fL (80-100); Monocytes # (Auto) 0.6 Thou/mm3 (0.0-0.8); Monocytes % (Auto) 7 % (0-12); Neutrophils # (Auto) 5.7 Thou/mm3 (1.8-7.7); Neutrophils % (Auto) 62 % (37-80); Nucleated Red Blood Cell # 0.00 Thou/mm3 (0.00-0.00); Nucleated Red Blood Cell % 0 /100 WBC (0); Platelet Count 407 Thou/mm3 (140-440); RDW Standard Deviation 44.1 fL (36.4-46.3); Red Blood Count 5.58 Miln/mm3 (4.00-5.20); White Blood Count 9.2 Thou/mm3 (3.6-11.0)
[2025-07-12 13:15] LABS: Bacteria,Urine 1+; Bilirubin,Urine Negative (Negative); Blood,Urine Negative (Negative); Clarity,Urine Clear (Clear/Hazy); Color,Urine Colorless (Lt Yel-Yel); Glucose, Urine Negative (Negative); Ketones,Urine Negative (Negative); Leukocyte Esterase,Urine Positive (Negative); Nitrite,Urine Negative (Negative); PH,Urine 6.5 (5.0-7.0); Protein,Urine Negative (Neg - Trace); RBC,Urine 4 /hpf (0-3); Specific Gravity,Urine 1.005 (1.001-1.035); Squamous Epithelial Cell,Urine 3 /hpf (0-5); Urobilinogen,Urine Negative mg/dL (0.0-1.0); WBC,Urine 58 /hpf (0-5)
[2025-07-12 13:16] LABS: Culture Indicated,Urine Yes
[2025-07-12 13:29] LABS: Alanine Aminotransferase 17 U/L (10-49); Albumin, Serum 4.0 gm/dL (3.5-5.0); Albumin/Globulin Ratio 1.5 (1.2-2.2); Alkaline Phosphatase 141 U/L (46-116); Anion Gap 10 (7-16); Aspartate Amino Transferase 25 U/L (0-34); BUN/Creatinine Ratio 11 Ratio (12-20); Bilirubin,Total 0.6 mg/dL (0.3-1.2); Blood Urea Nitrogen 9 mg/dL (9-23); Calcium 9.2 mg/dL (8.3-10.6); Calcium (Corrected) 9.2 mg/dL (8.5-10.1); Carbon Dioxide 26.0 mMol/L (20.0-31.0); Chloride 106 mMol/L (98-107); Creatinine (Component) 0.8 mg/dL (0.6-1.3); Estimated Creatinine Clearance 67.0 mL/min (>60); Globulin 2.7 gm/dL (2.3-3.5); Glucose 81 mg/dL (74-106); Osmolality,Calculated 280 (275-295); Potassium 3.8 mMol/L (3.4-5.1); Sodium 142 mMol/L (136-145); Total Protein 6.7 gm/dL (5.7-8.2); eGFR > 60 See Note
--- NOTE | 2025-07-12 15:11 | PD.EDADULT ---
ED General RME/HPI General Chief complaint: General Adult/Misc Complain Stated complaint: NOT FEELING WELL Time Seen by Provider: 07/12/25 12:37 Arrival date/time: 07/12/25 12:09 59-year-old female presents to the emergency department today stating that 8 days ago she tested positive for COVID-19 patient reports she would like to be retested for COVID as she still feels body aches. Patient also reports dysuria patient reports no fever nausea or vomiting no abdominal pain Limitations: no limitations Related Data Home Medications ?Medication ?Instructions ?Recorded ?Confirmed glipizide 5 mg tablet 5 mg PO BID 06/10/19 03/19/20 levothyroxine 25 mcg tablet 25 mcg PO QDAY 06/10/19 03/19/20 atorvastatin 40 mg tablet 40 mg PO HS 11/22/19 03/19/20 duloxetine 60 mg capsule,delayed 60 mg PO QDAY 03/19/20 03/19/20 release gabapentin 300 mg capsule 300 mg PO TID 03/19/20 03/19/20 hydrochlorothiazide 12.5 mg capsule 12.5 mg PO QAM 03/19/20 03/19/20 hydrocodone 5 mg-acetaminophen 325 1 tab PO Q4H PRN Pain 03/19/20 03/19/20 mg tablet omeprazole 40 mg capsule,delayed 40 mg PO QDAY 03/19/20 03/19/20 release prednisone 10 mg tablet 30 mg PO QDAY 03/19/20 03/19/20 risperidone 2 mg tablet 2 mg PO BID 03/19/20 03/19/20 Previous Rx's ?Medication ?Instructions ?Recorded metronidazole 500 mg tablet 500 mg PO Q8H #20 tabs 03/20/20 acetaminophen 325 mg tablet 650 mg (2 x 325 mg) PO Q4H #60 tabs 03/26/20 (Tylenol) hydrocodone 5 mg-acetaminophen 325 1 tab PO BID PRN pain #6 tabs 12/30/21 mg tablet psyllium 1 tbsp PO QDAY #300 grams 03/21/23 albuterol sulfate 90 mcg/actuation 2 inh inhalation QID PRN shortness 09/26/24 aerosol inhaler of breath or wheezing #8.5 grams prednisone 50 mg tablet 50 mg PO QDAY #3 tabs 09/26/24 fluconazole 150 mg tablet 150 mg PO Q3D 2 doses #2 tabs 09/27/24 albuterol sulfate 90 mcg/actuation 2 puff inhalation Q6H PRN 02/19/25 aerosol inhaler shortness of breath or wheezing #8.5 grams lidocaine 4 % topical patch 1 patch topical QID PRN pain #15 ea 03/15/25 (Lidocaine Pain Relief) cephalexin 500 mg capsule 500 mg PO TID #15 caps 05/15/25 ibuprofen 600 mg tablet 600 mg PO Q8H PRN pain #30 tabs 06/03/25 sulfamethoxazole 800 1 tab PO BID #10 tabs 06/06/25 mg-trimethoprim 160 mg tablet (Bactrim DS) cephalexin 500 mg capsule 500 mg PO BID 7 days #14 caps 07/12/25 Allergies Allergy/AdvReac Type Severity Reaction Status Date / Time levofloxacin (From RenéSim) Allergy Severe Swelling Verified 07/12/25 12:12 of Lip/Tongue/Throat methotrexate Allergy Severe Redness of Verified 07/12/25 12:12 Skin Review of Systems Review of Systems Systems Reviewed: All systems reviewed, normal except as documented Constitutional Constitutional: Reports system reviewed and no additional complaints, except as documented, Reports body ache(s), Denies fever(s) and Denies headache(s) Eyes Eyes: Reports system reviewed and no additional complaints, except as documented and Denies blurry vision ENT Ears, Nose, Mouth, and Throat: Reports system reviewed and no additional complaints, except as documented, Denies headache(s), Denies nasal congestion and Denies nasal discharge Cardiovascular Cardiovascular: Reports system reviewed and no additional complaints, except as documented, Denies chest pain and Denies dyspnea Respiratory Respiratory: Reports system reviewed and no additional complaints, except as documented, Denies chest congestion, Denies cough and Denies dyspnea Gastrointestinal Gastrointestinal: Reports system reviewed and no additional complaints, except as documented and Denies abdominal pain Genitourinary Genitourinary: Reports system reviewed and no additional complaints, except as documented and Reports dysuria Integumentary/Breasts Skin/Breast: Reports system reviewed and no additional complaints, except as documented and Denies rash Neurologic Neurologic: Reports system reviewed and no additional complaints, except as documented, Reports as per HPI and Denies headache(s) Past Medical History Past Medical History NEUROLOGIC: Positive Neurological Disorders and Nunez's Palsy CARDIAC: Positive Atrial Fibrillation, Angina, Atherosclerotic Heart Disease, Hypercholesterolemia, Congestive Heart Failure and Hypertension; Negative Cardiac Disorders RESPIRATORY: Positive Chronic Obstructive Pulmonary Disease (COPD), Asthma and Pneumonia GASTROINTESTINAL: Positive Gastrointestinal Disorders (umbilicl hernia), Gall Bladder Disease, Gastrointestinal Bleed, Diverticulitis, Ulcer, Irritable Bowel, Hiatal Hernia and Gastroesophageal Reflux Disease GENITOURINARY: Positive Genitourinary Disorders, Renal Disease and Kidney Stones REPRODUCTIVE: Positive Endometriosis and Previous Pregnancies MUSCULOSKELETAL: Positive Musculoskeletal Disorders, Rheumatoid Arthritis and Fractures ENT: Positive Cataracts and Glaucoma ENDOCRINE: Positive Endocrine Disorders, Diabetes Mellitus Type 2 and Hypothyroidism; Negative Diabetes Mellitus Type 1 HEMATOLOGIC: Positive Blood Disorders, Anemia and Sickle Cell Disease PSYCHO/SOCIAL: Positive Schizophrenia OTHER HISTORY: Positive Rubella (Urdu Measles) and Cervical Cancer; Negative Autoimmune Disease Family History FAMILY HISTORY: Positive Family Psychiatric Problems, Family Cardiac Disorders and Family Gastrointestinal Problems; Negative Family Respiratory Disorders, Family Cancer or Family Surgery Surgical History SURGICAL: Positive Angiogram, Abdominal Surgery and Tubal Ligation Social History SMOKING STATUS: Never smoker SECOND HAND EXPOSURE: No SUBSTANCE USE: methamphetamine ED Exam General Limitations: Present no limitations General appearance: Present alert and in no apparent distress Head Head exam: Present atraumatic Eye Eye exam: Present normal appearance, PERRL and EOMI ENT ENT exam: Present normal exam, normal oropharynx and mucous membranes moist Neck Neck exam: Present normal inspection, full ROM and trachea midline Chest Chest inspection: Present normal inspection and symmetric chest wall rise Respiratory Respiratory exam: Present normal lung sounds bilaterally Cardiovascular Cardiovascular exam: Present regular rate, normal rhythm and normal heart sounds Abdominal Exam Abdominal exam: Present soft and normal bowel sounds Extremities Exam Extremities exam: Present normal inspection and full ROM Back Exam Back exam: Present normal inspection and full ROM Neurological Exam Neurological exam: Present alert, oriented X3 and CN II-XII intact Psychiatric Psychiatric exam: Present normal affect and normal mood Skin Skin exam: Present warm, dry, intact and normal color Course Quality Measures none Orders Category Date Time Status Bedside COVID-19 Antigen Test NOW Care 07/12/25 12:43 Completed Bedside Influenza A&B Antigen Test NOW Care 07/12/25 12:43 Completed CBC Stat Lab 07/12/25 13:00 Completed Comprehensive Metabolic Panel Stat Lab 07/12/25 13:00 Completed UA, C/S IF [Urinalysis, C/S if Indicated] Stat Lab 07/12/25 12:48 Completed Urine Culture Stat Lab 07/12/25 12:48 Received Lidocaine 1% 20 ml [Xylocaine 1% 20 ML] Med 07/12/25 15:08 Discontinued 2.1 ml INFL X1 ONE [id number] [Rocephin] Med 07/12/25 15:08 Discontinued 1,000 mg IM X1 ONE Vital Signs Vital signs: Vital Signs Temperature 97.4 F 07/12/25 12:32 Pulse Rate 92 07/12/25 12:32 Respiratory Rate 18 07/12/25 12:32 Blood Pressure 105/68 07/12/25 12:32 Pulse Oximetry (%) 97 07/12/25 12:32 Oxygen Delivery Method Room Air 07/12/25 12:32 o2 sat 97% r.a wnl Discharge Plan Plan Patient Disposition: HOME (Self Care) Discharge Disposition comment: Stable Prescriptions/Referrals Prescriptions/Med Rec: New cephalexin 500 mg capsule 500 mg PO BID 7 Days Qty: 14 0RF No Action levothyroxine 25 mcg Tablet 25 mcg PO QDAY glipizide 5 mg Tablet 5 mg PO BID prednisone 10 mg tablet 30 mg PO QDAY Rx Instructions: START DATE 03/06/20 hydrocodone-acetaminophen 5-325 mg tablet 1 tab PO Q4H PRN (Reason: Pain) omeprazole 40 mg capsule,delayed release(DR/EC) 40 mg PO QDAY risperidone 2 mg tablet 2 mg PO BID hydrochlorothiazide 12.5 mg capsule 12.5 mg PO QAM gabapentin 300 mg capsule 300 mg PO TID duloxetine 60 mg capsule,delayed release(DR/EC) 60 mg PO QDAY metronidazole 500 mg tablet 500 mg PO Q8H Qty: 20 0RF atorvastatin 40 mg tablet 40 mg PO HS Patient Comments: take 1 tablet by mouth at bedtime acetaminophen [Tylenol] 325 mg tablet 650 mg PO Q4H Qty: 60 0RF hydrocodone-acetaminophen 5-325 mg tablet 1 tab PO BID MDD 10 PRN (Reason: pain) Qty: 6 0RF fluconazole 150 mg tablet 150 mg PO Q3D Qty: 2 0RF albuterol sulfate 90 mcg/actuation HFA aerosol inhaler 2 puff inhalation Q6H PRN (Reason: shortness of breath or wheezing) Qty: 8.5 0RF lidocaine [Lidocaine Pain Relief] 4 % adhesive patch,medicated 1 patch topical QID PRN (Reason: pain) Qty: 15 0RF ibuprofen 600 mg tablet 600 mg PO Q8H PRN (Reason: pain) Qty: 30 0RF sulfamethoxazole-trimethoprim [Bactrim DS] 800-160 mg tablet 1 tab PO BID Qty: 10 0RF psyllium Powder 1 tbsp PO QDAY Qty: 300 0RF Rx Instructions: mix into at least 8 oz of water or juice before administering albuterol sulfate 90 mcg/actuation HFA aerosol inhaler 2 inh inhalation QID PRN (Reason: shortness of breath or wheezing) Qty: 8.5 0RF prednisone 50 mg tablet 50 mg PO QDAY Qty: 3 0RF cephalexin 500 mg capsule 500 mg PO TID Qty: 15 0RF Referrals: Francisco Walker [Primary Care Provider] - In 1 week Problem List Clinical Impression: UTI (urinary tract infection) Patient/Caregiver Discharge Instructions Education Materials: Urinary Tract Infections in Women Additional Instructions: Please follow up with your primary care doctor in the next 24-48hrs for any worsening symptoms return here immediately Print Language: Pakistani Stand Alone Forms: Hilda Award Info., Patient Portal Info Letter PA/PLASTERER ROUGH Supervising Physician PA/PLASTERER ROUGH Supervising Physician: Dr. rodriguez [facility] Narrative [facility] hospital course: 59-year-old female presents to the emergency department today stating that 8 days ago she tested positive for COVID-19 patient reports she would like to be retested for COVID as she still feels body aches. Patient also reports dysuria patient reports no fever nausea or vomiting no abdominal pain On exam patient well-appearing patient does not appear toxic no acute distress patient hemodynamically stable Lab work obtained no acute emergent findings noted Urinalysis obtained consistent with UTI Patient discharged home in no distress to follow-up with primary care doctor in the next 24 to 48 hours and for any worsening symptoms to return to the ER immediately Clinical Information Provided by patient Medical Records Reviewed [facility] Meds/Rx Considered, not Ordered None Labs/Rad/Tests considered, not Ordered Describe details: Obtained Chronic Illness/Social Conditions which may negatively complicate care or outcome(s)-explain: Mental health EKG EKG not done Lab Interpretation Labs: interpreted by me Lab(s) interpretation(s): Reviewed by me Imaging Imaging interpretation: none Provider imaging interpretation(s): N/A Radiology reports / interpretation(s): N/A Medication Administration(s) Medication Administration History Discontinued Medications Ceftriaxone Sodium (Ceftriaxone Sod Inj 1,000 Mg Vial) 1,000 mg IM X1 ONE Stop: 07/12/25 15:09 Last Admin: 07/12/25 15:19 Dose: 1,000 mg Documented By: OA Lidocaine HCl (Lidocaine Hcl 1% 20 Ml Vial) 2.1 ml INFL X1 ONE Stop: 07/12/25 15:09 Last Admin: 07/12/25 15:21 Dose: 2.1 ml Documented By: OA Given Diagnosis Differential diagnosis: UTI, cystitis, COVID-19, viral illness Differential dx and/or dx ruled out: UTI Most likely dx, and/or detailed dx discussion: UTI Dispositon Disposition: Discharge Home
[2025-07-12] MEDS: cefTRIAXone SOD INJ 1,000 MG VIAL 1000 MG IM (15:19)
[2025-07-12] MEDS: LIDOCAINE HCL 1% 20 ML VIAL 2.1 ML INFL (15:21)
== END 2025-07-12 15:59 | disposition home or self-care (01) ==
PROVIDERS: Nurse Practitioner Primary Care; Emergency Provider Emergency Medicine; PCP Internal Medicine
DX: N39.0 Urinary tract infection, site not specified (principal)
CPT/HCPCS: 36415; 80053; 81001; 85025; 87077; 87086; 87186; 87400; 87811; 96372; 99283; J0696; J3490

== ENCOUNTER 2025-08-02 12:16 | Emergency (ER) | payer OTHER, MEDICAID, SELFPAY ==
[2025-08-02 12:34] VITALS: BP 110/70; PULSE 86; RESP 16; TEMP 36.9; O2SAT 96; BMI 30.8
--- NOTE | 2025-08-02 12:35 | PD.EDRME ---
Rapid Medical Screening Exam RME Arrival date/time: 08/02/25 12:16 59-year-old female presents the emergency room due to complaint of dysuria ongoing x 2 days Chief Complaint: Abdominal Pain
[2025-08-02 13:00] LABS: Basophils # (Auto) 0.1 Thou/mm3 (0.0-0.2); Basophils % (Auto) 1 % (0-2.5); Eosinophils # (Auto) 0.3 Thou/mm3 (0.0-0.5); Eosinophils % (Auto) 2 % (0-10); Hematocrit 45.1 % (36.0-46.0); Hemoglobin 14.6 g/dL (12.0-16.0); Immature Granulocytes Auto 0.06 Thou/mm3 (0.00-0.00); Lymphocytes # (Auto) 1.7 Thou/mm3 (1.0-4.8); Lymphocytes % (Auto) 12 % (10-50); Mean Corpuscular HGB Conc 32.4 g/dl (31.0-37.0); Mean Corpuscular Hemoglobin 28.5 pg (25.0-35.0); Mean Corpuscular Volume 88 fL (80-100); Monocytes # (Auto) 0.7 Thou/mm3 (0.0-0.8); Monocytes % (Auto) 5 % (0-12); Neutrophils # (Auto) 11.5 Thou/mm3 (1.8-7.7); Neutrophils % (Auto) 80 % (37-80); Nucleated Red Blood Cell # 0.00 Thou/mm3 (0.00-0.00); Nucleated Red Blood Cell % 0 /100 WBC (0); Platelet Count 332 Thou/mm3 (140-440); RDW Standard Deviation 42.5 fL (36.4-46.3); Red Blood Count 5.13 Miln/mm3 (4.00-5.20); White Blood Count 14.3 Thou/mm3 (3.6-11.0)
[2025-08-02 13:26] LABS: Alanine Aminotransferase 10 U/L (10-49); Albumin, Serum 3.8 gm/dL (3.5-5.0); Albumin/Globulin Ratio 1.6 (1.2-2.2); Alkaline Phosphatase 120 U/L (46-116); Anion Gap 9 (7-16); Aspartate Amino Transferase 13 U/L (0-34); BUN/Creatinine Ratio 8 Ratio (12-20); Bilirubin,Total 0.4 mg/dL (0.3-1.2); Blood Urea Nitrogen 7 mg/dL (9-23); Calcium 8.8 mg/dL (8.3-10.6); Calcium (Corrected) 9.0 mg/dL (8.5-10.1); Carbon Dioxide 26.1 mMol/L (20.0-31.0); Chloride 108 mMol/L (98-107); Creatinine (Component) 0.9 mg/dL (0.6-1.3); Estimated Creatinine Clearance 60.9 mL/min (>60); Globulin 2.4 gm/dL (2.3-3.5); Glucose 66 mg/dL (74-106); Lipase 36 U/L (12-53); Osmolality,Calculated 280 (275-295); Potassium 3.9 mMol/L (3.4-5.1); Sodium 143 mMol/L (136-145); Total Protein 6.2 gm/dL (5.7-8.2); eGFR > 60 See Note
[2025-08-02 13:57] VITALS: BP 118/83; PULSE 81; RESP 18; TEMP 36.6; O2SAT 96
--- NOTE | 2025-08-02 14:29 | PD.EDABDPN ---
ED Abdominal Pain RME/HPI General Chief Complaint: Abdominal Pain Stated complaint: LOWER ABD PAIN, UTI SYMPTOMS Time seen by provider: 08/02/25 12:45 Arrival date/time: 08/02/25 12:16 RME / HPI RME / HPI narrative: 08/02/25 12:16 59-year-old female presents the emergency room due to complaint of dysuria ongoing x [address] OSBORNE MAIN ED EVALUATION 59 year old female with history of CAD s/p PCI, angina, atrial fibrillation, hypertension, hyperlipidemia, diabetes, hypothyroidism, glaucoma, anxiety, and kidney stones presents to the ED for evaluation of I think I have a UTI today. Reports in the last week she has had a pressure-like pain to the left flank radiating down to the left groin area, urinary hesitancy, urinary frequency, dysuria, and blood tinged urine. Presentation today similar to previous kidney stones and UTIs. No other associated symptoms noted. Per , patient has recurrent UTIs and was last on Cephalexin 1 month ago. Related Data Home Medications ?Medication ?Instructions ?Recorded ?Confirmed glipizide 5 mg tablet 5 mg PO BID 06/10/19 03/19/20 levothyroxine 25 mcg tablet 25 mcg PO QDAY 06/10/19 03/19/20 atorvastatin 40 mg tablet 40 mg PO HS 11/22/19 03/19/20 duloxetine 60 mg capsule,delayed 60 mg PO QDAY 03/19/20 03/19/20 release gabapentin 300 mg capsule 300 mg PO TID 03/19/20 03/19/20 hydrochlorothiazide 12.5 mg capsule 12.5 mg PO QAM 03/19/20 03/19/20 hydrocodone 5 mg-acetaminophen 325 1 tab PO Q4H PRN Pain 03/19/20 03/19/20 mg tablet omeprazole 40 mg capsule,delayed 40 mg PO QDAY 03/19/20 03/19/20 release prednisone 10 mg tablet 30 mg PO QDAY 03/19/20 03/19/20 risperidone 2 mg tablet 2 mg PO BID 03/19/20 03/19/20 Previous Rx's ?Medication ?Instructions ?Recorded metronidazole 500 mg tablet 500 mg PO Q8H #20 tabs 03/20/20 acetaminophen 325 mg tablet 650 mg (2 x 325 mg) PO Q4H #60 tabs 03/26/20 (Tylenol) hydrocodone 5 mg-acetaminophen 325 1 tab PO BID PRN pain #6 tabs 12/30/21 mg tablet psyllium 1 tbsp PO QDAY #300 grams 03/21/23 albuterol sulfate 90 mcg/actuation 2 inh inhalation QID PRN shortness 09/26/24 aerosol inhaler of breath or wheezing #8.5 grams prednisone 50 mg tablet 50 mg PO QDAY #3 tabs 09/26/24 fluconazole 150 mg tablet 150 mg PO Q3D 2 doses #2 tabs 09/27/24 albuterol sulfate 90 mcg/actuation 2 puff inhalation Q6H PRN 02/19/25 aerosol inhaler shortness of breath or wheezing #8.5 grams lidocaine 4 % topical patch 1 patch topical QID PRN pain #15 ea 03/15/25 (Lidocaine Pain Relief) cephalexin 500 mg capsule 500 mg PO TID #15 caps 05/15/25 ibuprofen 600 mg tablet 600 mg PO Q8H PRN pain #30 tabs 06/03/25 sulfamethoxazole 800 1 tab PO BID #10 tabs 06/06/25 mg-trimethoprim 160 mg tablet (Bactrim DS) fosfomycin tromethamine 3 gram 1 packet PO Q OTHER DAY 3 doses #3 08/02/25 oral packet ea Allergies Allergy/AdvReac Type Severity Reaction Status Date / Time levofloxacin (From [facility]) Allergy Severe Swelling Verified 07/12/25 12:12 of Lip/Tongue/Throat methotrexate Allergy Severe Redness of Verified 07/12/25 12:12 Skin Review of Systems Review of Systems Systems Reviewed: All systems reviewed, normal except as documented Past Medical History Past Medical History NEUROLOGIC: Positive Neurological Disorders and Nunez's Palsy CARDIAC: Positive Atrial Fibrillation, Angina, Atherosclerotic Heart Disease, Hypercholesterolemia, Congestive Heart Failure and Hypertension RESPIRATORY: Positive Chronic Obstructive Pulmonary Disease (COPD), Asthma and Pneumonia GASTROINTESTINAL: Positive Gastrointestinal Disorders, Gall Bladder Disease, Gastrointestinal Bleed, Diverticulitis, Ulcer, Irritable Bowel, Hiatal Hernia and Gastroesophageal Reflux Disease GENITOURINARY: Positive Genitourinary Disorders, Renal Disease and Kidney Stones REPRODUCTIVE: Positive Endometriosis and Previous Pregnancies MUSCULOSKELETAL: Positive Musculoskeletal Disorders, Rheumatoid Arthritis and Fractures ENT: Positive Cataracts and Glaucoma ENDOCRINE: Positive Endocrine Disorders, Diabetes Mellitus Type 2 and Hypothyroidism HEMATOLOGIC: Positive Blood Disorders, Anemia and Sickle Cell Disease PSYCHO/SOCIAL: Positive Schizophrenia OTHER HISTORY: Positive Rubella ([place] Measles) and Cervical Cancer Family History FAMILY HISTORY: Positive Family Psychiatric Problems, Family Cardiac Disorders and Family Gastrointestinal Problems Surgical History SURGICAL: Positive Angiogram, Abdominal Surgery and Tubal Ligation Social History SMOKING STATUS: Never smoker SECOND HAND EXPOSURE: No SUBSTANCE USE: methamphetamine ED Exam Narrative Physical exam: Constitutional: Awake, alert, nontoxic, no acute distress, overweight HEENT: NC, AT, EOMI Neck: Supple CV: RRR, no m/r/g Lungs: CTAB, no w/r/r, no respiratory distress. Abd: Soft, tender to the left abdomen, minimally to the right, no rebound, no guarding, no HSM noted to palpation Extremities: No deformities, no edema noted Skin: Warm, dry, intact Course Course Course Narrative: 1630h: Patient's urinalysis and symptoms appear consistent with UTI. Reviewed previous urine cultures sensitivities. Will treat with fosfomycin 3 g every other day x 3 doses. Patient will be dc home to follow-up with PCP outpatient. To return if worse. Quality Measures none Orders Category Date Time Status CBC Stat Lab 08/02/25 12:51 Completed Comprehensive Metabolic Panel Stat Lab 08/02/25 12:51 Completed Lipase Stat Lab 08/02/25 12:51 Completed UA, C/S IF [Urinalysis, C/S if Indicated] Stat Lab 08/02/25 15:11 Completed Urine Culture Stat Lab 08/02/25 15:11 Received Vital Signs Vital signs: Vital Signs Temperature 98.5 F 08/02/25 12:34 Pulse Rate 86 08/02/25 12:34 Respiratory Rate 16 08/02/25 12:34 Blood Pressure 110/70 08/02/25 12:34 Pulse Oximetry (%) 96 08/02/25 12:34 Oxygen Delivery Method Room Air 08/02/25 12:34 Pulse ox is 96% on room air which is adequate. Abdominal Pain MDM MDM Narrative MDM Narrative:: Jaky Mcclure am scribing for and in the presence of Dr. Osborne. Patient data External records reviewed:: [facility] previous records Clinical information provided by:: patient and spouse Social determinants that could affect healthcare access:: none Patient has the following chronic illnesses:: CAD s/p PCI, angina, atrial fibrillation, hypertension, hyperlipidemia, diabetes, hypothyroidism, glaucoma, anxiety, and kidney stones How is presenting disease/condition affected by chronic disease/condition?: exacerbated by Evaluation data The following diagnostics were reviewed and interpreted by me:: lab results Lab and/or radiology exams considered but not ordered:: None Interpretation Summary: Laboratory Results WBC 14.3 Thou/mm3 (3.6-11.0) H 08/02/25 12:51 RBC 5.13 Miln/mm3 (4.00-5.20) 08/02/25 12:51 Hgb 14.6 g/dL (12.0-16.0) 08/02/25 12:51 Hct 45.1 % (36.0-46.0) 08/02/25 12:51 MCV 88 fL (80-100) 08/02/25 12:51 MCH 28.5 pg (25.0-35.0) 08/02/25 12:51 MCHC 32.4 g/dl (31.0-37.0) 08/02/25 12:51 RDW Std Deviation 42.5 fL (36.4-46.3) 08/02/25 12:51 Plt Count 332 Thou/mm3 (140-440) D 08/02/25 12:51 Neut % (Auto) 80 % (37-80) 08/02/25 12:51 Lymph % (Auto) 12 % (10-50) 08/02/25 12:51 [place] % (Auto) 5 % (0-12) 08/02/25 12:51 Eos % (Auto) 2 % (0-10) 08/02/25 12:51 Baso % (Auto) 1 % (0-2.5) 08/02/25 12:51 Neut # (Auto) 11.5 Thou/mm3 (1.8-7.7) H 08/02/25 12:51 Lymph # (Auto) 1.7 Thou/mm3 (1.0-4.8) 08/02/25 12:51 [place] # (Auto) 0.7 Thou/mm3 (0.0-0.8) 08/02/25 12:51 Eos # (Auto) 0.3 Thou/mm3 (0.0-0.5) 08/02/25 12:51 Baso # (Auto) 0.1 Thou/mm3 (0.0-0.2) 08/02/25 12:51 Immature Gran # (Auto) 0.06 Thou/mm3 (0.00-0.00) H 08/02/25 12:51 Absolute Nucleated RBC 0.00 Thou/mm3 (0.00-0.00) 08/02/25 12:51 Immature Gran % 0 % (0-0) 08/02/25 12:51 Nucleated RBC % 0 /100 WBC (0) 08/02/25 12:51 Sodium 143 mMol/L (136-145) 08/02/25 12:51 Potassium 3.9 mMol/L (3.4-5.1) 08/02/25 12:51 Chloride 108 mMol/L (98-107) H 08/02/25 12:51 Carbon Dioxide 26.1 mMol/L (20.0-31.0) 08/02/25 12:51 Anion Gap 9 (7-16) 08/02/25 12:51 BUN 7 mg/dL (9-23) L 08/02/25 12:51 Creatinine 0.9 mg/dL (0.6-1.3) 08/02/25 12:51 Estim Creat Clear Calc 60.9 mL/min (>60) L 08/02/25 12:51 eGFR > 60 See Note (60-) 08/02/25 12:51 BUN/Creatinine Ratio 8 Ratio (12-20) L 08/02/25 12:51 Glucose 66 mg/dL (74-106) L 08/02/25 12:51 Calculated Osmolality 280 (275-295) 08/02/25 12:51 Calcium 8.8 mg/dL (8.3-10.6) 08/02/25 12:51 Corrected Calcium 9.0 mg/dL (8.5-10.1) 08/02/25 12:51 Total Bilirubin 0.4 mg/dL (0.3-1.2) 08/02/25 12:51 AST 13 U/L (0-34) 08/02/25 12:51 ALT 10 U/L (10-49) 08/02/25 12:51 Alkaline Phosphatase 120 U/L (46-116) H 08/02/25 12:51 Total Protein 6.2 gm/dL (5.7-8.2) 08/02/25 12:51 Albumin 3.8 gm/dL (3.5-5.0) 08/02/25 12:51 Globulin 2.4 gm/dL (2.3-3.5) 08/02/25 12:51 Albumin/Globulin Ratio 1.6 (1.2-2.2) 08/02/25 12:51 Lipase 36 U/L (12-53) 08/02/25 12:51 Ur Collection Type Clean Catch 08/02/25 15:11 Urine Color Yellow (Lt Yel-Yel) 08/02/25 15:11 Urine Clarity Clear (Clear/Hazy) 08/02/25 15:11 Urine pH 6.0 (5.0-7.0) 08/02/25 15:11 Ur Specific [place] 1.015 (1.001-1.035) 08/02/25 15:11 Urine Protein Negative (Neg - Trace) 08/02/25 15:11 Urine Glucose (UA) Negative (Negative) 08/02/25 15:11 Urine Ketones Negative (Negative) 08/02/25 15:11 Urine Blood Negative (Negative) 08/02/25 15:11 Urine Nitrite Negative (Negative) 08/02/25 15:11 Urine Bilirubin Negative (Negative) 08/02/25 15:11 Urine Urobilinogen (Auto) Negative mg/dL (0.0-1.0) 08/02/25 15:11 Ur Leukocyte Esterase Positive (Negative) 08/02/25 15:11 Urine RBC 2 /hpf (0-3) 08/02/25 15:11 Urine WBC 42 /hpf (0-5) H 08/02/25 15:11 Ur Squamous Epith Cells 0 /hpf (0-5) 08/02/25 15:11 Urine Bacteria None (None) 08/02/25 15:11 Ur Culture Indicated? Yes 08/02/25 15:11 Medications / Prescriptions Medications or Prescriptions considered but not ordered:: None Medication administrations:: None Consultations Consultation(s) initiated? (list below): No Diagnosis Differential diagnosis abdominal pain: abdominal pain, calculus of kidney and other (UTI, pyelonephritis ) Most likely diagnosis given after review of the tests above:: UTI Admission Indicated Admission indicated?: not indicated Admission Request Was there a request for admission?: No Disposition Plan Disposition Plan: Discharge Discharge Attestation Discharge Attestation: The patient and all family members were given an opportunity to ask questions and understood the discharge instructions. Discharge instructions specifically effects, indications for sooner follow up or return to the emergency department, and the expected course of current diagnosis. Patient condition: Stable Discharge Plan Plan Patient Disposition: HOME (Self Care) Patient condition on transfer: Stable Prescriptions/Referrals Prescriptions/Med Rec: New fosfomycin tromethamine 3 gram packet 1 packet PO Q OTHER DAY Qty: 3 0RF No Action levothyroxine 25 mcg Tablet 25 mcg PO QDAY glipizide 5 mg Tablet 5 mg PO BID prednisone 10 mg tablet 30 mg PO QDAY Rx Instructions: START DATE 03/06/20 hydrocodone-acetaminophen 5-325 mg tablet 1 tab PO Q4H PRN (Reason: Pain) omeprazole 40 mg capsule,delayed release(DR/EC) 40 mg PO QDAY risperidone 2 mg tablet 2 mg PO BID hydrochlorothiazide 12.5 mg capsule 12.5 mg PO QAM gabapentin 300 mg capsule 300 mg PO TID duloxetine 60 mg capsule,delayed release(DR/EC) 60 mg PO QDAY metronidazole 500 mg tablet 500 mg PO Q8H Qty: 20 0RF atorvastatin 40 mg tablet 40 mg PO HS Patient Comments: take 1 tablet by mouth at bedtime acetaminophen [Tylenol] 325 mg tablet 650 mg PO Q4H Qty: 60 0RF hydrocodone-acetaminophen 5-325 mg tablet 1 tab PO BID MDD 10 PRN (Reason: pain) Qty: 6 0RF fluconazole 150 mg tablet 150 mg PO Q3D Qty: 2 0RF albuterol sulfate 90 mcg/actuation HFA aerosol inhaler 2 puff inhalation Q6H PRN (Reason: shortness of breath or wheezing) Qty: 8.5 0RF lidocaine [Lidocaine Pain Relief] 4 % adhesive patch,medicated 1 patch topical QID PRN (Reason: pain) Qty: 15 0RF ibuprofen 600 mg tablet 600 mg PO Q8H PRN (Reason: pain) Qty: 30 0RF sulfamethoxazole-trimethoprim [Bactrim DS] 800-160 mg tablet 1 tab PO BID Qty: 10 0RF psyllium Powder 1 tbsp PO QDAY Qty: 300 0RF Rx Instructions: mix into at least 8 oz of water or juice before administering albuterol sulfate 90 mcg/actuation HFA aerosol inhaler 2 inh inhalation QID PRN (Reason: shortness of breath or wheezing) Qty: 8.5 0RF prednisone 50 mg tablet 50 mg PO QDAY Qty: 3 0RF cephalexin 500 mg capsule 500 mg PO TID Qty: 15 0RF Referrals: No Primary/Family,Physician [Primary Care Provider] - In 1 week Problem List Clinical Impression: UTI (urinary tract infection) Patient/Caregiver Discharge Instructions Education Materials: Urinary Tract Infections in Women, When to Use Antibiotics Additional Instructions: Some general health principles that can help you are the [employer] START principles: Nutrition (eat a plant-based diet, avoiding meats in general, avoiding highly processed foods) Exercise (Daily exercise/walks as tolerated) Water (Drink adequate fresh water to maintain hydration, concentrating on water rather than on soda, coffee, tea, juice, etc for hydration) [place] (Spend time - 15-20 minutes or so with skin exposed in the environmental health inspector and late evening sun for Vitamin D health benefits) [place] (Avoid alcohol, illicit drugs, caffeinated beverages, smoking, etc) Air (Deep breathing exercises in the early mornings in fresh air) Rest (Adequate rest at night, going to bed a few hours before midnight and avoiding all screens/television/loud music in the time right before going to bed, also avoiding heavy meals just prior to going to bed) Trust in God (Spend time daily in Bible study and prayer - health benefits in contemplation of God's true character) Additional resources that can benefit: www.[employer].ZIIBRA, look under resources and seminars. Print Language: Italian Stand Alone Forms: Hilda Award Info., Patient Portal Info Letter
[2025-08-02 15:08] VITALS: BP 110/75; PULSE 86; RESP 18; O2SAT 95
[2025-08-02 15:22] LABS: Collection Type, Urine Clean Catch; Squamous Epithelial Cell,Urine 0 /hpf (0-5)
[2025-08-02 15:25] LABS: Bilirubin,Urine Negative (Negative); Blood,Urine Negative (Negative); Clarity,Urine Clear (Clear/Hazy); Color,Urine Yellow (Lt Yel-Yel); Glucose, Urine Negative (Negative); Ketones,Urine Negative (Negative); Leukocyte Esterase,Urine Positive (Negative); Nitrite,Urine Negative (Negative); PH,Urine 6.0 (5.0-7.0); Protein,Urine Negative (Neg - Trace); RBC,Urine 2 /hpf (0-3); Specific Gravity,Urine 1.015 (1.001-1.035); Urobilinogen,Urine Negative mg/dL (0.0-1.0); WBC,Urine 42 /hpf (0-5)
[2025-08-02 15:29] LABS: Culture Indicated,Urine Yes
[2025-08-02 16:11] VITALS: BP 122/79; PULSE 74; RESP 18; TEMP 36.7; O2SAT 100
[2025-08-02 16:55] VITALS: BP 123/81; PULSE 78; RESP 18; O2SAT 97
--- NOTE | 2025-08-02 18:54 | EDNOTE_ITS ---
Emergency Room Addendum Addendum Narrative: [facility] pharmacy called and states prescribed fosfomycin by Dr. Umana is not covered by insurance. Based on previous urine cultures and UA results from today's visit, will change to Keflex 750 mg TID for 1 week given most recent isolate in UC is sensitive to most cephalosporins including Ancef.
== END 2025-08-02 16:56 | disposition home or self-care (01) ==
PROVIDERS: Nurse Practitioner Primary Care; Emergency Provider Family Medicine
DX: N39.0 Urinary tract infection, site not specified (principal); I25.10 Atherosclerotic heart disease of native coronary artery without angina pectoris; I48.91 Unspecified atrial fibrillation; E11.9 Type 2 diabetes mellitus without complications; E03.9 Hypothyroidism, unspecified; E78.00 Pure hypercholesterolemia, unspecified; I11.0 Hypertensive heart disease with heart failure; I50.9 Heart failure, unspecified; H40.9 Unspecified glaucoma; F41.9 Anxiety disorder, unspecified; Z87.442 Personal history of urinary calculi; Z87.440 Personal history of urinary (tract) infections; Z95.5 Presence of coronary angioplasty implant and graft
CPT/HCPCS: 36415; 80053; 81001; 83690; 85025; 87086; 99283

== ENCOUNTER 2025-08-06 22:35 | Emergency (ER) | payer OTHER, MEDICAID, SELFPAY ==
[2025-08-06 22:35] VITALS: BMI 30.8
[2025-08-06 22:53] VITALS: BP 109/64; PULSE 92; RESP 18; TEMP 36.7; O2SAT 95
--- NOTE | 2025-08-06 23:02 | EKG_ITS ---
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
--- NOTE | 2025-08-06 23:02 | XR_ITS ---
Examination: PA chest single view Technique: Upright PA chest single view Date and time: August 06, 2025 at 11:26 PM Indications: Shortness of breath today. Findings: No significant cardiac enlargement Prominent main pulmonary arteries No lobar pneumonia or pulmonary edema The osseous structures are intact Impression: Recommend lateral chest view follow-up to confirm pulmonary artery hypertension and exclude mass over the right hilum
[2025-08-06 23:21] VITALS: PULSE 72; RESP 24; O2SAT 99
[2025-08-06] MEDS: ALBUTEROL/IPRATROPIUM (Duoneb) RT SOL 3 ML NEBU INH (23:21)
[2025-08-06] MEDS: DEXAMETHASONE SOD PHOS INJ 10 MG/ML VIAL IM (23:24)
[2025-08-06 23:36] LABS: Basophils # (Auto) 0.1 Thou/mm3 (0.0-0.2); Basophils % (Auto) 0 % (0-2.5); Eosinophils # (Auto) 0.5 Thou/mm3 (0.0-0.5); Eosinophils % (Auto) 4 % (0-10); Hematocrit 43.6 % (36.0-46.0); Hemoglobin 14.5 g/dL (12.0-16.0); Immature Granulocytes Auto 0.06 Thou/mm3 (0.00-0.00); Lymphocytes # (Auto) 2.0 Thou/mm3 (1.0-4.8); Lymphocytes % (Auto) 15 % (10-50); Mean Corpuscular HGB Conc 33.3 g/dl (31.0-37.0); Mean Corpuscular Hemoglobin 28.8 pg (25.0-35.0); Mean Corpuscular Volume 87 fL (80-100); Monocytes # (Auto) 1.0 Thou/mm3 (0.0-0.8); Monocytes % (Auto) 7 % (0-12); Neutrophils # (Auto) 10.1 Thou/mm3 (1.8-7.7); Neutrophils % (Auto) 74 % (37-80); Nucleated Red Blood Cell # 0.00 Thou/mm3 (0.00-0.00); Nucleated Red Blood Cell % 0 /100 WBC (0); Platelet Count 277 Thou/mm3 (140-440); RDW Standard Deviation 41.4 fL (36.4-46.3); Red Blood Count 5.03 Miln/mm3 (4.00-5.20); White Blood Count 13.7 Thou/mm3 (3.6-11.0)
[2025-08-06 23:55] LABS: B-Type Natriuretic Peptide 24 pg/mL (0-100)
[2025-08-06 23:57] LABS: Alanine Aminotransferase 11 U/L (10-49); Albumin, Serum 3.9 gm/dL (3.5-5.0); Albumin/Globulin Ratio 1.5 (1.2-2.2); Alkaline Phosphatase 119 U/L (46-116); Anion Gap 10 (7-16); Aspartate Amino Transferase 14 U/L (0-34); BUN/Creatinine Ratio 12 Ratio (12-20); Bilirubin,Total 0.6 mg/dL (0.3-1.2); Blood Urea Nitrogen 11 mg/dL (9-23); Calcium 8.7 mg/dL (8.3-10.6); Calcium (Corrected) 8.8 mg/dL (8.5-10.1); Carbon Dioxide 27.3 mMol/L (20.0-31.0); Chloride 105 mMol/L (98-107); Creatinine (Component) 0.9 mg/dL (0.6-1.3); Estimated Creatinine Clearance 60.9 mL/min (>60); Globulin 2.6 gm/dL (2.3-3.5); Glucose 136 mg/dL (74-106); Osmolality,Calculated 284 (275-295); Potassium 4.1 mMol/L (3.4-5.1); Sodium 142 mMol/L (136-145); Total Protein 6.5 gm/dL (5.7-8.2); Troponin I < 0.020 ng/mL (0.0-0.045); eGFR > 60 See Note
--- NOTE | 2025-08-07 00:07 | XR_ITS ---
Examination: CT chest, without intravenous contrast. Sagittal and coronal 2-D reconstructions. Exam date and time: August 07, 2025, 0119 hrs. Indications: Shortness of breath today, masslike area over the right hilum on chest film today CTDI:vol (mGy) 10.7 DLP: (mGycm) 366 Technique: Multiple 3.0 mm axial sections of the chest to been obtained. Bone and lung density settings are obtained. Sagittal and coronal 2-D reconstructions have been obtained. Low dose protocols were performed. One or more of the following dose reduction techniques were used; automated exposure control, adjustment of the mA and/or KV according to patient size, use of iterative reconstruction technique. Findings: No thoracic aortic aneurysmal dilatation Pulmonary artery main pulmonary segment 44 mm and enlarged right and left main pulmonary arteries No mass overlying the right hilum or elsewhere in the lung Atelectasis in the left lower lobe No visualized liver or splenic lesion Absent gallbladder No pancreatic or adrenal mass 1 mm upper pole left renal calculus image 143 Impression: Pulmonary artery hypertension No pulmonary mass lesion Atelectasis left lower lobe 1 mm upper pole left renal calculus
[2025-08-07 01:30] VITALS: BP 112/67; PULSE 94; RESP 18; TEMP 36.6; O2SAT 96
--- NOTE | 2025-08-07 02:29 | PRELIM_ITS ---
CT scan of the chest without intravenous contrast (axial sections with sagittal and coronal reformats) August 07, 2025 0119 hours Clinical History: Mass Reference is made to the prior CT chest, abdomen and pelvis report dated March 18, 2020. Findings: Main pulmonary artery is 4.2 cm in diameter. Cardiac size is normal. No pericardial effusion, pleural effusion or pneumothorax. Atelectasis/infiltrate at the left lung base. Status post cholecystectomy. No acute osseous process. No thoracic lymphadenopathy. Impression: Left basilar atelectasis/infiltrate. Pulmonary artery hypertension. No evidence of mass. Report Electronically Signed By: Ethan Ford 08/07/2025 2:28:44 AM [EST]
--- NOTE | 2025-08-07 03:29 | PD.EDSOB ---
ED SOB =RME/HPI General Chief Complaint: Asthma Stated Complaint: SOB REQUESTING BREATHING TREATMENT Time Seen by Provider: 08/06/25 22:42 Arrival date/time: 08/06/25 22:35 This is a case of 59-year-old female with history of asthma and COPD came in in the emergency room due to cough productive in character for 2 days associated with shortness of breath wheezing and pleuritic chest pain worsening of the symptoms this patient decided to start consult here in the emergency room Limitations: no limitations Related Data Home Medications ?Medication ?Instructions ?Recorded ?Confirmed glipizide 5 mg tablet 5 mg PO BID 06/10/19 03/19/20 levothyroxine 25 mcg tablet 25 mcg PO QDAY 06/10/19 03/19/20 atorvastatin 40 mg tablet 40 mg PO HS 11/22/19 03/19/20 duloxetine 60 mg capsule,delayed 60 mg PO QDAY 03/19/20 03/19/20 release gabapentin 300 mg capsule 300 mg PO TID 03/19/20 03/19/20 hydrochlorothiazide 12.5 mg capsule 12.5 mg PO QAM 03/19/20 03/19/20 hydrocodone 5 mg-acetaminophen 325 1 tab PO Q4H PRN Pain 03/19/20 03/19/20 mg tablet omeprazole 40 mg capsule,delayed 40 mg PO QDAY 03/19/20 03/19/20 release prednisone 10 mg tablet 30 mg PO QDAY 03/19/20 03/19/20 risperidone 2 mg tablet 2 mg PO BID 03/19/20 03/19/20 Previous Rx's ?Medication ?Instructions ?Recorded metronidazole 500 mg tablet 500 mg PO Q8H #20 tabs 03/20/20 acetaminophen 325 mg tablet 650 mg (2 x 325 mg) PO Q4H #60 tabs 03/26/20 (Tylenol) hydrocodone 5 mg-acetaminophen 325 1 tab PO BID PRN pain #6 tabs 12/30/21 mg tablet psyllium 1 tbsp PO QDAY #300 grams 03/21/23 albuterol sulfate 90 mcg/actuation 2 inh inhalation QID PRN shortness 09/26/24 aerosol inhaler of breath or wheezing #8.5 grams prednisone 50 mg tablet 50 mg PO QDAY #3 tabs 09/26/24 fluconazole 150 mg tablet 150 mg PO Q3D 2 doses #2 tabs 09/27/24 albuterol sulfate 90 mcg/actuation 2 puff inhalation Q6H PRN 02/19/25 aerosol inhaler shortness of breath or wheezing #8.5 grams lidocaine 4 % topical patch 1 patch topical QID PRN pain #15 ea 03/15/25 (Lidocaine Pain Relief) cephalexin 500 mg capsule 500 mg PO TID #15 caps 05/15/25 ibuprofen 600 mg tablet 600 mg PO Q8H PRN pain #30 tabs 06/03/25 sulfamethoxazole 800 1 tab PO BID #10 tabs 06/06/25 mg-trimethoprim 160 mg tablet (Bactrim DS) fosfomycin tromethamine 3 gram 1 packet PO Q OTHER DAY 3 doses #3 08/02/25 oral packet ea albuterol sulfate 90 mcg/actuation 2 inh inhalation Q4H #8.5 grams 08/07/25 aerosol inhaler (Ventolin HFA) amoxicillin 875 mg-potassium 1 tab PO BID #20 tabs 08/07/25 clavulanate 125 mg tablet azithromycin 250 mg tablet 250 mg PO QDAY 6 days #6 tabs 08/07/25 promethazine-DM 6.25 mg-15 mg/5 mL 5 ml PO Q6H PRN cough #118 mL 08/07/25 oral syrup Allergies Allergy/AdvReac Type Severity Reaction Status Date / Time levofloxacin (From Levaquin) Allergy Severe Swelling Verified 07/12/25 12:12 of Lip/Tongue/Throat methotrexate Allergy Severe Redness of Verified 07/12/25 12:12 Skin Review of Systems Review of Systems Systems Reviewed: All systems reviewed, normal except as documented Constitutional Constitutional: Reports system reviewed and no additional complaints, except as documented, Reports as per HPI, Denies anorexia, Denies body ache(s), Denies chills, Denies daytime sleepiness, Denies fever(s), Denies headache(s), Denies lethargy and Denies malaise ENT Ears, Nose, Mouth, and Throat: Reports system reviewed and no additional complaints, except as documented, Reports as per HPI and Denies headache(s) Cardiovascular Cardiovascular: Reports system reviewed and no additional complaints, except as documented, Reports as per HPI, Reports chest pain, Reports dyspnea, Denies edema, Denies palpitations, Denies paroxysmal nocturnal dyspnea, Denies pedal edema, Denies radiating jaw, neck or arm pain, Denies rapid heart rate, Denies slow heart rate and Denies syncope Respiratory Respiratory: Reports system reviewed and no additional complaints, except as documented, Reports as per HPI, Reports cough and Reports dyspnea Gastrointestinal Gastrointestinal: Reports system reviewed and no additional complaints, except as documented and Reports as per HPI Musculoskeletal Musculoskeletal: Reports system reviewed and no additional complaints, except as documented and Reports as per HPI Neurologic Neurologic: Reports system reviewed and no additional complaints, except as documented, Reports as per HPI, Denies headache(s) and Denies syncope Endocrine Endocrine: Denies palpitations Past Medical History Past Medical History NEUROLOGIC: Positive Neurological Disorders and Nunez's Palsy CARDIAC: Positive Atrial Fibrillation, Angina, Atherosclerotic Heart Disease, Hypercholesterolemia, Congestive Heart Failure and Hypertension; Negative Cardiac Disorders RESPIRATORY: Positive Chronic Obstructive Pulmonary Disease (COPD), Asthma and Pneumonia GASTROINTESTINAL: Positive Gastrointestinal Disorders, Gall Bladder Disease, Gastrointestinal Bleed, Diverticulitis, Ulcer, Irritable Bowel, Hiatal Hernia and Gastroesophageal Reflux Disease GENITOURINARY: Positive Genitourinary Disorders, Renal Disease and Kidney Stones REPRODUCTIVE: Positive Endometriosis and Previous Pregnancies MUSCULOSKELETAL: Positive Musculoskeletal Disorders, Rheumatoid Arthritis and Fractures ENT: Positive Cataracts and Glaucoma ENDOCRINE: Positive Endocrine Disorders, Diabetes Mellitus Type 2 and Hypothyroidism; Negative Diabetes Mellitus Type 1 HEMATOLOGIC: Positive Blood Disorders, Anemia and Sickle Cell Disease PSYCHO/SOCIAL: Positive Schizophrenia OTHER HISTORY: Positive Rubella (Guyanese Measles) and Cervical Cancer; Negative Autoimmune Disease Family History FAMILY HISTORY: Positive Family Psychiatric Problems, Family Cardiac Disorders and Family Gastrointestinal Problems; Negative Family Respiratory Disorders, Family Cancer or Family Surgery Surgical History SURGICAL: Positive Angiogram, Abdominal Surgery and Tubal Ligation Social History SMOKING STATUS: Never smoker SECOND HAND EXPOSURE: No SUBSTANCE USE: methamphetamine ED Exam General Limitations: Present no limitations General appearance: Present alert, in no apparent distress and other (Patient is awake alert oriented no apparent distress nontoxic looking well-hydrated well-nourished) Head Head exam: Present atraumatic, normocephalic and normal inspection Eye Eye exam: Present normal appearance, PERRL and EOMI ENT ENT exam: Present normal exam, normal oropharynx, mucous membranes moist and other (HEENT exam is normal and unremarkable) Neck Neck exam: Present normal inspection, full ROM and trachea midline; Absent tenderness, meningismus, lymphadenopathy or thyromegaly Chest Chest inspection: Present normal inspection and symmetric chest wall rise; Absent tenderness Respiratory Respiratory exam: Present normal lung sounds bilaterally and wheezes (Using both lower lung field no crackles no rales no rhonchi no stridor no retraction); Absent respiratory distress, stridor, accessory muscle use or prolonged expiratory phase Cardiovascular Cardiovascular exam: Present regular rate, normal rhythm and normal heart sounds; Absent bradycardia, tachycardia, irregular rhythm, systolic murmur or diastolic murmur Abdominal Exam Abdominal exam: Present soft and normal bowel sounds; Absent distention, tenderness, guarding, rebound, rigidity, diminished bowel sounds, hyperactive bowel sounds, hypoactive bowel sounds or organomegaly Extremities Exam Extremities exam: Present normal inspection and full ROM Back Exam Back exam: Present normal inspection and full ROM Neurological Exam Neurological exam: Present alert, oriented X3, CN II-XII intact, normal gait and reflexes normal; Absent motor sensory deficit Psychiatric Psychiatric exam: Present normal affect and normal mood Skin Skin exam: Present warm, dry, intact and normal color Course Quality Measures none Orders Category Date Time Status EKG (ED ONLY) *Do not use* NOW Care 08/06/25 23:[address] chest wo con Stat Exams 08/07/25 00:07 Taken EKG (ED Only) Stat Exams 08/06/25 23:02 Draft XR chest 1V portable Stat Exams 08/06/25 23:02 Completed BNP [B-Type Natriuretic Peptide] Stat Lab 08/06/25 23:23 Completed CBC Stat Lab 08/06/25 23:23 Completed Comprehensive Metabolic Panel Stat Lab 08/06/25 23:23 Completed Troponin I Stat Lab 08/06/25 23:23 Completed Albuterol/Ipratr Rt Ofelia [Duoneb Rt Ofelia] Med 08/06/25 23:02 Discontinued 3 ml INH X1 ONE Dexamethasone Inj [Decadron Inj] Med 08/06/25 23:02 Discontinued 10 mg IM X1 ONE Vital Signs Vital signs: Vital Signs Temperature 98.1 F 08/06/25 22:53 Pulse Rate 92 08/06/25 22:53 Respiratory Rate 18 08/06/25 22:53 Blood Pressure 109/64 08/06/25 22:53 Pulse Oximetry (%) 95 08/06/25 22:53 Oxygen Delivery Method Room Air 08/06/25 22:53 Oxygen saturation is 95% in room air normal Shortness of Breath / Dyspnea MDM Narrative MDM Narrative:: This is a case of 59-year-old female with history of asthma and COPD came in in the emergency room due to cough productive in character for 2 days associated with shortness of breath wheezing and pleuritic chest pain worsening of the symptoms this patient decided to start consult here in the emergency room sickle examination patient is awake alert oriented not in distress nontoxic looking vital signs stable BP stable not tachycardic not tachypneic not hypoxic afebrile heart normal rate regular rhythm no murmur no edema noted bilateral lung wheezing no crackles no rhonchi no retraction no stridor HEENT exam is normal excellent skin turgor the rest of the physical examination and neurological exam is normal and unremarkable blood test showed leukocytosis at 13,000 no anemia platelet normal kidney liver function is normal no electrolyte imbalance troponin is negative BNP is normal EKG sinus rhythm chest x-ray showed possible mass thus CT scan was ordered and noted infiltrates no mass suggestive of pneumonia patient after giving breathing treatments and dexamethasone patient condition markedly improved glucose is normal patient wheezing was resolved patient chest pain also was resolved at this point patient chest pain is possible due to asthma exacerbation and pneumonia patient was discharged with Augmentin and azithromycin for pneumonia Ventolin inhaler for as needed for shortness of breath and cough medication patient was advised to see a curing bin operator for pulmonary arterial hypertension and pleuritic chest pain for possible echocardiogram stress test and Holter monitor she needs to see also acds block 1 operator for asthma exacerbation for any recurrence persistent worsening symptoms return to the emergency room immediately or call 911 at the time of exam no signs and symptoms sepsis hypoxia or dehydration Patient was discharged with comfortable condition walking with stable gait. Patient verbalized no further complains explained diagnosis and answered patient question. Patient is comfortable with the proposed management plan including the need to follow up with his/her primary care physician and any specialist if applicable Discussed patient for any urgent condition or worsening sx, He/She needed to go to emergency room immediately or call 911. Patient acknowledge the responsibility to follow up as instructed and to monitor her/his symptoms. For any persistence of the symptoms for more than 3-5 days return precaution advised. Discussed the result of the test and was given printed discharge instruction Patient data External records reviewed:: [facility] previous records Clinical information provided by:: patient Social determinants that could affect healthcare access:: none Patient has the following chronic illnesses:: None How is presenting disease/condition affected by chronic disease/condition?: no chronic disease Evaluation data The following diagnostics were reviewed and interpreted by me:: lab results, radiology exam(s) and EKG tracing(s) Lab and/or radiology exams considered but not ordered:: Reviewed Interpretation Summary: Reviewed Medications / Prescriptions Medications or Prescriptions considered but not ordered:: Reviewed Medication administrations:: Medication Administration History Discontinued Medications Albuterol/Ipratropium (Albuterol/Ipratropium (Duoneb) Rt Ofelia 3 Ml Nebu) 3 ml INH X1 ONE Stop: 08/06/25 23:03 Last Admin: 08/06/25 23:21 Dose: 3 ml Documented By: NE Dexamethasone Sodium Phosphate (Dexamethasone Sod Phos Inj 10 Mg/Ml Vial) 10 mg IM X1 ONE Stop: 08/06/25 23:03 Last Admin: 08/06/25 23:24 Dose: 10 mg Documented By: OA Given Consultations Consultation(s) initiated? (list below): No Diagnosis Shortness of Breath Differential Diagnosis: acute exacerbation of chronic obstructive airways disease, congestive heart failure, community acquired pneumonia and asthma with exacerbation Most likely diagnosis given after review of the tests above:: Pneumonia asthma exacerbation Admission Indicated Admission indicated?: not indicated Explain why admission is indicated or not indicated:: Not indicated Admission Request Was there a request for admission?: No Admission Attestation Admission request attestation: Not indicated Disposition Plan Disposition Plan: Discharge Discharge Attestation Discharge Attestation: The patient and all family members were given an opportunity to ask questions and understood the discharge instructions. Discharge instructions specifically effects, indications for sooner follow up or return to the emergency department, and the expected course of current diagnosis. Patient condition: Stable Discharge Plan Plan Patient Disposition: HOME (Self Care) Patient condition on transfer: Stable Prescriptions/Referrals Prescriptions/Med Rec: New promethazine-DM 6.25-15 mg/5 mL syrup 5 ml PO Q6H PRN (Reason: cough) Qty: 118 0RF azithromycin 250 mg tablet 250 mg PO QDAY 6 Days Qty: 6 0RF Rx Instructions: start on day 2 of therapy albuterol sulfate [Ventolin HFA] 90 mcg/actuation HFA aerosol inhaler 2 inh inhalation Q4H Qty: 8.5 0RF amoxicillin-pot clavulanate 875-125 mg tablet 1 tab PO BID Qty: 20 0RF No Action levothyroxine 25 mcg Tablet 25 mcg PO QDAY glipizide 5 mg Tablet 5 mg PO BID prednisone 10 mg tablet 30 mg PO QDAY Rx Instructions: START DATE 03/06/20 hydrocodone-acetaminophen 5-325 mg tablet 1 tab PO Q4H PRN (Reason: Pain) omeprazole 40 mg capsule,delayed release(DR/EC) 40 mg PO QDAY risperidone 2 mg tablet 2 mg PO BID hydrochlorothiazide 12.5 mg capsule 12.5 mg PO QAM gabapentin 300 mg capsule 300 mg PO TID duloxetine 60 mg capsule,delayed release(DR/EC) 60 mg PO QDAY metronidazole 500 mg tablet 500 mg PO Q8H Qty: 20 0RF atorvastatin 40 mg tablet 40 mg PO HS Patient Comments: take 1 tablet by mouth at bedtime acetaminophen [Tylenol] 325 mg tablet 650 mg PO Q4H Qty: 60 0RF hydrocodone-acetaminophen 5-325 mg tablet 1 tab PO BID MDD 10 PRN (Reason: pain) Qty: 6 0RF fluconazole 150 mg tablet 150 mg PO Q3D Qty: 2 0RF albuterol sulfate 90 mcg/actuation HFA aerosol inhaler 2 puff inhalation Q6H PRN (Reason: shortness of breath or wheezing) Qty: 8.5 0RF lidocaine [Lidocaine Pain Relief] 4 % adhesive patch,medicated 1 patch topical QID PRN (Reason: pain) Qty: 15 0RF ibuprofen 600 mg tablet 600 mg PO Q8H PRN (Reason: pain) Qty: 30 0RF sulfamethoxazole-trimethoprim [Bactrim DS] 800-160 mg tablet 1 tab PO BID Qty: 10 0RF psyllium Powder 1 tbsp PO QDAY Qty: 300 0RF Rx Instructions: mix into at least 8 oz of water or juice before administering albuterol sulfate 90 mcg/actuation HFA aerosol inhaler 2 inh inhalation QID PRN (Reason: shortness of breath or wheezing) Qty: 8.5 0RF prednisone 50 mg tablet 50 mg PO QDAY Qty: 3 0RF cephalexin 500 mg capsule 500 mg PO TID Qty: 15 0RF fosfomycin tromethamine 3 gram packet 1 packet PO Q OTHER DAY Qty: 3 0RF Referrals: No Primary/Family,Physician [Primary Care Provider] - In 1 week Problem List Clinical Impression: Asthma exacerbation, Pneumonia, Chest pain, pleuritic, Pulmonary arterial hypertension Patient/Caregiver Discharge Instructions Education Materials: Heart Disease Women, ED Chest Pain, Uncertain Cause, ED Pneumonia (Adult), Asthma Additional Instructions: Follow-up with your primary care physician in 2 days for reevaluation and to be referred to curing bin operator for further evaluation and treatment of chest pain and pulmonary artery hypertension for possible echocardiogram stress test and Holter monitor it also need to see a acds block 1 operator for your asthma exacerbation recurrent persistent worsening symptoms or any emergent concern return to the emergency room immediately or call 911 take your medication as directed finish the course of antibiotic keep hydrated Print Language: Vietnamese Stand Alone Forms: Hilda Award Info., Patient Portal Info Letter PA/SIDE DOOR MAN Supervising Physician PA/SIDE DOOR MAN Supervising Physician: Dr. Hills
[2025-08-07 03:38] VITALS: BP 118/72; PULSE 86; RESP 16; TEMP 36.8; O2SAT 98
== END 2025-08-07 03:39 | disposition home or self-care (01) ==
PROVIDERS: Nurse Practitioner Family; Emergency Provider Emergency Medicine
DX: J45.901 Unspecified asthma with (acute) exacerbation (principal); J18.9 Pneumonia, unspecified organism; I27.21 Secondary pulmonary arterial hypertension; J44.0 Chronic obstructive pulmonary disease with (acute) lower respiratory infection
CPT/HCPCS: 36415; 71045; 71250; 80053; 83880; 84484; 85025; 93005; 94640; 96372; 99284; A9270; J1100

== ENCOUNTER 2025-08-22 20:50 | Emergency (ER) | payer OTHER, MEDICAID, SELFPAY ==
[2025-08-22 20:51] VITALS: BMI 28.0
--- NOTE | 2025-08-22 21:00 | EKG_ITS ---
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
[2025-08-22 21:51] VITALS: BP 151/89; PULSE 89; RESP 20; TEMP 36.9; O2SAT 96
--- NOTE | 2025-08-22 21:56 | XR_ITS ---
EXAMINATION: AP chest single view TECHNIQUE: AP portable sitting chest single view Date and time: August 22, 2025, 10:12 p.m. INDICATIONS: Chest pain intermittent 2 years. FINDINGS: Mild prominence of ventricle Prominent central pulmonary arteries No pneumonia or pulmonary edema Moderate osteopenia IMPRESSION: Mild prominence left ventricle. Findings suspicious for pulmonary artery hypertension No lobar pneumonia or pulmonary edema
--- NOTE | 2025-08-22 21:57 | XR_ITS ---
Examination: Ribs, left, unilateral 2 views Exam date and time: August 22, 2025, 10 0 1:00 p.m. INDICATIONS: Patient fell today with injury to the left chest, left rib pain Findings: No pneumothorax Mild prominence left ventricle Old appearing fracture left humeral neck Old fracture left sixth rib posterolaterally Impression: No pneumothorax Old fracture left sixth rib posterolaterally
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
[2025-08-22] MEDS: ASPIRIN 81 MG CHEW PO (22:07)
[2025-08-22 22:18] LABS: Basophils # (Auto) 0.1 Thou/mm3 (0.0-0.2); Basophils % (Auto) 1 % (0-2.5); Eosinophils # (Auto) 0.2 Thou/mm3 (0.0-0.5); Eosinophils % (Auto) 2 % (0-10); Hematocrit 47.7 % (36.0-46.0); Hemoglobin 15.2 g/dL (12.0-16.0); Immature Granulocytes Auto 0.05 Thou/mm3 (0.00-0.00); Lymphocytes # (Auto) 3.3 Thou/mm3 (1.0-4.8); Lymphocytes % (Auto) 31 % (10-50); Mean Corpuscular HGB Conc 31.9 g/dl (31.0-37.0); Mean Corpuscular Hemoglobin 27.9 pg (25.0-35.0); Mean Corpuscular Volume 88 fL (80-100); Monocytes # (Auto) 0.6 Thou/mm3 (0.0-0.8); Monocytes % (Auto) 6 % (0-12); Neutrophils # (Auto) 6.5 Thou/mm3 (1.8-7.7); Neutrophils % (Auto) 60 % (37-80); Nucleated Red Blood Cell # 0.00 Thou/mm3 (0.00-0.00); Nucleated Red Blood Cell % 0 /100 WBC (0); Platelet Count 328 Thou/mm3 (140-440); RDW Standard Deviation 42.7 fL (36.4-46.3); Red Blood Count 5.45 Miln/mm3 (4.00-5.20); White Blood Count 10.8 Thou/mm3 (3.6-11.0)
[2025-08-22 22:37] LABS: B-Type Natriuretic Peptide 29 pg/mL (0-100)
[2025-08-22 22:40] LABS: Alanine Aminotransferase 13 U/L (10-49); Albumin, Serum 4.2 gm/dL (3.5-5.0); Albumin/Globulin Ratio 1.9 (1.2-2.2); Alkaline Phosphatase 186 U/L (46-116); Anion Gap 11 (7-16); Aspartate Amino Transferase 15 U/L (0-34); BUN/Creatinine Ratio 8 Ratio (12-20); Bilirubin,Total 0.3 mg/dL (0.3-1.2); Blood Urea Nitrogen 7 mg/dL (9-23); Calcium 9.0 mg/dL (8.3-10.6); Calcium (Corrected) 9.0 mg/dL (8.5-10.1); Carbon Dioxide 25.2 mMol/L (20.0-31.0); Chloride 107 mMol/L (98-107); Creatinine (Component) 0.9 mg/dL (0.6-1.3); Estimated Creatinine Clearance 65.4 mL/min (>60); Globulin 2.2 gm/dL (2.3-3.5); Glucose 107 mg/dL (74-106); Osmolality,Calculated 282 (275-295); Potassium 3.9 mMol/L (3.4-5.1); Sodium 143 mMol/L (136-145); Total Protein 6.4 gm/dL (5.7-8.2); Troponin I < 0.002 ng/mL (0.0-0.045); eGFR > 60 See Note
[2025-08-22 23:11] LABS: Amphetamine/Methamp Scrn,U Positive (Negative); Barbiturate Screen,Urine Negative (Negative); Benzodiazepines Screen,Urine Negative (Negative); Benzoylecgonine Screen, Ur Negative (Negative); Fentanyl Screen,Urine Negative (Negative); Opiate Screen,Urine Negative (Negative); THC Screen,Urine Negative (Negative)
[2025-08-22] MEDS: LIDOCAINE 5% 1 PATCH TOP (23:26)
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
== END 2025-08-23 00:36 | disposition home or self-care (01) ==
PROVIDERS: Emergency Provider Emergency Medicine
DX: R07.9 Chest pain, unspecified (principal)
CPT/HCPCS: 36415; 71045; 71100; 80053; 80307; 83880; 84484; 85025; 93005; 99282; J3490; A9270

== ENCOUNTER 2025-08-23 01:03 | Emergency (ER) | payer OTHER, MEDICAID, SELFPAY ==
[2025-08-23 01:04] VITALS: BMI 30.8
[2025-08-23 01:22] VITALS: BP 118/86; PULSE 91; RESP 18; TEMP 36.7; O2SAT 97
--- NOTE | 2025-08-23 06:14 | PC.NURSE ---
pt seen leaving lobby with family member. pt stated bye as she exited out.
== END 2025-08-23 06:22 | disposition left against medical advice (07) ==
LOC: SERX 02:21
PROVIDERS: Emergency Provider Emergency Medicine
DX: Z53.21 Procedure and treatment not carried out due to patient leaving prior to being seen by health care provider (principal)
CPT/HCPCS: 99282

== ENCOUNTER 2025-08-24 21:54 | Emergency (ER) | payer OTHER, MEDICAID, SELFPAY ==
[2025-08-24 21:55] VITALS: BMI 30.8
[2025-08-24 23:29] VITALS: BP 118/81; PULSE 96; RESP 19; TEMP 36.8; O2SAT 97
--- NOTE | 2025-08-25 02:44 | PD.EDANX ---
ED Anxiety RME/HPI General Chief Complaint: General Adult/Misc Complain Stated Complaint: ANXIETY, GENERALIZED ARTHRITIS PAIN Time Seen by Provider: 08/25/25 02:37 Arrival date/time: 08/24/25 21:54 59F with history of drug use presents to ED wanting meds for anxiety and some joint pain. Limitations: no limitations Related Data Home Medications ?Medication ?Instructions ?Recorded ?Confirmed glipizide 5 mg tablet 5 mg PO BID 06/10/19 03/19/20 levothyroxine 25 mcg tablet 25 mcg PO QDAY 06/10/19 03/19/20 atorvastatin 40 mg tablet 40 mg PO HS 11/22/19 03/19/20 duloxetine 60 mg capsule,delayed 60 mg PO QDAY 03/19/20 03/19/20 release gabapentin 300 mg capsule 300 mg PO TID 03/19/20 03/19/20 hydrochlorothiazide 12.5 mg capsule 12.5 mg PO QAM 03/19/20 03/19/20 hydrocodone 5 mg-acetaminophen 325 1 tab PO Q4H PRN Pain 03/19/20 03/19/20 mg tablet omeprazole 40 mg capsule,delayed 40 mg PO QDAY 03/19/20 03/19/20 release prednisone 10 mg tablet 30 mg PO QDAY 03/19/20 03/19/20 risperidone 2 mg tablet 2 mg PO BID 03/19/20 03/19/20 Previous Rx's ?Medication ?Instructions ?Recorded metronidazole 500 mg tablet 500 mg PO Q8H #20 tabs 03/20/20 acetaminophen 325 mg tablet 650 mg (2 x 325 mg) PO Q4H #60 tabs 03/26/20 (Tylenol) hydrocodone 5 mg-acetaminophen 325 1 tab PO BID PRN pain #6 tabs 12/30/21 mg tablet psyllium 1 tbsp PO QDAY #300 grams 03/21/23 albuterol sulfate 90 mcg/actuation 2 inh inhalation QID PRN shortness 09/26/24 aerosol inhaler of breath or wheezing #8.5 grams prednisone 50 mg tablet 50 mg PO QDAY #3 tabs 09/26/24 fluconazole 150 mg tablet 150 mg PO Q3D 2 doses #2 tabs 09/27/24 albuterol sulfate 90 mcg/actuation 2 puff inhalation Q6H PRN 02/19/25 aerosol inhaler shortness of breath or wheezing #8.5 grams lidocaine 4 % topical patch 1 patch topical QID PRN pain #15 ea 03/15/25 (Lidocaine Pain Relief) cephalexin 500 mg capsule 500 mg PO TID #15 caps 05/15/25 ibuprofen 600 mg tablet 600 mg PO Q8H PRN pain #30 tabs 06/03/25 sulfamethoxazole 800 1 tab PO BID #10 tabs 06/06/25 mg-trimethoprim 160 mg tablet (Bactrim DS) fosfomycin tromethamine 3 gram 1 packet PO Q OTHER DAY 3 doses #3 08/02/25 oral packet ea albuterol sulfate 90 mcg/actuation 2 inh inhalation Q4H #8.5 grams 08/07/25 aerosol inhaler (Ventolin HFA) amoxicillin 875 mg-potassium 1 tab PO BID #20 tabs 08/07/25 clavulanate 125 mg tablet promethazine-DM 6.25 mg-15 mg/5 mL 5 ml PO Q6H PRN cough #118 mL 08/07/25 oral syrup Allergies Allergy/AdvReac Type Severity Reaction Status Date / Time levofloxacin (From Levaquin) Allergy Severe Swelling Verified 08/24/25 22:02 of Lip/Tongue/Throat methotrexate Allergy Severe Redness of Verified 08/24/25 22:02 Skin Review of Systems Review of Systems Systems Reviewed: All systems reviewed, normal except as documented Musculoskeletal Musculoskeletal: Reports as per HPI and Reports arthralgias Psychiatric Psychiatric: Reports as per HPI and Reports anxiety Past Medical History Past Medical History NEUROLOGIC: Positive Neurological Disorders and Nunez's Palsy CARDIAC: Positive Atrial Fibrillation, Angina, Atherosclerotic Heart Disease, Hypercholesterolemia, Congestive Heart Failure and Hypertension; Negative Cardiac Disorders RESPIRATORY: Positive Chronic Obstructive Pulmonary Disease (COPD), Asthma and Pneumonia GASTROINTESTINAL: Positive Gastrointestinal Disorders, Gall Bladder Disease, Gastrointestinal Bleed, Diverticulitis, Ulcer, Irritable Bowel, Hiatal Hernia and Gastroesophageal Reflux Disease GENITOURINARY: Positive Genitourinary Disorders, Renal Disease and Kidney Stones REPRODUCTIVE: Positive Endometriosis and Previous Pregnancies MUSCULOSKELETAL: Positive Musculoskeletal Disorders, Rheumatoid Arthritis and Fractures ENT: Positive Cataracts and Glaucoma ENDOCRINE: Positive Endocrine Disorders, Diabetes Mellitus Type 2 and Hypothyroidism; Negative Diabetes Mellitus Type 1 HEMATOLOGIC: Positive Blood Disorders, Anemia and Sickle Cell Disease PSYCHO/SOCIAL: Positive Schizophrenia OTHER HISTORY: Positive Rubella ([place] Measles) and Cervical Cancer; Negative Autoimmune Disease Family History FAMILY HISTORY: Positive Family Psychiatric Problems, Family Cardiac Disorders and Family Gastrointestinal Problems; Negative Family Respiratory Disorders, Family Cancer or Family Surgery Surgical History SURGICAL: Positive Angiogram, Abdominal Surgery and Tubal Ligation Social History SMOKING STATUS: Former smoker SECOND HAND EXPOSURE: No SUBSTANCE USE: methamphetamine ED Exam General Limitations: Present no limitations General appearance: Present alert and in no apparent distress Head Head exam: Present atraumatic Neck Neck exam: Present normal inspection, full ROM and trachea midline Chest Chest inspection: Present normal inspection and symmetric chest wall rise Neurological Exam Neurological exam: Present alert and oriented X3 Psychiatric Psychiatric exam: Present normal affect and normal mood Skin Skin exam: Present warm, dry, intact and normal color Course Quality Measures none Orders Category Date Time Status Acetaminophen Tab [Tylenol ES Tab] Med 08/25/25 02:38 Discontinued 1,000 mg PO X1 ONE LORazepam [Ativan] Med 08/25/25 02:38 Discontinued 1 mg PO X1 ONE Vital Signs Vital signs: Vital Signs Temperature 98.2 F 08/24/25 23:29 Pulse Rate 96 08/24/25 23:29 Respiratory Rate 19 08/24/25 23:29 Blood Pressure 118/81 08/24/25 23:29 Pulse Oximetry (%) 97 08/24/25 23:29 Oxygen Delivery Method Room Air 08/24/25 23:29 Anxiety MDM Narrative MDM Narrative: 59F with history of drug use presents to ED wanting meds for anxiety and some joint pain. Physical exam reveals female in distress. Patient is afebrile and alert. Meds and recreational counselor given. Patient data External records reviewed:: [facility] previous records Clinical information provided by:: patient Social determinants that could affect healthcare access:: alcohol use Patient has the following chronic illnesses:: drug use How is presenting disease/condition affected by chronic disease/condition?: exacerbated by Evaluation data The following diagnostics were reviewed and interpreted by me:: other (specify) (none) Lab and/or radiology exams considered but not ordered:: not ordered Interpretation Summary: n/a Medications / Prescriptions Medications or Prescriptions considered but not ordered:: ordered Medication administrations:: Medication Administration History Discontinued Medications Acetaminophen (Acetaminophen 500 Mg Tablet) 1,000 mg PO X1 ONE Stop: 08/25/25 02:39 Lorazepam (Lorazepam 0.5 Mg Tablet) 1 mg PO X1 ONE Stop: 08/25/25 02:39 Consultations Consultation(s) initiated? (list below): No Diagnosis Differential diagnosis anxiety: hyperventilation, panic disorder, acute anxiety and other (anxiety and joint pain) Most likely diagnosis given after review of the tests above:: anxiety and joint pain Admission Indicated Admission indicated?: not indicated Admission Request Was there a request for admission?: No Disposition Plan Disposition Plan: Discharge Discharge Attestation Discharge Attestation: The patient and all family members were given an opportunity to ask questions and understood the discharge instructions. Discharge instructions specifically effects, indications for sooner follow up or return to the emergency department, and the expected course of current diagnosis. Patient condition: Stable Discharge Plan Plan Patient Disposition: HOME (Self Care) Discharge Disposition comment: stable Prescriptions/Referrals Prescriptions/Med Rec: No Action levothyroxine 25 mcg Tablet 25 mcg PO QDAY glipizide 5 mg Tablet 5 mg PO BID prednisone 10 mg tablet 30 mg PO QDAY Rx Instructions: START DATE 03/06/20 hydrocodone-acetaminophen 5-325 mg tablet 1 tab PO Q4H PRN (Reason: Pain) omeprazole 40 mg capsule,delayed release(DR/EC) 40 mg PO QDAY risperidone 2 mg tablet 2 mg PO BID hydrochlorothiazide 12.5 mg capsule 12.5 mg PO QAM gabapentin 300 mg capsule 300 mg PO TID duloxetine 60 mg capsule,delayed release(DR/EC) 60 mg PO QDAY metronidazole 500 mg tablet 500 mg PO Q8H Qty: 20 0RF atorvastatin 40 mg tablet 40 mg PO HS Patient Comments: take 1 tablet by mouth at bedtime acetaminophen [Tylenol] 325 mg tablet 650 mg PO Q4H Qty: 60 0RF hydrocodone-acetaminophen 5-325 mg tablet 1 tab PO BID MDD 10 PRN (Reason: pain) Qty: 6 0RF fluconazole 150 mg tablet 150 mg PO Q3D Qty: 2 0RF albuterol sulfate 90 mcg/actuation HFA aerosol inhaler 2 puff inhalation Q6H PRN (Reason: shortness of breath or wheezing) Qty: 8.5 0RF lidocaine [Lidocaine Pain Relief] 4 % adhesive patch,medicated 1 patch topical QID PRN (Reason: pain) Qty: 15 0RF ibuprofen 600 mg tablet 600 mg PO Q8H PRN (Reason: pain) Qty: 30 0RF sulfamethoxazole-trimethoprim [Bactrim DS] 800-160 mg tablet 1 tab PO BID Qty: 10 0RF psyllium Powder 1 tbsp PO QDAY Qty: 300 0RF Rx Instructions: mix into at least 8 oz of water or juice before administering albuterol sulfate 90 mcg/actuation HFA aerosol inhaler 2 inh inhalation QID PRN (Reason: shortness of breath or wheezing) Qty: 8.5 0RF prednisone 50 mg tablet 50 mg PO QDAY Qty: 3 0RF cephalexin 500 mg capsule 500 mg PO TID Qty: 15 0RF fosfomycin tromethamine 3 gram packet 1 packet PO Q OTHER DAY Qty: 3 0RF promethazine-DM 6.25-15 mg/5 mL syrup 5 ml PO Q6H PRN (Reason: cough) Qty: 118 0RF albuterol sulfate [Ventolin HFA] 90 mcg/actuation HFA aerosol inhaler 2 inh inhalation Q4H Qty: 8.5 0RF amoxicillin-pot clavulanate 875-125 mg tablet 1 tab PO BID Qty: 20 0RF Problem List Clinical Impression: Anxiety, Joint pain Patient/Caregiver Discharge Instructions Education Materials: Your Body's Response to Anxiety, ED Arthralgia Additional Instructions: Please follow-up with PCP within 24-48 hours and return immediately if symptoms worsen. If problem persists, recommend outpatient PT and/or MRI follow-up. In the meantime, rest, use ice/heat, and/or compression. Print Language: Greek Stand Alone Forms: Patient Portal Info Letter SCOOTER/TATA Supervising Physician SCOOTER/TATA Supervising Physician: Dr. Zuñiga
[2025-08-25] MEDS: ACETAMINOPHEN 500 MG TABLET 1000 MG PO (03:21)
== END 2025-08-25 06:09 | disposition home or self-care (01) ==
LOC: SERX 08-25 02:48
PROVIDERS: Emergency Provider Emergency Medicine
DX: F41.9 Anxiety disorder, unspecified (principal); M13.0 Polyarthritis, unspecified; Z79.84 Long term (current) use of oral hypoglycemic drugs
CPT/HCPCS: 99282; A9270

== ENCOUNTER 2025-09-25 18:59 | Emergency (ER) | payer OTHER, MEDICAID, SELFPAY ==
[2025-09-25 19:26] VITALS: BP 136/88; PULSE 104; RESP 18; TEMP 36.9; O2SAT 96
[2025-09-25 19:28] VITALS: BMI 30.8
--- NOTE | 2025-09-25 19:44 | PD.EDHAND ---
Upper Extremity Injury RME/HPI General Chief Complaint: Hand/Wrist Problems Stated Complaint: R) HAND INJURY Time Seen by Provider: 09/25/25 19:38 Arrival date/time: 09/25/25 18:59 59-year-old female close with complaints of a laceration to the left fourth finger. Patient states her finger was caught in a hoskins ring resulting in a laceration to the hand. Patient denies any numbness or tingling stiffness or pain. Patient is uncertain of last tetanus update does report that she is diabetic and has not taken any medications for symptoms Limitations: no limitations Related Data Home Medications ?Medication ?Instructions ?Recorded ?Confirmed glipizide 5 mg tablet 5 mg PO BID 06/10/19 03/19/20 levothyroxine 25 mcg tablet 25 mcg PO QDAY 06/10/19 03/19/20 atorvastatin 40 mg tablet 40 mg PO HS 11/22/19 03/19/20 duloxetine 60 mg capsule,delayed 60 mg PO QDAY 03/19/20 03/19/20 release gabapentin 300 mg capsule 300 mg PO TID 03/19/20 03/19/20 hydrochlorothiazide 12.5 mg capsule 12.5 mg PO QAM 03/19/20 03/19/20 hydrocodone 5 mg-acetaminophen 325 1 tab PO Q4H PRN Pain 03/19/20 03/19/20 mg tablet omeprazole 40 mg capsule,delayed 40 mg PO QDAY 03/19/20 03/19/20 release prednisone 10 mg tablet 30 mg PO QDAY 03/19/20 03/19/20 risperidone 2 mg tablet 2 mg PO BID 03/19/20 03/19/20 Previous Rx's ?Medication ?Instructions ?Recorded metronidazole 500 mg tablet 500 mg PO Q8H #20 tabs 03/20/20 acetaminophen 325 mg tablet 650 mg (2 x 325 mg) PO Q4H #60 tabs 03/26/20 (Tylenol) hydrocodone 5 mg-acetaminophen 325 1 tab PO BID PRN pain #6 tabs 12/30/21 mg tablet psyllium 1 tbsp PO QDAY #300 grams 03/21/23 albuterol sulfate 90 mcg/actuation 2 inh inhalation QID PRN shortness 09/26/24 aerosol inhaler of breath or wheezing #8.5 grams prednisone 50 mg tablet 50 mg PO QDAY #3 tabs 09/26/24 fluconazole 150 mg tablet 150 mg PO Q3D 2 doses #2 tabs 09/27/24 albuterol sulfate 90 mcg/actuation 2 puff inhalation Q6H PRN 02/19/25 aerosol inhaler shortness of breath or wheezing #8.5 grams lidocaine 4 % topical patch 1 patch topical QID PRN pain #15 ea 03/15/25 (Lidocaine Pain Relief) cephalexin 500 mg capsule 500 mg PO TID #15 caps 05/15/25 ibuprofen 600 mg tablet 600 mg PO Q8H PRN pain #30 tabs 06/03/25 sulfamethoxazole 800 1 tab PO BID #10 tabs 06/06/25 mg-trimethoprim 160 mg tablet (Bactrim DS) fosfomycin tromethamine 3 gram 1 packet PO Q OTHER DAY 3 doses #3 08/02/25 oral packet ea albuterol sulfate 90 mcg/actuation 2 inh inhalation Q4H #8.5 grams 08/07/25 aerosol inhaler (Ventolin HFA) amoxicillin 875 mg-potassium 1 tab PO BID #20 tabs 08/07/25 clavulanate 125 mg tablet promethazine-DM 6.25 mg-15 mg/5 mL 5 ml PO Q6H PRN cough #118 mL 08/07/25 oral syrup cephalexin 500 mg capsule 500 mg PO Q12H 7 days #14 caps 09/25/25 Allergies Allergy/AdvReac Type Severity Reaction Status Date / Time levofloxacin (From Levaquin) Allergy Severe Swelling Verified 09/25/25 19:02 of Lip/Tongue/Throat methotrexate Allergy Severe Redness of Verified 09/25/25 19:02 Skin Review of Systems Constitutional Constitutional: Denies chills and Denies fever(s) Musculoskeletal Musculoskeletal: Denies arthralgias, Denies deformity, Reports joint swelling, Denies numbness and Denies tingling Integumentary/Breasts Skin/Breast: Reports unusual bruising and Reports wounds Neurologic Neurologic: Denies numbness and Denies tingling Past Medical History Past Medical History NEUROLOGIC: Positive Neurological Disorders and Nunez's Palsy CARDIAC: Positive Atrial Fibrillation, Angina, Atherosclerotic Heart Disease, Hypercholesterolemia, Congestive Heart Failure and Hypertension; Negative Cardiac Disorders RESPIRATORY: Positive Chronic Obstructive Pulmonary Disease (COPD), Asthma and Pneumonia GASTROINTESTINAL: Positive Gastrointestinal Disorders, Gall Bladder Disease, Gastrointestinal Bleed, Diverticulitis, Ulcer, Irritable Bowel, Hiatal Hernia and Gastroesophageal Reflux Disease GENITOURINARY: Positive Genitourinary Disorders, Renal Disease and Kidney Stones REPRODUCTIVE: Positive Endometriosis and Previous Pregnancies MUSCULOSKELETAL: Positive Musculoskeletal Disorders, Rheumatoid Arthritis and Fractures ENT: Positive Cataracts and Glaucoma ENDOCRINE: Positive Endocrine Disorders, Diabetes Mellitus Type 2 and Hypothyroidism; Negative Diabetes Mellitus Type 1 HEMATOLOGIC: Positive Blood Disorders, Anemia and Sickle Cell Disease PSYCHO/SOCIAL: Positive Schizophrenia OTHER HISTORY: Positive Rubella (Sudanese Measles) and Cervical Cancer; Negative Autoimmune Disease Family History FAMILY HISTORY: Positive Family Psychiatric Problems, Family Cardiac Disorders and Family Gastrointestinal Problems; Negative Family Respiratory Disorders, Family Cancer or Family Surgery Surgical History SURGICAL: Positive Angiogram, Abdominal Surgery and Tubal Ligation Social History SMOKING STATUS: Former smoker SECOND HAND EXPOSURE: No SUBSTANCE USE: methamphetamine ED Exam General Limitations: Present no limitations General appearance: Present alert and in no apparent distress Expanded Upper Extremity Exam Arm exam: Present normal inspection and full ROM Elbow exam: Present normal inspection and full ROM Forearm/Wrist exam: Present normal inspection and full ROM Hand exam: Present other (right 4th finger with 1 cm superficial flap laceration to the proximal phalanx volar no ligament or tendon involvement full range of motion of digit cap refill of less than 2 seconds remainder of hand is unremarkable) Hand L/R front image:  1. laceration Neurological Exam Neurological exam: Present alert, oriented X3 and CN II-XII intact Psychiatric Psychiatric exam: Present normal affect and normal mood Skin Skin exam: Present warm, dry, intact and normal color Course Quality Measures none Orders Category Date Time Status Irrigate Wound NOW Care 09/25/25 19:41 Active Set Up Suture Tray STAT Care 09/25/25 19:41 Active Ketorolac Inj [Toradol Inj] Med 09/25/25 19:41 Discontinued 60 mg IM X1 ONE Lidocaine 1% 20 ml [Xylocaine 1% 20 ML] Med 09/25/25 19:41 Discontinued 10 ml INFL X1 ONE TET,DIP/PERT AC (Adult)-Tdap [Boostrix Adult (Tdap) Med 09/25/25 19:41 Discontinued Vacc] 0.5 ml IMI .ONCE ONE cephALEXin [Keflex] Med 09/25/25 19:41 Discontinued 500 mg PO X1 ONE Vital Signs Vital signs: Vital Signs Temperature 98.5 F 09/25/25 19:26 Pulse Rate 104 H 09/25/25 19:26 Respiratory Rate 18 09/25/25 19:26 Blood Pressure 136/88 H 09/25/25 19:26 Pulse Oximetry (%) 96 09/25/25 19:26 Oxygen Delivery Method Room Air 09/25/25 19:26 PROCEDURES: Laceration Laceration 1: Site: hand (4TH proximal digit volar aspect) Side (If applicable): right Size (cm): 1 Description: flap Depth: simple, single layer Local Anesthetic: lidocaine 1% Amount of anesthesia used (mL): 5 Pre-repair: irrigated extensively Skin layer closed with: nylon Suture size (cm): 3-0 Number of sutures: 2 Technique: simple, interrupted (Patient tolerated well neurovascular remained intact) Extremity Injury Patient data External records reviewed:: None Clinical information provided by:: patient Social determinants that could affect healthcare access:: none Patient has the following chronic illnesses:: Diabetes How is presenting disease/condition affected by chronic disease/condition?: uneffected by Evaluation data The following diagnostics were reviewed and interpreted by me:: other (specify) Lab and/or radiology exams considered but not ordered:: None Interpretation Summary: N/A Medications / Prescriptions Medications or Prescriptions considered but not ordered:: None Medication administrations:: Medication Administration History Discontinued Medications Cephalexin HCl (Cephalexin 250 Mg Capsule) 500 mg PO X1 ONE Stop: 09/25/25 19:42 Last Admin: 09/25/25 19:48 Dose: 500 mg Documented By: NIALL Diphtheria/Tetanus/Acell Pertussis (Diphth,Pertuss(Acell),Tet Vac 0.5 Ml Syr- Adult) 0.5 ml IMi .ONCE ONE Stop: 09/25/25 19:42 Last Admin: 09/25/25 19:49 Dose: 0.5 ml Documented By: NIALL Ketorolac Tromethamine (Ketorolac Inj 60 Mg/2 Ml Vial) 60 mg IM X1 ONE Stop: 09/25/25 19:42 Last Admin: 09/25/25 19:51 Dose: 60 mg Documented By: NAILL Lidocaine HCl (Lidocaine Hcl 1% 20 Ml Vial) 10 ml INFL X1 ONE Stop: 09/25/25 19:42 Last Admin: 09/25/25 19:50 Dose: 10 ml Documented By: NIALL Comments: 20ML VIAL GIVEN TO PROVIDER As above Consultations Consultation(s) initiated? (list below): No Diagnosis Upper Extremity Injury Differential Diagnosis: other (Laceration of finger, abrasion of finger) Most likely diagnosis given after review of the tests above:: Finger laceration Admission Indicated Admission indicated?: not indicated Admission Request Was there a request for admission?: No Disposition Plan Disposition Plan: Discharge Discharge Attestation Discharge Attestation: The patient and all family members were given an opportunity to ask questions and understood the discharge instructions. Discharge instructions specifically effects, indications for sooner follow up or return to the emergency department, and the expected course of current diagnosis. Patient condition: Stable Discharge Plan Plan Patient Disposition: HOME (Self Care) Prescriptions/Referrals Prescriptions/Med Rec: New cephalexin 500 mg capsule 500 mg PO Q12H 7 Days Qty: 14 0RF No Action levothyroxine 25 mcg Tablet 25 mcg PO QDAY glipizide 5 mg Tablet 5 mg PO BID prednisone 10 mg tablet 30 mg PO QDAY Rx Instructions: START DATE 03/06/20 hydrocodone-acetaminophen 5-325 mg tablet 1 tab PO Q4H PRN (Reason: Pain) omeprazole 40 mg capsule,delayed release(DR/EC) 40 mg PO QDAY risperidone 2 mg tablet 2 mg PO BID hydrochlorothiazide 12.5 mg capsule 12.5 mg PO QAM gabapentin 300 mg capsule 300 mg PO TID duloxetine 60 mg capsule,delayed release(DR/EC) 60 mg PO QDAY metronidazole 500 mg tablet 500 mg PO Q8H Qty: 20 0RF atorvastatin 40 mg tablet 40 mg PO HS Patient Comments: take 1 tablet by mouth at bedtime acetaminophen [Tylenol] 325 mg tablet 650 mg PO Q4H Qty: 60 0RF hydrocodone-acetaminophen 5-325 mg tablet 1 tab PO BID MDD 10 PRN (Reason: pain) Qty: 6 0RF fluconazole 150 mg tablet 150 mg PO Q3D Qty: 2 0RF albuterol sulfate 90 mcg/actuation HFA aerosol inhaler 2 puff inhalation Q6H PRN (Reason: shortness of breath or wheezing) Qty: 8.5 0RF lidocaine [Lidocaine Pain Relief] 4 % adhesive patch,medicated 1 patch topical QID PRN (Reason: pain) Qty: 15 0RF ibuprofen 600 mg tablet 600 mg PO Q8H PRN (Reason: pain) Qty: 30 0RF sulfamethoxazole-trimethoprim [Bactrim DS] 800-160 mg tablet 1 tab PO BID Qty: 10 0RF psyllium Powder 1 tbsp PO QDAY Qty: 300 0RF Rx Instructions: mix into at least 8 oz of water or juice before administering albuterol sulfate 90 mcg/actuation HFA aerosol inhaler 2 inh inhalation QID PRN (Reason: shortness of breath or wheezing) Qty: 8.5 0RF prednisone 50 mg tablet 50 mg PO QDAY Qty: 3 0RF cephalexin 500 mg capsule 500 mg PO TID Qty: 15 0RF fosfomycin tromethamine 3 gram packet 1 packet PO Q OTHER DAY Qty: 3 0RF promethazine-DM 6.25-15 mg/5 mL syrup 5 ml PO Q6H PRN (Reason: cough) Qty: 118 0RF albuterol sulfate [Ventolin HFA] 90 mcg/actuation HFA aerosol inhaler 2 inh inhalation Q4H Qty: 8.5 0RF amoxicillin-pot clavulanate 875-125 mg tablet 1 tab PO BID Qty: 20 0RF Referrals: No Primary/Family,Physician [Primary Care Provider] - In 1 week Problem List Clinical Impression: Laceration of right ring finger Patient/Caregiver Discharge Instructions Education Materials: ED Laceration: All Closures Additional Instructions: Keep the area clean and dry, take antibiotics as directed, from 3 primary care provider in 2 days for reevaluation, follow-up with primary care provider in 10 days for suture removal Print Language: Georgian Stand Alone Forms: [facility]ilda [facility] Info., Patient Portal Info Letter Vaccines Vaccines Given During Stay: TDaP
[2025-09-25] MEDS: DIPHTH,PERTUSS(ACELL),TET VAC 0.5 ML SYR- ADULT IMi (19:49)
[2025-09-25] MEDS: LIDOCAINE HCL 1% 20 ML VIAL 10 ML INFL (19:50)
[2025-09-25] MEDS: KETOROLAC INJ 60 MG/2 ML VIAL IM (19:51)
== END 2025-09-25 20:36 | disposition home or self-care (01) ==
PROVIDERS: Emergency Provider Physician Assistant
DX: S61.215A Laceration without foreign body of left ring finger without damage to nail, initial encounter (principal); W23.1XXA Caught, crushed, jammed, or pinched between stationary objects, initial encounter; Z23 Encounter for immunization
CPT/HCPCS: 12002; 90471; 90715; 96372; 99282; J1885; J3490; A9270

== ENCOUNTER 2025-09-30 11:24 | Emergency (ER) | payer OTHER, MEDICAID, SELFPAY ==
[2025-09-30 11:25] VITALS: BMI 28.0
[2025-09-30 11:43] VITALS: BP 117/81; PULSE 110; RESP 18; TEMP 36.6; O2SAT 97
--- NOTE | 2025-09-30 12:39 | XR_ITS ---
EXAMINATION: PA lateral chest 2 views TECHNIQUE: Upright PA lateral chest 2 views Date and time: September 30, 2025, 12:47 p.m., comparison August 28, 2025 FINDINGS: Mild prominence left ventricle Prominent central pulmonary arteries No lobar pneumonia or pulmonary edema IMPRESSION: Mild prominence left ventricle Suspicious for pulmonary artery hypertension
--- NOTE | 2025-09-30 12:39 | PD.EDRME ---
Rapid Medical Screening Exam RME Arrival date/time: 09/30/25 11:24 Chief Complaint: General Adult/Misc Complain Time Seen by Provider: 09/30/25 12:28 Vital signs: Vital Signs Temperature 98 F 09/30/25 11:43 Pulse Rate 110 H 09/30/25 11:43 Respiratory Rate 18 09/30/25 11:43 Blood Pressure 117/81 09/30/25 11:43 Pulse Oximetry (%) 97 09/30/25 11:43 Oxygen Delivery Method Room Air 09/30/25 11:43 RME Narrative: 59-year-old female with history of diabetes states she thinks she is septic today. Despite having normal vitals today states she is either in sepsis or in DKA. Significant other states they did not check her sugars before leaving the hotel today. No history of admission for DKA or for urosepsis in the last 2 years. Exam: No acute significant findings during initial exam Clinical Impression: DKA versus UTI versus hyperglycemia
[2025-09-30 13:23] LABS: Base Excess, Venous -2 (-3-3); Lactate (Lactic Acid) 2.6 mMol/L (0.4-2.0); O2 Saturation, Venous 86 % (96-97); PCO2, Venous 40 mmHg (36-56); PO2, Venous 53 mmHg (15-58); pH, Venous 7.37 (7.33-7.66)
[2025-09-30 13:23] LABS: Collection Type, Urine Clean Catch
[2025-09-30 13:29] LABS: Basophils # (Auto) 0.1 Thou/mm3 (0.0-0.2); Basophils % (Auto) 1 % (0-2.5); Eosinophils # (Auto) 0.2 Thou/mm3 (0.0-0.5); Eosinophils % (Auto) 2 % (0-10); Hematocrit 49.7 % (36.0-46.0); Hemoglobin 16.1 g/dL (12.0-16.0); Immature Granulocytes Auto 0.04 Thou/mm3 (0.00-0.00); Lymphocytes # (Auto) 2.4 Thou/mm3 (1.0-4.8); Lymphocytes % (Auto) 21 % (10-50); Mean Corpuscular HGB Conc 32.4 g/dl (31.0-37.0); Mean Corpuscular Hemoglobin 27.6 pg (25.0-35.0); Mean Corpuscular Volume 85 fL (80-100); Monocytes # (Auto) 0.6 Thou/mm3 (0.0-0.8); Monocytes % (Auto) 5 % (0-12); Neutrophils # (Auto) 8.1 Thou/mm3 (1.8-7.7); Neutrophils % (Auto) 71 % (37-80); Nucleated Red Blood Cell # 0.00 Thou/mm3 (0.00-0.00); Nucleated Red Blood Cell % 0 /100 WBC (0); Platelet Count 462 Thou/mm3 (140-440); RDW Standard Deviation 41.8 fL (36.4-46.3); Red Blood Count 5.83 Miln/mm3 (4.00-5.20); White Blood Count 11.4 Thou/mm3 (3.6-11.0)
[2025-09-30 13:31] LABS: Beta Hydroxybutyrate 0.1 mmol/L (<0.6)
[2025-09-30 13:42] LABS: Amphetamine/Methamp Scrn,U Positive (Negative); Barbiturate Screen,Urine Negative (Negative); Benzodiazepines Screen,Urine Negative (Negative)
[2025-09-30 13:43] LABS: Benzoylecgonine Screen, Ur Negative (Negative); Opiate Screen,Urine Negative (Negative); THC Screen,Urine Negative (Negative)
[2025-09-30 13:44] LABS: Alanine Aminotransferase 12 U/L (10-49); Albumin, Serum 4.3 gm/dL (3.5-5.0); Albumin/Globulin Ratio 1.6 (1.2-2.2); Alkaline Phosphatase 128 U/L (46-116); Anion Gap 10 (7-16); Aspartate Amino Transferase 17 U/L (0-34); BUN/Creatinine Ratio 8 Ratio (12-20); Bilirubin,Total 0.4 mg/dL (0.3-1.2); Blood Urea Nitrogen 7 mg/dL (9-23); Calcium 9.3 mg/dL (8.3-10.6); Calcium (Corrected) 9.3 mg/dL (8.5-10.1); Carbon Dioxide 22.5 mMol/L (20.0-31.0); Chloride 106 mMol/L (98-107); Creatinine (Component) 0.9 mg/dL (0.6-1.3); Estimated Creatinine Clearance 65.4 mL/min (>60); Globulin 2.7 gm/dL (2.3-3.5); Glucose 151 mg/dL (74-106); Lipase 33 U/L (12-53); Osmolality,Calculated 276 (275-295); Potassium 4.1 mMol/L (3.4-5.1); Sodium 138 mMol/L (136-145); Total Protein 7.0 gm/dL (5.7-8.2); eGFR > 60 See Note
[2025-09-30 13:48] LABS: Bacteria,Urine 4+; Bilirubin,Urine Negative (Negative); Blood,Urine Negative (Negative); Clarity,Urine Turbid (Clear/Hazy); Color,Urine Yellow (Lt Yel-Yel); Glucose, Urine Negative (Negative); Granular Casts,Urine < 1 /hpf (0-1); Hyaline Casts,Urine < 1 /hpf (0-1); Ketones,Urine Negative (Negative); Leukocyte Esterase,Urine Positive (Negative); Nitrite,Urine Negative (Negative); PH,Urine 6.0 (5.0-7.0); Protein,Urine Trace (Neg - Trace); RBC,Urine 4 /hpf (0-3); Specific Gravity,Urine 1.023 (1.001-1.035); Squamous Epithelial Cell,Urine 1 /hpf (0-5); Urobilinogen,Urine 3.0 mg/dL (0.0-1.0); WBC,Urine 325 /hpf (0-5)
[2025-09-30 14:21] VITALS: BP 122/80; PULSE 90; RESP 18; TEMP 36.6; O2SAT 99
--- NOTE | 2025-09-30 14:28 | PD.EDURI ---
Upper Respiratory Inf. RME/HPI General Chief Complaint: General Adult/Misc Complain Stated Complaint: NOT FEELING GOOD Time Seen by Provider: 09/30/25 12:28 Arrival date/time: 09/30/25 11:24 Limitations: no limitations RME / HPI RME / HPI Narrative: 59-year-old female with history of diabetes states she thinks she is septic today. Despite having normal vitals today states she is either in sepsis or in DKA. Significant other states they did not check her sugars before leaving the hotel today. No history of admission for DKA or for urosepsis in the last [address] FLYNN MAIN ED EVALUATION: 59-year-old female presents with a 2 day history of cough and sputum production. She denies fevers and chills. No other complaints. Past medical history includes congestive heart failure, deep vein thrombosis, hypertension, diabetes mellitus type 2, hypothyroidism, and schizophrenia. Related Data Home Medications ?Medication ?Instructions ?Recorded ?Confirmed glipizide 5 mg tablet 5 mg PO BID 06/10/19 03/19/20 levothyroxine 25 mcg tablet 25 mcg PO QDAY 06/10/19 03/19/20 atorvastatin 40 mg tablet 40 mg PO HS 11/22/19 03/19/20 duloxetine 60 mg capsule,delayed 60 mg PO QDAY 03/19/20 03/19/20 release gabapentin 300 mg capsule 300 mg PO TID 03/19/20 03/19/20 hydrochlorothiazide 12.5 mg capsule 12.5 mg PO QAM 03/19/20 03/19/20 hydrocodone 5 mg-acetaminophen 325 1 tab PO Q4H PRN Pain 03/19/20 03/19/20 mg tablet omeprazole 40 mg capsule,delayed 40 mg PO QDAY 03/19/20 03/19/20 release prednisone 10 mg tablet 30 mg PO QDAY 03/19/20 03/19/20 risperidone 2 mg tablet 2 mg PO BID 03/19/20 03/19/20 Previous Rx's ?Medication ?Instructions ?Recorded metronidazole 500 mg tablet 500 mg PO Q8H #20 tabs 03/20/20 acetaminophen 325 mg tablet 650 mg (2 x 325 mg) PO Q4H #60 tabs 03/26/20 (Tylenol) hydrocodone 5 mg-acetaminophen 325 1 tab PO BID PRN pain #6 tabs 12/30/21 mg tablet psyllium 1 tbsp PO QDAY #300 grams 03/21/23 albuterol sulfate 90 mcg/actuation 2 inh inhalation QID PRN shortness 09/26/24 aerosol inhaler of breath or wheezing #8.5 grams prednisone 50 mg tablet 50 mg PO QDAY #3 tabs 09/26/24 fluconazole 150 mg tablet 150 mg PO Q3D 2 doses #2 tabs 09/27/24 albuterol sulfate 90 mcg/actuation 2 puff inhalation Q6H PRN 02/19/25 aerosol inhaler shortness of breath or wheezing #8.5 grams lidocaine 4 % topical patch 1 patch topical QID PRN pain #15 ea 03/15/25 (Lidocaine Pain Relief) cephalexin 500 mg capsule 500 mg PO TID #15 caps 05/15/25 ibuprofen 600 mg tablet 600 mg PO Q8H PRN pain #30 tabs 06/03/25 sulfamethoxazole 800 1 tab PO BID #10 tabs 06/06/25 mg-trimethoprim 160 mg tablet (Bactrim DS) fosfomycin tromethamine 3 gram 1 packet PO Q OTHER DAY 3 doses #3 08/02/25 oral packet ea albuterol sulfate 90 mcg/actuation 2 inh inhalation Q4H #8.5 grams 08/07/25 aerosol inhaler (Ventolin HFA) amoxicillin 875 mg-potassium 1 tab PO BID #20 tabs 08/07/25 clavulanate 125 mg tablet promethazine-DM 6.25 mg-15 mg/5 mL 5 ml PO Q6H PRN cough #118 mL 08/07/25 oral syrup cephalexin 500 mg capsule 500 mg PO Q12H 7 days #14 caps 09/25/25 albuterol sulfate 90 mcg/actuation 2 inh inhalation Q6H PRN shortness 09/30/25 aerosol inhaler (Ventolin HFA) of breath or wheezing #8.5 grams doxycycline hyclate 100 mg capsule 100 mg PO BID 7 days #14 caps 09/30/25 prednisone 20 mg tablet 20 mg PO BID 4 days #8 tabs 09/30/25 Allergies Allergy/AdvReac Type Severity Reaction Status Date / Time levofloxacin (From Levaquin) Allergy Severe Swelling Verified 09/25/25 19:02 of Lip/Tongue/Throat methotrexate Allergy Severe Redness of Verified 09/25/25 19:02 Skin Review of Systems Review of Systems Systems Reviewed: All systems reviewed, normal except as documented Past Medical History Past Medical History NEUROLOGIC: Positive Neurological Disorders and Nunez's Palsy CARDIAC: Positive Atrial Fibrillation, Angina, Atherosclerotic Heart Disease, Hypercholesterolemia, Congestive Heart Failure and Hypertension RESPIRATORY: Positive Chronic Obstructive Pulmonary Disease (COPD), Asthma and Pneumonia GASTROINTESTINAL: Positive Gastrointestinal Disorders, Gall Bladder Disease, Gastrointestinal Bleed, Diverticulitis, Ulcer, Irritable Bowel, Hiatal Hernia and Gastroesophageal Reflux Disease GENITOURINARY: Positive Genitourinary Disorders, Renal Disease and Kidney Stones REPRODUCTIVE: Positive Endometriosis and Previous Pregnancies MUSCULOSKELETAL: Positive Musculoskeletal Disorders, Rheumatoid Arthritis and Fractures ENT: Positive Cataracts and Glaucoma ENDOCRINE: Positive Endocrine Disorders, Diabetes Mellitus Type 2 and Hypothyroidism; Negative Diabetes Mellitus Type 1 HEMATOLOGIC: Positive Blood Disorders, Anemia and Sickle Cell Disease PSYCHO/SOCIAL: Positive Schizophrenia OTHER HISTORY: Positive Rubella ([place] Measles) and Cervical Cancer Family History FAMILY HISTORY: Positive Family Psychiatric Problems, Family Cardiac Disorders and Family Gastrointestinal Problems Surgical History SURGICAL: Positive Angiogram, Abdominal Surgery and Tubal Ligation Social History SMOKING STATUS: Never smoker SECOND HAND EXPOSURE: No SUBSTANCE USE: methamphetamine ED Exam General Limitations: Present no limitations General appearance: Present alert and in no apparent distress Head Head exam: Present atraumatic, normocephalic and normal inspection Eye Eye exam: Present normal appearance, PERRL and EOMI ENT ENT exam: Present normal exam, normal oropharynx and mucous membranes moist Neck Neck exam: Present normal inspection, full ROM and trachea midline Chest Chest inspection: Present normal inspection and symmetric chest wall rise Respiratory Respiratory exam: Present other (left base crackles) Cardiovascular Cardiovascular exam: Present regular rate, normal rhythm and normal heart sounds Abdominal Exam Abdominal exam: Present soft and normal bowel sounds Extremities Exam Extremities exam: Present normal inspection and full ROM Back Exam Back exam: Present normal inspection and full ROM Neurological Exam Neurological exam: Present alert, oriented X3 and CN II-XII intact Psychiatric Psychiatric exam: Present normal affect and normal mood Skin Skin exam: Present warm, dry, intact and normal color Course Quality Measures none Orders Category Date Time Status CT Screening NOW Care 09/30/25 14:[address] angio chest Stat Exams 09/30/25 14:28 Completed XR chest 2V Stat Exams 09/30/25 12:39 Completed BNP [B-Type Natriuretic Peptide] Stat Lab 09/30/25 13:06 Completed CBC Stat Lab 09/30/25 13:06 Completed CMP [Comprehensive Metabolic Panel] Stat Lab 09/30/25 13:06 Completed D-Dimer Stat Lab 09/30/25 13:06 Completed Drug Screen,Urine Stat Lab 09/30/25 13:13 Completed Ketone [Beta Hydroxybutyrate] Stat Lab 09/30/25 13:06 Completed Lactic Acid [Lactate (Lactic Acid)] Stat Lab 09/30/25 13:06 Completed Lactic Acid, 3 HR Stat Lab 09/30/25 16:19 Ordered Lipase Stat Lab 09/30/25 13:06 Completed UA [Urinalysis] Stat Lab 09/30/25 13:13 Completed VBG [Venous Blood Gas] Stat Lab 09/30/25 13:06 Completed Vital Signs Vital signs: Vital Signs Temperature 98 F 09/30/25 11:43 Pulse Rate 110 H 09/30/25 11:43 Respiratory Rate 18 09/30/25 11:43 Blood Pressure 117/81 09/30/25 11:43 Pulse Oximetry (%) 97 09/30/25 11:43 Oxygen Delivery Method Room Air 09/30/25 11:43 Upper Respiratory Infection MDM Narrative MDM Narrative:: IJanine am scribing for and in the presence of Dr. Flynn. 59-year-old female with cough and sputum production for 2 days. Exam notable for left base crackles. Differential diagnoses include COPD exacerbation, pneumonia, and pulmonary embolism. Chest X ray shows mild prominence of the left ventricle and findings suspicious for pulmonary artery hypertension. Assessment includes COPD, pneumonia, and rule out PE. Patient stable for continued evaluation. BMP is negative. Chest CTA is negative. Mostly likely COPD exacerbation. Will give steroids and discharge to follow up as an outpatient. Patient data External records reviewed:: [facility] previous records Clinical information provided by:: patient Social determinants that could affect healthcare access:: none Patient has the following chronic illnesses:: Past medical history includes congestive heart failure, deep vein thrombosis, hypertension, diabetes mellitus type 2, hypothyroidism, and schizophrenia. How is presenting disease/condition affected by chronic disease/condition?: exacerbated by Evaluation data The following diagnostics were reviewed and interpreted by me:: lab results and radiology exam(s) Lab and/or radiology exams considered but not ordered:: none Interpretation Summary: See MDM narrative above. RADIOLOGY Procedure(s): XR chest 2V Accession Number(s): [id number] cc: Shraddha Becker PA-C; Allan Gan MD; NO PRIMARY/FAMILY,PHYSICIAN~ EXAMINATION: PA lateral chest 2 views TECHNIQUE: Upright PA lateral chest 2 views Date and time: September 30, 2025, 12:47 p.m., comparison August 28, 2025 FINDINGS: Mild prominence left ventricle Prominent central pulmonary arteries No lobar pneumonia or pulmonary edema IMPRESSION: Mild prominence left ventricle Suspicious for pulmonary artery hypertension Dictated By: Allan Gan MD Procedure(s): CT angio chest Accession Number(s): [id number] cc: Estelle Rodriguez MD; Allan Gan MD; NO PRIMARY/FAMILY,PHYSICIAN~ Examination: CTA chest with intravenous contrast 2-D reconstructions 3-D reconstructions, vascular Date and time of exam: September 30, 2025, 1534 hours INDICATIONS: Chest pain shortness of breath beginning 2 days ago, clinical diagnosis pulmonary emboli CTDI: vol (mGy) 21.7 DLP: (mGycm) 395 Technique: Multiple axial sections of the thorax have been obtained. 3 mm slice thickness, from below the hemidiaphragms to above the apices of the lungs. Mediastinal and lung density settings have been obtained. 2-D sagittal and coronal reconstructions. 3-D angiographic renderings, 3-D volume renderings, 3D post processing, vascular maximum intensity projections obtained. Contrast administered is 100 cc Isovue-370. Low dose protocols were performed. One or more of the following dose reduction techniques were used; automated exposure control, adjustment of the mA and/or KV according to patient size, use of iterative reconstruction technique. Findings: No thoracic aortic aneurysmal dilatation Marked enlargement main pulmonary artery segments No pulmonary artery filling defects No mediastinal lymphadenopathy Mild vascular congestion No visualized liver or splenic lesion Absent gallbladder No common bile duct stones Moderate renal scarring Severe osteopenia with moderate to advanced diffuse thoracic degenerative disc disease IMPRESSION: Prominent pulmonary artery hypertension Negative for pulmonary artery emboli No pneumonia or pulmonary edema Dictated By: Allan Gan MD Medications / Prescriptions Medications or Prescriptions considered but not ordered:: none Medication administrations:: see above if any Consultations Consultation(s) initiated? (list below): No Diagnosis Upper Respiratory Differential Diagnosis: other (COPD exacerbation, pneumonia, and pulmonary embolism) Most likely diagnosis given after review of the tests above:: Acute exacerbation of chronic obstructive pulmonary disease Admission Indicated Admission indicated?: not indicated Admission Request Was there a request for admission?: No Disposition Plan Disposition Plan: Discharge Discharge Attestation Discharge Attestation: The patient and all family members were given an opportunity to ask questions and understood the discharge instructions. Discharge instructions specifically effects, indications for sooner follow up or return to the emergency department, and the expected course of current diagnosis. Patient condition: Stable Discharge Plan Plan Patient Disposition: HOME (Self Care) Patient condition on transfer: Stable Prescriptions/Referrals Prescriptions/Med Rec: New prednisone 20 mg tablet 20 mg PO BID 4 Days Qty: 8 0RF Taper: Prednisone Taper 20 mg TWICE A DAY for 4 Days and 0 Hour doxycycline hyclate 100 mg capsule 100 mg PO BID 7 Days Qty: 14 0RF albuterol sulfate [Ventolin HFA] 90 mcg/actuation HFA aerosol inhaler 2 inh inhalation Q6H PRN (Reason: shortness of breath or wheezing) Qty: 8.5 0RF No Action levothyroxine 25 mcg Tablet 25 mcg PO QDAY glipizide 5 mg Tablet 5 mg PO BID prednisone 10 mg tablet 30 mg PO QDAY Rx Instructions: START DATE 03/06/20 hydrocodone-acetaminophen 5-325 mg tablet 1 tab PO Q4H PRN (Reason: Pain) omeprazole 40 mg capsule,delayed release(DR/EC) 40 mg PO QDAY risperidone 2 mg tablet 2 mg PO BID hydrochlorothiazide 12.5 mg capsule 12.5 mg PO QAM gabapentin 300 mg capsule 300 mg PO TID duloxetine 60 mg capsule,delayed release(DR/EC) 60 mg PO QDAY metronidazole 500 mg tablet 500 mg PO Q8H Qty: 20 0RF atorvastatin 40 mg tablet 40 mg PO HS Patient Comments: take 1 tablet by mouth at bedtime acetaminophen [Tylenol] 325 mg tablet 650 mg PO Q4H Qty: 60 0RF hydrocodone-acetaminophen 5-325 mg tablet 1 tab PO BID MDD 10 PRN (Reason: pain) Qty: 6 0RF fluconazole 150 mg tablet 150 mg PO Q3D Qty: 2 0RF albuterol sulfate 90 mcg/actuation HFA aerosol inhaler 2 puff inhalation Q6H PRN (Reason: shortness of breath or wheezing) Qty: 8.5 0RF lidocaine [Lidocaine Pain Relief] 4 % adhesive patch,medicated 1 patch topical QID PRN (Reason: pain) Qty: 15 0RF ibuprofen 600 mg tablet 600 mg PO Q8H PRN (Reason: pain) Qty: 30 0RF sulfamethoxazole-trimethoprim [Bactrim DS] 800-160 mg tablet 1 tab PO BID Qty: 10 0RF psyllium Powder 1 tbsp PO QDAY Qty: 300 0RF Rx Instructions: mix into at least 8 oz of water or juice before administering albuterol sulfate 90 mcg/actuation HFA aerosol inhaler 2 inh inhalation QID PRN (Reason: shortness of breath or wheezing) Qty: 8.5 0RF prednisone 50 mg tablet 50 mg PO QDAY Qty: 3 0RF cephalexin 500 mg capsule 500 mg PO TID Qty: 15 0RF fosfomycin tromethamine 3 gram packet 1 packet PO Q OTHER DAY Qty: 3 0RF promethazine-DM 6.25-15 mg/5 mL syrup 5 ml PO Q6H PRN (Reason: cough) Qty: 118 0RF albuterol sulfate [Ventolin HFA] 90 mcg/actuation HFA aerosol inhaler 2 inh inhalation Q4H Qty: 8.5 0RF amoxicillin-pot clavulanate 875-125 mg tablet 1 tab PO BID Qty: 20 0RF cephalexin 500 mg capsule 500 mg PO Q12H 7 Days Qty: 14 0RF Referrals: No Primary/Family,Physician [Primary Care Provider] - In 1 week Problem List Clinical Impression: Acute exacerbation of chronic obstructive pulmonary disease Patient/Caregiver Discharge Instructions Discharge Activity: other Other Activity Instructions:: Avoid smoking Use your inhaler Take the antibiotic and the steroid as prescribed Follow-up with your doctor in 4 days Education Materials: COPD: Chronic Coughing, Chronic Lung Disease Quit Smoking, Pulmonary Rehabilitation, If Oxygen Is Prescribed Print Language: Guinean Stand Alone Forms: [employer] Info., Patient Portal Info Letter
[2025-09-30 14:56] LABS: D-Dimer 359 ng/mL (<600)
[2025-09-30 15:11] LABS: Fentanyl Screen,Urine Negative (Negative)
[2025-09-30 15:19] LABS: B-Type Natriuretic Peptide < 20 pg/mL (0-100)
[2025-09-30 16:19] LABS: Reflex Lactate? Y
[2025-09-30 16:28] VITALS: BP 114/75; PULSE 83; RESP 17; TEMP 36.8; O2SAT 100
[2025-09-30 16:50] VITALS: BP 114/75; PULSE 87; RESP 16; O2SAT 94
== END 2025-09-30 16:50 | disposition home or self-care (01) ==
PROVIDERS: Physician Assistant; Emergency Provider Emergency Medicine
DX: J44.1 Chronic obstructive pulmonary disease with (acute) exacerbation (principal)
CPT/HCPCS: 36415; 71046; 71275; 80053; 80307; 81001; 82010; 82803; 83605; 83690; 83880; 85025; 85379; 99283; A4649; Q9967

== ENCOUNTER → 2025-10-11 | Outpatient (CLI) | payer OTHER, MEDICAID, SELFPAY ==
--- NOTE | 2025-10-11 15:58 | EKG_ITS ---
[facility] Test Date: 2025-10-11 Pat Name: MELVIN SEGURA Department: Room: - Gender: Female Finish Opener: EMILIE : 1965 Requested By: Amandeep Perdue Order Number: [id number] Reading MD: Amandeep Perdue Measurements Intervals [place] Rate: 80 P: 48 SC: 167 QRS: 66 QRSD: 82 T: 56 QT: 385 QTc: 446 Interpretive Statements SINUS RHYTHM Compared to ECG 08/22/2025 21:45:26 No significant changes /store/S0/[id number]
[2025-10-11 17:30] LABS: Basophils # (Auto) 0.1 Thou/mm3 (0.0-0.2); Basophils % (Auto) 1 % (0-2.5); Eosinophils # (Auto) 0.2 Thou/mm3 (0.0-0.5); Eosinophils % (Auto) 2 % (0-10); Hematocrit 47.9 % (36.0-46.0); Hemoglobin 15.2 g/dL (12.0-16.0); Immature Granulocytes Auto 0.04 Thou/mm3 (0.00-0.00); Lymphocytes # (Auto) 2.3 Thou/mm3 (1.0-4.8); Lymphocytes % (Auto) 22 % (10-50); Mean Corpuscular HGB Conc 31.7 g/dl (31.0-37.0); Mean Corpuscular Hemoglobin 27.7 pg (25.0-35.0); Mean Corpuscular Volume 87 fL (80-100); Monocytes # (Auto) 0.5 Thou/mm3 (0.0-0.8); Monocytes % (Auto) 5 % (0-12); Neutrophils # (Auto) 7.2 Thou/mm3 (1.8-7.7); Neutrophils % (Auto) 69 % (37-80); Nucleated Red Blood Cell # 0.00 Thou/mm3 (0.00-0.00); Nucleated Red Blood Cell % 0 /100 WBC (0); Platelet Count 294 Thou/mm3 (140-440); RDW Standard Deviation 45.3 fL (36.4-46.3); Red Blood Count 5.48 Miln/mm3 (4.00-5.20); White Blood Count 10.4 Thou/mm3 (3.6-11.0)
[2025-10-11 17:39] LABS: Anion Gap 10 (7-16); BUN/Creatinine Ratio 14 Ratio (12-20); Blood Urea Nitrogen 11 mg/dL (9-23); Calcium 8.8 mg/dL (8.3-10.6); Carbon Dioxide 27.3 mMol/L (20.0-31.0); Chloride 105 mMol/L (98-107); Creatinine (Component) 0.8 mg/dL (0.6-1.3); Glucose 93 mg/dL (74-106); Osmolality,Calculated 282 (275-295); Potassium 3.8 mMol/L (3.4-5.1); Sodium 142 mMol/L (136-145); eGFR > 60 See Note
[2025-10-11 17:51] LABS: COVID-19 Antigen (In-House) Negative (Negative)
[2025-10-11 17:56] LABS: INR 1.0 (0.9-1.3); Partial Thromboplastin Time 25.2 Seconds (22.0-36.0); Prothrombin Time 10.2 Seconds (9.0-12.2)
== END | disposition home or self-care (01) ==
LOC: SLAB 10-13 09:34
PROVIDERS: PCP Internal Medicine; Referring Provider Internal Medicine; Visit Provider Internal Medicine
DX: I25.10 Atherosclerotic heart disease of native coronary artery without angina pectoris (principal); I48.91 Unspecified atrial fibrillation; R07.89 Other chest pain
CPT/HCPCS: 36415; 80048; 85025; 85610; 85730; 87811; 93005